=== PATIENT | female | born 1955 | race Caucasian/White ===

== ENCOUNTER 2023-04-08 10:00 | Outpatient (RCR) | payer MEDICARE, BC, SELFPAY | END 2023-08-06 23:59 | disposition home or self-care (01) | PROVIDERS: PCP Internal Medicine; Visit Provider Family Medicine | DX: N32.81 Overactive bladder (principal); N39.46 Mixed incontinence; N39.44 Nocturnal enuresis; K59.00 Constipation, unspecified; R27.9 Unspecified lack of coordination; Z51.89 Encounter for other specified aftercare | CPT/HCPCS: 97112; 97140; 97163; 97535 ==

== ENCOUNTER 2024-03-27 11:46 | Outpatient (CLI) | payer MEDICARE, BC, SELFPAY ==
--- OUTSIDE RECORDS SUMMARY | 2024-03-31 22:36 | XMS_ITS ---
Author Organization [facility] Address [address] [place] [address] Care Team Providers Care Furnace Tapper Name Role Phone Unavailable Unavailable Unavailable Surgery Details Not on file Complications Check Surgery Details section. Procedure Estimated Blood Loss Check Surgery Details section. Procedure Findings Check Surgery Details section. Procedure Specimens Taken Check Surgery Details section.
--- OUTSIDE RECORDS SUMMARY | 2024-03-31 22:36 | XMS_ITS | Encounter Summary ---
Author Organization [facility] Address [address] [place] [address] Care Team Providers Care Clinic Administrator Name Role Phone Elsewhere, Pcp Primary Care Provider Unavailabl e Reason for Visit * Auth/Cert (Routine) Specialty Diagnoses / Procedures Referred By Marco Antonio doshi Referred To Contact Diagnoses Overactive Bladder Overactive Bladder [N32.81] Procedures SACRAL NERVE STIMULATOR - STAGE II, NONRECHARGEABLE, INTERSTIM X, VS LEAD REMOVAL Referral ID Status Reason Start Date Expiration Date Visits Re quested Visits Authorized [id number] 1 1 Encounter Details Date Type Department Care Team ([facility] st Contact Info) Description 02/24/2024 8:04 AM CDT Anesthesia Event [facility] [address] [place] [address] Patrice Naidu M.D. [address] [place] [phone] Keon Nichols M.D. [address] [place] [phone] Anesthesia Record Procedure Summary Procedure Name Responsible Anesthesiologist Anesthesia Start Time Anesthesia Stop Time REMOVAL STIMULATOR SACRAL NERVE (Back) Patrice Naidu M.D. 02/24/24 0804 02/24/24 0950 Events Date Time Event Comment 02/24/2024 0738 0804 An Start Machine/Equipme nt Checked Infection Precautions Followed Procedure/Site Verified NPO Status Verified Supine Standard ASA Monitors Applied 0810 An Induction 0817 An Intubation 0822 Turnover to Proceduralist 0828 Quick Note Safely Position ed prone. 0851 Proc Start 0851 Quick Note Local injected by surgeon 0901 Anes CS Handoff I, Joshua Ugarte, OPTICAL STORE MANAGER, PRESS OPERATOR APPRENTICE, DNAP, attest that I have reconciled the controlled substances and that I have reviewed all the significant information with the next anesthesia provider assuming care of this patient. 0919 Anes CS Handoff I, Rosalie mack, OPTICAL STORE MANAGER, PRESS OPERATOR APPRENTICE, DNAP, attest that I have reconciled the controlled substances and that I have reviewed all the significant information with the next anesthesia provider assuming care of this patient. 0921 Proc Fin 0933 Turnover to ANE Staff 0938 Airway Removal Criteria Met 0938 Extubation/Airway Removed 0940 an stop data 0950 An End I completed my handoff to the receiving staff during which we 1. Identified the patient 2. Identified the responsible provider 3. Reviewed the pertinent medical history 4. Discussed the surgical course 5. Reviewed intra-op anesthesia management and issues during anesthesia 6. Set expectations for post-procedure period 7. Allowed opportunity for questions and acknowledgement of understanding. Meds Name Total fentanyl injection 50 mcg/mL 150 mcg lidocaine 2% (mg) injection 60 mg rocuronium 10 mg/mL injection 50 mg ondansetron 4 mg/2 mL injection 4 mg sugammadex 100 mg/mL injection 150 mg propofol 10 mg/mL infusion 539.98 mg propofol 10 mg/mL injection 70 mg gentamicin in NaCl 0.9 % (iso osm) IVPB 100 mg (Garamycin) 98.1 mg vancomycin in NaCl 0.9 % IVPB 1,000 mg 0 mg dexAMETHasone (Decadron) injection 4 mg/ mL 4 mg insulin aspart (NovoLOG) injection 100 U nits/mL 6 Units Lactated Ringers Free Drip 800 mL lactated ringers free drip 200 mL * Agents No agents on file. * Blood No blood administrations on file. Lines, Drains, and Airways Type Details Placement Removal Wound 02/24/24; N; Incisio n; Back; Mid, Lower; Primapore and Dermabond 02/24/24 0000 by Loli Mazariegos, RKyleNKyle Wound 02/24/24; N; Incisio n; Back; Lower, Right; Primapore and Dermabond 02/24/24 0000 by Loli Mazariegos R.N. Wound 02/10/24; N; Incisio n; Buttocks; Right, Upper; dermabond, primapore; 02/24/24; 0820; Wound healed 02/10/24 0000 by Irma Scott R.N. 02/24/24 0820 by Loli Mazariegos R.N. Wound 02/10/24; Incision; Buttocks; Left; dermabond, primapore; 02/24/24; 0820; Wound healed 02/10/24 0000 by Irma Scott R.N. 02/24/24 0820 by Loli Mazariegos R.N. Wound 02/10/24; Puncture ( with lead); Buttocks; Left, Upper; dermabond, gauze, tegaderm, mepilex; 02/24/24; 0820; Wound healed 02/10/24 0000 by Irma Scott R.N. 02/24/24 0820 by Loli Mazariegos R.N. Peripheral IV Placement Date: 02/01 11/24; Placement Time: 06; Catheter Size: 20 G; Orientation: Left, Lower, Posterior, Proximal; Location: Forearm; Site Prep: Chlorhexidine (Preferred); Technique: Anatomical landmarks; Inserted by: [facility]; Insertion Attempts: 1; Removal Date: 02/24/24; Removal Time: 11202/24/24 06 by French Rizzo 02/24/24 112 by Qian Farrell RNatasha ETT Placement Date: 02/01 11/24; Placement Time: 08 (created via procedure documentation); Mask Ventilation: Oral/Nasal airway needed; Technique: Video laryngoscopy; Type: Standard ETT; Single Lumen Tube Size: 7 mm; Cuffed: Yes; Location: Oral; Grade View: Grade 2A; Insertion Attempts: 1; Placement Verification: Bilateral breath sounds, Positive ETCO2, Symmetrical chest wall movement; Airway Comment: Glidescope used because patient Taking Ozempic. Smooth intubation without evidence of gastric contents. ; Removal Date: 02/24/24; Removal Time: 93702/24/24 0817 by Joshua Garnett APRN, CRNA, DNAZakiya 02/24/24 0938 by Joshua Garnett APRN, CRNA, DNAP Peripheral IV Placement Date: 02/01 11/24; Placement Time: 820; Catheter Size: 20 G; Orientation: Right; Location: Hand; Removal Date: 02/24/24; Removal Time: 112602/24/24 08 by Joshua Garnett APRN, CRNA, DNAP 02/24/24 112 by Qian Farrell RKyleNKyle documented in this encounter Social History Tobacco Use Types Packs/Day Years Used Date Smoking Tobacco: Never Passive Smoke Exposure: Never Smokeless Tobacco: Never Comments:Have never lived wi th smokers. Alcohol Use Standard Drinks/Week Comments Yes 2 (1 standard drink = 0.6 oz pur e alcohol) Overall Financial Resource Strain (CARDIA) Answe r Date Recorded How hard is it for you to pa y for the very basics like food, housing, medical care, and heating? Not hard at all 06/09/2023 PHQ-2 Answer Date Recorded PHQ-2 Score 0 08/31/2023 Exercise Vital Sign Answer Date Recorde d On average, how many days pe r week do you engage in moderate to strenuous exercise (like a brisk walk)? 1 day 05/28/2023 On average, how many minutes do you engage in exercise at this level? 60 min 05/28/2023 Hunger Vital Sign Answer Date Recorded Within the past 12 months, y ou worried that your food would run out before you got the money to buy more. Never true 06/09/20 23 Within the past 12 months, t he food you bought just didn't last and you didn't have money to get more. Never true 06/09/2023 PRAPARE - Transportation Answer Date Re corded In the past 12 months, has l ack of transportation kept you from medical appointments or from getting medications? No 01/2023 In the past 12 months, has l ack of transportation kept you from meetings, work, or from getting things needed for daily living? No 06/09/2023 Depression Answer Date Recor ded PHQ-9 Total Score (max 27) 2 08/31 Nutrition Answer Date Recorded On average, how many serving s of fruits and vegetables do you eat per day (serving size is equal to 1 cup or approximately the size of a tennis ball)? 3-5 05/28/2023 Dental Answer Date Recorded Dental: Regular Dentist Yes 05/28/20 Employment Answer Date Recorded Employment status Retired 05/28/2023 Housing Stability Answer Date Recorded What is your living situation today? I have a [facility] place to live 06/09/2023 Sex and Gender Information Value Date Recorded Sex Assigned at Female 05/16/2023 3:29 PM CDT Gender Identity Female 05/16/2023 3:29 PM CDT Sexual Orientation Straight 05/16/2023 3: 29 PM CDT documented as of this encounter OR Notes * Anesthesia Postprocedure Evaluation - Patrice Naidu M.D. - 02/24/2024 10:02 AM CDT Patient: Saadia Summers Procedure Summary Date: 02/24/24 Room / Location: [address] [facility] in [place], [place] Anesthesia Start: 803 Anesthesia Stop: 949 Procedure: REMOVAL STIMULATOR SACRAL NERVE (Back) Diagnosis: Overactive Bladder (Overactive Bladder [N32.81].) Providers: Israel Christianson M.D. Responsible Provider: Patrice Naidu M.D. Anesthesia Type: general ASA Status: 3 Anesthesia Type: general Last vitals Vitals Value Taken Time BP 149/80 02/24/24 1000 Temp 36.5 ??C 02/24/24 0945 Pulse 77 02/24/24 1001 Resp 11 02/24/24 1001 SpO2 95 % 02/24/24 1001 Vitals shown include unfiled device data. Please reference Vitals flowsheet for most recent vital signs. Anesthesia Post Evaluation Cardiovascular status: hemodynamics (HR & BP) acceptable Respiratory status: patent airway with spontaneous effort Temperature: normothermic Oxygen requirements: room air Level of consciousness: awake Pain score: pain adequately controlled and/or at baseline Post Op nausea/vomiting: none Hydration status: euvolemic Comments: Visited in PACU, awake, appropriate, no perianesthetic complaints. * Anesthesia Procedure Notes - Joshua Garnett APRN, CRNA, DNAP - 02/24/2024 8:35 AM CDTAssociated Order(s): Airway Airway Date/Time: 02/24/2024 8:17 AM Performed by: Joshua Garnett APRN, CRNA, DNAP Authorized by: Keon Nichols M.D. Patient location during procedure: OR / Procedure Area PROCEDURE DETAILS: Mask difficulty assessment: oral/nasal airway needed Final airway type: video laryngoscope Laryngeal Manipulation: no Final best view of glottic structures - Cormack/Lehane Score: grade 2A ETT location: oral VL device: glide scope [place] scope blade size: 3 Tube size: 7 ETT distance at teeth/gum: 21 Oral tube type: standard ETT Cuffed: yes Leak Test Performed: no Number of attempt to successful placement: 1 Airway confirmation: bilateral breath sounds, positive ETCO2 and bilateral chest rise Other previous techniques attempted: none Additional Comments Glidescope used because patient Taking Ozempic. Smooth intubation without evidence of gastric contents. PRE PROCEDURE DETAILS: Pre evaluation for airway management: procedure Urgency: elective Preop assessment of probable difficulty: questionable / suspicious difficult airway Preoxygenation: bag valve mask SEDATION / ANESTHESIA Anesthesia method: anesthesia POST PROCEDURE DETAILS: Procedure outcome: successful Notable Events: no complications * Anesthesia Preprocedure Evaluation - Keon Nichols M.D. - 02/24/2024 7:37 AM CDT Preprocedure Anesthesia & H&P Assessment Procedure Summary Date/Time: 02/24/24744 Procedure: REMOVAL STIMULATOR SACRAL NERVE Diagnosis: Overactive Bladder [N32.81] Pre-op diagnosis: Overactive Bladder [N32.81]. Location: [address] [facility] in [place], [place] Providers: Israel Christianson M.D. Pertinent components of the patient's history including current problem list, medical history, surgical history, family history, social history, medications and allergies were reviewed. Present illness and pre-op diagnosis were confirmed. The planned surgery / procedure was verified with the patient / legal guardian. The patient's general health condition remains unchanged RELEVANT COMORBID CONDITIONS CV (+) Atherosclerotic Heart Disease Of [place] Coronary Artery Without Angina Pectoris (+) Hypertension Essential Primary RENAL/REPRO (+) Chronic Kidney Disease (CKD), Stage 3a Glomerular Filtration Rate (GFR) 45 To 59 (HCC) PSYCH (+) Depression Major Recurrent Moderate (HCC) OBJECTIVE PHYSICAL EXAMINATION Airway (HEENT) Mallampati: II Cardiovascular Rhythm: Regular Pulmonary Pulmonary Assessment: Clear General / Constitutional Constitutional Assessment: Normal ASSESSMENT / PLAN ANESTHESIA PLAN ASA: 3 Anesthesia Plan: general Patient seen and allergies reviewed, anesthesia plan and risks discussed directly with patient /legal guardian or through an inletter. The use of blood products not discussed Approval to Proceed: approved for anesthesia documented in this encounter Plan of Treatment Not on file documented as of this encounter Procedures Procedure Name Priority Date/Time Associated Diagnosis Comments LDA ANE ENDOTRACHEAL AIRWAY Routine 02/24/2024 8:17 AM CDT documented in this encounter Results * LDA ANE ENDOTRACHEAL AIRWAY (02/24/2024 8:17 AM CDT) Narrative Joshua Garnett APRN, CRNA, DNAP - 02/24/2024 8:17 AM CDT Joshua Garnett APRN, CRNA, DNAP ? 02/24/2024 ??8:38 AM Airway Date/Time: 02/24/2024 8:17 AM Performed by: Joshua Garnett APRN, CRNA, DNAP Authorized by: Keon Nichols M.D. ?? Patient location during procedure: OR / Procedure Area PROCEDURE DETAILS: Mask difficulty assessment: oral/nasal airway needed Final airway type: video laryngoscope Laryngeal Manipulation: no ?? Final best view of glottic structures - Cormack/Lehane Score: grade 2A ETT location: oral VL device: glide scope [place] scope blade size: 3 Tube size: 7 ETT distance at teeth/gum: 21 Oral tube type: standard ETT Cuffed: yes Leak Test Performed: no ?? Number of attempt to successful placement: 1 Airway confirmation: bilateral breath sounds, positive ETCO2 and bilateral chest rise Other previous techniques attempted: none Additional Comments Glidescope used because patient Taking Ozempic. Smooth intubation without evidence of gastric contents. ?? PRE PROCEDURE DETAILS: Pre evaluation for airway management: procedure Urgency: elective Preop assessment of probable difficulty: questionable / suspicious difficult airway Preoxygenation: bag valve mask SEDATION / ANESTHESIA Anesthesia method: anesthesia POST PROCEDURE DETAILS: ? Procedure outcome: successful ?? Notable Events: no complications Keon Nichols M.D. ANESTHESIA ORDERA BLES documented in this encounter Visit Diagnoses Not on filedocumented in this encounter Administered Medications Inactive Administered Medications - up to 3 most recent administrations Medication Order MAR Action Action Date Dose Rate Site dexAMETHasone injection (Decadron) intravenous, As needed, Starting on Thu02/24/24 at 0841, Anesthesia Intra-op Given 02/24/2024 8:41 AM CDT 4 mg fentaNYL injection (Sublimaze) intravenous, As needed, Starting on Thu02/24/24 at 0811, Anesthesia Intra-op Given 02/24/2024 8:51 AM CDT 50 mcg Given 02/24/2024 8:11 AM CDT 100 mcg gentamicin in NaCl 0.9 % (iso osm) IVPB 100 mg (Garamycin) 100 mg (rounded from 98.1 mg = 1.5 mg/kg ? 65.4 kg Adjusted weight), intravenous, at 100 mL/hr, Administer over 30 Minutes, Once, On Thu02/24/24 at 0815, For 1 dose, Pre-Op, Drug Monitoring Program: Pharmacist to adjust medication dosing based on indication and drug clearance factors., Indications: Prophylaxis, surgical Given 02/24/2024 8:33 AM CDT [id number] 09 mg insulin aspart U-100 injection (NovoLOG) subcutaneous, As needed, Starting on Thu02/24/24 at 0924, Anesthesia Intra-op Given 02/24/2024 9:24 AM CDT 6 Units Lactated Ringer's intravenous, Continuous Infusion: Per Instructions PRN, Starting on Thu02/24/24 at 0805, Anesthesia Intra-op New Bag 02/24/2024 8:05 AM CDT Lactated Ringer's intravenous, Continuous Infusion: Per Instructions PRN, Starting on Thu02/24/24 at 0821, Anesthesia Intra-op New Bag 02/24/2024 8:21 AM CDT lidocaine (PF) (cardiac) injection intravenous, As needed, Starting on Thu02/24/24 at 0811, Anesthesia Intra-op Given 02/24/2024 8:11 AM CDT 60 mg ondansetron (PF) injection (Zofran) intravenous, As needed, Starting on Thu02/24/24 at 0905, Anesthesia Intra-op Given 02/24/2024 9:05 AM CDT 4 mg propofol 10 mg/mL infusion (Diprivan) intravenous, Continuous Infusion: Per Instructions PRN, Starting on Thu02/24/24 at 0811, Anesthesia Intra-op Rate/Dose Change 02/24/2024 9:10 AM CDT 75 mcg/kg/min 31.455 mL/hr Rate/Dose Change 02/24/2024 8:54 AM CDT 100 mcg/kg/min 41. 94 mL/hr New Bag 02/24/2024 8:11 AM CDT 125 mcg/kg/min 52.425 mL /hr propofoL injection (Diprivan) intravenous, As needed, Starting on Thu02/24/24 at 0812, Anesthesia Intra-op Given 02/24/2024 8:12 AM CDT 70 mg rocuronium injection (Zemuron) intravenous, As needed, Starting on Thu02/24/24 at 0812, Anesthesia Intra-op Given 02/24/2024 8:12 AM CDT 50 mg sugammadex injection ([place]) intravenous, As needed, Starting on Thu02/24/24 at 0933, Anesthesia Intra-op Given 02/24/2024 9:33 AM CDT 150 mg documented in this encounter Additional Health Concerns Assessment Noted Time PHQ-9 Depression Total Score: 2 08/31/19 24 2:23 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
--- OUTSIDE RECORDS SUMMARY | 2024-03-31 22:36 | XMS_ITS | Clinical Summary ---
Author Organization [facility] Address [address] [place] [address] Care Team Providers Care Title Vehicle Service Attendant Name Role Phone Elsewhere, Pcp Primary Care Provider Unavailabl e Source Comments Patient records contain information from all sites at [facility]. For routine questions regarding patient records, call [phone] during business hours, M-F 8:00 AM - 5:00 PM Central Time. Record requests for emergency care only can be directed to [phone] at any time.[facility] Allergies Active Allergy Reactions Criticality Noted Date Comments Ciprofloxacin Other (see comments) High 05/18/2015 Loss sense of smell Other reaction(s): LOST HER SENSE OF SMELL Clindamycin Rash Low 09/25/2005 Rash per patient history Lisinopril Cough Low 05/19/2017 Other reaction(s): COUGH Losartan Angioedema 05/20/2017 Naproxen Other (see comments) Low 01/18/2015 Feels light-headed and icky. Other reaction(s): LIGHTHEADED Medications Medication Sig Dispensed Refills Start Date End Date Status kumnhikx-lsu-gjil- FA-vit K-lut (Centrum Silver Women) 8 mg iron-400 mcg-50 mcg tablet Take 1 tablet by mouth daily. Active amLODIPine (NORVASC) 2.5 mg tablet Take 2.5 mg by mouth daily. Active atenoloL (TENORMIN) 50 mg tablet Take 1 tablet by mouth 2 (two) times a day. 10/02/2022 Active atorvastatin (LIPITOR) 20 mg tablet Take 1 tablet by mouth daily. 10/02/2022 Active clonazePAM (KlonoPIN) 0.5 mg tablet Take 0.5 mg by mouth daily as needed for anxiety. Active DULoxetine (CYMBALTA) [address] capsule Take 30 mg by mouth at bedtime. 10/02/2022 Active DULoxetine (CYMBALTA) [address] capsule Take 60 mg by mouth daily. Daily in the AM 10/02/2022 Activ e Lactobac 40-Bifido 3-S.thermop (Probiotic) 100 billion cell capsule Take 1 tablet by mouth daily. Active mirabegron (MYRBETRIQ) 50 mg 24 hr tablet Take 1 tablet by mouth daily. Active polyethylene glycol (MIRALAX) 17 gram/dose oral powder Take 17 g by mouth daily. Active senna 8.6 mg tablet Take 2 tablets by mouth 2 (two) times a day. Active cholecalciferol (Vitamin D3) 50 mcg (2,000 Unit) tablet Take 50 mcg by mouth daily. Active estradioL (ESTRACE) 0.1 mg/g (0.01%) vaginal cream Insert 2 g into the vagina 2 (two) times a week. 02/11/2023 Active UNABLE TO FIND Take 1 each by mouth daily. Med Name: Uqora Defend Active UNABLE TO FIND Take 2 each by mouth daily. Med Name: U[place]ora Protect Active UNABLE TO FIND Take 2 each by mouth once a week. Med Name: Uqora Flush packets Active amoxicillin (AMOXIL) 500 mg capsule Take 2,000 mg by mouth as needed (dental procedures). Take 4 capsules 1 hour prior to dental procedures Active calcium carb/vit D3/minerals (CALTRATE 600+D PLUS MINERALS ORAL) Take 1 tablet by mouth 2 (two) times a day. Active semaglutide (OZEMPIC) 1 mg/dose (4 mg/3 mL) injection Inject 1 mg under the skin every 7 (seven) days. 3 mL 11 06/04/2023 Active trazodone HCl (TRAZODONE ORAL) Take 50 mg by mouth at bedtime. Active fish oil 500 mg capsule Take 3 capsules by mouth daily. Active cyclobenzaprine (FLEXERIL) 10 mg tablet TAKE 1 TABLET (10 MG) BY MOUTH 3 TIMES DAILY IF NEEDED FOR MUSCLE SPASM. 06/13/2022 Active glipiZIDE (GLUCOTROL) 10 mg tablet Take 10 mg by mouth daily. Take 1 Tablet (10 mg) by mouth once daily before a meal. Take 30 minutes before the meal. 10/27/2023 Active blood-glucose meter (Contour Next EZ Meter) [facility] See Admin Instructions. Active blood sugar diagnostic strips (Contour Next Test Strips) TEST 2 TIMES/DAY. Active BIOTIN ORAL Take 2,500 mcg by mouth daily. 11/02/2023 Active aspirin 325 mg tablet Take 1 tablet (325 mg total) by mouth daily. You may restart your anticoagulation 24 hours after your procedure 02/10/2024 Active acetaminophen (TylenoL) 500 mg tablet Take 2 tablets (1,000 mg total) by mouth every 6 (six) hours as needed for pain. Alternate with ibuprofen every 3 hours. Do not exceed 4000 mg or 4 g in 24 hours. 02/10/2024 Active ibuprofen 200 mg tablet Take 3 tablets (600 mg total) by mouth every 6 (six) hours as needed for pain. Alternate with acetaminophen every 3 hours. 02/10/2024 Active sennosides-docusat e sodium (Senokot-S) 8.6-50 mg per tablet Take 1 tablet by mouth 2 (two) times a day as needed for constipation. While on narcotics. 02/10/2024 Active acetaminophen (TylenoL) 500 mg tablet Take 2 tablets (1,000 mg total) by mouth every 6 (six) hours as needed for pain. Alternate with ibuprofen every 3 hours. Do not exceed 4000 mg or 4 g in 24 hours. 02/24/2024 Active ibuprofen 200 mg tablet Take 3 tablets (600 mg total) by mouth every 6 (six) hours as needed for pain. Alternate with acetaminophen every 3 hours. 02/24/2024 Active Active Problems Problem Noted Date Diagnosed Date Diabetes Mellitus Type 2 06/02/2023 Constipation 06/02/2023 Incontinence Urinary 06/02/2023 Infection Urinary Tract Personal History 023 Autonomic Disorder 06/02/2023 Hypotension 06/02/2023 Chronic Kidney Disease (CKD) , Stage 3a Glomerular Filtration Rate (GFR) 45 To 59 06/02/2023 Dysfunction Pelvic Floor 06/02/2023 Overactive Bladder 04/22/2022 Chronic Insomnia Disorder 08/19/2018 Depression Major Recurrent Moderate 03/18/2018 Anxiety 01/07/2018 Apnea Sleep Obstructive 01/01/2017 Atherosclerotic Heart Diseas e Of [place] Coronary Artery Without Angina Pectoris 07/08/2015 Loss Hearing Sensorineural Bilateral 10/14/2012 Adjustment Disorder Mixed Reaction 06/21/2007 Hypertension Essential Primary 11/25/2006 Encounters Date Type Department Care Team Description 03/04/2024 Clinical Communication Department of Obstetrics and Gynecology in [place], [place] [address] [place] [address] Gio Sol R.N., C.M.S.R.N. 02/24/2024 8:04 AM CDT Anesthesia Event [facility] MAIN OR [address] [place] [address] Patrice Naidu M.D. Vasdev, Gurinder M, M.D. 02/24/2024 7:45 AM CDT - 02/24/2024 9:54 AM CDT Surgery [facility] [address] [place] [address] Israel Christianson M.D. REMOVAL STIMULATOR SACRAL NERVE 02/24/2024 6:08 AM CDT - 02/24/2024 11:31 AM CDT Hospital Encounter Outpatient Surgery Unit in [place], [place] [address] [place] [address] Israel Christianson M.D. Discharge Disposition: Home or Self Care 02/17/2024 Clinical Communication Department of Obstetrics and Gynecology in [place], [place] [address] [place] [address] Gio Sol R.N., C.M.S.R.N. 02/10/2024 7:44 AM CDT Anesthesia Event Outpatient Procedure Center in [place], [place] [address] [place] [address] Edita Mancuso APRN, MARCO A 02/10/2024 7:30 AM CDT - 02/10/2024 10:00 AM CDT Surgery [facility] in [place], [place] [address] [place] [address] Israel Christianson M.D. SACRAL NERVE STIMULATOR, STAGE I, NONRECHARGEABLE. 02/10/2024 6:30 AM CDT - 02/10/2024 12:02 PM CDT Hospital Encounter Outpatient Procedure Center in [address] [address] Israel Christianson M.D. Discharge Disposition: Home or Self Care 02/01/2024 11:21 AM CDT - 02/01/2024 11:59 PM CDT Hospital Encounter Department of Laboratory Medicine and Pathology, [facility] in [address] [address] Israel Christianson M.D. Preoperative Exam; Preprocedural Lab Exam Discharge Disposition: Home or Self Care 02/01/2024 10:30 AM CDT Comprehensive Visit Preoperative Evaluation Center in [address] [address] Israel Christianson M.D. Belch, Lisa M, RHIANNON, C.N.P., M.S.N. Preoperative Exam (Primary Dx); Incontinence Urinary; Hypertension Essential Primary; Atherosclerotic Heart Disease Of [place] Coronary Artery Without Angina Pectoris; Hyperlipidemia; Diabetes Mellitus Type 2 ([facility]); Apnea Sleep Obstructive; Chronic Kidney Disease (CKD), Stage 3a Glomerular Filtration Rate (GFR) 45 To 59 ([facility]); Adjustment Disorder Mixed Reaction; Depression Major Recurrent Moderate ([facility]) 01/29/2024 1:00 PM CDT Clinical Communication Virtual Review in [address] [address] Pre-visit Intake 12/31/2023 11:30 AM CDT Office Visit Department of Obstetrics and Gynecology, Division of Urogynecology in [address] [address] Israel Christianson M.D. Incontinence Urinary from Last 3 Months Immunizations Name Administration Dates Next Due DT, Pediatric 09/12/1985,05/10/1979 DTaP (Infanrix, Tripedia) 09/18/2008 H1N1 Inj 06/03/2009 H1N1 Inj Preservative Free 08/10/2009 HZV (ZOSTAVAX) 01/10/2014 HepA Adult 03/31/2001,09/10/2000 HepB Adult 03/31/2001,10/15/2000,09/10/2000 Influenza (IM) Preservative Free 04/18/2010 Influenza TIV (IM) 05/06/2019,06/09/2007 Influenza high dose QV(65 ye ars or older) (PF) 04/14/2021 Influenza, Quadrivalent, Adj uvanted, Preservative Free 05/01/2023,04/16/2022,05/03/2020 Influenza, Seasonal, Injectable 05/07/20 14,05/19/2012,05/16/2011,2006 Influenza, Unspecified 06/09/2007 JE-VC (IXIARO) 07/08/2022 PCV13 05/06/2019 PPSV23 2020 RSV: respiratory syncytial v irus (AREXVY) recombinant vaccine 04/04/2023 RZV (SHINGRIX) 07/13/2018,05/13/2018 SARS-COV-2 (COVID-19) - MODERNA(Discontinued) 09/16/2020 Td (Adult), adsorbed 12/01/2018,08/21/1992 Tdap 09/18/2008 TyVi (inj) 07/08/2022 influenza vaccine quad (FLUZONE/FLUARIX) (6 months and older)(PF) 04/20/2018,05/19/2017,04/18/2016,2014,08/10/2009 Family History Medical History Relation Name Comments Coronary artery disease Father V. Khadar Chaudhary byp ass, heart attack, of myocardial infarction Hyperlipidemia Father V. Khadar Chaudhary Hypertension Father V. Khadar Chaudhary Coronary artery disease Father's Brother 1 Jr Chaudhary of sudden heart attack Coronary artery disease Father's Brother 2 Oz Chaudhary stents Dementia Father's Brother 2 Oz Chaudhary Colon cancer Father's Sister 1 Cynthia Cortezheimer Coronary artery disease Father's Sister 2 Jaja Wenl und stents Dementia Father's Sister 2 Jaja Wenlund Coronary artery disease Father's Sister 3 Brandy Chaudhary of heart attack Hypertension Father's Sister 4 Nicky Pulliam Dementia Father's Sister 5 Malena Ordonezzel Lung cancer Maternal Grandfather Tenzin Boudreaux Obesity Maternal Grandmother Roshni Boudreaux Anxiety disorder Mother Edna Chaudhary Breast cancer Mother Edna Chaudhary of breas t/ovarian cancer 10 years after first diagnosis Colon polyps Mother Ednasalvador Chaudhary Depression Mother Edna Chaudhary Diabetes Mother Edna Chaudhary Type II Hypertension Mother Edna Chaudhary Ovarian cancer Mother Edna Chaudhary Skin cancer Mother Edna Chaudhary squamous cell Thyroid disease Mother Edna Chaudhary took thyroi d medication Skin cancer Mother's Brother Luis Eduardo Boudreaux Skin cancer Mother's Sister 1 Brianna Badillo squamous Diabetes Mother's Sister 2 Mary Jane Gomez Obesity Mother's Sister 2 Mary Jane Gomez Alcohol abuse Paternal Grandfather Micah Chaudhary Asthma Sister 1 Peyton Holmquest Osteoporosis Sister 1 Peyton Holmquest Skin cancer Sister 1 Peyton Holmquest Basal cell Thyroid disease Sister 1 Peyton Holmquest Hernan s disease Thyroid disease Sister 2 Donna Galeano tkes synt hroid Relation Name Status Comments Father VKyle Chaudhary Father's Brother 1 Jr Chaudhary Father's Brother 2 Oz Chaudhary Father's Sister 1 Cynthia Dexheimer Father's Sister 2 Jaja Wenlund Father's Sister 3 Brandy Aguilerae Father's Sister 4 Nicky Pulliam Father's Sister 5 Malena Cuellar Maternal Grandfather Tenzin Boudreaux Maternal Grandmother Roshni Boudreaux Mother Edna Chaudhary Mother's Brother Luis Eduardo Boudreaux Mother's Sister 1 Brianna Badillo Mother's Sister 2 Mary Jane Gomez Paternal Grandfather Micah Chaudhary Sister 1 Peyton Holmquest Sister 2 Donna Galeano Social History Tobacco Use Types Packs/Day Years Used Date Smoking Tobacco: Never Passive Smoke Exposure: Never Smokeless Tobacco: Never Tobacco Cessation:Counseling Given: Not Answered Comments:Have never lived with smokers. Alcohol Use Standard Drinks/Week Comments Yes [...] money to buy more. Never true 06/09/20 Within the past 12 months, t he [...] your living situation today? I have a [facility] place to live 06/09/2023 Sex and Gender Information Value Date Recorded Sex Assigned at Female 05/16/2023 3:29 PM CDT Gender Identity Female 05/16/2023 3:29 PM CDT Sexual Orientation Straight 05/16/2023 3: 29 PM CDT Last Filed Vital Signs Vital Sign Reading Time Taken Comments Blood Pressure 135/78 02/24/2024 11:00 AM CDT Pulse 74 02/24/2024 10:40 AM CDT Temperature 36.3 ??C (97.3 ??F) 02/24/2024 10:40 AM C DT Respiratory Rate 14 02/24/2024 10:40 AM CDT Oxygen Saturation 93% 02/24/2024 10:40 AM CDT Inhaled Oxygen Concentration - - Weight 69.9 kg (154 lb 1.6 oz) 02/24/2024 6:57 A M CDT Height 167 cm (5' 5.75) 02/24/2024 6:57 AM CDT Body Mass Index 25.06 02/24/2024 6:57 AM CDT Plan of Treatment Health Maintenance Due Date Last Done Comments Bone Density Scan (Osteoporo sis Screen) 1953 CT Colonography 1955 Cologuard 1955 Diabetic Office Visit with F oot Exam 1955 Dilated Eye Exam 1955 Hepatitis C Screening 1955 Depression Monitoring (PHQ-9) 12/30/2023 08/31/2023 COVID-19 Vaccine (2022-2 4 season) 2024 10/19/2023, 04/24/2023, 04/24/2023, Additional history exists Influenza Vaccine (#1) 2024 , 04/16/2022, 04/14/2021, Additional history exists Urine Albumin 06/03/2024 06/03/2023 Hemoglobin A1C 08/03/2024 02/01/2024, 06/0 02/2024, 09/15/2023, Additional history exists Creatinine Level (Kidney Fun ction Test) 01/31/2025 02/01/2024, 01/08/2024, 06/03/2023, Additional history exists Office Visit for Blood Press ure Check / Re-check 01/31/2025 02/01/2024 Mammogram 03/07/2025 03/07/2024, 08/0 12/2023, 02/24/2023, Additional history exists Colonoscopy 04/09/2027 04/09/2022, 01/31/2015 Colorectal Cancer Surveillance 04/09/2027 DTaP,Tdap,and Td Vaccines (7 - Td or Tdap) 12/01/2028 12/01/2018, 09/18/2008, 09/18/2008, Additional history exists Lipid (Cholesterol) Screening 01/07/2029, 06/03/2023, 05/01/2023, Additional history exists Hepatitis A Vaccines Completed 03/31/2001, 09/10/19 Hepatitis B Vaccines Completed 03/31/2001, 10/15/2000, 09/10/2000 Zoster Vaccines Completed 07/13/2018, 05/03, 01/10/2014 Pneumococcal vaccine (65+ years) Completed 05/30/20 20, 05/06/2019 RSV vaccine - (32-3 6 weeks) or 60+ years Completed 04/04/2023 Fall Risk Screen (Annual) Completed 02/24/2024 Medical Devices Implanted Type Area Dinkey Engine Operator Device Identifier Shelf Expiration Date Model / Serial / Lot Hip Implant Hip Implant Right: Hip Explanted Type Area Dinkey Engine Operator Device Identifier Shelf Expiration Date Model / Serial / Lot Ext Lead Nrstm Perq - [id number] Implanted:Qty : 1 on 02/10/2024 by [facility] Ex[facility]ed:Qty : 1 on 02/24/2024 by Israel Christianson M.D. at [facility] Sacral Nerve Stimulator N/A: Sacrum Medtronic 11/21/2024 [id number] / / [id number] Kt Lead Nrstm Int Srs Perq - [id number] Implanted:Qty : 1 on 02/10/2024 by Israel Christians[facility] M.D. at [facility] Explanted:Qty : 1 on 02/24/2024 by Israel Christianson M.D. at [facility] Sacral Nerve Stimulator N/A: Sacrum Medtronic 01/27/2025 [id number] / / [id number] Procedures Procedure Name Priority Date/Time Associated Diagnosis Comments ADULT OXYGEN THERAPY Routine 02/24/2024 9:52 AM CDT GLUCOSE POCT, B Routine 02/24/2024 9:17 AM CDT LDA ANE ENDOTRACHEAL AIRWAY Routine 02/24/2024 8:17 AM CDT REMOVAL STIMULATOR SACRAL NERVE 02/24/2024 7:49 AM CDT Overactive Bladder Case Notes Pre op [facility] 250. GLUCOSE POCT, B Routine 02/24/2024 6:57 AM CDT FL FLUORO LESS THAN 1 HOUR RAD - Routine (most inpatients and all outpatients) 02/10/2024 10:05 AM CDT LDA ANE ENDOTRACHEAL AIRWAY Routine 02/10/2024 7:53 AM CDT SACRAL NERVE STIMULATOR - STAGE I 02/10/2024 7:29 AM CDT Overactive Bladder Case Notes THERON 02/01/24 Special Needs Meghan primary BASIC METABOLIC PANEL, S/P Routine 02/01/2024 11:30 AM CDT Preoperative Exam Preprocedural Lab Exam HEMOGLOBIN A1C, B Routine 02/01/2024 11: 29 AM CDT Preoperative Exam Preprocedural Lab Exam CBC WITHOUT DIFFERENTIAL, B Routine 02/01/2024 11:29 AM CDT Preoperative Exam Preprocedural Lab Exam ECG Routine 02/01/2024 11:09 AM CDT Preoperative Exam Diabetes Mellitus Type 2 (HCC) Hypertension Essential Primary ALBUMIN, RANDOM, U Routine 06/03/2023 8: 24 AM CDT Diabetes Mellitus Type 2 (HCC) Constipation Incontinence Urinary Infection Urinary Tract Personal History Dysfunction Pelvic Floor Autonomic Disorder Chronic Kidney Disease (CKD), Stage 3a Glomerular Filtration Rate (GFR) 45 To 59 (HCC) Hypotension LIPID PANEL, S Routine 06/03/2023 8:17 AM CDT Diabetes Mellitus Type 2 (HCC) Constipation Incontinence Urinary Infection Urinary Tract Personal History Dysfunction Pelvic Floor Autonomic Disorder Chronic Kidney Disease (CKD), Stage 3a Glomerular Filtration Rate (GFR) 45 To 59 (HCC) Hypotension OUTSIDE MG MAMMOGRAM Routine 02/24/2023 10:45 AM CDT from Last 3 Months or Most Recently Relevant to Health Maintenance Results * (ABNORMAL) Glucose, POCT (02/24/2024 9:17 AM CDT) Only the most recent of2 resultswithin the time period is included. Glucose, POCT, B 241(H) 70 - 140 mg/dL 02/24/2024 9:19 AM CDT PCDE Site Capillary 02/24/2024 9:19 AM CDT PCDE Blood 02/24/2024 9:17 AM CDT 02/24/2024 9:19 AM CDT Unknown Provider LAB POCT ORDERABLES- MANUAL POC [facility] [address] [place] [address], [place] PCDE [facility] [place] POC [address] [place] [address] * LDA ANE ENDOTRACHEAL AIRWAY (02/24/2024 8:17 AM CDT) Narrative Joshua Garnett APRN, MARCO A, DNAP - 02/24/2024 8:17 AM CDT Joshua [...] ETT location: oral VL device: glide scope [place] scope blade size: 3 Tube size: 7 [...] complications Keon Nichols M.D. ANESTHESIA ORDERA BLES * FL Fluoro Less Than 1 Hour (02/10/2024 10:05 AM CDT) Narrative [id number] - 02/10/2024 10:05 AM CDT This exam does not require a radiologist review or interpretation. Please refer to the patient's medical record on this date for clinical details. Israel Christianson M.D. IMG FLUOROSCOPY PROC EDURES [id number] NA * LDA ANE ENDOTRACHEAL AIRWAY (02/10/2024 7:53 AM CDT) Narrative Edita Mancuso APRN, CRNA - 02/10/2024 7:53 AM CDT Edita Mancuso APRN, CRNA ? 02/10/2024 ??8:14 AM Airway Date/Time: 02/10/2024 7:53 AM Performed by: Edita Mancuso APRN, CRNA Authorized by: Edita Mancuso APRN, CRNA ?? Patient location during procedure: OR / Procedure Area PROCEDURE DETAILS: Mask difficulty assessment: easy mask Final airway type: direct laryngoscopy, intubation Laryngeal Manipulation: no ?? Final airway difficulty of direct laryngoscopy (DL): 0-easy Final best view of glottic structures - Cormack/Lehane Score: grade 2A ETT location: oral Blade type: Scruggs 2 Tube size: 7 ETT distance at teeth/gum: 21 Oral tube type: standard ETT Cuffed: yes Number of attempt to successful placement: 1 Airway confirmation: bilateral breath sounds, positive ETCO2 and bilateral chest rise Other previous techniques attempted: none PRE PROCEDURE DETAILS: Pre evaluation for airway management: procedure Urgency: elective Preop assessment of probable difficulty: no difficulty anticipated Preoxygenation: bag valve mask SEDATION / ANESTHESIA Anesthesia method: anesthesia POST PROCEDURE DETAILS: ? Procedure outcome: successful ?? Edita Mancuso APRN, CRNA ANESTHESIA BETITO DRUMMOND * (ABNORMAL) Basic Metabolic Panel (02/01/2024 11:30 AM CDT) Potassium, S 4.5 3.6 - 5.2 mmol/L 02/01/2024 12:28 PM CDT DTL Sodium, S 139 135 - 145 mmol/L 02/01/2024 12:28 PM CDT DTL Chloride, S 102 98 - 107 mmol/L 02/01/2024 12:28 PM CDT DTL Bicarbonate, S 31(H) 22 - 29 mmol/L 02/01/2024 12:28 PM CDT DTL Anion Gap 6(L) 7 - 15 02/01/2024 12:28 PM CDT DTL BUN (Blood Urea Nitrogen), S 19 6 - 21 mg/dL 02/01/2024 12:28 PM CDT DTL Creatinine 1.02 0.59 - 1.04 mg/dL 02/01/2024 12:28 PM CDT DTL Estimated GFR (eGFR) 59(L) >=60 mL/min/BSA 02/01/2024 12:28 PM CDT DTL Comment: Estimated GFR calculated using the 2020 CKD_EPI creatinine equation. Calcium, Total, S 9.6 8.8 - 10.2 mg/dL 02/01/2024 12:28 PM CDT DTL Glucose, S 178(H) 70 - 140 mg/dL 02/01/2024 12:28 PM CDT DTL Blood (Blood, Venous) 02/01/2024 11:30 AM CDT 02/01/2024 12:09 PM CDT Israel Christianson M.D. LAB BLOOD ADD-ON [facility] [place] [address] [place] [address], [facility] [place] [address] * (ABNORMAL) CBC without Differential (02/01/2024 11:29 AM CDT) Hemoglobin 13.3 11.6 - 15.0 g/dL 02/01/2024 12:06 PM CDT DTL Hematocrit 39.5 35.5 - 44.9 % 02/01/2024 12:06 PM CDT DTL Erythrocytes 3.93 3.92 - 5.13 x10(12)/L 02/01/2024 12:06 PM CDT DTL MCV 100.5(H) 78.2 - 97.9 fL 02/01/2024 12:06 PM CDT DTL RBC Distrib Width 12.3 12.2 - 16.1 % 02/01/2024 12:06 PM CDT DTL Platelet Count 155(L) 157 - 371 x10(9)/L 02/01/2024 12:06 PM CDT DTL Leukocytes 4.6 3.4 - 9.6 x10(9)/L 02/01/2024 12:06 PM CDT DTL Blood (Blood, Venous) 02/01/2024 11:29 AM CDT 02/01/2024 11:53 AM CDT Israel Christianson M.D. LAB BLOOD ADD-ON Performing Organization Address City/[facility] Co de Phone Number [facility] [place] [address] [place] [address] * (ABNORMAL) Hemoglobin A1c (02/01/2024 11:29 AM CDT) Hemoglobin A1c, B 6.3(H) 4.0 - 5.6 % 02/01/2024 12:32 PM CDT DTL Comment: Hemoglobin A1c values of 5.7-6.4 percent indicate an increased risk for developing diabetes mellitus. In diabetic patients, HbA1c goals should be discussed with healthcare provider. Blood (Blood, Venous) 02/01/2024 11:29 AM CDT 02/01/2024 11:53 AM CDT Israel Christianson M.D. LAB BLOOD ADD-ON [facility] [place] [address] [place], [place] [address] [address] [place] [address] * ECG 12 Lead (02/01/2024 11:09 AM CDT) Ventricular Rate ECG/Min 70 BPM MUSE ID Interval 194 ms MUSE QRSD Interval 94 ms MUSE QT Interval 402 ms MUSE QTC Interval 434 ms MUSE P [place] 66 degrees MUSE R [place] 38 degrees MUSE T Wave [place] 12 degrees MUSE 02/01/2024 11:0 9 AM CDT 02/01/2024 11:47 AM CDT Impressions MUSE - 02/01/2024 11:24 AM CDT Normal sinus rhythm Low anterior forces ST elevation in Anteroseptal leads Nonspecific ST abnormality No previous ECGs available Reviewed by ABUNDIO Chi Narrative Procedure Note Travis Odell M.D. - 02/01/2024 IMPRESSION: Normal sinus rhythm Low anterior forces ST elevation in Anteroseptal leads Nonspecific ST abnormality No previous ECGs available Reviewed by ABUNDIO Chi Sadie Wilks APRN C.N.P., M.S.N. ECG OR DERABLES Performing Organization Address [facility] Co de Phone Number MUSE NA * Albumin, Random, Urine (06/03/2023 8:24 AM CDT) Albumin, Random, U 12.3 mg/L 2022 12:58 PM CDT DTL Comment: ----ADDITIONAL INFORMATION---- This test has been modified from the fuel cell test engineer's instructions. Its performance characteristics were determined by [facility] in a manner consistent with CLIA requirements. This test has not been cleared or approved by the U.S. Food and Drug Administration. Creatinine 176 mg/dL 06/03/2023 11:16 AM CDT DTL Albumin/Creatinine Ratio 7 <25 mg/g 06/03/2023 12:58 PM CDT DTL Urine (Urine, Midstream) 06/03/2023 8:24 AM CDT 06/03/2023 10:22 AM CDT Karyna Browne M.D. LAB URINE ORDERABLE S Performing Organization Address City/[facility] Co de Phone Number [facility] [address] [place] [address], [facility] DTL [facility] [address] [place] [address] from Last 3 Months or Most Recently Relevant to Health Maintenance Advance Directives For more information, please contact: [phone] Documents on File Type Date Recorded Patient Computer Aided Design Technician Expl anation Advance Directives 02/24/2024 6:25 AM Micah Summers HCPOA/ADVOCATE/AGENT/R EPRESENTATIVE/SURROGAT E Healthcare Agents on File Name Relationship Healthcare Agent Relationship Communication Micah Summers Spouse Health Care Agent [email or web address] Matt Summers Child [facility] Alternate Health Care Agent [email or web address] Care Teams Title Vehicle Service Attendant Relationship Specialty Start Date End Date Elsewhere, Pcp PCP - General Internal Medicine 01/29/24
--- OUTSIDE RECORDS SUMMARY | 2024-03-31 22:36 | XMS_ITS | Encounter Summary ---
Author Organization [facility] Address [address] [place] [address] Care Team Providers Care Gardening Supervisor Name Role Phone Elsewhere, Pcp Primary Care Provider Unavailabl e Reason for Visit * Auth/Cert (Routine) Specialty Diagnoses / Procedures Referred By Marco Antonio doshi Referred To Contact Diagnoses Overactive Bladder Overactive Bladder [N32.81] Procedures SACRAL NERVE STIMULATOR - STAGE II, NONRECHARGEABLE, INTERSTIM X, VS LEAD REMOVAL Referral ID Status Reason Start Date Expiration Date Visits Re quested Visits Authorized [id number] 1 1 Encounter Details Date Type Department Care Team ([facility] Contact Info) Description 02/24/2024 7:45 AM CDT - 02/24/2024 9:54 AM CDT Surgery [facility] [address] [place] [address] Israel Christianson M.D. [address] [place] [id number] REMOVAL STIMULATOR SACRAL NERVE Social History Tobacco Use Types Packs/Day Years [...] your living situation today? I have a [facility] place to live 06/09/2023 Sex and Gender Information Value Date Recorded Sex Assigned at Female 05/16/2023 3:29 PM CDT Gender Identity Female 05/16/2023 3:29 PM CDT Sexual Orientation Straight 05/16/2023 3: 29 PM CDT documented as of this encounter Last Filed Vital Signs Vital Sign Reading Time Taken Comments Blood Pressure 155/82 02/24/2024 9:45 AM CDT Pulse 76 02/24/2024 9:45 AM CDT Temperature 36.5 ??C (97.7 ??F) 02/24/2024 9:45 AM CD T Respiratory Rate 9 02/24/2024 9:45 AM CDT Oxygen Saturation 96% 02/24/2024 9:45 AM CDT Inhaled Oxygen Concentration - - Weight 69.9 kg (154 lb 1.6 oz) 02/24/2024 6:57 A M CDT Height 167 cm (5' 5.75) 02/24/2024 6:57 AM CDT Body Mass Index 25.06 02/24/2024 6:57 AM CDT documented in this encounter Medications at Time of Discharge Medication Sig Dispensed Refills Start Date End Date amLODIPine (NORVASC) 2.5 mg tablet Take 2.5 mg by mouth daily. amoxicillin (AMOXIL) 500 mg capsule Take 2,000 mg by mouth as needed (dental procedures). Take 4 capsules 1 hour prior to dental procedures atenoloL (TENORMIN) 50 mg tablet Take 1 tablet by mouth 2 (two) times a day. 10/02/2022 atorvastatin (LIPITOR) 20 mg tablet Take 1 tablet by mouth daily. 10/02/2022 BIOTIN ORAL Take 2,500 mcg by mouth daily. 11/02/2023 blood sugar diagnostic strips (Contour Next Test Strips) TEST 2 TIMES/DAY. blood-glucose meter (Contour Next EZ Meter) [facility] [place] See Admin Instructions. calcium carb/vit D3/minerals (CALTRATE 600+D PLUS MINERALS ORAL) Take 1 tablet by mouth 2 (two) times a day. cholecalciferol (Vitamin D3) 50 mcg (2,000 Unit) tablet Take 50 mcg by mouth daily. cyclobenzaprine (FLEXERIL) 10 mg tablet TAKE 1 TABLET (10 MG) BY MOUTH 3 TIMES DAILY IF NEEDED FOR MUSCLE SPASM. 06/13/2022 DULoxetine (CYMBALTA) [address] capsule Take 30 mg by mouth at bedtime. 10/02/2022 DULoxetine (CYMBALTA) [address] capsule Take 60 mg by mouth daily. Daily in the AM 10/02/2022 estradioL (ESTRACE) 0.1 mg/g (0.01%) vaginal cream Insert 2 g into the vagina 2 (two) times a week. 02/11/2023 fish oil 500 mg capsule Take 3 capsules by mouth daily. glipiZIDE (GLUCOTROL) 10 mg tablet Take 10 mg by mouth daily. Take 1 Tablet (10 mg) by mouth once daily before a meal. Take 30 minutes before the meal. 10/27/2023 Lactobac 40-Bifido 3-S.thermop (Probiotic) 100 billion cell capsule Take 1 tablet by mouth daily. mirabegron (MYRBETRIQ) 50 mg 24 hr tablet Take 1 tablet by mouth daily. ujuacxhg-gbw-vauv-FA- vit K-lut (Centrum Silver Women) 8 mg iron-400 mcg-50 mcg tablet Take 1 tablet by mouth daily. polyethylene glycol (MIRALAX) 17 gram/dose oral powder Take 17 g by mouth daily. semaglutide (OZEMPIC) 1 mg/dose (4 mg/3 mL) injection Inject 1 mg under the skin every 7 (seven) days. 3 mL 11 06/04/2023 senna 8.6 mg tablet Take 2 tablets by mouth 2 (two) times a day. trazodone HCl (TRAZODONE ORAL) Take 50 mg by mouth at bedtime. UNABLE TO FIND Take 1 each by mouth daily. Med Name: Uqora Defend UNABLE TO FIND Take 2 each by mouth daily. Med Name: U[place]ora Protect UNABLE TO FIND Take 2 each by mouth once a week. Med Name: Uqora Flush packets acetaminophen (TylenoL) 500 mg tablet Take 2 tablets (1,000 mg total) by mouth every 6 (six) hours as needed for pain. Alternate with ibuprofen every 3 hours. Do not exceed 4000 mg or 4 g in 24 hours. 02/10/2024 acetaminophen (TylenoL) 500 mg tablet Take 2 tablets (1,000 mg total) by mouth every 6 (six) hours as needed for pain. Alternate with ibuprofen every 3 hours. Do not exceed 4000 mg or 4 g in 24 hours. 02/24/2024 aspirin 325 mg tablet Take 1 tablet (325 mg total) by mouth daily. You may restart your anticoagulation 24 hours after your procedure 02/10/2024 clonazePAM (KlonoPIN) 0.5 mg tablet Take 0.5 mg by mouth daily as needed for anxiety. ibuprofen 200 mg tablet Take 3 tablets (600 mg total) by mouth every 6 (six) hours as needed for pain. Alternate with acetaminophen every 3 hours. 02/10/2024 ibuprofen 200 mg tablet Take 3 tablets (600 mg total) by mouth every 6 (six) hours as needed for pain. Alternate with acetaminophen every 3 hours. 02/24/2024 sennosides-docusate sodium (Senokot-S) 8.6-50 mg per tablet Take 1 tablet by mouth 2 (two) times a day as needed for constipation. While on narcotics. 02/10/2024 documented as of this encounter OR Notes * Op Note - Israel Christianson M.D. - 02/24/2024 8:51 AM CDT Procedure 1. Removal of sacral neuromodulation lead Pre-op Diagnosis Overactive Bladder Post-op Diagnosis Overactive Bladder Soda Fountain Operator A surgical first assistant actively participated and was necessary for one or more of the following: opening, exposure and visualization during the case, maintaining hemostasis, wound closure resulting in itssafe and expeditious completion. Findings As expected. Complications None Operative Note Narrative Following patient identification, the patient was brought to OR 14 at [facility]. After induction of general anesthesia, she was placed in the prone position with appropriate padding. She wasprepped and draped in the usual sterile fashion. After a surgical pause, local anesthetic was injected. An incision was made over the lead extension site on the right side, utilizing her previous incision. The capsule was opened and the device delivered onto the field. A small vertical midline incision was then made where the right-sided lead turned to go towards the sacral foramen. Dissection was carried down to the connective tissue. With steady gentle traction, the tined lead was removed inta ct. The lead extension was transected and completely removed off the sterile field. Th the device was delivered off the field. Antibiotic solution was used to irrigate both incisions. The midline incision was closed with a deep layer of interrupted 2-0 Vicryl suture, the skin was closed with running 3-0 Monocryl suture. The lead extension site incision was closed with a deep layer of interrupted 2-0 Vicryl suture, the skin was closed with a running 3-0 Monocryl suture. The incisions were covered with Dermabond, as well as a sterile dressing. Israel Christianson M.D. documented in this encounter Plan of Treatment Not on file documented as of this encounter Procedures Procedure Name Priority Date/Time Associated Diagnosis Comments ADULT OXYGEN THERAPY Routine 02/24/2024 9:52 AM CDT GLUCOSE POCT, B Routine 02/24/2024 9:17 AM CDT REMOVAL STIMULATOR SACRAL NERVE 02/24/2024 7:49 AM CDT Overactive Bladder Case Notes Pre op RMG 250. GLUCOSE POCT, B Routine 02/24/2024 6:57 AM CDT documented in this encounter Results * (ABNORMAL) Glucose, POCT (02/24/2024 9:17 AM CDT) Glucose, POCT, B 241(H) 70 - 140 mg/dL 02/24/2024 9:19 AM CDT PCDE Site Capillary 02/24/2024 9:19 AM CDT PCDE Blood 02/24/2024 9:17 AM CDT 02/24/2024 9:19 AM CDT Unknown Provider LAB POCT ORDERABLES- MANUAL Performing Organization Address City/[facility]/ZIP Co de Phone Number [facility] [address] [place] [address], [facility] PCDE [facility] POC [address] [place] [address] * (ABNORMAL) Glucose, POCT (02/24/2024 6:57 AM CDT) Glucose, POCT, B 250(H) 70 - 140 mg/dL 02/24/2024 6:59 AM CDT PCDE Site Capillary 02/24/2024 6:59 AM CDT PCDE Last Intake NPO 02/24/2024 6:59 AM CDT PCDE Blood 02/24/2024 6:57 AM CDT 02/24/2024 6:59 AM CDT Unknown Provider LAB POCT ORDERABLES- MANUAL Performing Organization Address City/[facility]/ZIP Co de Phone Number [facility]OC [employer] [facility] [address] [place] [address], [place] PCDE [facility] POC [address] [place] [address] documented in this encounter Visit Diagnoses Diagnosis Diabetes Mellitus Type 2 (HCC) Chronic Kidney Disease (CKD), Stage 3a Glomerular Filtration Rate (GFR) 45 To 59 (HCC) Apnea Sleep Obstructive Hypertension Essential Primary Depression Major Recurrent Moderate (HCC) Overactive Bladder documented in this encounter Administered Medications Inactive Administered Medications - up to 3 most recent administrations Medication Order MAR Action Action Date Dose Rate Site acetaminophen tablet 1,000 mg (TylenoL) 1,000 mg, oral, Once, On Thu02/24/24 at 0815, For 1 dose, Pre-Op Given 02/24/2024 7:59 AM CDT 1,000 mg aprepitant capsule 40 mg (Emend) 40 mg, oral, Once, On Thu02/24/24 at 0815, For 1 dose, Pre-Op, Restriction Criteria (Pharmacy will review and approve if criteria met): Patient does not have IV access and cannot receive fosaprepitant IV Given 02/24/2024 7:59 AM CDT 40 mg BUPivacaine liposome (PF) 266 mg/20 mL (13.3 mg/mL) injection 20 mL (ExpareL) 20 mL, infiltration, Once, On Thu02/24/24 at 0730, For 1 dose, Intra-Op Given 02/24/2024 9:14 AM CDT 20 mL Back chlorhexidine 0.12 % mouthwash 15 mL (Peridex) 15 mL, swish & spit, Once as needed, Chlorhexidine mouthwash (Peridex) should be given if patient did not complete oral care, if completion is greater than 4 hours prior to surgery or procedure start time and they do not have the opportunity to brush their teeth now (or at this time)., Starting on Thu02/24/24 at 0749, For 1 dose, Pre-Op, Instruct patient to swish entire content of Chlorhexidine 0.12% mouthwash (PERIDEX) 15 mL cup for 30 seconds, then spit, swish & spit. If patient is at risk for aspiration, apply Chlorhexidine 0.12% mouthwash to a swab and gently swab the patient's teeth and gums. Ensure swab is not oversaturated. gentamicin 0.16 mg/mL-vancomycin 1 mg/mL in sterile water for irrigation 1,000 mL (interstim soak) irrigation, Once, On Thu02/24/24 at 0730, For 1 dose, Intra-Op Given 02/24/2024 9:07 AM CDT 200 mL Back ibuprofen tablet 400 mg 400 mg, oral, Every 6 hours, First dose on Cristina 02/25/24 at 1130, start 6 hours after last ketorolac dose administered. ketorolac injection 15 mg (ToradoL) 15 mg, intravenous, Every 6 hours, First dose on 02/24/24 at 1130, For 4 doses, start no sooner than 6 hours after last intraoperative dose. Adult IV push rate: Over 15 seconds. Peds IV push rate: Over 1 minute. Doses > 15 mg IV/IM are discouraged due to lack of additional analgesic benefit. Lactated Ringer's 20 mL/hr, intravenous, Continuous, Starting on Thu02/24/24 at 0915, PACU & Post-Op Continued from OR 02/24/2024 9:45 AM CDT 20 mL/hr 20 mL/hr metoprolol tablet 12.5 mg (Lopressor) 12.5 mg, oral, Once as needed, if patient did not take their last scheduled dose of beta ebenezer prior to arrival, Starting on Thu02/24/24 at 0749, For 1 dose, Pre-Op, Do not give if patient does not take scheduled beta blockers, if patient is receiving intravenous vasopressors or inotropes, if heart rate is less than 50 beats per minute, if systolic blood pressure is less than 90 mmHg or if diastolic blood pressure is less than 40 mmHg, or if patient has an allergy to metoprolol. oxyCODONE IR tablet 10 mg (Roxicodone) 10 mg, oral, Every 4 hours PRN, severe pain or score 7-10 of 10, Starting on Thu02/24/24 at 1022, Administer if pain is unrelieved by acetaminophen. For patients that received intrathecal analgesia, start 24 hours after intrathecal dose given. oxyCODONE IR tablet 5 mg (Roxicodone) 5 mg, oral, Every 4 hours PRN, moderate pain or score 4-6 of 10, Starting on Thu02/24/24 at 1022, Administer if pain is unrelieved by acetaminophen. For patients that received intrathecal analgesia, start 24 hours after intrathecal dose given. sodium chloride 0.9 % injection 10 mL 10 mL, intravenous, As needed, line care, Starting on Thu02/24/24 at 0632, Pre-Op, Peripheral Intravenous Catheter and Rapid Infusion Catheter, prior to blood sampling, post blood transfusion or post blood sampling sodium chloride 0.9 % injection 3 mL 3 mL, intravenous, As needed, line care, Starting on Thu02/24/24 at 0632, Pre-Op, Prior to and following infusion and between multiple consecutive infusions: sodium chloride 0.9 % injection sodium chloride 0.9 % injection 3 mL 3 mL, intravenous, Every 12 hours scheduled, First dose on Thu02/24/24 at 0900, Pre-Op, Peripheral Intravenous Catheter and Rapid Infusion Catheter, when no infusion to maintain patency vancomycin in NaCl 0.9 % IVPB 1,000 mg 1,000 mg (rounded from 1,050 mg = 15 mg/kg ? 70 kg), intravenous, at 200 mL/hr, Administer over 60 Minutes, Once, On Thu02/24/24 at 0815, For 1 dose, Pre-Op, Drug Monitoring Program: Pharmacist to adjust medication dosing based on indication and drug clearance factors., Indications: Prophylaxis, surgical New Bag 02/24/2024 7:59 AM CDT 1,000 mg 200 mL/hr documented in this encounter Active and Recently Administered Medications Times are shown in CDT. Scheduled Medication Order 02/22/2024 02/23/2024 02/24/2024 acetaminophen tablet 1,000 mg (TylenoL) (COMPLETED) 1,000 mg, oral, Once, On Thu02/24/24 at 0815, For 1 dose, Pre-Op 0759 (Given - Provid er: Rosalie Apple R.N.) acetaminophen tablet 1,000 mg (TylenoL) 1,000 mg, oral, Every 6 hours, First dose on Thu02/24/24 at 1400, not to exceed 4 grams in 24 hours. aprepitant capsule 40 mg (Emend) (COMPLETED) 40 mg, oral, Once, On Thu02/24/24 at 0815, For 1 dose, Pre-Op, Restriction Criteria (Pharmacy will review and approve if criteria met): Patient does not have IV access and cannot receive fosaprepitant IV 0759 (Given - Provid er: Rosalie Apple R.N.) BUPivacaine liposome (PF) 266 mg/20 mL (13.3 mg/mL) injection 20 mL (ExpareL) (COMPLETED) 20 mL, infiltration, Once, On Thu02/24/24 at 0730, For 1 dose, Intra-Op 07 (Due)0914 (Give n - Provider: Israel Christianson M.D. - Comment: 20 mL injected into incisions) gentamicin 0.16 mg/mL-vancomycin 1 mg/mL in sterile water for irrigation 1,000 mL (interstim soak) (COMPLETED) irrigation, Once, On Thu02/24/24 at 0730, For 1 dose, Intra-Op 07 (Due)0907 (Give n - Provider: Israel Christianson M.D. - Comment: Used to irrigate open incision right and mid lower back) gentamicin in NaCl 0.9 % (iso osm) IVPB 100 mg (Garamycin) (COMPLETED) 100 mg (rounded from 98.1 mg = 1.5 mg/kg ? 65.4 kg Adjusted weight), intravenous, at 100 mL/hr, Administer over 30 Minutes, Once, On Thu02/24/24 at 0815, For 1 dose, Pre-Op, Drug Monitoring Program: Pharmacist to adjust medication dosing based on indication and drug clearance factors., Indications: Prophylaxis, surgical 0833 (Given - Provid er: Joshua Garnett, POLICY INTERN, SNACK BAR CASHIER, DNAP) ibuprofen tablet 400 mg(Linked Group 1) 400 mg, oral, Every 6 hours, First dose on Cristina 02/25/24 at 1130, start 6 hours after last ketorolac dose administered. ketorolac injection 15 mg (ToradoL)(Linked Group 1) 15 mg, intravenous, Every 6 hours, First dose on Thu02/24/24 at 1130, For 4 doses, start no sooner than 6 hours after last intraoperative dose. Adult IV push rate: Over 15 seconds. Peds IV push rate: Over 1 minute. Doses > 15 mg IV/IM are discouraged due to lack of additional analgesic benefit. 1130 (Due) sodium chloride 0.9 % injection 3 mL 3 mL, intravenous, Every 12 hours scheduled, First dose on Thu02/24/24 at 0900, Pre-Op, Peripheral Intravenous Catheter and Rapid Infusion Catheter, when no infusion to maintain patency 1011 (Not Given - Pr ovider: Lashae Monsalve R.N. - Reason: Order parameters not met) vancomycin in NaCl 0.9 % IVPB 1,000 mg (COMPLETED) 1,000 mg (rounded from 1,050 mg = 15 mg/kg ? 70 kg), intravenous, at 200 mL/hr, Administer over 60 Minutes, Once, On Thu02/24/24 at 0815, For 1 dose, Pre-Op, Drug Monitoring Program: Pharmacist to adjust medication dosing based on indication and drug clearance factors., Indications: Prophylaxis, surgical 0759 (New Bag - Prov ider: Rosalie Apple R.N.)0900 (Stopped - Provider: Lashae Monsalve R.N.) Continuous Medication Order 02/22/2024 02/23/2024 02/24/2024 Lactated Ringer's 40 mL/hr, intravenous, Continuous, Starting on Thu02/24/24 at 1045 1045 (Due) Lactated Ringer's 20 mL/hr, intravenous, Continuous, Starting on Thu02/24/24 at 0915, PACU & Post-Op 0945 (Continued from OR - Provider: Lashae Monsalve R.N.)1016 (Stopped - Provider: Lashae Monsalve R.N.) PRN Medication Order 02/22/2024 02/23/2024 02/24/2024 chlorhexidine 0.12 % mouthwash 15 mL (Peridex) 15 mL, swish & spit, Once as needed, Chlorhexidine mouthwash (Peridex) should be given if patient did not complete oral care, if completion is greater than 4 hours prior to surgery or procedure start time and they do not have the opportunity to brush their teeth now (or at this time)., Starting on Thu02/24/24 at 0749, For 1 dose, Pre-Op, Instruct patient to swish entire content of Chlorhexidine 0.12% mouthwash (PERIDEX) 15 mL cup for 30 seconds, then spit, swish & spit. If patient is at risk for aspiration, apply Chlorhexidine 0.12% mouthwash to a swab and gently swab the patient's teeth and gums. Ensure swab is not oversaturated. dexAMETHasone injection 4 mg (Decadron) 4 mg, intravenous, Once as needed, nausea, vomiting, Starting on Thu02/24/24 at 1022, For 1 dose, Give only if NOT given during the pre or intraoperative period. If ondansetron ordered, give dexamethasone with first dose of ondansetron. haloperidol lactate injection 1 mg (HaldoL) 1 mg, intravenous, Every 6 hours PRN, nausea, vomiting, Starting on Thu02/24/24 at 1022, For 48 hours, Total of 3 doses in 24 hour period. RASS must be -2 or higher to administer. Reassess for nausea or vomiting after at least 10 minutes. If nausea or vomiting persists administer next ordered antiemetic medications (order for antiemetic medication administration ondansetron then haloperidol then prochlorperazine) metoprolol tablet 12.5 mg (Lopressor) 12.5 mg, oral, Once as needed, if patient did not take their last scheduled dose of beta ebenezer prior to arrival, Starting on Thu02/24/24 at 0749, For 1 dose, Pre-Op, Do not give if patient does not take scheduled beta blockers, if patient is receiving intravenous vasopressors or inotropes, if heart rate is less than 50 beats per minute, if systolic blood pressure is less than 90 mmHg or if diastolic blood pressure is less than 40 mmHg, or if patient has an allergy to metoprolol. naloxone injection 0.2 mg (Narcan) 0.2 mg, intravenous, As needed, respiratory depression, Starting on Thu02/24/24 at 1022, For RASS Score -4 or less, respiratory rate of less than 8 breaths/min. Notify provider/service and rapid response team (if available at institution). ondansetron (PF) injection 4 mg (Zofran) 4 mg, intravenous, Every 6 hours PRN, nausea, vomiting, Starting on Thu02/24/24 at 1022, For 48 hours, Reassess for nausea or vomiting after at least 10 minutes. If nausea or vomiting persists administer next ordered antiemetic medications (order for antiemetic medication administration ondansetron then haloperidol then prochlorperazine). oxyCODONE IR tablet 10 mg (Roxicodone)(Linked Group 2) 10 mg, oral, Every 4 hours PRN, severe pain or score 7-10 of 10, Starting on Thu02/24/24 at 1022, Administer if pain is unrelieved by acetaminophen. For patients that received intrathecal analgesia, start 24 hours after intrathecal dose given. oxyCODONE IR tablet 5 mg (Roxicodone)(Linked Group 2) 5 mg, oral, Every 4 hours PRN, moderate pain or score 4-6 of 10, Starting on Thu02/24/24 at 1022, Administer if pain is unrelieved by acetaminophen. For patients that received intrathecal analgesia, start 24 hours after intrathecal dose given. prochlorperazine injection 5 mg (Compazine) 5 mg, intravenous, Every 6 hours PRN, nausea, vomiting, Starting on Thu02/24/24 at 1022, For 48 hours, RASS must be -2 or higher to administer. Reassess for nausea/vomiting after at least 10 minutes. If nausea or vomiting persists administer next ordered antiemetic medications (order for antiemetic medication administration ondansetron then haloperidol then prochlorperazine) sodium chloride 0.9 % injection 10 mL 10 mL, intravenous, As needed, line care, Starting on Thu02/24/24 at 0632, Pre-Op, Peripheral Intravenous Catheter and Rapid Infusion Catheter, prior to blood sampling, post blood transfusion or post blood sampling sodium chloride 0.9 % injection 3 mL 3 mL, intravenous, As needed, line care, Starting on Thu02/24/24 at 0632, Pre-Op, Prior to and following infusion and between multiple consecutive infusions: sodium chloride 0.9 % injection Linked Groups Order Group 1: ketorolac injection 15 mg (ToradoL)Jump to med 15 mg, intravenous, Every 6 hours, First dose on Thu02/24/24 at 1130, For 4 doses, start no sooner than 6 hours after last intraoperative dose. Adult IV push rate: Over 15 seconds. Peds IV push rate: Over 1 minute. Doses > 15 mg IV/IM are discouraged due to lack of additional analgesic benefit. Followed by ibuprofen tablet 400 mgJump to med 400 mg, oral, Every 6 hours, First dose on Cristina 02/25/24 at 1130, start 6 hours after last ketorolac dose administered. Group 2: oxyCODONE IR tablet 5 mg (Roxicodone)Jump to med 5 mg, oral, Every 4 hours PRN, moderate pain or score 4-6 of 10, Starting on Thu02/24/24 at 1022, Administer if pain is unrelieved by acetaminophen. For patients that received intrathecal analgesia, start 24 hours after intrathecal dose given. Or oxyCODONE IR tablet 10 mg (Roxicodone)Jump to med 10 mg, oral, Every 4 hours PRN, severe pain or score 7-10 of 10, Starting on Thu02/24/24 at 1022, Administer if pain is unrelieved by acetaminophen. For patients that received intrathecal analgesia, start 24 hours after intrathecal dose given. 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
--- OUTSIDE RECORDS SUMMARY | 2024-03-31 22:36 | XMS_ITS | Referral Summary ---
Author Organization [facility] Address [address] [place] [address] Care Team Providers Care Architectural Engineer Name Role Phone Elsewhere, Pcp Primary Care Provider Unavailabl e Source Comments Patient records contain information from all sites at [facility]. For routine questions regarding patient records, call [phone] during business hours, M-F 8:00 AM - 5:00 PM Central Time. Record requests for emergency care only can be directed to [phone] at any time.[facility] Encounters Date Type Department Care Team Description 03/04/2024 Clinical Communication Department of Obstetrics and Gynecology in [place], [place] [address] [place] [address] Gio Sol R.N., C.M.S.R.N. 02/24/2024 7:45 AM CDT - 02/24/2024 9:54 AM CDT Surgery [facility] [address] [place] [address] Israel Christianson M.D. REMOVAL STIMULATOR SACRAL NERVE 02/24/2024 8:04 AM CDT Anesthesia Event [facility] [address] [place] [address] Patrice Naidu M.D. Vasdev, Gurinder M, M.D. 02/24/2024 6:08 AM CDT - 02/24/2024 11:31 AM CDT Hospital Encounter Outpatient Surgery Unit in [place], [place] [address] [place] [phone] Israel Christianson M.D. Discharge Disposition: Home or Self Care 02/17/2024 Clinical Communication Department of Obstetrics and Gynecology in [place], [place] [address] [place] [phone] Gio Sol R.N., C.M.S.R.N. 02/10/2024 7:44 AM CDT Anesthesia Event Outpatient Procedure Center in [place], [place] [address] [place] [phone] Edita Mancuso APRN, CRNA 02/10/2024 7:30 AM CDT - 02/10/2024 10:00 AM CDT Surgery Outpatient [facility] in [place], [place] [address] [place] [phone] Israel Christianson M.D. SACRAL NERVE STIMULATOR, STAGE I, NONRECHARGEABLE. 02/10/2024 6:30 AM CDT - 02/10/2024 12:02 PM CDT Hospital Encounter Outpatient Procedure Center in [place], [place] [address] [place] [phone] Israel Christianson M.D. Discharge Disposition: Home or Self Care 02/01/2024 11:21 AM CDT - 02/01/2024 11:59 PM CDT Hospital Encounter Department of Laboratory Medicine and Pathology, [facility], in [place], [place] [address] [place] [phone] Israel Christianson M.D. Preoperative Exam; Preprocedural Lab Exam Discharge Disposition: Home or Self Care 02/01/2024 10:30 AM CDT Comprehensive Visit Preoperative Evaluation Center in [place], [place] [address] [place] [phone] Israel Christianson M.D. Belch, Lisa M, APRN, C.N.P., M.S.N. Preoperative Exam (Primary Dx); Incontinence Urinary; Hypertension Essential Primary; Atherosclerotic Heart Disease Of [place] Coronary Artery Without Angina Pectoris; Hyperlipidemia; Diabetes Mellitus Type 2 (HCC); Apnea Sleep Obstructive; Chronic Kidney Disease (CKD), Stage 3a Glomerular Filtration Rate (GFR) 45 To 59 (HCC); Adjustment Disorder Mixed Reaction; Depression Major Recurrent Moderate (HCC) 01/29/2024 1:00 PM CDT Clinical Communication Virtual Review in [place], [place] [address] [place] [phone] Pre-visit Intake 12/31/2023 11:30 AM CDT Office Visit Department of Obstetrics and Gynecology, Division of Urogynecology in [place], [place] [address] [place] [phone] Israel Christianson M.D. Incontinence Urinary from Last 3 Months Allergies Active Allergy Reactions Criticality Noted Date [...] Dispensed Refills Start Date End Date Status jjprhiia-ieh-txyz- FA-vit K-lut (Centrum Silver Women) 8 mg [...] Active blood-glucose meter (Contour Next EZ Meter) [facility] See Admin Instructions. Active blood sugar diagnostic [...] Obstructive 01/01/2017 Atherosclerotic Heart Diseas e Of [place] Coronary Artery Without Angina Pectoris 07/08/2015 Loss Hearing Sensorineural Bilateral 10/14/2012 Adjustment Disorder Mixed Reaction 06/21/2007 Hypertension Essential Primary 11/25/2006 Immunizations Name Administration Dates Next Due DT, [...] quad (FLUZONE/FLUARIX) (6 months and older)(PF) 04/20/2018,05/19/2017,04/18/2016,2014,08/10/2009 Social History Tobacco Use Types Packs/Day Years [...] your living situation today? I have a [facility] place to live 06/09/2023 Sex and [...] 02/24/2024 6:57 AM CDT Plan of Treatment Not on file Medical Devices Implanted Type Area Firmware Developer Device Identifier Shelf Expiration Date Model / Serial / Lot Hip Implant Hip Implant Right: Hip Explanted Type Area Firmware Developer Device Identifier Shelf Expiration Date Model / Serial / Lot Ext Lead Nrstm Perq - [id number] Implanted:Qty : 1 on 02/10/2024 [facility] Explanted:Qty : 1 on 02/24/2024 by Israel Christianson M.D. at [facility] Sacral Nerve Stimulator N/A: Sacrum Medtronic 11/21/2024 [id number] / / [id number] Kt Lead Nrstm Int Srs Perq - [id number] Implanted:Qty : 1 on 02/10/2024 by Israel Christianson M.D. at [facility]/[place]onda Explanted:Qty : 1 on 02/24/2024 by Israel Christianson M.D. at [facility] Sacral Nerve Stimulator N/A: Sacrum Medtronic 01/27/2025 [id number] / / [id number] Procedures Procedure Name Priority Date/Time Associated Diagnosis [...] Unknown Provider LAB POCT ORDERABLES- MANUAL POC [facility] [address] [place] [address], [facility] PCDE [facility] [address] [place] [address] * LDA ANE ENDOTRACHEAL AIRWAY (02/24/2024 8:17 AM CDT) Narrative Joshua Garnett APRN, CRNA DNAP - 02/24/2024 8:17 AM CDT Joshua Garnett APRN, CRNA, DNAZakiya ? 02/24/2024 ??8:38 AM Airway Date/Time: 02/24/2024 [...] ETT location: oral VL device: glide scope [place] scope blade size: 3 Tube size: 7 [...] 1 Hour (02/10/2024 10:05 AM CDT) Narrative [id number] - 02/10/2024 10:05 AM CDT This exam does not require a radiologist review or interpretation. Please refer to the patient's medical record on this date for clinical details. Israel Christianson M.D. IMG FLUOROSCOPY PROC EDURES [id number] NA * LDA ANE ENDOTRACHEAL AIRWAY (02/10/2024 [...] CDT Israel Christianson M.D. LAB BLOOD ADD-ON [facility] [address] [place] [address], [facility] [address] [place] [address] * (ABNORMAL) CBC without Differential (02/01/2024 11:29 [...] M.D. LAB BLOOD ADD-ON Performing Organization Address City/[facility]/ZIP Co de Phone Number [facility] [address] [place] [address], [facility] [address] [place] [address] * (ABNORMAL) Hemoglobin A1c (02/01/2024 11:29 AM [...] M.D. LAB BLOOD ADD-ON Performing Organization Address City/[facility] Co de Phone Number [facility] [address] [place] [address], [facility] [address] [place] [address] * ECG 12 Lead (02/01/2024 11:09 AM CDT) Ventricular Rate ECG/Min 70 BPM MUSE [place] Interval 194 ms MUSE QRSD Interval 94 ms MUSE QT Interval 402 ms MUSE QTC Interval 434 ms MUSE P [place] 66 degrees MUSE R [place] 38 degrees MUSE T Wave [place] 12 degrees MUSE 02/01/2024 11:0 9 AM [...] available Reviewed by ABUNDIO Chi Sadie Wilks APRN, C.N.P., M.S.N. ECG OR DERABLES Performing Organization Address City/[facility] Co de Phone Number MUSE NA * Albumin, Random, Urine (06/03/2023 8:24 AM CDT) Albumin, Random, U 12.3 mg/L 2022 12:58 PM CDT DTL Comment: ----ADDITIONAL INFORMATION---- This test has been modified from the molder trimmer's instructions. Its performance characteristics were determined by [facility] in a manner consistent with CLIA requirements. This test has not been cleared or approved by the U.S. Food and Drug Administration. Creatinine 176 mg/dL 06/03/2023 11:16 AM CDT DTL Albumin/Creatinine Ratio 7 <25 mg/g 06/03/2023 12:58 PM CDT DTL Urine (Urine, Midstream) 06/03/2023 8:24 AM CDT 06/03/2023 10:22 AM CDT Karyna Browne M.D. LAB URINE ORDERABLE S Performing Organization Address City/[facility]/ZIP Co de Phone Number [facility] [address] [place] [address], [facility] DTL [facility] [address] [place] [address] from Last 3 Months or Most Recently Relevant to Health Maintenance Advance Directives For more information, please contact: [phone] Documents on File Type Date Recorded Patient Instrument Room Technician Expl anation Advance Directives 02/24/2024 6:25 AM Micah Summers HCPOA/ADVOCATE/AGENT/R EPRESENTATIVE/SURROGAT E Healthcare Agents on File Name Relationship Healthcare Agent Relationship Communication Micah Summers Spouse Health Care Agent [email or web address] Matt Summers Child First Alternate Health Care Agent [email or web address] Care Teams Architectural Engineer Relationship Specialty Start Date End Date Elsewhere, Pcp PCP - General Internal Medicine 01/29/24
--- OUTSIDE RECORDS SUMMARY | 2024-03-31 22:36 | XMS_ITS | Encounter Summary ---
Author Organization [facility] Address [address] [place] [address] Care Team Providers Care Barber Tool Sharpener Name Role Phone Elsewhere, Pcp Primary Care Provider Unavailabl e Encounter Details Date Type Department Care Team (Late st Contact Info) Description 03/04/2024 Clinical Communication Department of Obstetrics and Gynecology in [place], [place] [address] [place] [address] Gio Sol R.N., C.M.S.R.N. [address] [place] [phone] Social History Tobacco Use Types Packs/Day Years [...] your living situation today? I have a [facility] place to live 06/09/2023 Sex and Gender Information Value Date Recorded Sex Assigned at Female 05/16/2023 3:29 PM CDT Gender Identity Female 05/16/2023 3:29 PM CDT Sexual Orientation Straight 05/16/2023 3: 29 PM CDT documented as of this encounter Miscellaneous Notes * Telephone Encounter - Gio Sol R.N., C.M.S.R.N. - 03/04/2024 3:39 PM CDT Post-Op Phone call I spoke with Saadia following her InterStim lead removal with Dr. Christianson on 02/24/24. Pain: Minimal. Feels like a bruise. She is not requiring any medication. Diet: Tolerating general diet. Bowel Movement: Back to baseline. She struggles with constipation normally and takes fiber and Miralax. Voiding: Voiding normally and emptying her bladder External Skin Incision: Clean, dry, intact. Dermabond remains in place. External Skin Incision Site Care: Soap and water, open to air. Activity: Following postoperative restrictions. Follow-up appointment scheduled: We reviewed that as Dr. Christianson had discussed with her prior to lead removal, she has tried all procedural treatments for overactive bladder. We offered a referral to our urology colleagues if she were interested in gathering more information about a diversion or augmentation. She is not interested at this time but will let us know if she becomes interested in the future. She is thankful for the call and has no further questions at this time. Patient Education: Reinforced post-procedure/discharge teaching. Reviewed signs and symptoms of surgical site infection. Instructed patient to check daily for warmth, increased tenderness or redness around the surgical site; cloudy drainage from the surgical site; and chills/fever of 100.4 degrees Fahrenheit (38 degrees Celsius) or greater. If experiencing any of these symptoms, patient should contact their health care provider immediately. 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
--- OUTSIDE RECORDS SUMMARY | 2024-03-31 22:37 | XMS_ITS | Encounter Summary ---
Author Organization [facility] Address [address] [place] [address] Care Team Providers Care Rotary Rig Engine Operator Name Role Phone Elsewhere, Pcp Primary Care Provider Unavailabl e Reason for Referral * Outpatient (Routine) - Authorized Specialty Diagnoses / Procedures Referred By Contac t Referred To Contact Diagnoses Preoperative Exam Diabetes Mellitus Type 2 (HCC) Hypertension Essential Primary Procedures ECG 12 Lead Sadie Wilks APRN, C.NTom, M.S.N. [address] [place] [address] [facility] Referral ID Status Reason Start Date Expiration Date V isits Requested Visits Authorized [id number] Authorized 02/01/2024 01/31/2025 1 1 Reason for Visit * Outpatient (Routine) - Closed Specialty Diagnoses / Procedures Referred By Contac t Referred To Contact Anesthesiology Diagnoses Preoperative Exam Israel Christianson M.D. [address] [place] [address] [facility] Referral ID Status Reason Start Date Expiration Date Visits Re quested Visits Authorized [id number] Closed 08/31/2023 03/01/2025 1 1 Encounter Details Date Type Department Care Team (Latest Contact Info) Description 02/01/2024 10:30 AM CDT Comprehensive Visit Preoperative Evaluation Center in [place], [place] [address] [place] [address] Israel Christianson M.D. [address] [place] [phone] Sadie Wilks APRN, C.N.P., M.S.N. [address] [place] [phone] Preoperative Exam (Primary Dx); Incontinence Urinary; Hypertension Essential Primary; Atherosclerotic Heart Disease Of [place] Coronary Artery Without Angina Pectoris; Hyperlipidemia; Diabetes Mellitus Type 2 (HCC); Apnea Sleep Obstructive; Chronic Kidney Disease (CKD), Stage 3a Glomerular Filtration Rate (GFR) 45 To 59 (HCC); Adjustment Disorder Mixed Reaction; Depression Major Recurrent Moderate (HCC) Social History Tobacco Use Types Packs/Day Years [...] your living situation today? I have a [facility] place to live 06/09/2023 Sex and Gender Information Value Date Recorded Sex Assigned at Female 05/16/2023 3:29 PM CDT Gender Identity Female 05/16/2023 3:29 PM CDT Sexual Orientation Straight 05/16/2023 3: 29 PM CDT documented as of this encounter Last Filed Vital Signs Vital Sign Reading Time Taken Comments Blood Pressure 116/72 02/01/2024 10:28 AM CDT Pulse 72 02/01/2024 10:28 AM CDT Temperature 36.1 ??C (97 ??F) 02/01/2024 10:28 AM CDT Respiratory Rate - - Oxygen Saturation 99% 02/01/2024 10:28 AM CDT Inhaled Oxygen Concentration - - Weight 70 kg (154 lb 5.2 oz) 02/01/2024 10:28 AM CDT Height 171 cm (5' 7.32) 02/01/2024 10:28 AM CDT Body Mass Index 23.94 02/01/2024 10:28 AM CDT documented in this encounter H&P Notes * Sadie Wilks APRN, C.N.P., M.S.N. - 02/01/2024 10:30 AM CDT REASON FOR VISIT: Preoperative Medical Evaluation REFERRING PHYSICIAN: Israel Christianson M.D. 02/10/2024: SACRAL NERVE STIMULATOR - STAGE I; Israel Christianson M.D. 02/24/2024: SACRAL NERVE STIMULATOR - STAGE II; Israel Christianson M.D. Surgery Specific Risk Classification: Intermediate Risk SUBJECTIVE HISTORY OF PRESENT ILLNESS Saadia Summers is a 68 y.o. female who is here for preanesthetic medical examination prior to the planned procedure as listed above. REVIEW OF SYSTEMS Constitutional: - Negative for fever. Respiratory: - Negative for coughing up mucus (phlegm), shortness of breath and wheezing. Cardiovascular: - Negative for chest pain, pressure or tightness, swelling in the legs or feet, rapid or flutteringheart beat, pain in the calf muscles when walking and shortness of breath when lying flat. Gastrointestinal: - Negative for blood in stool, diarrhea, nausea and vomiting. Genitourinary: - Negative for blood in urine. Neurological: - Negative for loss of consciousness, light-headedness and numbness or shooting pain in hands, arms, legs, or feet. The following systems were negative: Constitutional, Respiratory, Cardiovascular, Gastrointestinal,Genitourinary, Neurological OBJECTIVE OBJECTIVE PHYSICAL EXAMINATION General/Constitutional Constitutional Assessment: Normal General State of Health: Healthy appearing Airway (HEENT) Mallampati: III TM Distance: >3 FB Neck ROM: Full Mouth Opening: > 3 cm Upper Lip Bite Test: I Dental Assessment: Dentition intact Cardiovascular Rhythm: Regular Rate: Normal Cardiovascular Assessment: Normal Pulmonary Pulmonary Assessment: Clear Neurological Neurologic Assessment: Alert and oriented X 3 Musculoskeletal MSK Assessment: Normal Gait: Normal Ambulate with: None Psychiatric Psychiatric Assessment: Calm ASSESSMENT / PLAN Anesthesia: Patient reports previous anesthesia related complications to be PO N/V with the sensation of being awake but not being able to open eyes during D&C and gallbladder elsewhere. Airway Hx: No airway notes for review Lab: 02/01/2024 hemoglobin 13.3, hematocrit 39.5, platelets 155, sodium 139, potassium 4.5, creatinine 1.02, GFR 59 ECG: Normal sinus rhythm at 70 bpm symptom infarct, age undetermined. When compared to outside ECG no significant change. #1 Preoperative Exam Very pleasant well-appearing female who presents for preoperative exam. She is a lifelong nonsmoker. Denies significant alcohol use. No caffeine use. Noncompliant with CPAP therapy. Denies GERD symptoms. She is active gardening and walking 3 miles regularly. She recently did quite a bit of hiking in [place] without cardiopulmonary. She does have early-onset coronary history in father who of an ID at age 54 and paternal grandfather at age 30. Several aunts and uncles with coronary disease on father's side. Negative coronary disease in herself and siblings. #2 Urinary incontinence Scheduled for above-named procedure. Taking Myrbetriq. #3 Hypertension Essential Primary Left pressure treated and well-controlled on atenolol, amlodipine and low-dose aspirin daily. Patient will hold low-dose aspirin one week before surgery. #4 Atherosclerotic Heart Disease Of [place] Coronary Artery Without Angina Pectoris #[address] in 2015 states negative coronary scan with nonobstructive coronary disease. She is treated with atorvastatin and will continue. #6 Diabetes Mellitus Type 2 (HCC) Treated and well-controlled with glipizide Ozempic. Patient takes Ozempic every Thursday. Instructed her to hold this Fridays dose in preparation for procedure. #7 Apnea Sleep Obstructive Noncompliant with CPAP. #8 Chronic Kidney Disease (CKD), Stage 3a Glomerular Filtration Rate (GFR) 45 To 59 (HCC) Most recent GFR 06/03/2023 48. Lab work will be drawn later today #9 Adjustment Disorder Mixed Reaction #10 Depression Major Recurrent Moderate (HCC) Treated with Cymbalta. Patient will continue. Trazodone at bedtime for sleep. Will continue PATIENT EDUCATION: Reviewed Checklist for Surgical Patients [id number] rev 0920. Written and verbal instructions given on medication management before surgery. RECOMMENDATIONS: Patient medically optimized for planned procedure: Yes Further Recommendations: None I spent 45 minutes of total in consult. documented in this encounter Plan of Treatment Not on file documented as of this encounter Procedures Procedure Name Priority Date/Time Associated Diagnosis Comments ECG Routine 02/01/2024 11:09 AM CDT Preoperative Exam Diabetes Mellitus Type 2 (HCC) Hypertension Essential Primary documented in this encounter Results * ECG 12 Lead (02/01/2024 11:09 AM CDT) Ventricular Rate ECG/Min 70 BPM MUSE [place] Interval 194 ms MUSE QRSD Interval 94 ms MUSE QT Interval 402 ms MUSE QTC Interval 434 ms MUSE P [place] 66 degrees MUSE R [place] 38 degrees MUSE T Wave [place] 12 degrees MUSE 02/01/2024 11:0 9 AM [...] Wilks APRN, C.N.P., M.S.N. ECG OR DERABLES MUSE NA documented in this encounter Visit Diagnoses Diagnosis Preoperative Exam- Primary Incontinence Urinary Hypertension Essential Primary Atherosclerotic Heart Disease Of [place] Coronary Artery Without Angina Pectoris Hyperlipidemia Diabetes Mellitus Type 2 (HCC) Apnea Sleep Obstructive Chronic Kidney Disease (CKD), Stage 3a Glomerular Filtration Rate (GFR) 45 To 59 (HCC) Adjustment Disorder Mixed Reaction Depression Major Recurrent Moderate (HCC) documented in this encounter Additional Health Concerns Assessment Noted Time PHQ-9 Depression Total Score: 2 08/31/19 24 2:23 PM SCIENTIFIC HELPER documented as of this encounter Care Teams Rotary Rig Engine Operator Relationship Specialty Start Date End Date Elsewhere, Pcp PCP - General Internal Medicine 01/29/24 documented as of this encounter
--- OUTSIDE RECORDS SUMMARY | 2024-03-31 22:37 | XMS_ITS | Encounter Summary ---
Author Organization [facility] Address [address] [place] [address] Care Team Providers Care Supervisor Sunglasses Name Role Phone Elsewhere, Pcp Primary Care Provider Unavailabl e Encounter Details Date Type Department Care Team (Late st Contact Info) Description 02/10/2024 7:44 AM CDT Anesthesia Event Outpatient Procedure Center in [place], [place] [address] [place] [phone] Edita Mancuso APRN, CRNA [address] [place] [phone] Anesthesia Record Procedure Summary Procedure Name Responsible Anesthesiologist Anesthesia Start Time Anesthesia Stop Time SACRAL NERVE STIMULATOR, STAGE I, NONRECHARGEABLE. Edita Mancuso APRN, CRNA 02/10/24 0744 02/10/24 0959 Events Date Time Event Comment 02/10/2024 0744 An Start Machine/Equipme nt Checked Infection Precautions Followed Procedure/Site Verified NPO Status Verified Supine Standard ASA Monitors Applied 0749 An Induction 0753 An Intubation 0757 Turnover to Proceduralist 0833 Proc Start 0904 Anes CS Handoff I, Edita mejia APRN, CRNA, attest that I have reconciled the controlled substances and that I have reviewed all the significant information with the next anesthesia provider assuming care of this patient. 0920 Anes CS Handoff I, Casie Ceja APRN, MARCO A, attest that I have reconciled the controlled substances and that I have reviewed all the significant information with the next anesthesia provider assuming care of this patient. 0936 Proc Fin 0949 Turnover to ANE Staff 0951 Airway Removal Criteria Met 0951 Extubation/Airway Removed 0959 an stop data 0959 An End I completed my handoff to [...] Meds Name Total fentanyl injection 50 mcg/mL 100 mcg lidocaine 2% (mg) injection 100 mg succinylcholine 20 mg/mL injection 80 mg ondansetron 4 mg/2 mL injection 4 mg propofol 10 mg/mL infusion 943.6 mg propofol 10 mg/mL injection 320 mg gentamicin in NaCl 0.9 % (iso osm) IVPB 100 mg (Garamycin) 100 mg dexAMETHasone (DECADRON) injection 4 mg/ mL 4 mg haloperidol 5 mg/mL injection 1 mg magnesium sulfate injection 2 g ketamine 10 mg/mL injection 10 mg Lactated Ringers Free Drip 1,000 mL * Agents No agents on file. * Blood No blood administrations on file. Lines, Drains, and Airways Type Details Placement Removal Wound 02/10/24; N; Incisio n; Buttocks; Right, Upper; dermabond, primapore; 02/24/24; 0820; Wound healed 02/10/24 0000 by Irma Scott RKyleN. 02/24/24 0820 by Loli Mazariegos RKyleNKyle Wound 02/10/24; Incision; Buttocks; Left; dermabond, primapore; 02/24/24; 0820; Wound healed 02/10/24 0000 by Irma Scott R.N. 02/24/24 0820 by Loli Mazariegos RKyleNKyle Wound 02/10/24; Puncture ( with lead); Buttocks; Left, Upper; dermabond, gauze, tegaderm, mepilex; 02/24/24; 0820; Wound healed 02/10/24 0000 by Irma Scott R.N. 02/24/24 0820 by Loli Mazariegos RNatasha Peripheral IV Placement Date: 01/31 ; Placement Time: 737; Catheter Size: 22 G; Orientation: Left, Posterior; Location: Hand; Site Prep: Chlorhexidine (Preferred); Removal Date: 02/10/24; Removal Time: 120; Removal Reason: Patient discharged 02/10/[address]37 by Rhonda Aranda R.N. 02/10/24 120 by Rhonda Aranda R.N. Peripheral IV Placement Date: 01/31 ; Placement Time: 737; Catheter Size: 20 G; Orientation: Lower, Posterior, Right; Location: Forearm; Site Prep: Chlorhexidine (Preferred); Removal Date: 02/10/24; Removal Time: 120; Removal Reason: Patient discharged 02/10/24737 by Rhonda Aranda R.N. 02/10/24 120 by Rhonda Aranda R.N. ETT Placement Date: 01/31 ; Placement Time: 075 (created via procedure documentation); Mask Ventilation: Easy mask; Technique: Direct laryngoscopy, intubation; Type: Standard ETT; Single Lumen Tube Size: 7 mm; Cuffed: Yes; Blade Size: Scruggs 2; Location: Oral; Grade View: Grade 2A; Insertion Attempts: 1; Placement Verification: Bilateral breath sounds, Positive ETCO2, Symmetrical chest wall movement; Removal Date: 02/10/24; Removal Time: 0902/10/24 075 by Edita Mancuso APRN, CRNA 02/10/24 0951 by Edita Mancuso APRN, CRNA documented in this encounter Social History Tobacco [...] your living situation today? I have a [facility] place to live 06/09/2023 Sex and Gender Information Value Date Recorded Sex Assigned at Female 05/16/2023 3:29 PM CDT Gender Identity Female 05/16/2023 3:29 PM CDT Sexual Orientation Straight 05/16/2023 3: 29 PM CDT documented as of this encounter OR Notes * Anesthesia Postprocedure Evaluation - Edita Mancuso APRN, MARCO A - 02/10/2024 9:59 AM CDT Patient: Saadia Summers Procedure Summary Date: 02/10/24 Room / Location: [place] [address] [place] [address] / [facility] in [place], [place] Anesthesia Start: 743 Anesthesia Stop: 958 Procedure: SACRAL NERVE STIMULATOR, STAGE I, NONRECHARGEABLE. Diagnosis: Overactive Bladder (Overactive Bladder [N32.81].) Surgeons: Israel Christianson M.D. Responsible Provider: Edita Mancuso APRN, CRNA Anesthesia Type: general ASA Status: 2 Anesthesia Type: general Last vitals Vitals Value Taken Time BP Temp Pulse 73 02/10/24 0958 Resp 12 02/10/24 0959 SpO2 95 % 02/10/24 0958 Vitals shown include unfiled device data. Please reference Vitals flowsheet for most recent vital signs. Anesthesia Post Evaluation Patient Disposition: dismissal Cardiovascular status: hemodynamics (HR & BP) acceptable Respiratory status: patent airway with spontaneous effort Temperature: normothermic Oxygen requirements: room air Level of consciousness: awake Pain score: pain adequately controlled and/or at baseline Post Op nausea/vomiting: none Hydration status: euvolemic * Anesthesia Procedure Notes - Edita Mancuos APRN, CRNA - 02/10/2024 8:13 AM CDTAssociated Order(s): Airway Airway Date/Time: 02/10/2024 7:53 AM Performed by: Edita Mancuso APRN, CRNA Authorized by: Edita Mancuso APRN, CRNA Patient location during procedure: OR / Procedure Area PROCEDURE DETAILS: Mask difficulty assessment: easy mask Final airway type: direct laryngoscopy, intubation Laryngeal Manipulation: no Final airway difficulty of direct laryngoscopy (DL): [...] anesthesia POST PROCEDURE DETAILS: Procedure outcome: successful * Anesthesia Preprocedure Evaluation - Edita French M.D. - 02/10/2024 7:40 AM CDT Preprocedure Anesthesia & H&P Assessment Procedure Summary Date/Time: 02/10/247[address] Procedure: SACRAL NERVE STIMULATOR, STAGE I, NONRECHARGEABLE. Diagnosis: Overactive Bladder [N32.81] Pre-op diagnosis: Overactive Bladder [N32.81]. Location: [place] [address] / [facility] in [place], [place] Surgeons: Israel Christianson M.D. Pertinent components of the patient's history including current problem list, medical history, surgical history, family history, social history, medications and allergies were reviewed. Present illness and pre-op diagnosis were confirmed. The planned surgery / procedure was verified with the patient / legal guardian. The patient's general health condition remains unchanged RELEVANT COMORBID CONDITIONS CV (+) Atherosclerotic Heart Disease Of [place] Coronary Artery Without Angina Pectoris (+) Hypertension Essential Primary RENAL/REPRO (+) Chronic Kidney Disease (CKD), Stage 3a Glomerular Filtration Rate (GFR) 45 To 59 (HCC) PSYCH (+) Depression Major Recurrent Moderate (HCC) OBJECTIVE PHYSICAL EXAMINATION Airway (HEENT) Mallampati: II TM Distance: >3 FB Neck ROM: Full Cardiovascular Cardiovascular Assessment: cardiovascular normal Functional Capacity: >4 METS Pulmonary Pulmonary Assessment: Non labored General / Constitutional General State of Health:: calm Neurological Neurologic Assessment: alert and alert and oriented x 3 Dental Dental Assessment: dentition intact ASSESSMENT / PLAN ANESTHESIA PLAN ASA: 2 Anesthesia Plan: general Patient seen and allergies reviewed, anesthesia plan and risks discussed directly with patient /legal guardian or through an energy sales consultant. Risks/Benefits/Alternatives of Blood transfusion discussed with patient / legal guardian, includingan opportunity to ask questions and/or decline some or all transfusion therapies. The patient / legal guardian consented to the use of all blood products, as deemed medically necessary Approval to Proceed: approved for anesthesia documented in this encounter Plan of Treatment Not on file documented as of this encounter Procedures Procedure Name Priority Date/Time Associated Diagnosis Comments LDA ANE ENDOTRACHEAL AIRWAY Routine 02/10/2024 7:53 AM CDT documented in this encounter Results * LDA ANE ENDOTRACHEAL AIRWAY (02/10/2024 7:53 [...] successful ?? Edita Mancuso APRN, CRNA ANESTHESIA ORDE HODA documented in this encounter Visit Diagnoses Not on filedocumented in this encounter Administered Medications Inactive Administered Medications - up to 3 most recent administrations Medication Order MAR Action Action Date Dose Rate Site dexAMETHasone injection (Decadron) intravenous, As needed, Starting on Thu02/10/24 at 0818, Anesthesia Intra-op Given 02/10/2024 8:18 AM CDT 4 mg fentaNYL injection (Sublimaze) intravenous, As needed, Starting on Thu02/10/24 at 0747, Anesthesia Intra-op Given 02/10/2024 8:09 AM CDT 50 mcg Given 02/10/2024 7:47 AM CDT 50 mcg gentamicin in NaCl 0.9 % (iso osm) IVPB 100 mg (Garamycin) 100 mg (rounded from 105 mg = 1.5 mg/kg ? 70 kg), intravenous, at 100 mL/hr, Administer over 30 Minutes, Once, On Thu02/10/24 at 0715, For 1 dose, Pre-Op, Drug Monitoring Program: Pharmacist to adjust medication dosing based on indication and drug clearance factors., Indications: Prophylaxis, surgical Given 02/10/2024 8:10 AM CDT 100 mg haloperidol lactate injection (HaldoL) intravenous, As needed, Starting on Thu02/10/24 at 0835, Anesthesia Intra-op Given 02/10/2024 8:35 AM CDT 1 mg ketamine injection (Ketalar) intravenous, As needed, Starting on Thu02/10/24 at 0853, Anesthesia Intra-op Given 02/10/2024 8:53 AM CDT 10 mg Lactated Ringer's intravenous, Continuous Infusion: Per Instructions PRN, Starting on Thu02/10/24 at 0746, Anesthesia Intra-op New Bag 02/10/2024 9:37 AM CDT New Bag 02/10/2024 7:46 AM CDT lidocaine (PF) (cardiac) injection intravenous, As needed, Starting on Thu02/10/24 at 0750, Anesthesia Intra-op Given 02/10/2024 7:50 AM CDT 100 mg magnesium sulfate injection intravenous, As needed, Starting on Thu02/10/24 at 0841, Anesthesia Intra-op Given 02/10/2024 8:41 AM CDT 2 g ondansetron (PF) injection (Zofran) intravenous, As needed, Starting on Thu02/10/24 at 0927, Anesthesia Intra-op Given 02/10/2024 9:27 AM CDT 4 mg propofol 10 mg/mL infusion (Diprivan) intravenous, Continuous Infusion: Per Instructions PRN, Starting on Thu02/10/24 at 0750, Anesthesia Intra-op New Bag 02/10/2024 9:17 AM CDT 120 mcg/kg/min 50.4 mL/hr Rate/Dose Change 02/10/2024 8:48 AM CDT 120 mcg/kg/min 50. 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
--- OUTSIDE RECORDS SUMMARY | 2024-03-31 22:37 | XMS_ITS | Encounter Summary ---
Author Organization [facility] Address [address] [place] [address] Care Team Providers Care Medical Front Desk Specialist Name Role Phone Unavailable Primary Care Provider Unavailabl e Reason for Visit * Outpatient (Routine) - Closed Specialty Diagnoses / Procedures Referred By Marco Antonio doshi Referred To Contact Obstetrics and Gynecology Diagnoses Incontinence Urinary Israel Christianson M.D. [address] [place] [phone] [facility] Referral ID Status Reason Start Date Expiration Date Visits Re quested Visits Authorized [id number] Closed 08/31/2023 03/01/2025 1 1 Encounter Details Date Type Department Care Team (Latest Contact Info) Description 12/31/2023 11:30 AM CDT Office Visit Department of Obstetrics and Gynecology, Division of Urogynecology in [place], [place] [address] [place] [phone] Israel Christianson M.D. [address] [place] [phone] Incontinence Urinary Social History Tobacco Use Types Packs/Day Years [...] your living situation today? I have a [facility] place to live 06/09/2023 Sex and Gender Information Value Date Recorded Sex Assigned at Female 05/16/2023 3:29 PM CDT Gender Identity Female 05/16/2023 3:29 PM CDT Sexual Orientation Straight 05/16/2023 3: 29 PM CDT documented as of this encounter Progress Notes * Israel Christianson M.D. - 12/31/2023 11:30 AM CDT Chief complaint/purpose of visit Urinary incontinence History of Present Illness Mrs. Summers is a 68-year-old female with a history of diabetes mellitus, coronary artery disease, hypertension, hyperlipidemia, depression, sleep apnea who returns for further discussion of management of urinary incontinence. Please refer to my consult note from August 2023 for full details. Briefly, she has urge related incontinence for at least the last 3 years. She will have roughly 7 leakage episodes a day. Describes that this may occur with urgency, but not always. Other times she will stand and then have a flooding episode. She is smaller volume stress incontinence about once a day which is less bothersome to her. In terms of prior treatments she is tried oxybutynin, Myrbetriq, Vibegron, behavioral modifications, PTNS, bladder Botox x3 without significant improvement in her symptoms. Physical exam General: Awake, alert, oriented, no acute distress Exam performed in the presence of Sasha Sol RN Impression/report/plan 1. Urge predominant mixed urinary incontinence 2. Diabetes mellitus 3. Prior bladder Botox 4. Postop nausea I met with the patient and discussed the various types of urinary incontinence: stress, urge, mixed. She has urge-predominate mixed urinary incontinence. For management of her incontinence we reviewed options including observation, behavioral strategies, pelvic floor physical therapy/biofeedback, E-stim therapy, oral medications (anticholinergic vs beta 3 agonist), vaginal estrogen, and minimally invasive options (PTNS, Bladder Botox, Sacral Neuromodulation). She has previously tried and not had adequate success with behavioral modification, oral medications (both anticholinergic and beta 3 agonist), PTNS, bladder Botox. After discussing optionsbuddy was interested in sacral neuromodulation. We reviewed what sacral neuromodulation entails, with two outpatient procedures. She understands following initial lead placement, she would have a 2 week trial period to assess for improvement and will work through the available programs on the device. The goal would be greater than 50% improvement in her urinary symptoms, as assessed by bladder diary. Following results of that, we would either return to the OR to place the IPG versus proceeding with lead removal. We discussed the risks, benefits of the procedure with risks including, but not limited to: infection (necessitating device removal), bleeding, injury to adjacent organ, lack of efficacy, need for device reprogramming, need for device removal or revision over time (for changes in position, painful stimulation, decreased success, battery site pain), need for battery exchange over time, and the risks of anesthesia. We reviewed the available batteries and she is interested in a non rechargeable battery. Discussed MRIs with thedevice in place. She sleeps on her left side, was interested in a right-sided IPG if feasible. She understands the postoperative restrictions. Plan: Trial of sacral neuromodulation, stage I 02/10/2024. Stage II versus lead removal 02/24/2024. INFORMED CONSENT: Discussed the risks, benefits, and alternatives of the procedure and of possible blood transfusion. Discussed advance directives and the necessity of other members of the healthcareteam, both male and female, participating in the procedure. All questions answered and consent given. The risks, benefits, and alternatives to the planned procedure were discussed in detail, including the risk of exposure to COVID-19 within the facility. Careful consideration was given to the urgencyof the procedure, which has been reviewed and confirmed by practice leadership. Additional consideration has been given to the availability of staff, supplies and equipment, including but not limitedto a post-operative bed, a ventilator in the intensive care unit, blood products, and personal protective equipment. All questions pertaining to the procedure and these risks were answered, and the patient agreed to proceed. Signed by: Israel Christianson M.D. 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
--- OUTSIDE RECORDS SUMMARY | 2024-03-31 22:37 | XMS_ITS | Encounter Summary ---
Author Organization [facility] Address [address] [place] [address] Care Team Providers Care Sql Database Administrator Name Role Phone Elsewhere, Pcp Primary Care Provider Unavailabl e Encounter Details Date Type Department Care Team (Latest Contact Info) Description 02/10/2024 6:30 AM CDT - 02/10/2024 12:02 PM CDT Hospital Encounter Outpatient Procedure Center in [place], [place] [address] [place] [address] Israel Christianson M.D. [address] [place] [address] Discharge Disposition: Home or Self Care Social History Tobacco Use Types Packs/Day Years [...] your living situation today? I have a [facility] place to live 06/09/2023 Sex and Gender Information Value Date Recorded Sex Assigned at Female 05/16/2023 3:29 PM CDT Gender Identity Female 05/16/2023 3:29 PM CDT Sexual Orientation Straight 05/16/2023 3: 29 PM CDT documented as of this encounter Last Filed Vital Signs Vital Sign Reading Time Taken Comments Blood Pressure 112/68 02/10/2024 9:55 AM CDT Pulse 72 02/10/2024 9:55 AM CDT Temperature 36.6 ??C (97.9 ??F) 02/10/2024 9:55 AM CD T Respiratory Rate 02/10/2024 9:55 AM CDT Oxygen Saturation 96% 02/10/2024 9:55 AM CDT Inhaled Oxygen Concentration - - Weight - - Height - - Body Mass Index - - documented in this encounter Medications at Time [...] TIMES/DAY. blood-glucose meter (Contour Next EZ Meter) [facility] [place] See Admin Instructions. calcium carb/vit D3/minerals (CALTRATE [...] tablet Take 1 tablet by mouth daily. [id number] A-vit K-lut (Centrum Silver Women) 8 mg iron-400 [...] 1 each by mouth daily. Med Name: Rositaqcathy Defend UNABLE TO FIND Take 2 each by mouth daily. Med Name: Rositaqucathy Protect UNABLE TO FIND Take 2 each by mouth once a week. Med Name: Cb Flush packets acetaminophen (TylenoL) 500 mg tablet [...] needed for constipation. While on narcotics. 02/10/2024 sulfamethoxazole-tr imethoprim (Bactrim) 400-80 mg per tablet Take 1 tablet by mouth every 12 (twelve) hours for 5 days. 10 tablet 02/10/2024 02/15/2024 documented as of this encounter OR Notes * Concepcion - Israel Christianson M.D. 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 Findings As expected. Complications None Operative Note Narrative The patient was identified and brought to the operating room where general anesthesia was administered. She was prepped and draped in the usual sterile fashion in the prone position. Surgical pause was completed. Fluoroscopy in AP view was used to identify the medial aspect of the sacral foramina on both sides. Fluoroscopy in lateral view was used to identify S3. Local anesthetic was injected at the proposed area of needle entry. Utilizing the foramen needle, the S3 sacral foramen was identified on the patient's right. We had an opening threshold of 0.8 volts. There was a toe response with higher voltage, 1.0 volts. We tested the other side but did not find any lower threshold and decided to go with the needle on the right side. The stylet was removed and the guidewire was passed through the foramen needle. An incision was made in the skin utilizing a 15 blade to allow for passage of the lead introducer. Under direct fluoroscopic guidance, the lead introducer was passed to the appropriate position. The SureScan lead with curved stylet in place was then passed. Electrodes showed alf and toe responses at appropriate levels. Under direct fluoroscopic visualization, the lead was deployed. It was again tested and appropriate responses were noted at low threshold. Specifically, Electrode 0: Alf 2.2.,Toe 2.1, Electrode 1: Alf 1.7,Toe 2.0, Electrode 2: Alf 0.9,Toe 1.4,Electrode 3: Alf 0.8,Toe 1.1. The antibiotic solution in water was used to irrigate the incision. Local anesthetic was used on the patient's right buttock at the planned area of future battery placement. An incision was made. This was carried down through the subcutaneous fat utilizing electrocautery. Hemostasis was noted. Utilizing the tunneler, the lead was tunneled from the midline to the pocket created. The planned area of tunneling was injected with local anesthetic. The tunneler was passed from the pocket to the left of midline. The lead extension was attached, and was withdrawn back to the pocket. The lead and leadextender were connected. An interrupted 2-0 Vicryl was used to close the tunnel down around the exte nsion. All incisions were made hemostatic and were irrigated with sterile water. The pocket incision where the lead mines safety engineer and lead were located was closed utilizing 2-0 Vicryl suture in the subcutaneous layer and 4-0 Monocryl in the skin. The incision was covered with Dermabond as was the midline incision for lead placement and needle puncture sites. The lead mines safety engineer was attached to the external battery pack. All areas were covered with a sterile dressing. All sponge, lap, needle, instrument counts were correct according to nursing. Patient was taken recovery room stable condition. Israel Christianson M.D. documented in this encounter Plan of Treatment Not on file documented as of this encounter Procedures Procedure Name Priority Date/Time Associated Diagnosis Comments FL FLUORO LESS THAN 1 HOUR RAD - Routine (most inpatients and all outpatients) 02/10/2024 10:05 AM CDT SACRAL NERVE STIMULATOR - STAGE I 02/10/2024 7:29 AM CDT Overactive Bladder Case Notes THERON 02/01/24 Special Needs Meghan primary documented in this encounter Results * FL Fluoro Less Than 1 Hour (02/10/2024 10:05 AM CDT) Narrative [id number] - 02/10/2024 10:05 AM CDT This exam does not require a radiologist review or interpretation. Please refer to the patient's medical record on this date for clinical details. Israel Christianson M.D. IMG FLUOROSCOPY PROC EDURES [id number] NA documented in this encounter Visit Diagnoses Not on filedocumented in this encounter Administered Medications Inactive Administered Medications - up to 3 most recent administrations Medication Order MAR Action Action Date Dose Rate Site acetaminophen tablet 1,000 mg (TylenoL) 1,000 mg, oral, Once, On Thu02/10/24 at 0715, For 1 dose, Pre-Op Given 02/10/2024 7:41 AM CDT 1,000 mg chlorhexidine 0.12 % mouthwash 15 mL (Peridex) 15 mL, swish & spit, Once as needed, Chlorhexidine mouthwash (Peridex) should be given if patient did not complete oral care, if completion is greater than 4 hours prior to surgery or procedure start time and they do not have the opportunity to brush their teeth now (or at this time)., Starting on Thu02/10/24 at 0659, For 1 dose, Pre-Op, Instruct patient to swish entire content of Chlorhexidine 0.12% mouthwash (PERIDEX) 15 mL cup for 30 seconds, then spit, swish & spit. If patient is at risk for aspiration, apply Chlorhexidine 0.12% mouthwash to a swab and gently swab the patient's teeth and gums. Ensure swab is not oversaturated. Lactated Ringer's 20 mL/hr, intravenous, Continuous, Starting on Thu02/10/24 at 0730, Pre-Op New Bag 02/10/2024 7:39 AM CDT 20 mL/hr 20 mL/hr scopolamine base 1 mg over 3 days 1 patch (Transderm-Scop) 1 patch, transdermal, Administer over 24 Hours, Every 72 hours, First dose on Thu02/10/24 at 0730, For 1 dose, Pre-Op, Contains 1.5 mg to deliver 1 mg/72 hours. Medication Applied 02/10/2024 7:43 AM CDT 1 patch Behind Right Ear sodium chloride 0.9 % injection 10 mL 10 mL, intravenous, As needed, line care, Starting on Thu02/10/24 at 0659, Pre-Op, Peripheral Intravenous Catheter and Rapid Infusion Catheter, prior to blood sampling, post blood transfusion or post blood sampling sodium chloride 0.9 % injection 3 mL 3 mL, intravenous, As needed, line care, Starting on Thu02/10/24 at 0659, Pre-Op, Prior to and following infusion and between multiple consecutive infusions: sodium chloride 0.9 % injection sodium chloride 0.9 % injection 3 mL 3 mL, intravenous, Every 12 hours scheduled, First dose on Thu02/10/24 at 0900, Pre-Op, Peripheral Intravenous Catheter and Rapid Infusion Catheter, when no infusion to maintain patency vancomycin in NaCl 0.9 % IVPB 1,000 mg 1,000 mg (rounded from 1,050 mg = 15 mg/kg ? 70 kg), intravenous, at 200 mL/hr, Administer over 60 Minutes, Once, On Thu02/10/24 at 0715, For 1 dose, Pre-Op, Drug Monitoring Program: Pharmacist to adjust medication dosing based on indication and drug clearance factors., Indications: Prophylaxis, surgical New Bag 02/10/2024 7:39 AM CDT 1,000 mg 200 mL/hr documented in this encounter Active and Recently Administered Medications Times are shown in CDT. Scheduled Medication Order 02/08/2024 02/09/2024 02/10/2024 acetaminophen tablet 1,000 mg (TylenoL) (COMPLETED) 1,000 mg, oral, Once, On Thu02/10/24 at 0715, For 1 dose, Pre-Op 0741 (Given - Provid er: Rhonda Aranda R.N.) acetaminophen tablet 1,000 mg (TylenoL) 1,000 mg, oral, Once, On Thu02/10/24 at 0730, For 1 dose, Pre-Op 0730 (Due) BUPivacaine liposome (PF) 266 mg/20 mL (13.3 mg/mL) injection 20 mL (ExpareL) 20 mL, infiltration, Once, On Thu02/10/24 at 0700, For 1 dose, Intra-Op 0700 (Due) gentamicin 0.16 mg/mL-vancomycin 1 mg/mL in sterile water for irrigation 1,000 mL (interstim soak) irrigation, Once, On Thu02/10/24 at 0700, For 1 dose, Intra-Op 0700 (Due) gentamicin in NaCl 0.9 % (iso osm) IVPB 100 mg (Garamycin) (COMPLETED) 100 mg (rounded from 105 mg = 1.5 mg/kg ? 70 kg), intravenous, at 100 mL/hr, Administer over 30 Minutes, Once, On Thu02/10/24 at 0715, For 1 dose, Pre-Op, Drug Monitoring Program: Pharmacist to adjust medication dosing based on indication and drug clearance factors., Indications: Prophylaxis, surgical 0810 (Given - Provid er: Edita Mancuso APRN, MARCO A)0937 (Anesthesia Volume Adjustment - Provider: Edita Mancuso APRN, DINING ROOM SERVER) scopolamine base 1 mg over 3 days 1 patch (Transderm-Scop) 1 patch, transdermal, Administer over 24 Hours, Every 72 hours, First dose on Thu02/10/24 at 0730, For 1 dose, Pre-Op, Contains 1.5 mg to deliver 1 mg/72 hours. 0743 (Medication Rom lied - Provider: Rhonda Aranda R.N.)1202 (Due: Medication Removed - Provider: Discharge Provider, Automatic - Comment: Time automatically adjusted from order being discontinued) sodium chloride 0.9 % injection 3 mL 3 mL, intravenous, Every 12 hours scheduled, First dose on Thu02/10/24 at 0900, Pre-Op, Peripheral Intravenous Catheter and Rapid Infusion Catheter, when no infusion to maintain patency 0900 (Due) sodium chloride 0.9 % injection 3 mL 3 mL, intravenous, Every 12 hours scheduled, First dose on Thu02/10/24 at 0900, Pre-Op, Peripheral Intravenous Catheter and Rapid Infusion Catheter, when no infusion to maintain patency 0900 (Due) vancomycin in NaCl 0.9 % IVPB 1,000 mg (COMPLETED) 1,000 mg (rounded from 1,050 mg = 15 mg/kg ? 70 kg), intravenous, at 200 mL/hr, Administer over 60 Minutes, Once, On Thu02/10/24 at 0715, For 1 dose, Pre-Op, Drug Monitoring Program: Pharmacist to adjust medication dosing based on indication and drug clearance factors., Indications: Prophylaxis, surgical 0739 (New Bag - Prov ider: Rhonda Aranda R.N.) Continuous Medication Order 02/08/2024 02/09/2024 02/10/2024 Lactated Ringer's 20 mL/hr, intravenous, Continuous, Starting on Thu02/10/24 at 0730, Pre-Op 0739 (New Bag - Prov ider: Rhonda Aranda R.N.) Lactated Ringer's 20 mL/hr, intravenous, Continuous, Starting on Thu02/10/24 at 1000, PACU & Post-Op 1000 (Due) PRN Medication Order 02/08/2024 02/09/2024 02/10/2024 BUPivacaine 0.25 % (2.5 mg/mL) injection (Marcaine) (CANCELED) As needed, Starting on Thu02/10/24 at 0839, Intra-Op 0839 (Given - Provid er: Israel Christianson M.D. - Comment: right buttocks/lower back) BUPivacaine liposome (PF) 266 mg/20 mL (13.3 mg/mL) injection (ExpareL) (CANCELED) As needed, Starting on Thu02/10/24 at 0838, Intra-Op 0838 (Given - Provid er: Israel Christianson M.D. - Comment: right buttocks/lower back) chlorhexidine 0.12 % mouthwash 15 mL (Peridex) 15 mL, swish & spit, Once as needed, Chlorhexidine mouthwash (Peridex) should be given if patient did not complete oral care, if completion is greater than 4 hours prior to surgery or procedure start time and they do not have the opportunity to brush their teeth now (or at this time)., Starting on Thu02/10/24 at 0659, For 1 dose, Pre-Op, Instruct patient to swish entire content of Chlorhexidine 0.12% mouthwash (PERIDEX) 15 mL cup for 30 seconds, then spit, swish & spit. If patient is at risk for aspiration, apply Chlorhexidine 0.12% mouthwash to a swab and gently swab the patient's teeth and gums. Ensure swab is not oversaturated. sodium chloride 0.9 % injection 10 mL 10 mL, intravenous, As needed, line care, Starting on Thu02/10/24 at 0659, Pre-Op, Peripheral Intravenous Catheter and Rapid Infusion Catheter, prior to blood sampling, post blood transfusion or post blood sampling sodium chloride 0.9 % injection 10 mL 10 mL, intravenous, As needed, line care, Starting on Thu02/10/24 at 0709, Pre-Op, Peripheral Intravenous Catheter and Rapid Infusion Catheter, prior to blood sampling, post blood transfusion or post blood sampling sodium chloride 0.9 % injection 3 mL 3 mL, intravenous, As needed, line care, Starting on Thu02/10/24 at 0659, Pre-Op, Prior to and following infusion and between multiple consecutive infusions: sodium chloride 0.9 % injection sodium chloride 0.9 % injection 3 mL 3 mL, intravenous, As needed, line care, Starting on Thu02/10/24 at 0709, Pre-Op, Prior to and following infusion and between multiple consecutive infusions: sodium chloride 0.9 % injection documented in this encounter Additional Health Concerns Assessment Noted Time PHQ-9 Depression Total Score: 2 08/31/19 24 2:23 PM DRYERMAN/WOMAN documented as of this encounter Care Teams Sql Database Administrator Relationship Specialty Start Date End Date Elsewhere, Pcp PCP - General Internal Medicine 01/29/24 documented as of this encounter
--- OUTSIDE RECORDS SUMMARY | 2024-03-31 22:37 | XMS_ITS | Clinical Summary ---
Author Organization [facility] Address [place], [place] [address] Care Team Providers Care Marketing Producer Name Role Phone Marilu Zeng MD Primary Care Provide r Jossie Ocampo Unavailable Ayde Teran RD Unavailable [phone] Allergies Active Allergy Reactions Criticality Noted Date Comments Ciprofloxacin Other - Describe In Comment Field High 05/18/2015 Loss sense of smell Other reaction(s): LOST HER SENSE OF SMELL Clindamycin Rash Low 11/25/2006 Rash per patient history Lisinopril Cough Low 05/19/2017 Other reaction(s): COUGH Losartan Angioedema 05/20/2017 Naproxen Mental Status Change Low 01/18/2015 Feels light-headed and icky. Other reaction(s): LIGHTHEADED Medications Medication Sig Dispensed Refills Start Date End Date Status Calcium Citrate 250 mg calcium tablet Take 2 tablets by mouth 2 times daily with meals. 240 tablet 5 2020 Active cholecalciferol (VITAMIN D-3) 2,000 unit capsule Take 1 capsule by mouth once daily. 0 2020 Active blood-glucose meterIndications: Diabetes mellitus without complication (HC) Dispense meter, test strips, lancets covered by pt ins; [employer] Contour Next meter (must be a [employer] product) and the test strips and lancets that go with this [id number] NIDDM type II - Test 2 times/day. Reason: High A1C HEMOGLOBIN A1C MONITORING (POCT) Date Value 11/30/2020 8.9 % (H) 1 Device 12/06/2020 Active aspirin enteric coated (ECOTRIN) 325 mg tablet Take 1 Tablet (325 mg) by mouth once daily with a meal. 0 10/23/2021 Active miscellaneous medical supply miscIndications:F oot pain, bilateral As directed. Ped pillows size 9 Pt wears 8 1/2 shoe 1 unit 11/05/2021 Active cyclobenzaprine (FLEXERIL) 10 mg tabletIndications :Back spasm Take 1 Tablet (10 mg) by mouth 3 times daily if needed for Muscle Spasm. 20 Tablet 1 06/13/2022 Active blood sugar diagnostic (Contour Next Test Strips) stripIndications: Type 2 diabetes mellitus without complication, without long-term current use of insulin (HC) TEST 3 TIMES/DAY. Uncontrolled diabetes 300 Each 3 06/02/2023 Active estradioL (ESTRACE) 0.01% (0.1 mg/g) vaginal creamIndications: Vaginal atrophy Insert 0.5 g into the vagina at bedtime. Insert 0.5g of cream into vaginal introitus at bedtime twice weekly 42.5 g 5 06/19/2023 Active sennosides (SENNA) 8.6 mg tabletIndications :Chronic constipation Take 2 Tablets (17.2 mg) by mouth two times daily. 08/10/2023 Active calcium carbonate/vitamin D3 (CALTRATE 600 PLUS D ORAL) Take 1 Tablet by mouth once daily. Active clonazePAM (KLONOPIN) 0.5 mg tablet Take 0.5 mg by mouth once daily if needed for Anxiety. Active Lactobac 40-Bifido 3-S.thermop (Probiotic) 100 billion cell cap Take 1 Tablet by mouth once daily. Active kiiylzcw-eom-grad -FA-vit K-lut (Centrum Silver Women) 8 mg iron-400 mcg-50 mcg tab Take 1 Tablet by mouth once daily. Active polyethylene glycoL (MIRALAX) 17 gram/scoop powder Mix 17 g in liquid then take by mouth once daily if needed for Constipation. Active sennosides-docusa te (SENOKOT S) (8.6-50 mg) tablet Take 4 Tablets by mouth once daily if needed. Active amLODIPine (NORVASC) 2.5 mg tabletIndications :HTN (hypertension) Take 1 Tablet (2.5 mg) by mouth once daily. 100 Tablet 3 01/08/2024 Active atenoloL (TENORMIN) 50 mg tabletIndications :HTN (hypertension) Take 1 Tablet (50 mg) by mouth two times daily. 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 100 Tablet 3 01/08/2024 Active DULoxetine (CYMBALTA) 30 mg Delayed-release capsuleIndication s:Moderate episode of recurrent major depressive disorder (HC),Anxiety Take 1 Capsule (30 mg) by mouth once daily. 100 Capsule 3 01/08/2024 Active DULoxetine (CYMBALTA) 60 mg Delayed-release capsuleIndication s:Moderate episode of recurrent major depressive disorder (HC) Take 1 Capsule (60 mg) by mouth once daily. 100 Capsule 01/08/2024 Active glipiZIDE (GLUCOTROL) 10 mg tabletIndications :Diabetes mellitus without complication (HC) Take 1 Tablet (10 mg) by mouth once daily before a meal. Take 30 minutes before the meal. 100 Tablet 3 01/08/2024 Active mirabegron EXTENDED-release (Myrbetriq) 50 mg tabletIndications :Mixed stress and urge urinary incontinence Take 1 Tablet (50 mg) by mouth once daily. 100 Tablet 01/08/2024 Active Ozempic 1 mg/dose (4 mg/3 mL) penIndications:Ty pe 2 diabetes mellitus without complication, without long-term current use of insulin (HC) Inject 1 mg subcutaneous once weekly. 3 mL 11 01/08/2024 Active traZODone (DESYREL) 50 mg tabletIndications :Insomnia, idiopathic Take 1 Tablet (50 mg) by mouth at bedtime. 100 Tablet 3 01/08/2024 Active amoxicillin (AMOXIL) 500 mg tabletIndications :History of right hip replacement Take 4 tablets or 2 gms one hour prior to dental work. 12 Tablet 03/08/2024 Active amoxicillin (AMOXIL) 500 mg tabletIndications :History of right hip replacement Take 4 tablets or 2 gms one hour prior to dental work. 12 Tablet 04/30/2022 Discontinu ed(Reorder (E-cancel not sent)) Active Problems Problem Noted Date Diagnosed Date Stage 3a chronic kidney disease 09/01/2023 Overactive bladder 04/22/2022 11/05/2022 Controlled substance agreement signed 10/03/2021 Overview: 01/30/21 Jossie Winter MD/psychiatry Incontinence 01/29/2021 11/05/2022 Insomnia, idiopathic 08/19/2018 Moderate episode of recurrent major depressive d isorder 03/18/2018 Severe episode of recurrent major depressive disorder, without psychotic features 01/07/2018 Anxiety 01/07/2018 VIRIDIANA 12/17/2016 AHI-15 01/01/2017 Coronary artery disease invo lving cahuilla coronary artery of cahuilla heart without angina pectoris 07/08/2015 Family history of premature CAD 07/08/2015 Elevated ALT measurement 07/08/2015 Family history of breast cancer 06/18/2013 Other screening breast examination 06/18/2013 Sensorineural hearing loss, bilateral 10/14/2012 Family history of malignant neoplasm of gastrointestinal tract 12/20/2008 Overview: Colonoscopy 01/2012 normal repeat in 5 years Colonoscopy 11/2016 normal repeat in 5 years Colonoscopy 04/2022 long colon, repeat in 5 years Adjustment disorder with mixed anxiety and depre ssed mood 06/21/2007 Depressive disorder, not elsewhere classified Type II or unspecified type diabetes mellitus without mention of complication, not stated as uncontrolled 11/25/2006 Mixed hyperlipidemia 11/25/2006 Unspecified essential hypertension 11/25/2006 Postmenopausal atrophic vaginitis 11/25/2006 Other chronic nonalcoholic liver disease 007 Overview: Fatty liver Resolved Problems Problem Noted Date Diagnosed Date Resolved Date Adhesive capsulitis of right shoulder associated with type 2 diabetes mellitus 02/21/2020 10/02/2022 Controlled substance agreement signed 08/19/2018 10/03/2021 Overview: Signed 08/19/18 [facility] Benign neoplasm of colon 11/25/2006 Encounters Date Type Department Care Team Description 03/08/2024 Telephone [facility] [address] [place] [address] Marilu Zeng MD Results (Mammogram ) 03/07/2024 10:00 AM CDT Ancillary Procedure [facility] [address] [place] [address] 03/07/2024 Travel 01/08/2024 10:20 AM CDT Office Visit [facility] [address] [place] [address] Jerica Soares MD Medicare ANNUAL (subsequent) Visit (hearing concerns lower notes' ) 01/08/2024 Travel from Last 3 Months Immunizations Name Administration Dates Next Due AMB Influenza, IIV4 PF (=>6 mos Flulaval,Fluzone Fluarix)(Flu Clinic Only) 04/18/2016 COVID-19 Vaccine Spikevax (M oderna 50mcg/0.5mL) 12YO+ [id number] Formula PF 10/19/2023 COVID-19 vaccine (Moderna 100mcg/0.5mL) PF, MDV 04/24/2023,10/30/2021,10/14/2020,09/16 DT (Age < 7 years) 09/12/1985,05/10/1979 DTaP 09/18/2008 Hepatitis A (Adult) 03/31/2001,09/10/2000 Hepatitis B (Adult) 03/31/2001,10/15/2000,2000 Influenza A (H1N1), Inactiva austin (Age 6-35 Mos) 08/10/2009 Influenza A (H1N1), Inactiva austin (Age >=3 Years) 06/03/2009 Influenza Virus, Unspecified 06/09/2007 Influenza, High-dose Quadriv alent Inactivated 04/14/2021 Influenza, IIV3 (Age 6-35 mos) 04/18/2010 Influenza, IIV3 (Age >=3 years) 05/07/20 14,05/19/2012,05/16/2011,06/09 Influenza, IIV4 04/20/2018, 7,04/24/2015,05/08,08/10/2009 Influenza, Inactivated AIIV4 (Age 65+ Years) Preserv Free 05/01/2023,04/16/2022,05/03/2020 Influenza, Inactivated IIV3 (Age 65+ Years) Preserv Free 05/06/2019 Indonesian Encephalitis 07/08/2022 Pneumococcal Poly,23-Valent (Pneumovax) 2020 Pneumococcal conj 13-Valent (Prevnar 13) 05/06/2019 RSV, Recombinant ADJ Reconst ituted (Arexvy 120MCG/0.5mL) 04/04/2023 Td (Age >=7 Years) 12/01/2018,08/21/1992 Tdap 09/18/2008 Typhoid (injectable) 07/08/2022 Zoster (Shingrix-RZV, recombinant) 07/13/2018, Zoster (Zostavax-ZVL, live) 01/10/2014 Family History Medical History Relation Name Comments Heart Disease Father age 50s Hyperlipidemia Father Hypertension Father Cancer-prostate Maternal Uncle 1 Dx age u nknown Cancer-prostate Maternal Uncle 2 dx age u nknown Cancer-breast Mother age 70s Cancer-ovarian Mother Cancer-breast Other 1 mat 1st cousin br ca in her 50's Cancer-breast Other 2 x2 Paternal Co usin Cancer-colon Other 3 Pat 1st cousin in her 50's Cancer-colon Paternal Aunt 1 Dx in 60's Cancer-colon Paternal Aunt 2 dx in 70's Cancer-colon Paternal Uncle Dx in his 70' s Diabetes Sister 1 Peyton Cotton Hernan's thyroiditis Sister 2 Donna Galeano Relation Name Status Comments Father (Age 54) Maternal Grandfather Maternal Grandmother Maternal Uncle 1 Maternal Uncle 2 Mother (Age 80) Other 1 Other 2 Other 3 Paternal Aunt 1 Paternal Aunt 2 Paternal Grandfather Paternal Grandmother Paternal Uncle Sister 1 Peytonradha Cotton Alive Sister 2 Donna Galeano Alive Social History Tobacco Use Types Packs/Day Years Used Date Smoking Tobacco: Never Smokeless Tobacco: Never Tobacco Cessation:Counseling Given: Not Answered Alcohol Use Standard Drinks/Week Comments Not Currently 0 (1 standard drink = 0.6 oz pur e alcohol) rare, when traveling mainly PHQ-2 Answer Date Recorded PHQ-2 TOTAL SCORE 0 01/08/2024 Social Connections Answer Date Recorded Frequency of Communication with Friends and Fami ly 0 09/01/2023 Financial Resource Strain Answer Date R ecorded Difficulty of Paying Living Expenses 3 09/01/2023 Difficulty of Paying Living Expenses Not on file 09/01/2023 Food Insecurity Answer Date Recorded Worried About Running Out of Food in the Last Ye ar 1 09/01/2023 Transportation Needs Answer Date Record ed Lack of Transportation (Medical) 1 09/01/2023 Housing Stability Answer Date Recorded Unable to Pay for Housing in the Last Year 1 09/01/2023 Sex and Gender Information Value Date Recorded Sex Assigned at Not on file Gender Identity Not on file Sexual Orientation Not on file Obstetrics History Para Term AB IAB SAB Ectopic Multiple Livin g Live Births 3 1 1 2 2 1 1 Date Outcome GA Total Labor Labor/2nd/3rd Weight Sex Type Anes PTL Colette A1 A5 Name Clin SAB 1988 Term M Vag Living 1997 Last Filed Vital Signs Vital Sign Reading Time Taken Comments Blood Pressure 123/72 01/08/2024 11:24 AM CDT Pulse 63 01/08/2024 10:32 AM CDT Temperature 36.3 ??C (97.4 ??F) 04/05/2023 9:37 AM CD T Respiratory Rate 16 04/05/2023 9:37 AM CDT Oxygen Saturation 100% 01/08/2024 10:32 AM CDT Inhaled Oxygen Concentration - - Weight 68.6 kg (151 lb 3.2 oz) 01/08/2024 10:32 AM CDT Height 171.4 cm (5' 7.48) 01/08/2024 10:32 AM C DT Body Mass Index 23.35 01/08/2024 10:32 AM CDT Plan of Treatment Upcoming Encounters Date Type Department Care Team (Late st Contact Info) Description 04/07/2024 8:40 AM CDT Office Visit [facility] [address] [place] [address] Marilu Zeng MD [address] [place] [address] Health Maintenance Due Date Last Done Comments Influenza for age 65+ 04/03/2024 05/01/2023 , 04/16/2022, 04/14/2021, Additional history exists BMI (ht and wt on same day) for age 18+ 01/07/2025 01/08/2024, 10/27/2023, 11/05/2022, Additional history exists Depression screening for age 12+ 01/07/2025 01/08/2024, 10/16/2023, 10/15/2023, Additional history exists Medicare Wellness for age 65+ 01/08/2025, 11/05/2022, 10/07/2021, Additional history exists Mammogram for age 45-75 03/07/2025 03/07/20 24, 02/24/2023, 02/17/2022, Additional history exists Colonoscopy through age 75 04/09/202704/09, 04/09/2022, 04/09/2022, Additional history exists Tetanus booster 12/01/2028 12/01/2018, 09/03, 08/21/1992 Lipids for age 45-75 01/07/2029 01/08/2024, 05/01/2023, 06/13/2022, Additional history exists Hepatitis C screening for ag e 18-79 Completed 03/19/2005 Tdap Completed 09/18/2008 Zoster (shingles) series for age 50+ Completed 07/13/2018, 05/13/2018, 01/10/2014 Pneumococcal series for age 65+ Completed , 05/06/2019 DEXA/DXA scan for age 65+ Completed 2022, 05/10/2019, 02/27/2011 COVID-19 vaccine series Completed 10/19/19 24, 04/24/2023, 04/24/2023, Additional history exists Procedures Procedure Name Priority Date/Time Associated Diagnosis Comments XR MAMMO JUNG BILAT SCREEN Routine 03/07/2024 10:24 AM CDT Visit for screening mammogram LIPID PANEL W REFLEX MEASURED LDL Routine 01/08/2024 10:19 AM CDT Mixed hyperlipidemia BASIC METABOLIC PANEL Routine 01/08/2024 10:19 AM CDT Stage 3a chronic kidney disease (HC) HEMOGLOBIN A1C Routine 01/08/2024 10:19 AM CDT Type 2 diabetes mellitus without complication, without long-term current use of insulin (HC) XR DXA BONE DENSITY 2 SITES AXIAL Routine 11/06/2022 11:06 AM CDT Osteopenia, unspecified location Other specified disorders of bone density and structure, multiple sites COLONOSCOPY SCREENING Routine 04/09/2022 9:30 AM CDT Family history of malignant neoplasm of gastrointestinal tract ANTI HCV Routine 03/19/2005 11:50 AM CDT from Last 3 Months or Most Recently Relevant to Health Maintenance Results * XR MAMMO JUNG BILAT SCREEN (03/07/2024 10:24 AM CDT) Anatomical Region Laterality Modality BREASTS, Breast Left, Breast Right Bilateral Mammography Impressions 03/07/2024 1:59 PM CDT ??There is no radiographic evidence for malignancy. ??Recommend annual mammograms. MAMMOGRAM ASSESSMENT: ??ACR 1 Negative PATIENTS: You will also receive a letter with your examination results in an easy to read format. ??If you have questions about your results, please contact your referring provider. Narrative 03/07/2024 1:59 PM CDT For Patients: As a result of the Century Cures Act, medical imaging exams and procedure reports are released immediately into your electronic medical record. You may view this report before your referring provider. If you have questions, please contact your health care provider. XR MAMMO JUNG BILAT SCREEN [[id number]] CLINICAL HISTORY: ??This is an asymptomatic 68 y.o. patient. INDICATION FOR EXAM: Mammogram Screening. TECHNIQUE: CC & MLO views were obtained. ??This study was evaluated with the assistance of Computer-Aided Detection. Breast Tomosynthesis was used in interpretation. COMPARISON FILM: Yes 02/24/23 [facility] 02/17/22 [facility] FINDINGS: ??The breasts are heterogeneously dense, which may obscure small masses. There are no dominant masses, suspicious micro calcifications or areas of architectural distortion. Marilu Zeng MD MAMMO * LIPID PANEL W REFLEX MEASURED LDL (01/08/2024 10:19 AM CDT) CHOLESTEROL,TOTAL 123 100 - 199 mg/dL 01/08/2024 7:25 PM CDT [facility] Comment: Cholesterol, Total Reference Ranges Desirable <200 mg/dL Borderline 200-239 mg/dL High >=240 mg/dL TRIGLYCERIDES 77 <150 mg/dL 01/08/2024 7:25 PM CDT [facility] HDL CHOLESTEROL 41 >40 mg/dL 7:25 PM CDT [facility] NON-HDL CHOLESTEROL 82 <145 mg/dl 01/08/2024 7:25 PM CDT [facility] CHOL/HDL RATIO 3.00 <4.50 01/08/2024 7:25 PM CDT [facility] LDL CHOLESTEROL 67 <=130 mg/dL 01/08/2024 7:25 PM CDT [facility] VLDL CHOLESTEROL 15 <=30 mg/dL 01/08/2024 7:25 PM CDT [facility] PROVIDER ORDERED STATUS RANDOM 01/08/2024 7:25 PM CDT [facility] Blood BLOOD SPECIMEN / Unknown Venipuncture / Unknown 01/08/2024 10:19 AM CDT 01/08/2024 10:20 AM CDT Jerica Soares MD CHEMISTRY [facility] [address] [place] [address], * (ABNORMAL) HEMOGLOBIN A1C MONITORING (POCT) (01/08/2024 10:19 AM CDT) HEMOGLOBIN A1C MONITORING (POCT) 6.5(H) <=6.4 % 01/08/2024 10:31 AM CDT [facility] Blood BLOOD SPECIMEN / Unknown Venipuncture / Unknown 01/08/2024 10:19 AM CDT 01/08/2024 10:20 AM CDT Narrative [facility] - 01/08/2024 10:31 AM CDT ? (<=6.9%) ? Indicates good control ? (7.0% to 7.9%) ? Indicates fair control ? (>=8.0%) ? Indicates poor control ?? NOTE: ??These thresholds are guidelines and ?individual targets may vary. Falsely low levels may be seen with: Recent Transfusion, Recent Significant Blood Loss, Hemolytic Diseases, or Falsely elevated levels may be seen with: Untreated Anemias, Splenectomy ? Jerica Soares MD CHEMISTRY [facility] [address] [place] [address], * (ABNORMAL) BASIC METABOLIC PANEL (01/08/2024 10:19 AM CDT) SODIUM 141 136 - 145 mmol/L 01/08/2024 7:25 PM CDT [facility] POTASSIUM 4.5 3.5 - 5.1 mmol/L 01/08/2024 7:25 PM CDT [facility] CHLORIDE 104 98 - 107 mmol/L 01/08/2024 7:25 PM CDT [facility] CO2,TOTAL 29 22 - 29 mmol/L 01/08/2024 7:25 PM CDT [facility] ANION GAP 8 5 - 18 01/08/2024 7:25 PM CDT [facility] GLUCOSE 116(H) 70 - 99 mg/dL 01/08/2024 7:25 PM CDT [facility] CALCIUM 9.7 8.8 - 10.2 mg/dL 01/08/2024 7:25 PM CDT [facility] BUN 20 8 - 23 mg/dL 01/08/2024 7:25 PM CDT [facility] CREATININE 0.94(H) 0.50 - 0.90 mg/dL 01/08/2024 7:25 PM CDT [facility] BUN/CREAT RATIO 21(H) 10 - 20 7:25 PM CDT [facility] eGFR 65(L) >90 mL/min/1.7 3m2 01/08/2024 7:25 PM CDT [facility] Comment:As of 2021, eG FR is calculated by the CKD-EPI creatinine equation without race adjustment. ??eGFR can be influenced by muscle mass, exercise, and diet. ??The reported eGFR is an estimation only and is only applicable if the renal function is stable. Blood BLOOD SPECIMEN / Unknown Venipuncture / Unknown 01/08/2024 10:19 AM CDT 01/08/2024 10:20 AM CDT Jerica Soares MD CHEMISTRY [facility] [address] [place] [id number], * (ABNORMAL) XR DXA BONE DENSITY 2 SITES AXIAL (11/06/2022 11:06 AM CDT) Anatomical Region Laterality Modality Spine, HIPS, HIPL, HIPR Other Impressions 11/07/2022 3:23 PM CDT Osteopenia. RECOMMENDATIONS: The National Osteoporosis Foundation recommends pharmacologic treatment for patients with T-scores of -2.5 or less, patients with prior history of fragility fractures, or patients with 10-year probability of greater than 3% at hips or greater than 20% of suffering major osteoporotic fractures. Recommend continued optimization of calcium and vitamin D intake through dietary means and/or supplementation and regular exercise. Repeat scan recommended in 3-5 years. Rochelle Monroe PA-C [facility] 11/07/2022 Narrative 11/07/2022 3:23 PM CDT For Patients: Results are automatically released to your [employer] ([employer]) account once available, in compliance with federal regulations. This means that you may see your results before your provider has had a chance to review them. Please allow 2-3 business days for your provider to comment on the results. XR DXA Bone Mineral Density (BMD) EXAM LOCATION: [facility] [address] [facility] [address] PATIENT NAME: Saadia Summers DATE OF : 1955 EXAM DATE: 11/06/2022 REQUESTING PROVIDER: Jerica Soares MD GENDER AT : female HEIGHT: 5' 7.21 (11/05/2022) WEIGHT: ??156 lb (11/05/2022) MENOPAUSAL STATUS: Postmenopausal RACE/ETHNICITY: White RISK FACTORS: Family History of Osteoporosis and White Race CURRENT MEDICATION FOR BONE LOSS: NONE INDICATION: Follow-up of existing osteopenia and Post-Menopause COMPARISON DATE(S): 2019 DXA scans are compared to prior studies for a patient only when the two (or more) studies were performed on the same scanner. It is not possible to compare data generated on one scanner to data from another because there are not standards in DXA equipment. This applies even if the two scanners are made by the same inspection clerk. PROCEDURE: Dual-energy x-ray absorptiometry performed with routine technique. Reporting is completed in the form of a T-score. The T-score represents the standard deviation from peak bone mass based on young healthy adult. A Z-score is used for diagnosis in premenopausal women, and for men under the age of 50. FINDINGS: RESULT LUMBAR SPINE L1 - L4(L2,L3) BMD: 1.038 g/cm2 T-Score: - 1.2 Z-Score: + 0.3 Change from prior in 2019: ??Decrease 3.7%. RESULTS FEMUR Left femoral neck BMD: 0.846 g/cm2 T-Score: - 1.4 Z-Score: + 0.1 Change from prior in 2019: ??Decrease 2.0%. Left hip BMD: 0.929 g/cm2 T-Score: - 0.6 Z-Score: + 0.7 Change from prior in 2019: ??Decrease 1.2%. WHO criteria: Normal: T-score at or above -1 SD Osteopenia: T-score between -1.1 and -2.4 SD Osteoporosis: T-score at or below -2.5 SD FRAX RISK CALCULATION (USED FOR OSTEOPENIA ONLY): 10-year probability of major osteoporotic fracture: 9.6%. 10-year probability of hip fracture: 1.2%. Jerica Soares MD DEXA * COLONOSCOPY (04/09/2022 9:31 AM CDT) 04/09/2022 9:31 AM CDT Narrative Transcriptions Colten Tao MD - 04/09/2022 10:41 AM CDT Patient Name: Saadia Summers Procedure Date: 04/09/2022 Gender: Female Date of : 1955 Admit Type: Outpatient Procedure: Colonoscopy Proceduralist: Colten Tao MD , Elizabeth Quesada (Nurse), Marisa Ward (Nurse) Referring MD: Jerica Soares Indications/Pre-Op Diagnosis: Colon cancer screening in patient atincreased risk: Family history of colorectal cancer in multiple 2nd degree relatives, Last colonoscopy: November 2016 Medications: Fentanyl 100 micrograms IV, Midazolam 4 mgIV, The level of sedation administered wasmoderate Procedure Description: The patient had risks, benefits and alternatives explained to andgave informed consent. The patient had a stable cardiopulmonary status and judged an adequate candidate for conscious sedation. The Colonoscope was passed through the anus and advanced to theterminal ileum, with identification of the appendiceal orifice and IC valve.The colonoscopy was performed without difficulty. The patient toleratedthe procedure well. The quality of the bowel preparation was good. The ileocecal valve, appendiceal orifice, and rectum were photographed. Complications: No immediate complications. Estimated Blood Loss & Specimen: Estimated blood loss: none. Specimen collected - None Findings: The perianal and digital rectal examinations were normal. The colon (entire examined portion) was moderately redundant. The exam was otherwise without abnormality on direct and retroflexion views. Impressions/Post-Op Diagnosis: - Redundant colon. - The examination was otherwise normal on direct and retroflexionviews. - No specimens collected. Recommendation: - Patient has a contact number available for emergencies. The signsand symptoms of potential delayed complications were discussed with the patient. Return to normal activities tomorrow. Written discharge instructions were provided to the patient. - Resume previous diet. - Continue present medications. - Repeat colonoscopy in 5 years for screening purposes. Moderate Sedation: A time out was performed before the procedure. Moderate (conscious) sedation was administered by the endoscopy nurse and supervised bythe endoscopist. The following parameters were monitored: oxygensaturation, heart rate, blood pressure, EKG, CO2, respiratory rate, adequacy of pulmonary ventilation and reponse to care. Please refer to the patient's medical record flowsheets and nursing notes for moderate sedation details. Total physician intraservice time was 26 minutes. Colten Tao MD 04/09/2022 10:41:12 AM This report has been signed electronically. Note Initiated On: 04/09/2022 9:31 AM Procedure Code(s): --- Professional --- 40143, Colonoscopy, flexible; diagnostic, including collection of specimen(s) bybrushing or washing, when performed (separateprocedure) Diagnosis Code(s): --- Professional --- Z80.0, Family history of malignant neoplasmof digestive organs Q43.8, Other specified congenitalmalformations of intestine CPT copyright 2020 [employer]. All rights reserved. The codes documented in this report are preliminary and upon vp security reviewmay be revised to meet current compliance requirements. Scope In: 10:08:25 AM Scope Withdrawal Time 0 hours 10 minutes 13 seconds Scope Out: 10:32:29 AM Colten Tao MD PROCEDURE ORD * ANTI HCV (03/19/2005 11:50 AM CDT) ANTI HCV Non-reactiv e [facility] 03/19/2005 11:5 0 AM CDT 03/19/2005 6:53 PM CDT Narrative [facility] - 03/24/2005 2:00 PM CDT Testing Performed By [place], [place] Colten Tao MD SEND OUTS [facility] [address] [place] [address] from Last 3 Months or Most Recently Relevant to Health Maintenance Advance Directives Documents on File Type Date Recorded Patient Manager Of Tires Sales Expl anation Healthcare Directive 03/02/2024 3:49 PM Si gned 02/18/2024 Healthcare Directive 05/05/2016 12:12 PM Anival COTTRELL, 05/25/2006 Care Teams Marketing Producer Relationship Specialty Start Date End Date Marilu Zeng MD [address] [place] [address] PCP - General 09/22/05 Jossie Ocampo AuD [address] [place] [address] Audiology 10/14/[address] [place], [place] [address] Brick Paver Ferry Operator 06/16/22
--- OUTSIDE RECORDS SUMMARY | 2024-03-31 22:37 | XMS_ITS | Encounter Summary ---
Author Organization [facility] Address [address] [place] [address] Care Team Providers Care Hospice Home Health Aide Name Role Phone Elsewhere, Pcp Primary Care Provider Unavailabl e Reason for Visit * Auth/Cert (Routine) Specialty Diagnoses / Procedures Referred By Marco Antonio doshi Referred To Contact Diagnoses Overactive Bladder Overactive Bladder [N32.81] Procedures SACRAL NERVE STIMULATOR - STAGE II, NONRECHARGEABLE, INTERSTIM X, VS LEAD REMOVAL Referral ID Status Reason Start Date Expiration Date Visits Re quested Visits Authorized [id number] 1 1 Encounter Details Date Type Department Care Team (Latest Contact Info) Description 02/24/2024 6:08 AM CDT - 02/24/2024 11:31 AM CDT Hospital Encounter Outpatient Surgery Unit in [place], [place] [address] [place] [address] Israel Christianson M.D. [address] [place] [address] Discharge Disposition: Home or Self Care Social [...] your living situation today? I have a [facility] place to live 06/09/2023 Sex [...] TIMES/DAY. blood-glucose meter (Contour Next EZ Meter) [facility] See Admin Instructions. calcium carb/vit D3/minerals (CALTRATE [...] tablet Take 1 tablet by mouth daily. eyorilam-kdg-rovb-FA- vit K-lut (Centrum Silver Women) 8 mg [...] Diagnosis Overactive Bladder Post-op Diagnosis Overactive Bladder Customer Expert A business development assistant actively participated and was necessary for one or more of the following: opening, exposure and visualization during the case, maintaining hemostasis, wound closure resulting in itssafe and expeditious completion. Findings As expected. Complications None Operative Note Narrative Following patient identification, the patient was brought to OR 14 at [facility]. After induction of general anesthesia, she was [...] LAB POCT ORDERABLES- MANUAL Performing Organization Address City/[facility]/ZIP Co de Phone Number POC [facility] [address] [place] [address], [facility] PCDE [facility] [address] [place] [address] * (ABNORMAL) Glucose, POCT (02/24/2024 6:57 AM CDT) Glucose, POCT, B 250(H) 70 - 140 mg/dL 02/24/2024 6:59 AM CDT PCDE Site Capillary 02/24/2024 6:59 AM CDT PCDE Last Intake NPO 02/24/2024 6:59 AM CDT PCDE Blood 02/24/2024 6:57 AM CDT 02/24/2024 6:59 AM CDT Unknown Provider LAB POCT ORDERABLES- MANUAL Performing Organization Address City/[facility]/ZIP Co de Phone Number [facility] [address] [place] [address], [facility] PC[facility] [address] [place] [address] documented in this encounter Visit Diagnoses Diagnosis Diabetes Mellitus Type 2 (HCC) Chronic Kidney Disease (CKD), Stage 3a Glomerular Filtration Rate (GFR) 45 To 59 (HCC) Apnea Sleep Obstructive Hypertension Essential Primary Depression Major Recurrent Moderate (HCC) documented in this encounter Administered Medications Inactive [...] Given 02/24/2024 7:59 AM CDT 40 mg chlorhexidine 0.12 % mouthwash 15 mL [...] and gums. Ensure swab is not oversaturated. ibuprofen tablet 400 mg 400 mg, oral, [...] Thu02/24/24 at 0730, For 1 dose, Intra-Op 729 (Due)0914 (Give n - Provider: Israel Christianson [...] 0833 (Given - Provid er: Joshua Garnett, FIXED INCOME ANALYST, ANALYTICS DEVELOPER, DNAP) ibuprofen tablet 400 mg(Linked Group 1) [...] (New Bag - Prov ider: Rosalie Apple RKyleN.)0900 (Stopped - Provider: Lashae Monsalve R.N.) Continuous Medication Order 02/22/2024 02/23/202402/24/2024 Lactated Ringer's 40 mL/hr, intravenous, Continuous, Starting [...] Total Score: 2 08/31/19 24 2:23 PM FLIGHT OPERATIONS SPECIALIST documented as of this encounter Care Teams Hospice Home Health Aide Relationship Specialty Start Date End Date Elsewhere, Pcp PCP - General Internal Medicine 01/29/24 documented as of this encounter
--- OUTSIDE RECORDS SUMMARY | 2024-03-31 22:37 | XMS_ITS | Encounter Summary ---
Author Organization [facility] Address [address] [place] [address] Care Team Providers Care Office Automation Technician Name Role Phone Elsewhere, Pcp Primary Care Provider Unavailabl e Encounter Details Date Type Department Care Team (Late st Contact Info) Description 02/17/2024 Clinical Communication Department of Obstetrics and Gynecology in [place], [place] [address] [place] [address] Gio Sol R.N., C.M.S.R.N. [address] [place] [phone] Social History Tobacco Use Types Packs/Day Years [...] your living situation today? I have a [facility] place to live 06/09/2023 Sex and Gender Information Value Date Recorded Sex Assigned at Female 05/16/2023 3:29 PM CDT Gender Identity Female 05/16/2023 3:29 PM CDT Sexual Orientation Straight 05/16/2023 3: 29 PM CDT documented as of this encounter Miscellaneous Notes * Telephone Encounter - Israel Christianson M.D. - 02/23/2024 4:56 PM CDT 02/23/2024, 12:00 p.m. I called the patient to follow-up and discuss her stage I trial results. She had a little bit of confusion about measuring the programs versus the days of the trial. Overall she did not think things were significantly improved. We spent some time correlating when she changed the settings and different programs to see if they correlated with some of the day she was doing better. The best we could identify around day 8 she was on program 5 and she had maybe a 50% improvement. During that time anoop notes she was around a bit more and drank a bit less and thinks that may have impacted her symptoms as well. Overall, discussed options with the patient including placing a battery versus lead removal. In discussion with her we will plan for lead removal tomorrow. She is previously tried bladder Botox and did not have significant improvement with that, as well as PTNS. We did start to discuss other procedural interventions such as abdominal reconstructive type procedures, she has not sure she wants to go that route at this point. However, given her stage I trial she did not want to proceed with battery placement. We will sign consent in-person tomorrow. Her questions were answered and she will contact us if other questions arise. Israel Christianson MD * Telephone Encounter - Israel Christianson M.D. - 02/23/2024 8:49 AM CDT Tc/NA/LMTCB * Telephone Encounter - Gio Sol R.N., C.M.S.R.N. - 02/22/2024 12:24 PM CDT I spoke with Saadia following her InterStim stage I with Dr. Christianson on 02/10/24. She is on program 7 she believes at 1.9 volts. She has tried all programs except for program 1 which she will try tomorrow. She is scheduled for battery placement versus lead removal on 02/24/24. Saadia is still confused regarding her results. She thinks her best day was day 10 when she was on program 6, but also states she was busy that day and did not drink much. She states if she drinks 40-50 ounces per day she has no change in her symptoms. She states she has not seen any remarkable results on any of the programs, but is confused by some of the [employer] results saying she has had a 50% improvement. We discussed that ultimately she gets to decide if she thinks it was helping enough to have the permanent battery placed or not and she just isn't sure. She also mentioned [employer] told her there are four additional programs she could possibly try. She is wondering if she should just get the battery placed and hope that one of those four programs gives her better results. We discussed that generally if someone is trying additional programs it is because they at least had some noticeable improvement on at least one of the 7 standard programs. We wouldn't typically advise implanting the battery with no improvement on the 7 programs in hopes thatcustom programming will work. Ultimately, I will have Dr. Christianson call her to discuss her results and make a plan regarding battery placement or lead removal. She will be traveling to [place] tomorrow and staying overnight locally in preparation for her procedure on Thursday. She is thankful for the call and has no further que stions at this time. * Telephone Encounter - Gio Sol R.N., C.M.S.R.N. - 02/17/2024 1:11 PM CDT Post-Op Phone call I spoke with Saadia following her InterStim stage I with Dr. Christianson on 02/10/24. Program: Saadia changed to program 5 this morning. She started on program 3. She voiced frustration with [employer] support as she did not hear from them for 5 days after her surgery. She noted they reported an improvement of at least 50% in her urges but she states this is not what she was hoping would improve. She thinks she has seen slight improvement in her urge related leaking, but not any significant improvement. Pain: None Diet: Tolerating general diet Bowel Movement: Loose stools recently but thinks this is related to postoperative antibiotics. External Skin Incision: Dressing remains in place Activity: Following postoperative restrictions. 50% improvement?: Does not feel at least 50% improved. She plans to change to program 6 on Thursday and program 7 on Thursday. I will call her again on Thursday to check on her progress. She agrees with this plan. documented in this encounter Plan of Treatment Not on file documented as of this encounter Visit Diagnoses Not on filedocumented in this encounter Additional Health Concerns Assessment Noted Time PHQ-9 Depression Total Score: 2 08/31/19 24 2:23 PM PRIVATE TUTOR documented as of this encounter Care Teams Office Automation Technician Relationship Specialty Start Date End Date Elsewhere, Pcp PCP - General Internal Medicine 01/29/24 documented as of this encounter
--- OUTSIDE RECORDS SUMMARY | 2024-03-31 22:37 | XMS_ITS | Encounter Summary ---
Author Organization [facility] Address [address] [place] [address] Care Team Providers Care Mitten Stitcher Name Role Phone Elsewhere, Pcp Primary Care Provider Unavailabl e Encounter Details Date Type Department Care Team (Late st Contact Info) Description 02/10/2024 7:30 AM CDT - 02/10/2024 10:00 AM CDT Surgery Outpatient Procedure Center in [place], [place] [address] [place] [phone] Israel Christianson M.D. [address] [place] [phone] SACRAL NERVE STIMULATOR, STAGE I, NONRECHARGEABLE. Social History Tobacco Use Types Packs/Day Years [...] your living situation today? I have a [facility] place to live 06/09/2023 Sex and Gender [...] 02/10/2024 9:55 AM CD T Respiratory Rate 10 02/10/2024 9:55 AM CDT Oxygen Saturation 96% [...] TIMES/DAY. blood-glucose meter (Contour Next EZ Meter) [facility] See Admin Instructions. calcium carb/vit D3/minerals (CALTRATE [...] tablet Take 1 tablet by mouth daily. jlhtvgig-mbt-beek-F A-vit K-lut (Centrum Silver Women) 8 mg [...] 1 each by mouth daily. Med Name: Uqcathy Defend UNABLE TO FIND Take 2 each by mouth daily. Med Name: Uqucathy Protect UNABLE TO FIND Take 2 each by mouth once a week. Med Name: Rositaqcathy Flush packets acetaminophen (TylenoL) 500 mg tablet [...] of this encounter OR Notes * Op Chidi - Israel Christianson M.D. - 02/10/2024 8:33 AM CDT Procedure: Stage 1 sacral neuromodulation device placement (Interstim) Intraoperative fluoroscopy Pre-op Diagnosis Overactive Bladder Post-op Diagnosis Overactive Bladder Vision Impaired Teacher A speech therapy assistant actively participated and was necessary for [...] water. The pocket incision where the lead industrial therapist and lead were located was closed utilizing 2-0 Vicryl suture in the subcutaneous layer and 4-0 Monocryl in the skin. The incision was covered with Dermabond as was the midline incision for lead placement and needle puncture sites. The lead industrial therapist was attached to the external battery pack. [...] 1 Hour (02/10/2024 10:05 AM CDT) Narrative [id number] - 02/10/2024 10:05 AM CDT This exam does not require a radiologist review or interpretation. Please refer to the patient's medical record on this date for clinical details. Israel Christianson M.D. IMG FLUOROSCOPY PROC EDURES [id number] NA documented in this encounter Visit Diagnoses Diagnosis Overactive Bladder documented in this encounter Administered Medications Inactive Administered Medications - up to 3 most recent administrations Medication Order MAR Action Action Date Dose Rate Site acetaminophen tablet 1,000 mg (TylenoL) 1,000 mg, oral, Once, On Thu02/10/24 at 0715, For 1 dose, Pre-Op Given 02/10/2024 7:41 AM CDT 1,000 mg BUPivacaine 0.25 % (2.5 mg/mL) injection (Marcaine) As needed, Starting on Thu02/10/24 at 0839, Intra-Op Given 02/10/2024 8:39 AM CDT 30 mL Other BUPivacaine liposome (PF) 266 mg/20 mL (13.3 mg/mL) injection (ExpareL) As needed, Starting on Thu02/10/24 at 0838, Intra-Op Given 02/10/2024 8:38 AM CDT 20 mL chlorhexidine 0.12 % mouthwash 15 mL (Peridex) [...] Thu02/10/24 at 0700, For 1 dose, Intra-Op 07 (Due) gentamicin in NaCl 0.9 % (iso [...] Volume Adjustment - Provider: Edita Mancuso APRN, MARCO A) scopolamine base 1 mg over 3 days [...] Total Score: 2 08/31/19 24 2:23 PM BOX OFFICE ATTENDANT documented as of this encounter Care Teams Mitten Stitcher Relationship Specialty Start Date End Date Elsewhere, Pcp PCP - General Internal Medicine 01/29/24 documented as of this encounter
--- OUTSIDE RECORDS SUMMARY | 2024-03-31 22:37 | XMS_ITS | Encounter Summary ---
Author Organization [facility] Address [address] [place] [address] Care Team Providers Care Credit Negotiator Name Role Phone Elsewhere, Pcp Primary Care Provider Unavailabl e Encounter Details Date Type Department Care Team (Latest Contact Info) Description 02/01/2024 11:21 AM CDT - 02/01/2024 11:59 PM CDT Hospital Encounter Department of Laboratory Medicine and Pathology, [facility] in [place], [place] [address] [place] [address] Israel Christianson M.D. [address] [place] [phone] Preoperative Exam; Preprocedural Lab Exam Discharge Disposition: Home or Self Care Social [...] your living situation today? I have a [facility] place to live 06/09/2023 Sex and Gender Information Value Date Recorded Sex Assigned at Female 05/16/2023 3:29 PM CDT Gender Identity Female 05/16/2023 3:29 PM CDT Sexual Orientation Straight 05/16/2023 3: 29 PM CDT documented as of this encounter Medications at Time of Discharge [...] TIMES/DAY. blood-glucose meter (Contour Next EZ Meter) [facility] See Admin Instructions. calcium [...] tablet Take 1 tablet by mouth daily. ceiulngk-fxg-zzaw-F A-vit K-lut (Centrum Silver Women) 8 mg iron-400 mcg-50 mcg tablet Take 1 tablet by mouth daily. polyethylene glycol (MIRALAX) 17 gram/dose oral powder Take 17 g by mouth daily. semaglutide (OZEMPIC) 1 mg/dose (4 mg/3 mL) injection Inject 1 mg under the skin every 7 (seven) days. 3 mL 06/04/2023 senna 8.6 mg tablet Take 2 [...] by mouth once a week. Med Name: Uqcathy Flush packets acetaminophen (TylenoL) 500 mg tablet [...] needed for constipation. While on narcotics. 02/10/2024 aspirin 325 mg tablet Take 325 mg by mouth daily. 02/10/2024 sulfamethoxazole-tr imethoprim (Bactrim) 400-80 mg per tablet Take 1 tablet by mouth every 12 (twelve) hours for 5 days. 10 tablet 02/10/2024 02/15/2024 documented as of this encounter Plan of Treatment Not on file documented as of this encounter Procedures Procedure Name Priority Date/Time Associated Diagnosis Comments BASIC METABOLIC PANEL, S/P Routine 02/01/2024 11:30 AM CDT Preoperative Exam Preprocedural Lab Exam CBC WITHOUT DIFFERENTIAL, B Routine 02/01/2024 11:29 AM CDT Preoperative Exam Preprocedural Lab Exam HEMOGLOBIN A1C, B Routine 02/01/2024 11: 29 AM CDT Preoperative Exam Preprocedural Lab Exam documented in this encounter Results * (ABNORMAL) Basic Metabolic Panel (02/01/2024 11:30 AM CDT) Pathologist [facility] Potassium, S 4.5 3.6 - 5.2 mmol/L [...] CDT Israel Christianson M.D. LAB BLOOD ADD-ON [facility] [address] [place] [address], [place] DTL [facility] [address] [place] [address] * (ABNORMAL) Hemoglobin A1c (02/01/2024 11:29 AM [...] M.D. LAB BLOOD ADD-ON Performing Organization Address City/[facility] Co de Phone Number [facility] [address] [place] [address], [facility] [address] [place] [address] * (ABNORMAL) CBC without Differential (02/01/2024 11:29 AM CDT) Pathologist [facility] Hemoglobin 13.3 11.6 - 15.0 g/dL 02/01/2024 [...] CDT Israel Christianson M.D. LAB BLOOD ADD-ON [facility] [address] [place] [address], [place] DTL [facility] [address] [place] [address] documented in this encounter Visit Diagnoses Diagnosis Preoperative Exam Preprocedural Lab Exam documented in this encounter Additional Health Concerns Assessment Noted Time PHQ-9 Depression Total Score: 2 08/31/19 24 2:23 PM R DEVELOPER documented as of this encounter Care Teams Credit Negotiator Relationship Specialty Start Date End Date Elsewhere, Pcp PCP - General Internal Medicine 01/29/24 documented as of this encounter
--- OUTSIDE RECORDS SUMMARY | 2024-03-31 22:37 | XMS_ITS | Encounter Summary ---
Author Organization [facility] Address [address] [place] [address] Care Team Providers Care Reproductive Surgeon Name Role Phone Elsewhere, Pcp Primary Care Provider Unavailabl e Reason for Visit * Reason Onset Date Comments Pre-visit Intake 01/29/2024 Encounter Details Date Type Department Care Team (Latest Contact Info) Description 01/29/2024 1:00 PM CDT Clinical Communication Virtual Review in [place], [place] [address] [place] [address] Pre-visit Intake Social History Tobacco Use Types Packs/Day Years [...] PM CDT documented as of this encounter Plan of Treatment Not on file documented as of this encounter Visit Diagnoses Not on filedocumented in this encounter Additional Health Concerns Assessment Noted Time PHQ-9 Depression Total Score: 2 08/31/19 24 2:23 PM GIANT TIRE REPAIRER documented as of this encounter Care Teams Reproductive Surgeon Relationship Specialty Start Date End Date Elsewhere, Pcp PCP - General Internal Medicine 01/29/24 documented as of this encounter
--- OUTSIDE RECORDS SUMMARY | 2024-03-31 22:38 | XMS_ITS | Data Portability ---
Author Organization 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 Plan of Treatment Reminders Order Date Submit Date Provider Last Modified By Organization Details Last Modified Time Details Appointments None recorded. Lab urinalysi s, dipstick 2022 023 [email or web address] [facility], [address], [place], [address], 12:06:45 Referral None recorded. Procedures None recorded. Surgeries None recorded. Imaging None recorded. Medication Orders None recorded. Patient TargetsNo targets recorded. Patient InstructionsNo instructions recorded. Reason for Referral None Reported. Results Created Date Observation Date Name Description Value Unit Range Abnormal Flag Note LastModifiedBy Organization Detail LastModifiedTime 02/28/2002/27/2023 urina lysis , dipst ick Color-Status Yellow Not Available [facility] [address], [place], [address], 02/27/2023 12:23:40 02/28/2002/27/2023 urina lysis , dipst ick Clarity-Stat us Clear Not Available [facility] [address], [place], [address], 02/27/2023 12:23:40 02/28/20 23 02/27/2023 urina lysis , dipst ick Glucose-Stat us Negati ve Not Available [facility] [address], [place], [address], 02/27/2023 12:23:40 02/28/20 23 02/27/2023 urina lysis , dipst ick Bilirubin-St atus Negati ve Not Available [facility] [address], [place], [address], 02/27/2023 12:23:40 02/28/20 23 02/27/2023 urina lysis , dipst ick Ketones-Stat us Negati ve Not Available [facility] [address], [place], [address], 02/27/2023 12:23:40 02/28/20 23 02/27/2023 urina lysis , dipst ick Sp Reasnor-Stat us 1.015 Not Available [facility] [address], [place], [address], 02/27/2023 12:23:40 02/28/20 23 02/27/2023 urina lysis , dipst ick pH-Status 5.5 Not Available [facility] [address], [place], [address], 02/27/2023 12:23:40 02/28/20 23 02/27/2023 urina lysis , dipst ick Urobilinogen -Status 0.2 Not Available [facility] [address], [place], [address], 02/27/2023 12:23:40 02/28/20 23 02/27/2023 urina lysis , dipst ick Nitrates-Sta tus negati ve Not Available [facility] [address], [place], [address], 02/27/2023 12:23:40 07/2802/27/2023 urina lysis , dipst ick Blood-Status Negati ve Not Available [facility] [address], [place], [address], 02/27/2023 12:23:40 02/28/20 23 02/27/2023 urina lysis , dipst ick Leuko-Status Negati ve Not Available [facility] [address], [place], [address], 02/27/2023 12:23:40 02/28/20 23 02/27/2023 urina lysis , dipst ick Specimen Type Voided Not Available [facility] [address], [place], [address], 02/27/2023 12:23:40 02/28/20 23 02/27/2023 urina lysis , dipst ick Performed by Edita Foreman RN Not Available [facility] [address], [place], [address], 02/27/2023 12:23:40 02/28/20 23 02/27/2023 urina lysis , dipst ick Total Urine Volume 20cc Not Available [facility] [address], [place], [address], 02/27/2023 12:23:40 03/31/20 23 03/31/2023 urina lysis , dipst ick Color-Status Yellow Not Available [facility] [address], [place], [address], 03/31/2023 11:48:37 03/31/20 23 03/31/2023 urina lysis , dipst ick Clarity-Stat us Clear Not Available [facility] [address], [place], [address], 03/31/2023 11:48:37 03/31/20 23 03/31/2023 urina lysis , dipst ick Glucose-Stat us 100 Not Available [facility] [address], [place], [address], 03/31/2023 11:48:37 03/31/20 23 03/31/2023 urina lysis , dipst ick Bilirubin-St atus Negati ve Not Available [facility] [address], [place], [address], 03/31/2023 11:48:37 03/31/20 23 03/31/2023 urina lysis , dipst ick Ketones-Stat us Negati ve Not Available [facility] [address], [place], [address], 03/31/2023 11:48:37 03/31/20 23 03/31/2023 urina lysis , dipst ick Sp Reasnor-Stat us 1.010 Not Available [facility] [address], [place], [address], 03/31/2023 11:48:37 03/31/20 23 03/31/2023 urina lysis , dipst ick pH-Status 5.0 Not Available [facility] [address], [place], [address], 03/31/2023 11:48:37 03/31/20 23 03/31/2023 urina lysis , dipst ick Urobilinogen -Status 0.2 Not Available [facility] [address], [place], [address], 03/31/2023 11:48:37 03/31/20 23 03/31/2023 urina lysis , dipst ick Nitrates-Sta tus negati ve Not Available [facility] [address], [place], [address], 03/31/2023 11:48:37 03/31/20 23 03/31/2023 urina lysis , dipst ick Blood-Status Negati ve Not Available [facility] [address], [place], [address], 03/31/2023 11:48:37 03/31/20 23 03/31/2023 urina lysis , dipst ick Leuko-Status Negati ve Not Available [facility] [address], [place], [address], 03/31/2023 11:48:37 03/31/20 23 03/31/2023 urina lysis , dipst ick Specimen Type Voided Not Available [facility] [address], [place], [address], 03/31/2023 11:48:37 03/31/20 23 03/31/2023 urina lysis , dipst ick Performed by Edita Foreman RN Not Available [facility] [address], [place], [address], 03/31/2023 11:48:37 Result Notes None recorded. Problems Name Problem SNOMED Code Status Onset Date Resolution Date Notes Provider Name and Address Organization Details Recorded Time Incontinenc e 31152410 Completed 202009/03/2021 TAMIKO Deutsch [facility] 12:21:26 Overactive urinary bladder 654197032 Active 2021 TAMIKO Deutsch [facility] 14:00:51 Problem Notes None recorded. Procedures Surgical History Date Name Laterality Status Provider Name and Address Organization Details Recorded Time 023 Bladder Scan completed TAMIKO Martinez [facility] 03/31/2023 11:48:29 023 PTNM (Percutaneous Tibial Neuromodulation (PTNS) completed Edita adame [facility] 03/27/2023 11:55:38 023 PTNM (Percutaneous Tibial Neuromodulation (PTNS) completed Edita Ahsan null, [facility] 03/20/2023 09:20:26 023 PTNM (Percutaneous Tibial Neuromodulation (PTNS) completed Edita Foreman null, [facility] 03/12/2023 11:02:03 023 PTNM (Percutaneous Tibial Neuromodulation (PTNS) completed Eden oRdriguez null, [facility] 03/03/2023 14:13:27 023 PTNM (Percutaneous Tibial Neuromodulation (PTNS) completed Edita Foreman null, [facility] 02/27/2023 12:26:36 023 PTNM (Percutaneous Tibial Neuromodulation (PTNS) completed Edita Foreman null, [facility] 02/20/2023 12:29:24 023 PTNM (Percutaneous Tibial Neuromodulation (PTNS) completed Edita Foreman null, [facility] 02/13/2023 11:54:21 023 PTNM (Percutaneous Tibial Neuromodulation (PTNS) completed Edita Foreman null, [facility] 02/06/2023 12:38:37 023 PTNM (Percutaneous Tibial Neuromodulation (PTNS) completed Eden Rodriguez null, [facility] 01/27/2023 14:22:48 023 PTNM (Percutaneous Tibial Neuromodulation (PTNS) completed Edita Foreman null, [facility] 01/21/2023 15:56:17 023 PTNM (Percutaneous Tibial Neuromodulation (PTNS) completed Edita Foreman null, [facility] 01/16/2023 13:04:42 023 PTNM (Percutaneous Tibial Neuromodulation (PTNS) completed Edita Foreman null, [facility] 01/09/2023 10:39:51 023 Bladder Scan completed Edita Foreman null, [facility] 12/16/2022 11:34:04 023 Bladder Scan completed Lucretia Matute null, [facility] 10/07/2022 14:44:51 022 Bladder Scan completed Franko Smith null, [facility] 06/03/2022 12:34:54 022 Cystoscopy with Botox Injections completed Xin Chiang MD [address] [place] [address],[address], [place], [address], [facility] 04/22/2022 15:25:31 Bladder Scan completed Rebeka Noe null, [facility] 11/12/2021 15:55:49 022 Bladder Scan completed Rebeka Noe null, [facility] 10/01/2021 16:38:05 022 Bladder Scan completed Marybel Karimi null, [facility] 09/11/2021 12:39:30 022 Macrobid post cysto completed Edita Foreman null, [facility] 09/03/2021 12:20:37 Cystoscopy with Botox Injections completed Xin Chiang MD [address] [place] [address],[address], [place], [address], [facility] 09/03/2021 12:40:54 Bladder Scan completed MIC STRONG [address] [place] [address],[address], [address], [facility] 06/18/2021 11:30:27 Bladder Scan completed Denilson Rivera null, [facility] 03/06/2021 15:51:34 021 CystoscopyFemale completed Xin Chiang MD [address] [place] [address],[address], [place], [address], [facility] 01/29/2021 11:41:17 021 Bladder Scan completed Xin Chiang MD [address] [place] [address],[address], [address], [facility] 01/29/2021 11:29:50 021 Orthopedic Surgery completed Xin Chiang MD [address] [place] [address],[address], [place], [address], [facility] 01/29/2021 11:19:58 015 Colonoscopy completed Xin Chiang MD [address], [place], [address], [facility] 01/29/2021 11:19:42 Imaging Results None recorded. Procedure Notes None recorded. Medical Equipment None Reported. Allergies Allergen ID Allergen Name Allergen Category Reaction Reaction Severity Criticality Documentation Date Start Date Code Code System Note Provider Name and Address Organization Details Recorded Time 002450 ciproflox acin medicatio n Not available Not available Not available 01/29/2021 2551 RxNorm loss of smell Bernice Perez [facility] 11:04:30 [id number] clindamyc in Not available rash Not available Not available 01/29/2021 2582 RxNorm Bernice Perez [facility] 11:04:47 [id number] lisinopri l medicatio n cough Not available Not available 01/29/2021 65851 RxNorm Bernice Perez [facility] 11:04:57 [id number] losartan medicatio n angioedem a Not available Not available 01/29/2021 59240 RxNorm Bernice Perez [facility] 11:05:41 [id number] naproxen medicatio n Not available Not available Not available 01/29/2021 7258 RxNorm Bernice Perez [facility] 11:05:52 Medications Name Sig Start Date Stop Date Status Note LastModified by Organization Details LastModified Time cyclobenzap rine 10 mg tablet TAKE 1 TABLET (10 MG) BY MOUTH 3 TIMES DAILY IF NEEDED FOR MUSCLE SPASM. 2022 active Not Available Not Available Not Avai lable amoxicillin 500 mg capsule TAKE 1 CAPSULE BY MOUTH EVERY 12 HOURS FOR 3 DAYS active Not Available Not Available No t Available atorvastati n 20 mg tablet TAKE 1 TABLET BY MOUTH EVERY DAY active Not Available Not Available No t Available oxybutynin chloride ER 10 mg tablet,exte nded release 24 hr TAKE 1 TABLET BY MOUTH EVERY DAY 03/06 completed Not Available Not Available Not Available aspirin 325 mg tablet Take 1 tablet every day by oral route. active Not Available Not Available No t Available tolterodine ER 4 mg capsule,ext ended release 24 hr TAKE 1 CAPSULE BY MOUTH EVERY DAY 09/10 completed Not Available Not Available Not Available meloxicam 15 mg tablet TAKE 1 TABLET BY MOUTH EVERY DAY 10/07 completed Not Available Not Available Not Available phenazopyri dine 200 mg tablet TAKE 1 TABLET BY MOUTH THREE TIMES DAILY AFTER MEALS FOR 2 DAYS. FOR URINARY URGE 10/07 completed Not Available Not Available Not Available atovaquone 250 mg-proguani l 100 mg tablet TAKE 1 TABLET BY MOUTH EVERY DAY active Not Available Not Available No t Available glipizide 10 mg tablet TAKE 1 TABLET BY MOUTH 2 TIMES DAILY BEFORE MEALS. TAKE 30 MINUTES BEFORE THE MEAL. active Not Available Not Available No t Available clonazepam 0.5 mg tablet active Not Available Not Available Not Available torsemide 10 mg tablet TAKE 1 TABLET BY MOUTH EVERY DAY active Not Available Not Available No t Available amlodipine 5 mg tablet TAKE 1 TABLET BY MOUTH EVERY DAY active Not Available Not Available No t Available trimethopri m 100 mg tablet TAKE 1 TABLET BY MOUTH EVERY DAY FOR 42 DAYS active Not Available Not Available No t Available sulfamethox azole 800 mg-trimetho prim 160 mg tablet TAKE 1 TABLET BY MOUTH TWO TIMES DAILY FOR 5 DAYS. FOR URINE INFECTION 10/07 completed Not Available Not Available Not Available amoxicillin 500 mg tablet Take 1 tablet every 12 hours by oral route for 3 days. 2022 active Not Available Not Available Not Avai lable cefadroxil 500 mg capsule 03/31 completed Not Available Not Available Not Available terbinafine HCl 250 mg tablet TAKE 1 TABLET BY MOUTH ONCE DAILY. 10/07 completed Not Available Not Available Not Available amoxicillin 875 mg tablet TAKE 1 TABLET (875 MG) BY MOUTH TWICE A DAY active Not Available Not Available No t Available trazodone 100 mg tablet TAKE 1 TABLET BY MOUTH AT BEDTIME active Not Available Not Available No t Available buspirone 30 mg tablet TAKE 1 TABLET BY MOUTH TWICE A DAY 09/10 completed Not Available Not Available Not Available estradiol 0.01% (0.1 mg/gram) vaginal cream PLEASE SEE ATTACHED FOR DETAILED DIRECTION S active Not Available Not Available No t Available scopolamine 1 mg over 3 days transdermal patch APPLY 1 PATCH ON DRY, CLEAN, HAIRLESS SKIN EVERY 72 HOURS. 10/07 completed Not Available Not Available Not Available cefdinir 300 mg capsule TAKE 1 CAPSULE (300 MG) BY MOUTH TWO TIMES DAILY FOR 7 DAYS. 03/31 completed Not Available Not Available Not Available atenolol 50 mg tablet TAKE 1 TABLET BY MOUTH TWICE A DAY active Not Available Not Available No t Available Microlet Lancet TEST 2 TIMES/DAY . REASON HIGH A1C HEMOGLOBI N A1C active Not Available Not Available No t Available amoxicillin 875 mg-potassiu m clavulanate 125 mg tablet active Not Available Not Available Not Available oxycodone 5 mg tablet 01/29 completed Not Available Not Available Not Available Botox 100 unit injection Take 150 units by injection route. 2022 active Not Available Not Available Not Avai lable azithromyci n 500 mg tablet TAKE 1 TABLET (500 MG) BY MOUTH EVERY 24 HOURS FOR 3 DAYS. IF NEEDED FOR TRAVELER' S DIARRHEA 10/07 completed Not Available Not Available Not Available duloxetine 30 mg capsule,del ayed release TAKE 1 CAPSULE BY MOUTH ONCE DAILY. TAKE WITH 60 MG CAPSULE FOR TOTAL OF 90 MG DAILY. active Not Available Not Available No t Available duloxetine 60 mg capsule,del ayed release TAKE 1 CAPSULE (60 MG) BY MOUTH ONCE DAILY. TAKE WITH 30 MG CAP FOR TOTAL OF 90 MG DAILY. active Not Available Not Available No t Available chlorhexidi ne gluconate 0.12 % mouthwash PLEASE SEE ATTACHED FOR DETAILED DIRECTION S 10/07 completed Not Available Not Available Not Available torsemide 11/12 completed Not Available Not Available Not Available Januvia 100 mg tablet TAKE 1 TABLET BY MOUTH EVERY DAY 10/07 completed Not Available Not Available Not Available Gavilyte-C 240 gram-22.72 gram-6.72 gram-5.84 gram oral solution PLEASE SEE ATTACHED FOR DETAILED DIRECTION S 10/07 completed Not Available Not Available Not Available GaviLyte-G 236 gram-22.74 gram-6.74 gram-5.86 gram oral solution PLEASE SEE ATTACHED FOR DETAILED DIRECTION S active Not Available Not Available No t Available Xarelto 10 mg tablet 01/29 completed Not Available Not Available Not Available Contour Next Test Strips TEST 2 TIMES/DAY . active Not Available Not Available No t Available Contour Next EZ Meter PLEASE SEE ATTACHED FOR DETAILED DIRECTION S active Not Available Not Available No t Available Myrbetriq 50 mg tablet,exte nded release TAKE 1 TABLET BY MOUTH EVERY DAY active Not Available Not Available No t Available Multi Vitamin active Not Available Not Available Not Available Gemtesa 75 mg tablet TAKE 1 TABLET BY MOUTH ONCE DAILY. active Not Available Not Available No t Available Ozempic 2 mg/dose (8 mg/3 mL) subcutaneou s pen injector active Not Available Not Available Not Available Paxlovid 150 mg-100 mg tablets in a dose pack (Renal Dose) TAKE 2 TABLETS BY MOUTH TWICE DAILY X 5 DAYS 10/07 completed Not Available Not Available Not Available Vitals Date Recorded Body height Body mass index (BMI) Body weight Provider Name and Address Organization Details Last Updated DateTime 03/31/2023 170.18 cm 24.3 kg/m2 [address]35[address] [facility] 03/31/2023 11:39:39 Social History Question Answer Notes LastModified by Organizat ion Details LastModified Time Tobacco Smoking Status Never Smoker Xin Chiang MD [address] [place] [address], [address], [facility] 01/29/2021 11:17:11 What Is Your Level Of Alcohol Consumption? Occasional Information not available 01/29/2021 What Is Your Level Of Caffeine Consumption? None Information not available 01/29/2021 How Much Tobacco Do You Chew? None Information not available 01/29/2021 Do You Or Have You Ever Used E-cigarettes Or Vape? Never Used Electronic Cigarettes Information not available 01/29/2021 Race White Information not available 01/29/2021 Ethnicity Not /Latin o Information not available 01/29/2021 Preferred Language Hungarian Information not available 01/29/2021 Number Of Pregnancies 1 Information not available 01/29/2021 Number Of Vaginal Deliveries 1 Information not available 01/29/2021 Recreational Drug Use No Information not available 01/29/2021 Could You Be ? No Information not available 01/29/2021 Marital Status Informatio n not available 01/29/2021 What Was The Date Of Your Most Recent Tobacco Screening? 10/07/2022 prugel Information not available 10/07/2022 Are You Sexually Active? No Information not available 01/29/2021 Do You Or Have You Ever Used Smokeless Tobacco? Never Used Smokeless Tobacco Information not available 01/29/2021 How Much Tobacco Do You Smoke? No Information not available 01/29/2021 How Many Years Have You Smoked Tobacco? 0 Information not available 01/29/2021 Do You Or Have You Ever Used Any Other Forms Of Tobacco Or Nicotine? No bbeckers Information not available 03/06/2021 Sex: Unknown Functional Status None recorded. Mental Status None recorded. Family History Relationship Description Onset Age of this Age Resolved Age Notes Mother Family history of breast cancer Mother Family history of Hypertension Unspecified Relation Family history of breast cancer Unspecified Relation Family history of cancer of colon Father Family history of cardiac disorder Father Family history of Hypertension Medical History Condition Response Sexually Transmitted Infection N Diabetes Y Bleeding Disorder N High Blood Pressure Y Kidney Stones N Cancer N Lung Disease N Depression Y High Cholesterol Y GERD/Acid Reflux N Heart Disease Y Gynecological History Statement/Question Response Irregular periods N Leaking urine with intercourse N Hormone Therapy N Heavy periods N Pain with intercourse N Sexually Active? N Obstetrics History GPAL:G 1 P 0 0 0 1 Type Value Living 1 Total 1 Immunizations Vaccine Type Date Status Provider Name and Address Organization Details Recorded Time Influenza, adjuvanted, quadrivalent, PF 04/16/[address] [facility] 07/28/2023 17:43:14 COVID-19, mRNA, LNP-S, PF, 100 mcg/0.5mL dose or 50 mcg/0.25mL dose 10/30/[address] [facility] 07/28/2023 17:43:14 COVID-19, mRNA, LNP-S, bivalent, PF, 50 mcg/0.5 mL or 25mcg/0.25 mL dose 11/22/[address] [facility] 07/28/2023 17:43:14 COVID-19, mRNA, LNP-S, bivalent, PF, 50 mcg/0.5 mL or 25mcg/0.25 mL dose 04/16/2022 completed Chelle Allar null, 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 07/28/2023 17:43:14 typhoid, ViCPs 07/08/2022 completed Chelle Allar null, [facility] 07/28/2023 17:43:14 Influenza, adjuvanted, quadrivalent, PF 05/03/2020 completed Rebeka Stromquist null, [facility] 10/01/2021 16:26:07 Influenza, split virus, trivalent, preservative 05/07/2014 completed Rebeka Stromquist null, [facility] 10/01/2021 16:26:07 Influenza, split virus, quadrivalent, PF 04/18/2016 completed Rebeka Stromquist null, [facility] 10/01/2021 16:26:07 Influenza, split virus, trivalent, preservative 06/09/2007 completed Rebeka Stromquist null, [facility] 10/01/2021 16:26:07 Influenza, split virus, quadrivalent, PF 04/20/2018 completed Rebeka Stromquist null, [facility] 10/01/2021 16:26:07 Influenza, split virus, quadrivalent, PF 05/19/2017 completed Rebeka Stromquist null, [facility] 10/01/2021 16:26:07 zoster live 01/10/2014 completed Rebeka Stromquist null, [facility] 10/01/2021 16:26:07 Influenza, high-dose, quadrivalent, PF 04/14/2021 completed Rebeka Stromquist null, [facility] 10/01/2021 16:26:07 Influenza, split virus, quadrivalent, PF 08/10/2009 completed Rebeka Stromquist null, [facility] 10/01/2021 16:26:07 Pneumococcal conjugate PCV 13 05/06/2019 completed Rebeka Stromquist null, [facility] 10/01/2021 16:26:07 COVID-19, mRNA, LNP-S, PF, 100 mcg/0.5mL dose or 50 mcg/0.25mL dose 10/14/2020 completed Rebeka Stromquist null, [facility] 10/01/2021 16:26:07 Td (adult), 2 Lf tetanus toxoid, preservative free, adsorbed 12/01/2018 completed Rebeka Stromquist null, [facility] 10/01/2021 16:26:07 Td (adult), 2 Lf tetanus toxoid, preservative free, adsorbed 08/21/1992 completed Rebeka Stromquist null, [facility] 10/01/2021 16:26:07 Influenza, split virus, trivalent, preservative 05/16/2011 completed Rebeka Stromquist null, [facility] 10/01/2021 16:26:07 zoster recombinant 07/13/2018 completed Rebeka Stromquist null, [facility] 10/01/2021 16:26:07 Novel [id number], preservative-free 08/10/2009 completed Rebeka Stromquist null, [facility] 10/01/2021 16:26:07 Influenza, split virus, trivalent, PF 04/18/2010 completed Rebeka Stromquist null, [facility] 10/01/2021 16:26:07 zoster recombinant 05/13/2018 completed Rebeka Stromquist null, [facility] 10/01/2021 16:26:07 DT (pediatric) 09/12/1985 completed Rebeka Stromquist null, [facility] 10/01/2021 16:26:07 Influenza, adjuvanted, trivalent, PF 05/06/2019 completed Rebeka Stromquist null, [facility] 10/01/2021 16:26:07 Influenza, split virus, trivalent, preservative 05/19/2012 completed Rebeka Stromquist null, [facility] 10/01/2021 16:26:07 COVID-19, mRNA, LNP-S, PF, 100 mcg/0.5mL dose or 50 mcg/0.25mL dose 09/16/2020 completed Rebeka Stromquist null, [facility] 10/01/2021 16:26:07 COVID-19, mRNA, LNP-S, PF, 100 mcg/0.5mL dose or 50 mcg/0.25mL dose 05/27/2021 completed Rebeka Hasmukh null, [facility] 10/01/2021 16:26:07 DT (pediatric) 05/10/1979 completed Rebeka Stromquist null, [facility] 10/01/2021 16:26:07 Tdap 09/18/2008 completed Rebeka Stromquist null, [facility] 10/01/2021 16:26:07 Influenza, split virus, quadrivalent, PF 04/24/2015 completed Rebeka Stromquist null, [facility] 10/01/2021 16:26:07 pneumococcal polysaccharide PPV23 2020 completed Rebeka Hasmukh null, [facility] 10/01/2021 16:26:07 Past Encounters Encounter ID Performer Location Encounter Start Date Encounter Closed Date Diagnosis/Indication Diagnosis SNOMED-CT Code Diagnosis ICD10 Code [id number] Xin Chiang MD [facility] [address] [place] [address] 01/29/2021 10:44:40 01/30/2021 14:11:14 Urge incontinence of urine [id number] N39.41 [id number] MELINA Lal [facility] [address] [place] [address] 03/06/2021 15:33:32 03/08/2021 16:51:28 Urge incontinence of urine [id number] N39.41 [id number] MIC STRONG [facility] [address] [place] [address] 06/18/2021 11:07:26 06/19/2021 12:05:14 Overactive urinary bladder [id number] N32.81 [id number] Xin Chiang MD [facility] [address] [place] [address] 09/03/2021 11:57:52 09/06/2021 10:21:35 Overactive urinary bladder [id number] N32.81 [id number] Marybel Karimi [facility] [address] [place] [address] 09/11/2021 12:22:14 09/16/2021 10:05:02 Recurrent urinary tract infection [id number] N39.0 [id number] Emily Karimisingh, PAC [facility] [address] [place] [address] 10/01/2021 16:13:37 10/03/2021 14:24:19 Overactive urinary bladder [id number] N32.81 [id number] Emily Karimisingh, PAC [facility] [address] [place] [address] 11/12/2021 15:37:56 11/15/2021 15:24:01 Overactive urinary bladder [id number] N32.81 [id number] Xin Chiang MD [facility] [address] [place] [address] 04/22/2022 13:23:12 04/23/2022 13:33:54 Overactive urinary bladder [id number] N32.81 [id number] Max Wayne PA-C [facility] [address] [place] [address] 06/03/2022 12:18:25 06/04/2022 12:04:27 Overactive urinary bladder [id number] N32.81 [id number] Max Wayne PA-C [facility] [address] [place] [address] 10/07/2022 14:24:39 10/11/2022 10:03:54 Overactive urinary bladder [id number] N32.81 [id number] Xin Chiang MD [facility] [address] [place], [place] [address] 12/09/2022 11:04:11 12/10/2022 15:21:47 Overactive urinary bladder [id number] N32.81 [id number] Xin Chiang MD [facility] [address] [place] [address] 12/16/2022 10:58:12 12/17/2022 15:16:47 Overactive urinary bladder [id number] N32.81 Urinary tr act infectious disease [id number] N39.0 Female str ess incontinence [id number] N39.3 [id number] Edita Foreman [facility] [address] [place] [address] 01/09/2023 10:00:02 01/14/2023 14:01:26 Overactive urinary bladder [id number] N32.81 [id number] Edita Fore[facility] [address] [place] [address] 01/16/2023 10:21:33 01/20/2023 12:33:40 Overactive urinary bladder [id number] N32.81 [id number] Edita TURNER[facility] [address] [place] [address] 01/21/2023 13:59:50 01/22/2023 15:56:42 Overactive urinary bladder [id number] N32.81 [id number] Edenjaskaran Rodriguez [facility] [address] [place] [address] 01/27/2023 13:55:41 02/04/2023 09:30:28 Overactive urinary bladder [id number] N32.81 [id number] Edita Foreman [facility] [address] [place] [address] 02/06/2023 11:31:25 02/11/2023 12:03:18 Overactive urinary bladder [id number] N32.81 [id number] Edita Foreman [facility] [address] [place] [address] 02/13/2023 11:32:19 02/27/2023 10:28:58 Overactive urinary bladder [id number] N32.81 [id number] Edita Foreman [facility] [address] [place] [address] 02/20/2023 11:33:43 02/25/2023 14:00:08 Overactive urinary bladder [id number] N32.81 [id number] Edita Foreman [facility] [address] [place] [address] 02/27/2023 11:33:18 03/02/2023 14:57:06 Increased frequency of urination [id number] R35.0 Overactive urinary bladder [id number] N32.81 Urinary tr act infectious disease [id number] N39.0 [id number] Eden Rodriguez [facility] [address] [place] [address] 03/03/2023 13:41:19 03/04/2023 16:23:41 [id number] Edita Foreman [facility] [address] [place] [address] 03/12/2023 10:45:05 03/16/2023 11:54:01 Overactive urinary bladder [id number] N32.81 [id number] Edita Foreman [facility] [address] [place] [address] 03/20/2023 09:03:54 03/25/2023 12:50:49 Overactive urinary bladder [id number] N32.81 [id number] Edita Foreman [facility] [address] [place] [address] 03/27/2023 11:29:11 03/30/2023 16:09:53 [id number] Xin Chiang MD [facility] [address] [place] [address] 03/31/2023 11:16:53 04/03/2023 14:34:44 Overactive urinary bladder [id number] N32.81 Health Concerns Section Related Observation LastModified by Organization Detai ls LastModified Time None Recorded Concern Status LastModified by Organization Details LastModified Time None Recorded Advance Directives Directive None Recorded Payers Encounter Date Sequence Insurance Name Policy Number Policy [employer] Covered Member ID Zapata Member ID Guarantor Name 03/03/2023 1 [place] [id number] Saadia Summers [id number] Saadia Kristopher 03/12/2023 1 [place] [id number] Saadia Summers [id number] Saadia Kelloggr 03/20/2023 1 [place] [id number] Saadia V Kristopher [id number] Saadia Kristopher 03/27/2023 1 [place] [id number] Saadia V Kristopher [id number] Saadia Kristopher 03/31/2023 1 [place] [id number] Saadia V Kristopher [id number] Saadia Kristopher Notes Date Note Type Note Provider Name and Address Organization Details Recorded Time 03/03/2023 text/html HPI Notes: 67 yo female presents for PTNM #[address] [facility] 03/03/2023 14:13:53 03/12/2023 text/html HPI Notes: 67 yo female presents for PTNM #[address] [facility] 03/12/2023 11:56:59 03/20/2023 text/html HPI Notes: 67 yo female presents for PTNM #[address] [facility] 03/20/2023 09:24:59 03/27/2023 text/html HPI Notes: 67 YO LS patient with OAB here to initiate PTNS treatment #12/ No prior auth needed- scanned in chart Initial/baseline Sx: daytime Frequency: 5 Nocturia: 2 Accidents: 4-5/day Post PTNS Sx: Daytime Frequency: 4 Nocturia:2-3 Pads: 5/day Conclusion: no improvement with PTNS Edita Foreman wendi [facility] 03/27/2023 11:56:00 03/31/2023 text/html HPI Notes: 67 yo s/p PTNS. She does not report any improvement with PTNS. Incontinence primarily during the night, as well as first thing in the morning. She tried : - Oxybutynin (>3 mo, d/c with dry mouth and not effective) - Tolterodine (d/c with minimal improvement) - Myrbetriq (Cost prohibitive). Cysto 04/2022 is normal. [facility] Bladder QA: Xin Chiang MD [address] [address], [place], [address], [facility] 03/31/2023 13:57:29 OBGyn Episode No OBEpisode recorded.
== END 2024-03-27 11:47 | disposition home or self-care (01) ==
LOC: NFLDREF 03-31 22:34
PROVIDERS: PCP Internal Medicine; Referring Provider Internal Medicine; Visit Provider Nurse Practitioner Family
DX: R30.0 Dysuria (principal); N30.00 Acute cystitis without hematuria; R31.0 Gross hematuria
CPT/HCPCS: 87086

== ENCOUNTER 2024-09-14 13:45 | Outpatient (RCR) | payer MEDICARE, BC, SELFPAY ==
--- NOTE | 2024-04-18 14:25 | PT.OPEX ---
Please review and sign the attached physical therapy evaluation completed on 04/18/24. Thank you. PT [place] [facility] Eval PT [facility] Outpatient Eval Start: 04/18/24 12:04 Freq: Status: Active Protocol: Document 04/18/24 12:04 TLQ (Rec: 04/18/24 14:16 TLQ [id number]) E-signed By Frances Moore DPT Physical Therapy Outpatient Evaluation Insurance Information Recert Due Date 07/17/24 Insurance Name Medicare B Insurance Information/Comments [facility] Diagnosis Pain in left thigh M79.652 Treating Diagnosis Pain in left hip M25.552 Pain in left thigh M79.652 Muscle weakness M62.81 Imaging Report Information Hip x-ray at [facility] on 04/18/24 with the following impression per radiology: Mild-moderate degenerative joint disease left hip. Referring MD Mihaela Vidales MD Subjective Subjective Saadia has been having pain in her left hip off and on over the past few months. Started when she stepped off a step, felt like her leg buckled. Noticed it again in January with hiking. Pain really worsened about a week ago after two weeks of hiking along [place]. Pain is located on the side of her left leg, extends into the front of her hip/groin. Can radiate down the outside of her thigh, does not extend below the knee. Symptoms worsen with walking down stairs, sudden movements, hip abduction when standing. Has to walk down the stairs sideways due to the pain. Having increased frequency of her leg buckling over the past week, often multiple times a day. Denies experiencing any falls. Decreased quality of sleep this week, has been waking up 2-3x per night, prefers to sleep on her sides. Finds some relief with lying down. Has not tried icing. PMHx: R TYLER 2020, scoliosis, diabetes, depression, HTN, allergies Pain Comments at best: 0/10 at worst: 10/10 location: L hip alleviating factors: rest, lying down aggravating factors: walking, stairs, hip abduction, standing Date of Last Physician Visit 04/18/24 Current Work Status Retired Precautions Treatment Precautions/Contraindications Limited tolerance to supine Therapy Limitations/Systems Review Not Limited Objective Other/Pertinent Objective RANGE OF MOTION - HIP WFL STRENGTH hip flexion: R 4+, L 4 groin pain hip extension: 4 B hip abduction: R 5, L 4+ hip adduction: R 5, L 4+ hip IR: 4+ B hip ER: R 4+, L 4 ache PALPATION tender on L: greater trochanter, proximal ITB, TFL, glute med, piriformis JOINT MOBILITY not assessed due to limited tolerance to supine SPECIAL TESTS - HIP OLIVIA (+) for pain FADIR (+) for pain LE distraction: no change in symptoms GAIT antalgic, decreased stance on L Functional Test Performed & Score Lower Extremity Functional Scale (LEFS) score: 27/50 Assessment Assessment/Impression Saadia is a 68-year-old female who presents to physical therapy to address lateral left hip pain. Symptoms began around January 2024 when patient took a jarring step, worsened later that month after going on a hiking trip. Since then pain has been intermittent but worsened over the past week following two days of hiking [place]. At this time her symptoms are limiting her ambulatory tolerance, stair navigation, and quality of sleep. [facility] taken at [facility] today indicate mild-moderate degenerative changes of the L hip. Symptoms more consistent with greater trochanteric pain syndrome with proximal ITB irritation. Saadia's symptoms increase with weightbearing activities, flare in symptoms present following prolonged ambulation on uneven surfaces. She had tenderness along proximal ITB, greater trochanter, and surrounding gluteal musculature in clinic today. Patient was verbally educated on today's examination findings and goals of physical therapy interventions, she verbally agreed with POC. Education provided on positioning changes to decrease stress placed on lateral hip, reviewed icing guidelines discussed with MD earlier today. She was instructed through an initial HEP to address her symptoms and provided with a printout. Saadia is appropriate for skilled physical therapy interventions to reduce L hip pain for increased tolerance to weightbearing activities. Primary Functional Limitations walking, descending stairs, quick movements, side stepping , sleep quality Plan of Care Rehabilitation Potential Good Physical Therapy Goals In 4-6 weeks: - Saadia will report ability to walk 30 minutes with <5/10 pain in her L hip in order to go on her [place] cruise . - Saadia will report a reduction in waking from 2-3x to 1x per night for improved quality of sleep. In 10 weeks: - Saadia will decrease subjective reports of pain to 3/10 at worst for improved tolerance to stair navigation. - LEFS score will improve by 9 points to meet MCID and indicate increased tolerance to ADL's. - Saadia will demonstrate improved tolerance to LLE stance to ambulate with a non- antalgic gait pattern. - Saadia will have good adherence to her HEP in order to manage symptoms outside of formal PT. Treatment Plan/Direct Interventions Electrical Stimulation,Gait Training,Ice/Cold/ Vasopneumatic,Joint Mobilization,Manual Therapy, Neuromuscular Re-ed,Self-Care/ Home Management,Therapeutic Activities,Therapeutic Exercises Frequency/Duration 1x/week for 8-10 weeks Patient Will Be Discharged From Therapy Completion of LTG(s),Skills Plateau,Independent w/HEP, Independently Progressing Evaluation Billing Untimed Code Treatment Minutes 40 Complexity Low Certification Information Initial Certification Date 04/18/24 Ending Certification Date 07/17/24 Provider Signature Required Yes Provider Signature Shows Agreement With POC & Medical Necessity Physician NPI Number Write NPI# Here Physician Comment/Change : Physician Signature & Date Requested Please Sign/Date Here
--- NOTE | 2024-07-14 11:58 | PT.OPDNX ---
Please review and sign the attached physical therapy recertification note. Thank you. PT [place] Daily Note PT [facility] Daily Note Start: 04/18/24 12:04 Freq: Status: Active Protocol: Document 07/14/24 07:13 TLQ (Rec: 07/14/24 11:53 TLQ [id number]) E-signed By Frances Moore DPT PT [facility] Daily Progress Note Visit Information Note Type Daily Note,Recert/Progress Note Visit Number 10 Insurance Information Recert Due Date 07/17/24 Insurance Name Medicare B Insurance Information/Comments BC [facility] Diagnosis Pain in left thigh M79.652 Treating Diagnosis Pain in left hip M25.552 Pain in left thigh M79.652 Muscle weakness M62.81 Imaging Report Information MRI of left hip completed at [facility] on 06/16/24 with the following conclusion(s) per report: 1. Left hip joint osteoarthritis. 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 Moderate subchondral edema signal and cystic change. 2. Moderately large hip joint joint effusion. 3. Linear tearing through the superior labrum. Thickened, confluent tearing through the base of the anterosuperior labrum. 4. Mild to moderate gluteus minimus insertional tendinopathy. 5. Mild iliopsoas bursitis. Referring MD Mihaela Vidales MD Subjective Subjective Saw Dr. Dean on 07/12/24, decided to have surgery for her hip. Scheduled to have surgery in October,. States she would like to continue with therapy until then. Had a cortisone injection on , does feel like this has helped reduce some of her pain . Had a painful experience yesterday upon standing up after sitting for over an hour at the computer. Going on her trip next week, will be gone for 2.5 weeks. Plans to bring her exercises with her. Finds the best relief from stiffness and discomfort with her stretching exercises. Does like her isometric exercises, can tell she's worked her muscles after. *patient arrived 15 minutes late for 07/14/24 appointment* Pain Comments 11/10 today location: L hip Date of Last Physician Visit 07/12/24 Precautions Treatment Precautions/Contraindications Limited tolerance to supine PMHx: R TYLER 2020, scoliosis, diabetes, depression, HTN, allergies Home Exercise Home Exercise Comments Access Code: [email or web address] URL: [email or web address] Date: 07/14/2024 Prepared by: Frances Moore Exercises: - Standing Glute Med Mobilization with Small Ball on Wall - 1-2 x daily - Seated Hip Abduction with Resistance - 2 x daily - 8 reps - 5 seconds hold - Seated Gluteal Sets - 1 x daily - 8 reps - 5 seconds hold - Sidelying Single Knee to Chest Stretch - 2 x daily - 3 reps - 15-20 seconds hold - Seated Hip Adduction Squeeze with Ball - 1 x daily - 8 reps - 5 seconds hold - Standing 'L' Stretch at Counter - 2 x daily - 3 reps - 15-20 seconds hold - Seated Small Alternating Straight Leg Lifts with Heel Touch - 1 x daily - 8 reps - Seated Hamstring Stretch - 2 x daily - 3 reps - 20 seconds hold - Standing Hip Flexor Stretch - 2 x daily - 3 reps - 15-20 seconds hold - Quadruped Side to Side Weight Shifts - 2 x daily - 20 reps - Standing Hip Abduction with Counter Support - 1 x daily - 8 reps Objective Other/Pertinent Objective PALPATION tender on L: greater trochanter, glute med MOBILITY limited with IR/ER, pain with ER GAIT antalgic, decreased stance on L Patient Instructed in Risks/Benefits Yes Therapeutic Exercise Therapeutic Exercise Minutes (minutes) 30 Therapeutic Exercise: To Restore patient education: reviewed Functional Status recommendations to decrease pain during flight (stretches, ankle pumps for circulation, standing/walking breaks as able) for mobility/flexibility: - standing hip flexor stretch with R foot elevated on step x 20 second holds - seated hamstring stretch x 20 second holds - child's pose x 20 second holds - quadruped with lateral rocking for hip mobility (HEP) for strengthening*: - seated glute sets x 8 reps x 5 second holds - seated hip abduction isometric with GTB x 8 reps x 5 second holds - seated hip adduction isometric x 8 reps x 5 second holds - seated SLR on L x 8 reps - standing L hip abduction with counter support x 8 reps *completes all strength interventions pain-free Treatment Minutes Timed Code Treatment Minutes 30 Total Treatment Time 30 Billing Units Therapeutic Exercise Units 2 Assessment/Impression Assessment/Impression Saadia saw Dr. Dean on 07/12 to review her previous x- ray and MRI results, per MD note it was determined she was a surgical candidate and elected to proceed with surgical intervention. Due to recent injection on 07/07/24, surgery is scheduled for 3 months out. Saadia will benefit from continued skilled interventions to maintain strength over the next three months in order to achieve optimal post-surgical outcomes . Saadia reports partial reduction in her left hip pain since receiving her injection . Continues to experience pain with positional changes, initial weightbearing, and sudden movements during weightbearing. Experiences a partial reduction in her symptoms with adherence to her physical therapy HEP. She will be out of the country for a few weeks on vacation, reviewed previously discussed tactics to manage pain and promote LE circulation during her flights. Reviewed interventions for hip mobility and lower extremity flexibility, provided with updated printouts for her HEP. Patient reports benefits with her strength interventions in addition to her mobility interventions, trialed progression of hip abduction from seated to standing variation, tolerates within small range on the L. Recommend decreased frequency of appointments to progress strength interventions and minimize effects of pain on gait and mobility until patient undergoes surgical intervention in October, - patient is in verbal agreement with this plan. Primary Functional Limitations left hip pain, pain with ROM, impaired gait, impaired mobility Plan of Care Physical Therapy Goals In 4-6 weeks: - Saadia will report ability to walk 30 minutes with <5/10 pain in her L hip in order to go on her [place] cruise . PROGRESSING - Saadia will report a reduction in waking from 2-3x to 1x per night for improved quality of sleep. MET In 10 weeks: - Saadia will decrease subjective reports of pain to 3/10 at worst for improved tolerance to stair navigation. PROGRESSING - LEFS score will improve by 9 points to meet MCID and indicate increased tolerance to ADL's. - Saadia will demonstrate improved tolerance to LLE stance to ambulate with a non- antalgic gait pattern. PROGRESSING - Saadia will have good adherence to her HEP in order to manage symptoms outside of formal PT. Daily Plan of Care Change in Frequency Daily Plan of Care Comments 1x every 3 weeks Recertification Information Initial Certification Date 04/18/24 Recertification Start Date 07/17/24 Recertification Due Date 10/15/24 Reasons to Continue Skilled Therapy see assessment above Continued Plan of Care and Interventions Manual therapy Therapeutic Exercise Therapeutic activity Gait training Patient education Provider Signature Shows Agreement With POC & Medical Necessity Physician Comment/Change Comment or Changes Physician NPI Number #
== END 2024-09-19 16:14 | disposition home or self-care (01) ==
PROVIDERS: PCP Family Medicine; Visit Provider Internal Medicine
DX: M79.652 Pain in left thigh (principal); M25.552 Pain in left hip; M62.81 Muscle weakness (generalized); Z51.89 Encounter for other specified aftercare
CPT/HCPCS: 97110; 97140; 97161

== ENCOUNTER 2024-10-19 08:49 | Day surgery (SDC) | payer MEDICARE, BC, SELFPAY ==
[2024-10-19] VITALS (45 sets, daily range): BP systolic 91–153; BP diastolic 57–84; PULSE 64–107; RESP 6–20; TEMP 36–36.9; O2SAT 86–100; BMI 23.4
--- NOTE | 2024-10-19 09:28 | W.PM.H&PU ---
History & Physical Update History & Physical Update H&P Reviewed and patient assessed: No changes noted
[2024-10-19] MEDS: SODIUM CHLORIDE 0.9 % (FLUSH) 10 ML SYRINGE IVF (09:50)
[2024-10-19] MEDS: OXYCODONE (CR) 10 MG TAB.ER.12H PO (09:50)
[2024-10-19] MEDS: ACETAMINOPHEN 500 MG TABLET 1000 MG PO ×2 (09:50→18:23)
--- NOTE | 2024-10-19 10:45 | CRLHL7_ITS ---
For Patients: As a result of the Cures Act, medical imaging exams and procedure reports are released immediately into your electronic medical record. You may view this report before your referring provider. If you have questions, please contact your health care provider. Indication: Hip replacement surgery Technique: AP hip fluoroscopic image. Fluoroscopy time 36.0 seconds. Findings/Impression: Hardware from a left total hip arthroplasty is in satisfactory position. Dictated by Celio Meyer MD @ 10/19/2024 1:23:08 PM (Electronically Signed)
[2024-10-19] MEDS: LACTATED RINGERS 1000 ML 1,000 ML 100 ML IV (11:23)
--- NOTE | 2024-10-19 11:25 | SUR.PREOP ---
TIME?OUT:?1125 PT/RN/MDA?VERIFICATION?OF?SURGICAL?SITE,?PROCEDURE,?AND?CONSENT OBTAINED?PRIOR?TO?INVASIVE?PROCEDURE.
[2024-10-19] MEDS: fentaNYL 100 MCG/2 ML inj IVP (11:27)
[2024-10-19] MEDS: MIDAZOLAM HCL 1 MG/ML inj IVP (11:28)
[2024-10-19] MEDS: CEFAZOLIN 2 GM in 0.9 % SODIUM CHLORIDE Mini-bag 100 ML IVPB (11:56)
--- NOTE | 2024-10-19 11:56 | CRLHL7_ITS ---
For Patients: As a result of the Cures Act, medical imaging exams and procedure reports are released immediately into your electronic medical record. You may view this report before your referring provider. If you have questions, please contact your health care provider. Indication: s/p Total hip arthroplasty Technique: AP hip centered pelvis and lateral view left hip Findings/Impression: Hardware from a left total hip arthroplasty is in satisfactory position. Bone alignment is normal. No sign of acute fracture. Postop changes are within normal limits. Dictated by Celio Meyer MD @ 10/19/2024 2:35:44 PM (Electronically Signed)
[2024-10-19] MEDS: TRANEXAMIC ACID 100 MG/ML INJ 1000 MG IV (12:02)
--- NOTE | 2024-10-19 13:05 | PM.ORPRC ---
Procedure Note Date of procedure: 10/19/24 Procedure: PREOPERATIVE DIAGNOSIS: 1. Left hip osteoarthritis, severe, primary POSTOPERATIVE DIAGNOSIS: 1. Left hip osteoarthritis, severe, primary PROCEDURE: 1. Left total hip arthroplasty-anterior approach 2. 16991 - intraoperative fluoroscopy up to 1 hour. SURGEON: Martin Dean MD. PASSENGER RELATIONS REPRESENTATIVE: Robin Meyer PA-C; LEONEL Jones - Of note, a skilled billing assistant was critical for this case to aid in patient positioning, tissue retraction, limb manipulation/positioning, dislocation/relocation, patient safety, and closure. ANESTHESIA: General endotracheal anesthetic EBL: 400ml IMPLANTS: DePuy J&J uncemented total hip Langley cup size 52, hole eliminator, +4 neutral liner Actis stem, standard offset, size 5 +1.5 mm ceramic 36 mm head. COMPLICATIONS: None evident INDICATIONS: The patient is a pleasant 69-year-old female who has experienced severe left hip pain and difficulty bearing weight. Workup included x-rays which revealed severe osteoarthrosis in the hip. Given the deformity, the dysfunction, and the pain, as well as the failure of nonoperative management, recommendation was made for surgery. FINDINGS: Full-thickness chondral loss throughout the femoral head diffusely. Osteophytosis from femoral head/neck junction and acetabulum. Large effusion upon entering the joint. DESCRIPTION OF PROCEDURE: Following a thorough discussion of risks, benefits, and alternatives consent was obtained and the left hip was marked. The patient was brought to the operating room and placed supine on the operating table. Induction of anesthesia was undertaken. 1 g IV Ancef and 1 g tranexamic acid was administered within 1 hr of incision preoperatively. Proper time-out was performed identifying proper patient, site, procedure. The operative extremity was prepped and draped in the appropriate sterile fashion using ChloraPrep after the patient was positioned on the [place] table with head in neutral alignment and all bony prominences well padded. C-arm fluoroscopic imaging was utilized to confirm proper pelvis rotation and position, and to get true AP films of both the contralateral left, and the affected left hip. This is for comparison. A longitudinal incision was made starting approximately 1 cm distal to the ASIS, and 3-4 cm lateral. The incision was extended distally aiming toward the lateral border the patella. Sharp incision through skin and bovie cautery through the subcutaneous tissue allowed identification of the TFL fascia. This was sharply divided, and the fascia bluntly released from the muscle fibers as we dissected medial. Upon coming to the medial border, we were able to retract the TFL laterally, and penetrated the deeper fascia and identify the crossing circumflex vessels. These were ligated/cauterized. The rectus was elevated from the capsule, and retractors placed laterally and medially along the femoral neck to help with visualization of the capsule. We then performed an inverted T capsulotomy. The capsule was tagged for later repair. Retractors were placed inside the capsule. The femoral neck was visualized after releasing medially down to the lesser trochanter, along the saddle laterally, and up onto the acetabulum. The femoral neck cut was made in line with our preoperative templating. The head was removed in a single piece, and sized. We turned our attention to acetabular preparation. Initially, the labrum was resected from around the perimeter, the pulvinar was excised, allowing us to visualize the false wall. We started the reaming with a 43 mm reamer. This was medialized down to the true wall. We then enlarged our reamers sequentially up to one size less than the selected cup size. We trialed at the same size and found it to have an excellent fit. The selected cup was then opened, inserted, and impacted in line with the goal of 40-45? of abduction, and 20-25? of anteversion. This was confirmed on C-arm fluoroscopic imaging to be in the appropriate/goal position. Once the cup was placed we placed a hole eliminator and a liner consistent with preop planning. Attention was turned to the femoral preparation. The limb was extended, externally rotated, and adducted. The posteromedial capsule was released, as retractors were placed allowing excellent access to the proximal femur. Initially a paper box maker was followed by canal finder followed by various broaches. We broached sequentially up to size noted above, found it to have excellent rotational control, and trialing various heads and necks, revealed that appropriate neck offset, and the above noted head size provided the greatest stability, and christianity of length, and offset. C-arm fluoroscopic imaging confirmed position of the stem, as well as leg lengths, which were compared with the pre procedure all fluoroscopic images. Trial implants were removed, the real femoral stem inserted, as was the ceramic head. After reducing, the leg was placed through range of motion and stability was confirmed anterior, posterior, and lateral. A 3 min Betadine soak was then performed, and thorough irrigation with normal saline followed. Closure of the capsule was performed with #1 PDS. Bleeding was confirmed to be controlled at this stage, and the TFL fascia was closed with #0 strata fix. Subcutaneous, and subcuticular closure was performed with 2-0 Vicryl and 4-0 Monocryl, respectively. Dressings were applied, and the patient was awoken from anesthesia and transferred the PACU in stable condition. A skilled billing assistant was critical for this case to aid in patient positioning, tissue retraction, proximal femur exposure, limb manipulation/positioning, dislocation/relocation, patient safety, and closure. PLAN: 1. Weight bear as tolerated operative extremity. 2. 23 hr perioperative antibiotics. 3. Ice. 4. PT/OT consults for ambulation assistance/mobility education. 5. Social work consult for discharge planning. 6. DVT prophylaxis with at SCDs and Xarelto x5 days followed by aspirin for a total of 1 month..
--- NOTE | 2024-10-19 13:57 | W.PM.NB ---
Nerve Block Nerve Block Time Seen by Provider: 11:30 Date Seen: 10/19/24 Type of block requested by surgeon for post-operative analgesia: KERMIT/LFCN Side: left Time out performed: Yes Verification of patient name: Yes Verification of date of : Yes Site marking: site marked Name of person performing procedure: Howard Continuous monitoring Was continuous monitoring of O2 sat, B/P, monitoring specialist, recorded every 15 minutes?: Yes Procedure Checklist: sterile prep, needles and gloves Ultrasound guided. Images saved: Yes Medications given in 5ml increments after negative aspiration: Ropivicaine %: 0.5 mL: 30 Needle gauge: 20 Precedex (mcg): 25 Patient tolerated procedure well: Yes Additional comments: Needle noted below psoas tendon needle noted adjacent to LFCN Block Charges Block Charge (with Pro Fee): Other Periph Nerve Block Use of Ultrasound Machine for Block: Yes- US Guidance/pain block
--- NOTE | 2024-10-19 13:58 | W.ANESCHARGE ---
Anesthesia Charges Start Date/Time Anesthesia Start Date: 10/19/24 Anesthesia Start Time: 11:35 Stop Date/Time Anesthesia Stop Date: 10/19/24 Anesthesia Stop Time: 13:59 Summary Extremes of Age - Over 70 or under 1: MDA Coding CPT Codes CPT Codes: ANESTH HIP ARTHROPLASTY - 90611 ([id number]) QK - CUBE CUTTER 2-4 CNCRNT ANES PROC, QX - MEAT SEAFOOD ASSOCIATE SVC W/ MD MED DIRECTION, P3 - PATIENT W/SEVERE SYS DISEASE Additional Codes: Summary - Extremes of Age - Over 70 or under 1: MDA ([id number])
--- NOTE | 2024-10-19 13:59 | P.ANES_ITS ---
Anesthesia Charges Start Date/Time Anesthesia Start Date: 10/19/24 Anesthesia Start Time: 11:35 Stop Date/Time Anesthesia Stop Date: 10/19/24 Anesthesia Stop Time: 13:59 Summary Extremes of Age - Over 70 or under 1: SUPERVISOR EVAPORATOR Coding CPT Codes CPT Codes: ANESTH HIP ARTHROPLASTY - 55445 ([id number]) P3 - PATIENT W/SEVERE SYS DISEASE, QK - UNIFIED COMMUNICATIONS ENGINEER 2-4 CNCRNT ANES PROC, QX - SUPERVISOR EVAPORATOR SVC W/ MD MED DIRECTION Additional Codes: Summary - Extremes of Age - Over 70 or under 1: SUPERVISOR EVAPORATOR ([id number])
--- NOTE | 2024-10-19 13:59 | W.ANESCHARGE ---
Anesthesia Charges Start Date/Time Anesthesia Start Date: 10/19/24 Anesthesia Start Time: 11:35 Stop Date/Time Anesthesia Stop Date: 10/19/24 Anesthesia Stop Time: 13:59 Summary Extremes of Age - Over 70 or under 1: CLINICAL APPLICATIONS MANAGER Coding CPT Codes CPT Codes: ANESTH HIP ARTHROPLASTY - 43998 ([id number]) P3 - PATIENT W/SEVERE SYS DISEASE, QK - WARD MAID 2-4 CNCRNT ANES PROC, QX - CLINICAL APPLICATIONS MANAGER SVC W/ MD MED DIRECTION Additional Codes: Summary - Extremes of Age - Over 70 or under 1: CLINICAL APPLICATIONS MANAGER ([id number])
[2024-10-19] MEDS: ONDANSETRON 2 MG/ML inj 4 MG IVP (14:20)
[2024-10-19] MEDS: METOCLOPRAMIDE HCL 5 MG/ML INJ 10 MG IVP (14:33)
[2024-10-19] MEDS: LACTATED RINGERS 1000 ML 1,000 ML 35 ML IV (14:40)
[2024-10-19] MEDS: diphenhydrAMINE 50 MG/ML inj 25 MG IVP (14:51)
--- NOTE | 2024-10-19 15:04 | SUR.PHASEI ---
Patient had quite a bit of post op nausea. Used 3 different medications to help with this. Also has an aromatherapy patch on and is tolerating ice chips now and feels better. Pain is tolerable without need of medications. patient is feeling shakey. MILKING WORKER was notified of this and likely from the anesthesia. Patient is still at rest. Barehugger applied.
[2024-10-19] MEDS: CEFAZOLIN 1 GM in 0.9 % SODIUM CHLORIDE Mini-bag 100 ML IVPB (18:23)
--- NOTE | 2024-10-19 19:13 | P.IMCN_ITS ---
Date of Consult Patient: [place] Patient Consult date: 10/19/24 Requesting Physician: Orthopedics Primary Care Provider: Marilu Zeng MD Consult Narrative Narrative: Saadia Summers is a 69 year old female with atypical chest pain who recently underwent a cardiac workup including an angiogram and was found to have coronary artery disease that is not functionally significant at this time, type 2 diabetes mellitus, hypertension, hyperlipidemia, obstructive sleep apnea, anxiety, depression, and chronic kidney disease stage 3 who underwent an elective left total hip arthroplasty today by Dr. Dean. She feels well postoperatively. She denies chest pain or shortness of breath. She notes feeling tired, but feels like the extra-strength acetaminophen that she got a bit ago is working for her pain. Review of Systems Status of ROS: Reports: 6 or more systems reviewed and unremarkable except as noted in History and below [facility] Medical History (Updated 10/19/24 @ 19:19 by Lien Mac MD) Overactive bladder ?N32.81 - Overactive bladder (ICD-10) Insomnia, idiopathic ?F51.01 - Primary insomnia (ICD-10) Anxiety ?F41.9 - Anxiety disorder, unspecified (ICD-10) Bilateral sensorineural hearing loss ?H90.3 - Sensorineural hearing loss, bilateral (ICD-10) Postmenopausal atrophic vaginitis ?N95.2 - Postmenopausal atrophic vaginitis (ICD-10) Incontinence ?R32 - Unspecified urinary incontinence (ICD-10) Stage 3a chronic kidney disease ?N18.31 - Chronic kidney disease, stage 3a (ICD-10) VIRIDIANA (obstructive sleep apnea) ?G47.33 - Obstructive sleep apnea (adult) (pediatric) (ICD-10) Depressive disorder ?F32.A - Depression, unspecified (ICD-10) Chronic nonalcoholic liver disease ?K76.9 - Liver disease, unspecified (ICD-10) Mixed hyperlipidemia ?E78.2 - Mixed hyperlipidemia (ICD-10) ASHD (arteriosclerotic heart disease) ?I25.10 - Atherosclerotic heart disease of hopi coronary artery without angina pectoris (ICD-10) Hypertension ?I10 - Essential (primary) hypertension (ICD-10) Type II diabetes mellitus ?E11.9 - Type 2 diabetes mellitus without complications (ICD-10) Surgical History (Updated 10/19/24 @ 19:17 by Lien Mac MD) H/O oophorectomy Hx of colonoscopy ?Z98.890 - Other specified postprocedural states (ICD-10) S/P total left hip arthroplasty (10/19/24) ?Z96.642 - Presence of left artificial hip joint (ICD-10) History of laparoscopic cholecystectomy (~2017) ?Z90.49 - Acquired absence of other specified parts of digestive tract (ICD- 10) History of total right hip replacement (12/24/20) ?Z96.641 - Presence of right artificial hip joint (ICD-10) Family History (Updated 10/19/24 @ 18:44 by Lien Mac MD) Sister Diabetes Hernan's thyroiditis Other Breast cancer Colon cancer Social History (Updated 10/19/24 @ 19:17 by Lien Mac MD) Narrative: Has a couple drinks per year. Denies tobacco and recreational drug use. What is your current living situation?: I presently have a place to live Problems where you live: no known problems In the past 12 months, utilities in danger of being shut off: no In past 12 months, lack of transportation kept you from medical appts, meetings, work, or getting things needed for daily living: no In the past 12 mos, have been you worried that your food would run out before you had money to buy more?: never true In the past 12 mos, the food you bought just didn't last and you didn't have money to buy more?: never true Smoking Status: Never smoker How often do you have a drink containing alcohol: monthly or less AUDIT-C Alcohol total score: 1 Non-prescribed substance use: denies use Caffeine: No How often does anyone, including family, friends and others, physically hurt you : never How often does anyone, including family, friends and others, insult or talk down to you: never How often does anyone, including family, friends and others, threaten you with harm: never How often does anyone, including family, friends and others, scream or curse at you: never Meds Home Medications and Allergies Home Medications ?Medication ?Instructions ?Recorded ?Confirmed ?Type amoxicillin 500 mg capsule 2,000 mg PO DIRECTED 12/06/22 10/19/24 History atenolol 50 mg tablet 50 mg PO BID 12/06/22 10/19/24 History atorvastatin 20 mg tablet 20 mg PO DAILY 12/06/22 10/19/24 History clonazepam 0.5 mg tablet 0.5 mg PO DAILY PRN 12/06/22 10/19/24 History cyclobenzaprine 10 mg tablet 10 mg PO TID PRN 12/06/22 10/19/24 History duloxetine 30 mg capsule,delayed 30 mg PO HS 12/06/22 10/19/24 History release duloxetine 60 mg capsule,delayed 60 mg PO QAM 12/06/22 10/19/24 History release estradiol 0.01% (0.1 mg/gram) 0.5 g vaginal .2x/week 12/06/22 10/19/24 History vaginal cream mirabegron 50 mg tablet,extended 50 mg PO DAILY 12/06/22 10/19/24 History release 24 hr (Myrbetriq) semaglutide 1 mg/dose (4 mg/3 mL) 1 mg subcut QWEEK 04/18/24 10/19/24 History subcutaneous pen injector (Ozempic) glipizide 10 mg tablet 10 mg PO DAILY 10/17/24 10/19/24 History amlodipine 2.5 mg tablet 5 mg PO DAILY 10/19/24 10/19/24 History aspirin 81 mg tablet,delayed 81 mg PO DAILY 10/19/24 10/19/24 History release (Ecotrin Low Strength) celecoxib 200 mg capsule 200 mg PO DAILY 10/19/24 10/19/24 History nitroglycerin 0.4 mg sublingual 0.4 mg sublingual Q5M PRN 10/19/24 10/19/24 History tablet omega 3-lfo-hmy-fish oil 1,000 mg 3 cap PO DAILY PRN 10/19/24 10/19/24 History (120 mg-180 mg) capsule (Fish Oil) polyethylene glycol 3350 17 17 g PO DAILY 10/19/24 10/19/24 History gram/dose oral powder (ClearLax) sennosides 8.6 mg tablet (senna) 17.2 mg PO BID 10/19/24 10/19/24 History trazodone 50 mg tablet 50 mg PO HS 10/19/24 10/19/24 History Allergies Allergy/AdvReac Type Severity Reaction Status Date / Time ciprofloxacin (From Cipro) Allergy Unknown Unknown Verified 07/12/24 09:52 clindamycin Allergy Unknown Rash Verified 07/12/24 09:52 lisinopril Allergy Unknown Cough Verified 07/12/24 09:52 naproxen AdvReac Unknown light Verified 07/12/24 09:52 headedness Exam Narrative: Exam Narrative: General: No acute distress. Awake alert oriented x3. HEENT: Normocephalic atraumatic, pupils equally round and reactive to light and accommodation. Oropharynx clear. Mucous membranes are moist. No cervical lymphadenopathy, thyromegaly or carotid bruits. No JVD. Cardiovascular: Regular rate and rhythm. No murmurs, gallops, or rubs. Chest: No increased work of breathing. Clear to auscultation bilaterally. No crackles or wheezes. Abdomen: Bowel sounds present. Soft, nondistended, nontender. No hepatosplenomegaly or masses. Extremities: Left hip bandage is clean, dry, and intact. No edema, no cyanosis or clubbing. Skin: No jaundice, no pallor, no rashes on visible skin. Const: Vital Signs, click to edit/add: Vital Signs - 24 hr 10/19/24 09:30 10/19/24 11:20 10/19/24 11:25 Temperature 98.2 F Pulse Rate 73 71 74 Respiratory Rate 16 16 16 Blood Pressure 127/75 136/76 139/84 Pulse Oximetry 96 100 100 Oxygen Delivery Me thod Room Air Nasal Cannula Nasal Cannula Oxygen Flow Rate 3 3 10/19/24 11:30 10/19/24 13:58 10/19/24 13:59 Temperature 97.6 F Pulse Rate 71 68 73 Respiratory Rate 16 8 L 10 L Blood Pressure 133/78 127/68 Pulse Oximetry 100 93 89 Oxygen Delivery Me thod Nasal Cannula Oxygen Flow Rate 3 10/19/24 14:00 10/19/24 14:02 10/19/24 14:03 Temperature Pulse Rate 69 71 72 Respiratory Rate 8 L 13 6 L Blood Pressure 114/64 Pulse Oximetry 92 95 92 Oxygen Delivery Me thod Oxygen Flow Rate 10/19/24 14:07 10/19/24 14:12 10/19/24 14:13 Temperature Pulse Rate 71 70 66 Respiratory Rate 8 L 13 7 L Blood Pressure 108/59 L 97/57 L Pulse Oximetry 92 95 94 Oxygen Delivery Me thod Oxygen Flow Rate 10/19/24 14:15 10/19/24 14:17 10/19/24 14:18 Temperature 97.7 F Pulse Rate 64 71 75 Respiratory Rate 8 L 16 12 Blood Pressure 91/60 Pulse Oximetry 91 97 95 Oxygen Delivery Me thod Oxygen Flow Rate 10/19/24 14:23 10/19/24 14:27 10/19/24 14:30 Temperature Pulse Rate 72 83 70 Respiratory Rate 9 L 9 L 12 Blood Pressure 97/58 L 103/59 L Pulse Oximetry 97 92 93 Oxygen Delivery Me thod Oxygen Flow Rate 10/19/24 14:32 10/19/24 14:37 10/19/24 14:42 Temperature 97.9 F Pulse Rate 73 74 79 Respiratory Rate 11 L 11 L 15 Blood Pressure 111/62 103/64 116/70 Pulse Oximetry 94 100 100 Oxygen Delivery Me thod Oxygen Flow Rate 10/19/24 14:43 10/19/24 14:45 10/19/24 14:47 Temperature Pulse Rate 79 80 81 Respiratory Rate 12 13 11 L Blood Pressure 134/72 Pulse Oximetry 100 100 100 Oxygen Delivery Me thod Oxygen Flow Rate 10/19/24 14:48 10/19/24 14:52 10/19/24 14:53 Temperature 97.2 F L Pulse Rate 80 82 107 H Respiratory Rate 11 L 13 15 Blood Pressure 142/75 H Pulse Oximetry 100 99 100 Oxygen Delivery Me thod Oxygen Flow Rate 10/19/24 14:56 10/19/24 14:57 10/19/24 15:00 Temperature Pulse Rate 88 88 92 Respiratory Rate 10 L 10 L 13 Blood Pressure 151/82 H Pulse Oximetry 98 97 98 Oxygen Delivery Me thod Oxygen Flow Rate 10/19/24 15:01 10/19/24 15:02 Temperature 98.5 F Pulse Rate 91 89 Respiratory Rate 11 L 9 L Blood Pressure 153/79 H 149/76 H Pulse Oximetry 94 86 L Oxygen Delivery Me thod Oxygen Flow Rate Assessment and Plan Assessment and plan (1) S/P total left hip arthroplasty: Problem comment: Left total hip arthroplasty-anterior approach (10/19/24, Dr. Dean) - routine postop cares - VTE prophylaxis with 5 days of low-dose rivaroxaban, then twice a day baby aspirin - PT and OT assessment pending Status: Acute (2) Osteoarthritis of left hip: Problem comment: Severe Status: Chronic (3) ASHD (arteriosclerotic heart disease): Problem comment: - chest discomfort led to getting a coronary CTA, which was abnormal. - 10/11/[address] Cele Byrd: Moderate nonobstructive coronary artery disease involving the mid LAD. Functional testing was consistent with a physiologically non-significant lesion. - asymptomatic at present, monitor for symptoms Status: Chronic (4) VIRIDIANA (obstructive sleep apnea): Problem comment: 12/17/2016 AHI-15 - monitor for hypoxia and hypoventilation especially while using narcotic medication Status: Chronic (5) Mixed hyperlipidemia: Problem comment: - continue statin Status: Chronic (6) Hypertension: Problem comment: - hold amlodipine and atenolol in the morning if blood pressure is low, I will write parameters on these medications Status: Chronic (7) Type II diabetes mellitus: Problem comment: - 09/13/24 hemoglobin A1c 7.5% - resume glipizide daily and semaglutide upon discharge Status: Chronic
[2024-10-19] MEDS: OXYCODONE 5 MG TABLET PO (19:56)
--- NOTE | 2024-10-19 20:06 | PC.NURSE ---
End shift - Pt arrived from PACU at approximately 1515. Pt appeared fatigued and reported experiencing nausea. Pt observed to sleep, aroma therapy patch and anti-emetics given in PACU. Up with standby assistance and walker/gait belt. Pt incontinent of bladder. Reported discomfort in surgical hip, given medication scheduled per OCT. Dressing CDI, pedal pulse intact, ice pack on site.Tolerating RA and regular diet/fluids. Pt appears to be resting comfortably at end of shift with call light within reach.
[2024-10-19] MEDS: atenoloL 50 MG TABLET PO (20:43)
[2024-10-19] MEDS: TRAZODONE HCL 50 MG TABLET PO (20:44)
[2024-10-19] MEDS: DULOXETINE 30 MG CAPSULE DR PO (20:44)
[2024-10-19] MEDS: SENNOSIDES 1 TAB TABLET 2 TAB PO (20:44)
[2024-10-20] MEDS: ACETAMINOPHEN 500 MG TABLET 1000 MG PO ×2 (00:02→06:21)
[2024-10-20 00:04] VITALS: RESP 16; O2SAT 98
[2024-10-20 00:05] VITALS: BP 152/85; PULSE 90; RESP 16; TEMP 37.4; O2SAT 98
[2024-10-20 00:07] VITALS: O2SAT 98
[2024-10-20] MEDS: CEFAZOLIN 1 GM in 0.9 % SODIUM CHLORIDE Mini-bag 100 ML IVPB (02:17)
[2024-10-20] MEDS: OXYCODONE 5 MG TABLET PO ×2 (03:23→08:24)
[2024-10-20 03:29] VITALS: BP 145/68; PULSE 82; RESP 16; TEMP 36.8; O2SAT 96
--- NOTE | 2024-10-20 06:30 | PC.NURSE ---
End of shift note [id number]: Pt A&Ox4 and able to make needs known. Dressing to L hip C/D/I and CMS to LLE intact. Pt transferring/ambulating with SBA using FWW and gait belt. Pain to L hip managed with rest, active ice, repositioning and scheduled and PRN pain medications. Pt has been using call light appropriately with call light within reach. Pt continent and incontinent of bladder. Pt requested staff check blood glucose this morning which was noted to be 247 though this was after pt had had a snack. Pt tolerating regular diet with no vomiting noted. Pt did endorse slight nausea at times when up ambulating though declined PRN medication for this when offered. Call light within reach.
[2024-10-20 07:00] VITALS: BP 133/73; PULSE 77; RESP 18; TEMP 36.8; O2SAT 98
[2024-10-20 07:03] LABS: Basophils Absolute Auto 0.02 K/uL (0.00-0.30); Basophils Percent Auto 0.2 % (0.0-3.0); Hematocrit 30.5 % (33.0-51.0); Hemoglobin* 10.5 gm/dL (12.0-16.0); Immature Granulocytes Abs Auto 0.02 K/uL (0.00-0.30); Immature Granulocytes Pct Auto 0.2 %; Lymphocytes Percent Auto 8.5 % (20-44); Mean Corpuscular HGB Conc 34 gm/dL (32-36); Mean Corpuscular Hemoglobin 34 pg (26-34); Mean Corpuscular Volume 99 fL (80-100); Neutrophils Percent Auto 82.1 % (42.0-72.0); Platelet Count* 169 K/uL (140-440); RDW Coefficient of Variation % 11.6 % (11.5-15.5); Red Blood Count 3.09 m/uL (4.00-5.20); White Blood Count* 8.58 K/uL (4.50-11.00)
[2024-10-20 07:06] LABS: Slide Review Reflex No
[2024-10-20 07:19] LABS: Sodium* 133 mmol/L (135-149)
[2024-10-20 07:22] LABS: Blood Urea Nitrogen* 16 mg/dL (7-30); Creatinine* 0.7 mg/dL (0.5-1.5); Est. Creatinine Clearance* 50.18; Estimated Glomerular Filt Rate 92 ml/min
[2024-10-20] MEDS: DULOXETINE 30 MG CAPSULE DR 60 MG PO (08:23)
[2024-10-20] MEDS: RIVAROXABAN 10 MG TABLET PO (08:23)
[2024-10-20] MEDS: ATORVASTATIN CALCIUM 10 MG TABLET 20 MG PO (08:23)
[2024-10-20] MEDS: SENNOSIDES 1 TAB TABLET 2 TAB PO (08:24)
[2024-10-20] MEDS: atenoloL 50 MG TABLET PO (08:24)
--- NOTE | 2024-10-20 09:26 | PM.ORPN ---
Subjective Subjective Date Seen: 10/20/24 Principal diagnosis: Status postop day 1, left total hip arthroplasty - anterior approach Interval history: Patient reports doing well. No acute events over night. She has some nausea which was resolved without medication yesterday afternoon. Pain managed with scheduled and PRN medications, ice. DVT prophylaxis: Rivaroxaban, SCDs, walking. Denies fevers, chills, aches, N/V, CP, SOB/BUTLER, or lightheadedness. Not passing flatus. Patient has a history of constipation. Takes senna and MiraLax at home. States that since stopping her calcium supplements, she has noticed less constipation. Recommend that she meet with her PCP did discuss this. Ortho Exam Narrative Exam Narrative: -Patient appears comfortable in the head; no apparent acute distress -Alert and oriented times 3 -Operative thigh/hip mild-moderately swollen, soft tissues supple; no obvious erythema. Ecchymosis minimal. Warmth appropriate -Surgical dressing clean, dry, intact; no obvious drainage, no erythematous streaking peripheral to the bandage -Bilateral calves soft and supple; no significant swelling, edema, tenderness, erythema, discoloration, warmth, or palpable cords -2+ DP/PT pulses, intact dermatomes and myotomes distally (5/5 strength). No numbness about the lateral femoral cutaneous nerve distribution. Const Vital Signs, click to edit/add: Vital Signs - 24 hr 10/19/24 09:30 10/19/24 11:20 10/19/24 11:25 Temperature 98.2 F Pulse Rate 73 71 74 Pulse Rate [Right Pulse Oximeter] Respiratory Rate 16 16 16 Blood Pressure 127/75 136/76 139/84 Blood Pressure [Left Arm] Pulse Oximetry 96 100 100 Oxygen Delivery Method Room Air Nasal Cannula Nasal Cannula Oxygen Flow Rate 3 3 10/19/24 11:30 10/19/24 13:58 10/19/24 13:59 Temperature 97.6 F Pulse Rate 71 68 73 Pulse Rate [Right Pulse Oximeter] Respiratory Rate 16 8 L 10 L Blood Pressure 133/78 127/68 Blood Pressure [Left Arm] Pulse Oximetry 100 93 89 Oxygen Delivery Method Nasal Cannula Oxygen Flow Rate 3 10/19/24 14:00 10/19/24 14:02 10/19/24 14:03 Temperature Pulse Rate 69 71 72 Pulse Rate [Right Pulse Oximeter] Respiratory Rate 8 L 13 6 L Blood Pressure 114/64 Blood Pressure [Left Arm] Pulse Oximetry 92 95 92 Oxygen Delivery Method Oxygen Flow Rate 10/19/24 14:07 10/19/24 14:12 10/19/24 14:13 Temperature Pulse Rate 71 70 66 Pulse Rate [Right Pulse Oximeter] Respiratory Rate 8 L 13 7 L Blood Pressure 108/59 L 97/57 L Blood Pressure [Left Arm] Pulse Oximetry 92 95 94 Oxygen Delivery Method Oxygen Flow Rate 10/19/24 14:15 10/19/24 14:17 10/19/24 14:18 Temperature 97.7 F Pulse Rate 64 71 75 Pulse Rate [Right Pulse Oximeter] Respiratory Rate 8 L 16 12 Blood Pressure 91/60 Blood Pressure [Left Arm] Pulse Oximetry 91 97 95 Oxygen Delivery Method Oxygen Flow Rate 10/19/24 14:23 10/19/24 14:27 10/19/24 14:30 Temperature Pulse Rate 72 83 70 Pulse Rate [Right Pulse Oximeter] Respiratory Rate 9 L 9 L 12 Blood Pressure 97/58 L 103/59 L Blood Pressure [Left Arm] Pulse Oximetry 97 92 93 Oxygen Delivery Method Oxygen Flow Rate 10/19/24 14:32 10/19/24 14:37 10/19/24 14:42 Temperature 97.9 F Pulse Rate 73 74 79 Pulse Rate [Right Pulse Oximeter] Respiratory Rate 11 L 11 L 15 Blood Pressure 111/62 103/64 116/70 Blood Pressure [Left Arm] Pulse Oximetry 94 100 100 Oxygen Delivery Method Oxygen Flow Rate 10/19/24 14:43 10/19/24 14:45 10/19/24 14:47 Temperature Pulse Rate 79 80 81 Pulse Rate [Right Pulse Oximeter] Respiratory Rate 12 13 11 L Blood Pressure 134/72 Blood Pressure [Left Arm] Pulse Oximetry 100 100 100 Oxygen Delivery Method Oxygen Flow Rate 10/19/24 14:48 10/19/24 14:52 10/19/24 14:53 Temperature 97.2 F L Pulse Rate 80 82 107 H Pulse Rate [Right Pulse Oximeter] Respiratory Rate 11 L 13 15 Blood Pressure 142/75 H Blood Pressure [Left Arm] Pulse Oximetry 100 99 100 Oxygen Delivery Method Oxygen Flow Rate 10/19/24 14:56 10/19/24 14:57 10/19/24 15:00 Temperature Pulse Rate 88 88 92 Pulse Rate [Right Pulse Oximeter] Respiratory Rate 10 L 10 L 13 Blood Pressure 151/82 H Blood Pressure [Left Arm] Pulse Oximetry 98 97 98 Oxygen Delivery Method Oxygen Flow Rate 10/19/24 15:01 10/19/24 15:02 10/19/24 15:15 Temperature 98.5 F 96.8 F L Pulse Rate 91 89 81 Pulse Rate [Right Pulse Oximeter] Respiratory Rate 11 L 9 L 18 Blood Pressure 153/79 H 149/76 H 138/68 Blood Pressure [Left Arm] Pulse Oximetry 94 86 L 98 Oxygen Delivery Method Oxygen Flow Rate 10/19/24 15:30 10/19/24 15:45 10/19/24 16:00 Temperature 96.8 F L 96.9 F L Pulse Rate 84 86 85 Pulse Rate [Right Pulse Oximeter] Respiratory Rate 16 16 16 Blood Pressure 146/67 H 121/68 117/59 L Blood Pressure [Left Arm] Pulse Oximetry 92 94 94 Oxygen Delivery Method Oxygen Flow Rate 10/19/24 16:15 10/19/24 16:45 10/19/24 17:15 Temperature 96.8 F L 97.5 F L Pulse Rate 89 89 89 Pulse Rate [Right Pulse Oximeter] Respiratory Rate 16 16 20 Blood Pressure 121/59 L 127/62 124/69 Blood Pressure [Left Arm] Pulse Oximetry 95 96 100 Oxygen Delivery Method Oxygen Flow Rate 10/19/24 18:15 10/19/24 19:30 10/19/24 19:30 Temperature 98.2 F 98.2 F 98.2 F Pulse Rate 93 98 Pulse Rate [Right Pulse Oximeter] 98 Respiratory Rate 20 16 16 Blood Pressure 143/77 H 135/73 Blood Pressure [Left Arm] 135/73 Pulse Oximetry 97 98 98 Oxygen Delivery Method Room Air Room Air Oxygen Flow Rate 10/19/24 19:58 10/19/24 20:39 10/19/24 21:37 Temperature 96.8 F L 97.5 F L 98.4 F Pulse Rate 81 84 95 Pulse Rate [Right Pulse Oximeter] Respiratory Rate 18 16 16 Blood Pressure 138/68 145/79 H 128/59 L Blood Pressure [Left Arm] Pulse Oximetry 98 96 97 Oxygen Delivery Method Room Air Room Air Room Air Oxygen Flow Rate 10/19/24 23:00 10/20/24 00:04 10/20/24 00:05 Temperature 99.4 F Pulse Rate Pulse Rate [Right Pulse Oximeter] 98 90 Respiratory Rate 16 16 16 Blood Pressure Blood Pressure [Left Arm] 152/85 H Pulse Oximetry 98 98 Oxygen Delivery Method Room Air Room Air Oxygen Flow Rate 3 10/20/24 00:07 10/20/24 03:29 Temperature 98.2 F Pulse Rate Pulse Rate [Right Pulse Oximeter] 82 Respiratory Rate 16 Blood Pressure Blood Pressure [Left Arm] 145/68 H Pulse Oximetry 98 96 Oxygen Delivery Method Room Air Oxygen Flow Rate Assessment and Plan Assessment and plan (1) S/P total left hip arthroplasty: Problem details: Left total hip arthroplasty-anterior approach (10/19/24, Dr. Dean) - routine postop cares - VTE prophylaxis with 5 days of low-dose rivaroxaban, then twice a day baby aspirin - PT and OT assessment pending Status: Acute (2) Osteoarthritis of left hip: Problem details: Severe Status: Chronic (3) ASHD (arteriosclerotic heart disease): Problem details: - chest discomfort led to getting a coronary CTA, which was abnormal. - 10/11/[address] Cele Byrd: Moderate nonobstructive coronary artery disease involving the mid LAD. Functional testing was consistent with a physiologically non-significant lesion. - asymptomatic at present, monitor for symptoms Status: Chronic (4) VIRIDIANA (obstructive sleep apnea): Problem details: 12/17/2016 AHI-15 - monitor for hypoxia and hypoventilation especially while using narcotic medication Status: Chronic (5) Mixed hyperlipidemia: Problem details: - continue statin Status: Chronic (6) Hypertension: Problem details: - hold amlodipine and atenolol in the morning if blood pressure is low, I will write parameters on these medications Status: Chronic (7) Type II diabetes mellitus: Problem details: - 09/13/24 hemoglobin A1c 7.5% - resume glipizide daily and semaglutide upon discharge Status: Chronic Plan - Complete 23 hour perioperative antibiotics. - PT/OT consult for education and assistance. - Social work consult for discharge planning - Prescribed analgesics as needed - DVT prophylaxis: Rivaroxaban, walking, and SCDs - Anticipation is for discharge to home with family/friends today 10/20/2024 if the patient remains medically stable, pain is controlled, and they are safe with mobilization.
--- NOTE | 2024-10-20 12:15 | PC.NURSE ---
Discharge - Pt alert, oriented, cooperative. Up with standby assistance and walker/gait belt. Tolerating RA, regular diet/fluids. Pt reported pain in L hip as 5/10, given medication in MAR with pt reporting that pain was tolerable. Denies SOB, chest pain, n/v. IV removed with catheter intact. D/C education given to pt and spouse with verbalized understanding. Pt d/c'd to home with via wheelchair at approximately 1145.
== END 2024-10-20 11:44 | disposition home or self-care (01) ==
LOC: OR 08:53 → MEDSURG 08:53
PROVIDERS: PCP Family Medicine; Visit Provider Orthopaedic Surgery Sports Medicine
PROC: (CPT 27130; principal; 2024-10-19 10:45)
DX: M16.12 Unilateral primary osteoarthritis, left hip (principal); G89.18 Other acute postprocedural pain; R07.89 Other chest pain; I25.10 Atherosclerotic heart disease of native coronary artery without angina pectoris; G47.33 Obstructive sleep apnea (adult) (pediatric); I12.9 Hypertensive chronic kidney disease with stage 1 through stage 4 chronic kidney disease, or unspecified chronic kidney disease; E11.22 Type 2 diabetes mellitus with diabetic chronic kidney disease; N18.31 Chronic kidney disease, stage 3a; Z79.82 Long term (current) use of aspirin; N32.81 Overactive bladder; R32 Unspecified urinary incontinence; K76.89 Other specified diseases of liver; F32.A Depression, unspecified; E78.2 Mixed hyperlipidemia
CPT/HCPCS: 27130; 01214; 36415; 64450; 73501; 76000; 76942; 82565; 82962; 84132; 84295; 84520; 85025; 86850; 86900; 86901; 97110; 97116; 97161; 97165; 97530; 99100; A9270; C1776; J0330; J0690; J1100; J1200; J2250; J2371; J2405; J2704; J2765; J2795; J3010; J3490; J7120

== ENCOUNTER 2024-11-05 08:30 | Emergency (ER) | payer MEDICARE, BC, SELFPAY ==
--- OUTSIDE RECORDS SUMMARY | 2024-11-05 08:33 | XMS_ITS | Data Portability ---
Author Organization [facility], [facility] Address [address] [place] [address] Care Team Providers Care Alkylation Operator Name Role Phone ELIUDKAREEME Primary Care Provider Assessment No assessment recorded. Plan of Treatment Reminders Order Date Submit Date Provider Last Modified By Organization Details Last Modified Time Details Appointments None recorded. Lab urinalysi s, dipstick 2022 023 [email or web address] [facility], [address], [place], [address], 12:06:45 Referral None recorded. Procedures None recorded. Surgeries None recorded. Imaging None recorded. Medication Orders None recorded. Patient TargetsNo targets recorded. Patient InstructionsNo instructions recorded. Reason for Referral None Reported. Results Created Date Observation Date Name Description Value Unit Range Abnormal Flag Note LastModifiedBy Organization Detail LastModifiedTime 02/28/2002/27/2023 urina lysis , dipst ick Color-Status Yellow Not Available [facility] [address], [place], [address], 02/27/2023 12:23:40 02/28/2002/27/2023 urina lysis , dipst ick Clarity-Stat us Clear Not Available [facility] [address], [place], [address], 02/27/2023 12:23:40 02/28/20 23 02/27/2023 urina lysis , dipst ick Glucose-Stat us Negati ve Not Available [facility] [address], [place], [address], 02/27/2023 12:23:40 02/28/20 23 02/27/2023 urina lysis , dipst ick Bilirubin-St atus Negati ve Not Available [facility] [address], [place], [address], 02/27/2023 12:23:40 02/28/20 23 02/27/2023 urina lysis , dipst ick Ketones-Stat us Negati ve Not Available [facility] [address], [place], [address], 02/27/2023 12:23:40 02/28/20 23 02/27/2023 urina lysis , dipst ick Sp [place]-Stat us 1.015 Not Available [facility] [address], [place], [address], 02/27/2023 12:23:40 02/28/20 23 02/27/2023 urina lysis , dipst ick pH-Status 5.5 Not Available [facility] [address], [place], [address], 02/27/2023 12:23:40 02/28/20 23 02/27/2023 urina lysis , dipst ick Urobilinogen -Status 0.2 Not Available [facility] [address], [place], [address], 02/27/2023 12:23:40 02/28/20 23 02/27/2023 urina lysis , dipst ick Nitrates-Sta tus negati ve Not Available [facility] [address], [place], [address], 02/27/2023 12:23:40 07/2802/27/2023 urina lysis , dipst ick Blood-Status Negati ve Not Available [facility] [address], [place], [address], 02/27/2023 12:23:40 02/28/20 23 02/27/2023 urina lysis , dipst ick Leuko-Status Negati ve Not Available [facility] [address], [place], [address], 02/27/2023 12:23:40 02/28/20 23 02/27/2023 urina lysis , dipst ick Specimen Type Voided Not Available [facility] [address], [place], [address], 02/27/2023 12:23:40 02/28/20 23 02/27/2023 urina lysis , dipst ick Performed by Edita Foreman RN Not Available [facility] [address], [place], [address], 02/27/2023 12:23:40 02/28/20 23 02/27/2023 urina lysis , dipst ick Total Urine Volume 20cc Not Available [facility] [address], [place], [address], 02/27/2023 12:23:40 03/31/20 23 03/31/2023 urina lysis , dipst ick Color-Status Yellow Not Available [facility] [address], [place], [address], 03/31/2023 11:48:37 03/31/20 23 03/31/2023 urina lysis , dipst ick Clarity-Stat us Clear Not Available [facility] [address], [place], [address], 03/31/2023 11:48:37 03/31/20 23 03/31/2023 urina lysis , dipst ick Glucose-Stat us 100 Not Available [facility] [address], [place], [address], 03/31/2023 11:48:37 03/31/20 23 03/31/2023 urina lysis , dipst ick Bilirubin-St atus Negati ve Not Available [facility] [address], [place], [address], 03/31/2023 11:48:37 03/31/20 23 03/31/2023 urina lysis , dipst ick Ketones-Stat us Negati ve Not Available [facility] [address], [place], [address], 03/31/2023 11:48:37 03/31/20 23 03/31/2023 urina lysis , dipst ick Sp [place]-Stat us 1.010 Not Available [facility] [address], [place], [address], 03/31/2023 11:48:37 03/31/20 23 03/31/2023 urina lysis , dipst ick pH-Status 5.0 Not Available [facility] [address], [place], [address], 03/31/2023 11:48:37 03/31/20 23 03/31/2023 urina lysis , dipst ick Urobilinogen -Status 0.2 Not Available [facility] [address], [place], [address], 03/31/2023 11:48:37 03/31/20 23 03/31/2023 urina lysis , dipst ick Nitrates-Sta tus negati ve Not Available [facility] [address], [place], [address], 03/31/2023 11:48:37 03/31/20 23 03/31/2023 urina lysis , dipst ick Blood-Status Negati ve Not Available [facility] [address], [place], [address], 03/31/2023 11:48:37 03/31/20 23 03/31/2023 urina lysis , dipst ick Leuko-Status Negati ve Not Available [facility] [address], [place], [address], 03/31/2023 11:48:37 03/31/20 23 03/31/2023 urina lysis , dipst ick Specimen Type Voided Not Available [facility] [address], [place], [address], 03/31/2023 11:48:37 03/31/20 23 03/31/2023 urina lysis , dipst ick Performed by Edita Foreman RN Not Available [facility] [address], [place], [address], 03/31/2023 11:48:37 Result Notes None recorded. Problems Name Problem SNOMED Code Status Onset Date Resolution Date Notes Provider Name and Address Organization Details Recorded Time Incontinenc e 24215643 Completed 202009/03/2021 Edita adame [facility] 12:21:26 Overactive urinary bladder 652816502 Active 2021 Edita adame [facility] 14:00:51 Problem Notes None recorded. Procedures Surgical History Date Name Laterality Status Provider Name and Address Organization Details Recorded Time 023 Bladder Scan completed Irma Pineda [facility] 03/31/2023 11:48:29 023 PTNM (Percutaneous Tibial Neuromodulation (PTNS) completed Edita Foreman [facility] 03/27/2023 11:55:38 023 PTNM (Percutaneous Tibial Neuromodulation (PTNS) [facility] 03/20/2023 09:20:26 023 PTNM (Percutaneous Tibial Neuromodulation (PTNS) completed [facility] 03/12/2023 11:02:03 023 PTNM (Percutaneous Tibial Neuromodulation (PTNS) completed [facility] 03/03/2023 14:13:27 023 PTNM (Percutaneous [facility] 02/27/2023 12:26:36 023 PTNM (Percutaneous Tibial Neuromodulation (PTNS) completed [facility] 02/20/2023 12:29:24 023 PTNM (Percutaneous Tibial Neuromodulation (PTNS) completed [facility] 02/13/2023 11:54:21 023 PTNM (Percutaneous Tibial Neuromodulation (PTNS) [facility] 02/06/2023 12:38:37 023 PTNM (Percutaneous Tibial Neuromodulation (PTNS) completed Eedn Rodriguez [facility] 01/27/2023 14:22:48 023 PTNM (Percutaneous Tibial Neuromodulation (PTNS) [facility] 01/21/2023 15:56:17 023 PTNM (Percutaneous Tibial Neuromodulation (PTNS) [facility] 01/16/2023 13:04:42 023 PTNM (Percutaneous Tibial Neuromodulation (PTNS) completed [facility] 01/09/2023 10:39:51 023 Bladder Scan completed [facility] 12/16/2022 11:34:04 023 Bladder Scan completed Lucretia Matute [facility] 10/07/2022 14:44:51 022 Bladder Scan completed Franko Smith [facility] 06/03/2022 12:34:54 022 Cystoscopy with Botox Injections completed Xin Chiang MD [address] [place] [address],[address], [place], [address], [place] [facility] 04/22/2022 15:25:31 022 Bladder Scan completed Rebeka Noe [facility] 11/12/2021 15:55:49 022 Bladder Scan completed Rebeka Noe [facility] 10/01/2021 16:38:05 022 Bladder Scan completed Marybel Karimi [facility] 09/11/2021 12:39:30 Macrobid post cysto completed Edita Foreman [facility] 09/03/2021 12:20:37 022 Cystoscopy with Botox Injections completed Xin Chiang MD [address] [place] [address],[address], [place], [address], [place] [facility] 09/03/2021 12:40:54 021 Bladder Scan completed MIC STRONG [address] [place] [address],[address], [place], [address], [facility] 06/18/2021 11:30:27 021 Bladder Scan completed Denilson Rivera [facility] 03/06/2021 15:51:34 021 CystoscopyFemale completed Xin Chiang MD [address] [place] [address],[address], [place], [address], [facility] 01/29/2021 11:41:17 021 Bladder Scan completed Xin Chiang MD [address] [place] [address],[address], [place], [address], [place] [facility] 01/29/2021 11:29:50 021 Orthopedic Surgery completed Xin Chiang MD [address] [place] [address],[address], [place], [address], [facility] 01/29/2021 11:19:58 015 Colonoscopy completed Xin Chiang MD [address] [place] [address],[address], [place], [address], [facility] 01/29/2021 11:19:42 Imaging Results None recorded. Procedure Notes None recorded. Medical Equipment None Reported. Allergies Allergen ID Allergen Name Allergen Category Reaction Reaction Severity Criticality Documentation Date Start Date Code Code System Note Provider Name and Address Organization Details Recorded Time 351193 ciproflox acin medicatio n Not available Not available Not available 01/29/2021 2551 RxNorm loss of smell Not Available Not Available Not Available 557582 clindamyc in Not available rash Not available Not available 01/29/2021 2582 RxNorm Not Available Not Available Not Available 130669 lisinopri l medicatio n cough Not available Not available 01/29/2021 93910 RxNorm Not Available Not Available Not Available 659381 losartan medicatio n angioedem a Not available Not available 01/29/2021 64964 RxNorm Not Available Not Available Not Available 509619 naproxen medicatio n Not available Not available Not available 01/29/2021 7258 RxNorm Not Available Not Available Not Available Medications Name Sig Start Date Stop Date [...] 2022 active Not Available Not Available Not Jacekvijaya cooper azithromyci n 500 mg tablet TAKE 1 [...] Updated DateTime 03/31/2023 170.18 cm 24.3 kg/m2 09485.82 g Irma Miriam [facility] 03/31/2023 11:39:39 Social History Question Answer Notes LastModified by Organizat ion Details LastModified Time Tobacco Smoking Status Never Smoker Xin Chiang MD [address] [place] [address],[address], [place], [address], [facility] 01/29/2021 11:17:11 What Is Your Level [...] o Information not available 01/29/2021 Preferred Language Spanish Information not available 01/29/2021 Number Of Pregnancies [...] Age of this Age Resolved Age Notes LastModified by Organization Details LastModified Time Mother Family history of breast cancer [email or web address] Not available 01/29 11:20:20 Mother Family history of Hypertension lsitnikova Not available 11:20:50 Unspecified Relation Family history of breast cancer lsitnikova Not available 01/29 11:20:20 Unspecified Relation Family history of cancer of colon lsitnikova Not available 01/29 11:20:30 Father Family history of cardiac disorder lsitnikova Not available 01/29 11:20:37 Father Family history of Hypertension lsitnikova Not available 11:20:50 Medical History Condition Response High Blood Pressure Y Kidney Stones N Depression Y Lung Disease N GERD/Acid Reflux N Sexually Transmitted Infection N Diabetes Y Bleeding Disorder N Cancer N High Cholesterol Y Heart Disease Y Gynecological History Statement/Question Response Irregular periods N Leaking urine with intercourse N Hormone Therapy N Heavy periods N Pain with intercourse N Sexually Active? N Obstetrics History GPAL:G 1 P 0 0 0 1 Type Value Living 1 Total 1 Immunizations Vaccine Type Date Status Note Provider Nam e and Address Organization Details Recorded Time Influenza, adjuvanted, quadrivalent, PF 2 completed Chelle adame [facility] 07/28/2023 17:43:14 COVID-19, mRNA, LNP-S, PF, 100 mcg/0.5mL dose or 50 mcg/0.25mL dose 2 completed Chelle adame [facility] 07/28/2023 17:43:14 COVID-19, mRNA, LNP-S, bivalent, PF, 50 mcg/0.5 mL or 25mcg/0.25 mL dose 3 completed Chelle adame [facility] 07/28/2023 17:43:14 COVID-19, mRNA, LNP-S, bivalent, PF, 50 mcg/0.5 mL or 25mcg/0.25 mL dose 2 completed Chelle Allar null, [facility] 07/28/2023 17:43:14 Kittitian Encephalitis IM 2 completed Chelle Allar null, [facility] 07/28/2023 17:43:14 typhoid, ViCPs 2 completed Chelle Allar null, [facility] 07/28/2023 17:43:14 Influenza, adjuvanted, quadrivalent, PF 0 completed Rebeka Stromquist null, [facility] 10/01/2021 16:26:07 Influenza, split virus, trivalent, preservative 4 completed Rebeka Stromquist null, [facility] 10/01/2021 16:26:07 Influenza, split virus, quadrivalent, PF 6 completed Rebeka Stromquist null, [facility] 10/01/2021 16:26:07 Influenza, split virus, trivalent, preservative 7 completed Rebeka Stromquist null, [facility] 10/01/2021 16:26:07 Influenza, split virus, quadrivalent, PF 8 completed Rebeka Stromquist null, [facility] 10/01/2021 16:26:07 Influenza, split virus, quadrivalent, PF 7 completed Rebeka Stromquist null, [facility] 10/01/2021 16:26:07 zoster live 4 completed Rebeka Stromquist null, [facility] 10/01/2021 16:26:07 Influenza, high-dose, quadrivalent, PF 1 completed Rebeka Stromquist null, [facility] 10/01/2021 16:26:07 Influenza, split virus, quadrivalent, PF 0 completed Rebeka Stromquist null, [facility] 10/01/2021 16:26:07 Pneumococcal conjugate PCV 13 9 completed Rebeka Stromquist null, [facility] 10/01/2021 16:26:07 COVID-19, mRNA, LNP-S, PF, 100 mcg/0.5mL dose or 50 mcg/0.25mL dose 1 completed Rebeka Stromquist null, [facility] 10/01/2021 16:26:07 Td (adult), 2 Lf tetanus toxoid, preservative free, adsorbed 9 completed Rebeka Stromquist null, [facility] 10/01/2021 16:26:07 Td (adult), 2 Lf tetanus toxoid, preservative free, adsorbed 3 completed Rebeka Stromquist null, [facility] 10/01/2021 16:26:07 Influenza, split virus, trivalent, preservative 1 completed Rebeka Stromquist null, [facility] 10/01/2021 16:26:07 zoster recombinant 8 completed Rebeka Stromquist null, [facility] 10/01/2021 16:26:07 Novel [id number], preservative-free 0 completed Rebeka Stromquist null, [facility] 10/01/2021 16:26:07 Influenza, split virus, trivalent, PF 0 completed Rebeka Stromquist null, [facility] 10/01/2021 16:26:07 zoster recombinant 8 completed Rebeka Stromquist null, [facility] 10/01/2021 16:26:07 DT (pediatric) 6 completed Rebeka Stromquist null, [facility] 10/01/2021 16:26:07 Influenza, adjuvanted, trivalent, PF 9 completed [facility] Stromquist null, [facility] 10/01/2021 16:26:07 Influenza, split virus, trivalent, preservative 2 completed Rebeka Stromquist null, [facility] 10/01/2021 16:26:07 COVID-19, mRNA, LNP-S, PF, 100 mcg/0.5mL dose or 50 mcg/0.25mL dose 1 completed Rebeka Hasmukh null, [facility] 10/01/2021 16:26:07 COVID-19, mRNA, LNP-S, PF, 100 mcg/0.5mL dose or 50 mcg/0.25mL dose 1 completed Rebeka Andrewquist null, [facility] 10/01/2021 16:26:07 DT (pediatric) 9 completed Rebeka Stromquist null, [facility] 10/01/2021 16:26:07 Tdap 9 completed Rebeka Stromquist null, [facility] 10/01/2021 16:26:07 Influenza, split virus, quadrivalent, PF 5 completed Rebeka Andrewquist null, [facility] 10/01/2021 16:26:07 pneumococcal polysaccharide PPV23 0 completed Rebeka Hasmukh null, [facility] 10/01/2021 16:26:07 Past Encounters Encounter ID Performer Location Encounter Start Date Encounter Closed Date Diagnosis/Indication Diagnosis SNOMED-CT Code Diagnosis ICD10 Code Diagnosis Note [id number] Xin Chiang MD [facility] [address] [place] [address] 01/29/2021 10:44:40 01/30/2021 14:11:14 Urge incontinence of urine 34082002 N39.41 I went over treatment options for OAB including diet modificati on, biofeedbac k, medication s, In tone, Urgent PC, Sacral Neuromodul ation ( Axonics and Interstim) and Botox injections A trial of ditropan, f/u in one monthVoidi ng diary 24 hourSling is not not a good options given low severity of her stress incotinenc e. [id number] MELINA Lal [facility] [address] [place] [id number] 03/06/2021 15:33:32 03/08/2021 16:51:28 Urge incontinence of urine 63065614 N39.41 Unable to tolerate oxybutynin start tolterodin eProvided samples of gemtesaDis cussed 3rd line OAB treatment; pt interested in botoxI went over treatment options for OAB including diet modificati on, biofeedbac k, medication s, In tone, Urgent PC, Sacral Neuromodul ation ( Axonics and Interstim) and Botox injections [id number] MIC STRONG [facility] [address] [place] [id number] 06/18/2021 11:07:26 06/19/2021 12:05:14 Overactive urinary bladder [id number] N32.81 - Went over SNS and Botox, leaning towards Botox, schedule with LS when ready- Continue myrbetriq 50 mg daily [id number] Xin Chiang MD [facility] [address] [place] [address] 09/03/2021 11:57:52 09/06/2021 10:21:35 Overactive urinary bladder 949529563 N32.81 fu in one week for PVRfu in 2 months on her symptoms [id number] Marybel Trev [facility] [address] [place] [id number] 09/11/2021 12:22:14 09/16/2021 10:05:02 Recurrent urinary tract infection 433799002 N39.0 UA clean; PVR 10- post botox one week [id number] MELINA Lal [facility] [address] [place] [id number] 10/01/2021 16:13:37 10/03/2021 14:24:19 Overactive urinary bladder 141399215 N32.81 Chronic, improved with botox 100UShe empties bladder wellUA blandConti nue botox; okay to call to schedule 6 months from botox appt [id number] MELINA Lal [facility] [address] [place] [id number] 11/12/2021 15:37:56 11/15/2021 15:24:01 Overactive urinary bladder 595248304 N32.81 UA blandChron ic, needs improvemen tMay benefit from higher dosage of botox 150U nextShe empties bladder wellContin ue botox; okay to call to schedule 6 months from botox appt [id number] MD JOHNNY [facility] [address] [place] [id number] 04/22/2022 13:23:12 04/23/2022 13:33:54 Overactive urinary bladder [id number] N32.81 fu in 6 weeks on her symptoms [id number] HUDSON [facility] [address] [place] [id number] 06/03/2022 12:18:25 06/04/2022 12:04:27 Overactive urinary bladder 808974373 N32.81 -Botox 150 U with only 30% improvemen t of symptoms-C ontinues on Myrbetriq 25 mg-Advised follow up with GP regarding DM2 control and see if better control of this would help with symptoms-B riefly discussed SNS, informatio n packet given today.-Fol low up in 3 months [id number] HUDSON [facility] [address] [place] [id number] 10/07/2022 14:24:39 10/11/2022 10:03:54 Overactive urinary bladder 977907772 N32.81 -On myrbetriq 50 mg, mostly good improvemen t with this but best with botox + myrbetriq- Noticing botox wearing off, would like to trial another round of 150 U Botox with myrbetriq- Has been emptying bladder well, no h/o of elevated PVRs with botox-Note d to have one UTI in Jul. Will continue to watch UTIs. Does not preclude her from Botox at this time-Sched ule botox with Dr. Chiang and follow up with symptoms about 6 weeks after botox [id number] MD JONHNY [facility] [address] [place] [id number] 12/09/2022 11:04:11 12/10/2022 15:21:47 Overactive urinary bladder 163789368 N32.81 Doing well. No UTI S&S. UA is completely negative today. UC sent. LANRE Lucero/BSN [id number] Xin Chiang MD [facility] [address] [place] [id number] 12/16/2022 10:58:12 12/17/2022 15:16:47 Overactive urinary bladder 619551598 N32.81 I discussed other options for OA including SNS and PTNSAt his point she wants to try PTNS next This patient is under my care for chronic symptoms of Overactive Bladder (OAB). Their specific symptoms include, urgency, frequency, night time frequency and or urge incontinen ce. The severity of their symptoms rate is (4) (1=minimal impact to patient s life, 5=severe disruption to patient s life).She tried -Oxybutyni n (>3 mo, d/c with dry mouth and not effective) -Tolterodi ne (d/c with minimal improvemen t) -Myrbetriq (Cost prohibitiv e, still taking per patient). She is doing PT also. After behavioral and pharmacolo gic therapy, patient completed a 3 day voiding diary which demonstrat ed a continued presence of overactive bladder syndrome with diagnosis of the following: Hypertonic ity of the Bladder (N32.81), Urge Incontinen ce (N32.41), Urinary Frequency (R35.0), Urgency in Urination (R39.15). I am recommendi ng a minimally invasive therapy called Percutaneo us Tibial Nerve Stimulatio n (PTNS), CPT code 40413 for 12 weeks. Following the 12 weekly treatments , subsequent treatments tailored to the individual patient s need may be necessary to maintain chronic symptom relief. Patient has agreed to sign a consent form and has agreed to be compliant with treatment protocol and keep 3 day voiding diaries periodical ly throughout treatment. FU with me after PTNS25 mins with the pt Urinary tr act infectious disease 20860587 N39.0 UTI prevention discussed ( estrace/D mannose/cr anberry pills)Idea lly she needs 6 months UTI free to proceed with Botox Female str ess incontinence 15209657 N39.3 She will resume pessary for stress incontinen ce [id number] Edita Foreman [facility] [address] [place] [id number] 01/09/2023 10:00:02 01/14/2023 14:01:26 Overactive urinary bladder 215299628 N32.81 PTNS [id number] Edita TURNER[facility] [address] [place] [id number] 01/16/2023 10:21:33 01/20/2023 12:33:40 Overactive urinary bladder 370675801 N32.81 PTNS [id number] Edita T[facility] [address] [place] [id number] 01/21/2023 13:59:50 01/22/2023 15:56:42 Overactive urinary bladder 632761966 N32.81 PTNS [id number] Edenjaskaran Rodriguez [facility] [address] [place] [id number] 01/27/2023 13:55:41 02/04/2023 09:30:28 Overactive urinary bladder [id number] N32.81 PTNS [id number] Edita Foreman [facility] [address] [place] [id number] 02/06/2023 11:31:25 02/11/2023 12:03:18 Overactive urinary bladder [id number] N32.81 PTNS [id number] Edita Foreman [facility] [address] [place] [id number] 02/13/2023 11:32:19 02/27/2023 10:28:58 Overactive urinary bladder 615904550 N32.81 PTNS [id number] Edita [facility] [address] [place] [id number] 02/20/2023 11:33:43 02/25/2023 14:00:08 Overactive urinary bladder 413015581 N32.81 PTNS [id number] Edita Foreman [facility] [address] [place] [address] 02/27/2023 11:33:18 03/02/2023 14:57:06 Increased frequency of urination 021729264 R35.0 patient reports recently completing a course of abx for UTI- she isnt sure if her sx are gone. I gathered UA to ensure no UTI Overactive urinary bladder 644825769 N32.81 PTNS Urinary tr act infectious disease 68715306 N39.0 UTI prevention discussed ( estrace/D mannose/cr anberry pills) [id number] Eden Jennifer [facility] [address] [place] [id number] 03/03/2023 13:41:19 03/04/2023 16:23:41 [id number] Edita [facility] [address] [place] [id number] 03/12/2023 10:45:05 03/16/2023 11:54:01 Overactive urinary bladder [id number] N32.81 PTNS [id number] Edita Foreman _[place] [address] [place] [phone] 03/20/2023 09:03:54 03/25/2023 12:50:49 Overactive urinary bladder [id number] N32.81 PTNS [id number] Edita Foreman _[place] [address] [place] [phone] 03/27/2023 11:29:11 03/30/2023 16:09:53 [id number] Xin Chiang MD _[place] [address] [place] [phone] 03/31/2023 11:16:53 04/03/2023 14:34:44 Overactive urinary bladder [id number] N32.81 After completing PTNS with minimal improvemen t, other options would include SNS and botox injections (has tried before with improvemen t for only 6 weeks post-proce dure). Sacral nerve electrical stimulatio n is a neuromodul ation therapy that targets the communicat ion problem between the brain and the nerves that control the bladder. The Sacral Neuromodul ation uses an external device during a trial period and an internal device for long-term therapy. The trial test is done in the office and based on the outcome you and your Urologist will determine the next step. Possible contraindi cation to implant the permanent device would be the need to have MRI in the near future. Botox injections : primarily done in the office using cystoscopy . The medication goes through the cystoscope with a small needle into multiple areas of the bladder muscle. Complicati ons are very minor; of concern, patients could develop up to 5% chance of urinary retention that may require intermitte nt catheter. She would be a better candidate for SNS, as she is at higher risk of infections with Botox injections . Samples of Myrbetriq provided. Health Concerns Section Related Observation LastModified by Organization Detai ls LastModified Time None Recorded Concern Status LastModified by Organization Details LastModified Time None Recorded Advance Directives Directive None Recorded Payers Encounter Date Sequence Insurance Name Policy Number Policy [employer] Covered Member ID [id number] Member ID Guarantor Name 03/03/2023 1 [place] [id number] Saadia V Kristopher [id number] Saadia Kristopher 03/12/2023 1 [place] [id number] Saadia V Kristopher [id number] Saadia Kristopher 03/20/2023 1 [place] [id number] Saadia V Kristopher [id number] Saadia Kristopher 03/27/2023 1 [place] [id number] Asadia V Kristopher [id number] Saadia Kristopher 03/31/2023 1 [place] [id number] Saadia V Kristopher [id number] Saadia Kristopher Notes Date Note Type Note Provider Name and Address Organization Details Recorded Time 03/03/2023 text/html 67 yo female presents for PTNM #9 [place] adame [facility] 03/03/2023 14:13:53 03/12/2023 text/html 67 yo female presents for PTNM #10 Edita Ahsan adame [facility] 03/12/2023 11:56:59 03/20/2023 text/html 67 yo female presents for PTNM #11 Edita Nguyensuzie adame [facility] 03/20/2023 09:24:59 03/27/2023 text/html 67 YO LS patient with OAB here to initiate PTNS treatment #12/ No prior auth needed- scanned in chart Initial/baseline Sx:daytime Frequency: 5Nocturia: 2Accidents: 4-5/day Post PTNS Sx:Daytime Frequency: 4Nocturia:2-3Pads: 5/day Conclusion: no improvement with PTNS Edita adame [place] [facility] 03/27/2023 11:56:00 03/31/2023 text/html 67 yo s/p PTNS. [place] not report any improvement with PTNS. Incontinence primarily during the night, as well as first thing in the morning. She tried :- Oxybutynin (>3 mo, d/c with dry mouth and not effective)- Tolterodine (d/c with minimal improvement)- Myrbetriq (Cost prohibitive). Cysto 04/2022 is normal. UAPVRBladder QA: Xin Chiang MD [address] [place] [address], [phone], [facility] 03/31/2023 13:57:29 OBGyn Episode No OBEpisode recorded.
--- OUTSIDE RECORDS SUMMARY | 2024-11-05 08:33 | XMS_ITS | Clinical Summary ---
Author Organization [facility] Address [address] [place] [address] Care Team Providers Care Journeyman Welder Name Role Phone Marilu Kline MD Primary Care Provide r Jossie Gutierrez Leslie Unavailable [phone] Unavailable Allergies Active Allergy Reactions Criticality Noted Date Comments Ciprofloxacin Other - Describe In Comment Field High 05/18/2015 Loss sense of smell Other reaction(s): LOST HER SENSE OF SMELL ciprofloxacin Clindamycin Rash Low 11/25/2006 Rash per patient history Lisinopril Cough Low 05/19/2017 Other reaction(s): COUGH Losartan Angioedema 05/20/2017 Naproxen Mental Status Change Low 01/18/2015 Feels light-headed and icky. Other reaction(s): LIGHTHEADED Medications cholecalciferol (VITAMIN D-3) 2,000 unit capsule Take 1 capsule by mouth once daily. 0 05/30/20 20 Active blood-glucose meterIndication s:Diabetes mellitus without complication (HC) Dispense meter, test strips, lancets covered by pt ins; [employer] Contour Next meter (must be a [employer] product) and the test strips and lancets that go with this [id number] NIDDM type II - Test 2 times/day. Reason: High A1C HEMOGLOBIN A1C MONITORING (POCT) Date Value 11/30/2020 8.9 % (H) 1 Device 12/07/19 21 Active cyclobenzaprine (FLEXERIL) 10 mg tabletIndicatio ns:Back spasm Take 1 Tablet (10 mg) by mouth 3 times daily if needed for Muscle Spasm. 20 Tablet 1 06/13/20 22 Active sennosides (SENNA) 8.6 mg tabletIndicatio ns:Chronic constipation Take 2 Tablets (17.2 mg) by mouth two times daily. 08/10/19 24 Active calcium carbonate/vitam in D3 (CALTRATE 600 PLUS D ORAL) Take 1 Tablet by mouth once daily. Active Lactobac 40-Bifido 3-S.thermop (Probiotic) 100 billion cell cap Take 1 Tablet by mouth once daily. Active ysujdfte-emz-ow on-FA-vit K-lut (Centrum Silver Women) 8 mg iron-400 mcg-50 mcg tab Take 1 Tablet by mouth once daily. Active atenoloL (TENORMIN) 50 mg tabletIndicatio ns:HTN (hypertension) Take 1 Tablet (50 mg) by mouth two times daily. 200 Tablet 3 01/08/20 24 Active atorvastatin (LIPITOR) 20 mg tabletIndicatio ns:Coronary artery disease involving te-moak coronary artery of te-moak heart without angina pectoris Take 1 Tablet (20 mg) by mouth once daily. 100 Tablet 3 01/08/20 24 Active DULoxetine (CYMBALTA) 30 mg Delayed-release capsuleIndicati ons:Moderate episode of recurrent major depressive disorder (HC),Anxiety Take 1 Capsule (30 mg) by mouth once daily. 100 Capsule 3 01/08/20 24 Active DULoxetine (CYMBALTA) 60 mg Delayed-release capsuleIndicati ons:Moderate episode of recurrent major depressive disorder (HC) Take 1 Capsule (60 mg) by mouth once daily. 100 Capsule 3 01/08/20 24 Active glipiZIDE (GLUCOTROL) 10 mg tabletIndicatio ns:Diabetes mellitus without complication (HC) Take 1 Tablet (10 mg) by mouth once daily before a meal. Take 30 minutes before the meal. 100 Tablet 3 01/08/20 24 Active traZODone (DESYREL) 50 mg tabletIndicatio ns:Insomnia, idiopathic Take 1 Tablet (50 mg) by mouth at bedtime. 100 Tablet 3 01/08/20 24 Active amoxicillin (AMOXIL) 500 mg tabletIndicatio ns:History of right hip replacement Take 4 tablets or 2 gms one hour prior to dental work. 12 Tablet 03/08/20 24 Active mirabegron EXTENDED-releas e (Myrbetriq) 50 mg tabletIndicatio ns:Mixed stress and urge urinary incontinence Take 1 Tablet (50 mg) by mouth once daily. 100 Tablet 3 04/07/20 24 Active estradioL (ESTRACE) 0.01% (0.1 mg/g) vaginal creamIndication s:Vaginal atrophy Insert 0.5 g into the vagina at bedtime. Insert 0.5g of cream into vaginal introitus at bedtime twice weekly 42.5 g 5 06/14/20 24 Active Ozempic 1 mg/dose (4 mg/3 mL) subcutaneous penIndications: Type 2 diabetes mellitus without complication, without long-term current use of insulin (HC) Inject 1 mg subcutaneous once weekly. 9 mL 3 08/11/19 25 Active acetaminophen (TYLENOL EXTRA STRGTH) 500 mg tablet Take 1,000 mg by mouth every 6 hours if needed. 02/10/20 24 Active clonazePAM (KLONOPIN) 0.5 mg tabletIndicatio ns:Anxiety Take 1 Tablet (0.5 mg) by mouth once daily if needed for Anxiety. 10 Tablet 09/28/19 25 Active celecoxib (CELEBREX) 200 mg capsuleIndicati ons:Arthritis of left hip Take 1 Capsule (200 mg) by mouth once daily with a meal. 09/28/19 25 Active blood sugar diagnostic (Contour Next Test Strips) stripIndication s:Type 2 diabetes mellitus without complication, without long-term current use of insulin (HC) TEST 3 TIMES/DAY. Uncontrolled diabetes 09/28/19 25 Active nitroglycerin (NITROSTAT) 0.4 mg sublingual tabletIndicatio ns:Anginal equivalent Place 1 Tablet (0.4 mg) under the tongue every 5 minutes if needed for Chest Pain. Up to 3 tablets in 15 minutes. 25 Tablet 10/05/19 25 Active aspirin (ECOTRIN) 81 mg enteric coated tabletIndicatio ns:CAD in te-moak artery Take 1 Tablet (81 mg) by mouth once daily with a meal. 100 Tablet 3 10/15/19 25 Active Additional Information Patient taking differently:81 mg OralBID, Reported on 10/25/2024 oxyCODONE 5 mg immediate release tablet Take 5 mg by mouth every 6 hours if needed. 10/20/19 25 Active polyethylene glycoL 17 gram/scoop powder Mix 1 scoop in liquid then take by mouth once daily. 10/20/19 25 Active amLODIPine 5 mg tabletIndicatio ns:HTN (hypertension) Take 1 Tablet (5 mg) by mouth once daily. 90 Tablet 3 10/27/19 25 Active aspirin enteric coated (ECOTRIN) 325 mg tablet Take 1 Tablet (325 mg) by mouth once daily with a meal. 0 10/24/19 22 Discontinued (*Medication adjustment) miscellaneous medical supply miscIndications :Foot pain, bilateral As directed. Ped pillows size 9 Pt wears 8 1/2 shoe 1 unit 11/06/19 22 025 Discontinued (Pharmacist change per medication history (E-cancel not sent)) polyethylene glycoL (MIRALAX) 17 gram/scoop powder Mix 17 g in liquid then take by mouth once daily if needed for Constipation. 025 Discontinued (Duplicate therapy (E-cancel not sent)) amLODIPine (NORVASC) 2.5 mg tabletIndicatio ns:HTN (hypertension) Take 2 Tablets (5 mg) by mouth once daily. 09/13/19 25 025 Discontinued (*Med complete/Reg imen complete/Lev el of care change) Active Problems Problem Noted Date Diagnosed Date Stage 3a chronic kidney disease 09/01/2023 Overactive bladder 04/22/2022 11/05/2022 Controlled substance agreement signed 10/03/2021 Overview (10/03/2021): 01/30/21 Jossie Winter MD/psychiatry Incontinence 01/29/2021 11/05/2022 Insomnia, idiopathic 08/19/2018 Moderate episode of recurrent major depressive d isorder 03/18/2018 Severe episode of recurrent major depressive disorder, without psychotic features 01/07/2018 Anxiety 01/07/2018 VIRIDIANA 12/17/2016 AHI-15 01/01/2017 ASHD 07/08/2015 Overview (10/11/2024): - CCTA 09/22/24: 1. Moderate stenosis in the mid LAD of indeterminate significance. * Stenosis in the mid LAD is unlikely to be flow-limiting based on noninvasive FFR value of 0.80. 2. Total coronary artery calcium score 866. COFFEY percentile based on age, gender, and race is 96. - Family history of premature CAD 07/08/2015 Elevated ALT measurement 07/08/2015 Family history of breast cancer 06/18/2013 Other screening breast examination 06/18/2013 Sensorineural hearing loss, bilateral 10/14/2012 Family history of malignant neoplasm of gastrointestinal tract 12/20/2008 Overview (04/09/2022): Colonoscopy 01/2012 normal repeat in 5 years [...] 11/25/2006 Other chronic nonalcoholic liver disease 007 Overview (11/25/2006): Fatty liver Resolved Problems Problem Noted Date Diagnosed Date Resolved Date Adhesive capsulitis of right shoulder associated with type 2 diabetes mellitus 02/21/2020 10/02/2022 Controlled substance agreement signed 08/19/2018 10/03/2021 Overview (08/19/2018): Signed 08/19/18 Carolyn Savage Psychiatry Benign neoplasm of colon 11/25/2006 Encounters Date Type Department Care Team Description 10/25/2024 2:40 PM CDT Office Visit [facility] [address] [place] [address] Marilu Kline MD Post-op (10/19/[address] Pierce/Knee and leg swollen and the knee hurts. Incision doing well./Had 2 BMs in a week. Doing all she can to get it moving./Is there some form of calcium that would not constipate her?) 10/25/2024 Travel 10/19/2024 Orders Only [facility] Scanner 1 scan: (1-Ord) SIMBA, XR HIP LEFT POST OP, 10/19/2024 10/19/2024 Orders Only [facility] Scanner 1 scan: (1-Ord) SIMBA, XR HIP LEFT 1V, 10/19/2024 10/14/2024 10:30 AM CDT Office Visit [facility] [address] [place] [address] Marilu Kline MD Pre-Op Exam (10/19/24 Left hip replacement [facility] /Glipizide dosing prior to surgery?); Post-op (Angiogram on 10/11/2024. No concerns just an update.); Medication Management (Should she restart Ozempic? Last used end ) 10/14/2024 Travel 10/11/2024 12:12 PM CDT - 10/12/2024 10:53 AM CDT Hospital Encounter [facility] [address] [place] [address] Hernan Oakley MD, PhD ASHD (Primary Dx); Atypical chest pain; CAD in te-moak artery; Abnormal computed tomography angiography (CTA) Discharge Disposition: Home Self Care 10/11/2024 Telephone [facility] [address] [place] [address] Marilu Kline MD Follow Up 10/11/2024 Travel 10/04/2024 10:05 AM PROPELLANT CHARGE LOADER Office Visit [facility] [address] [place] [address] Marilu Kline MD Preoperative Exam (10/19/24 Left hip replacement [facility] ) 10/04/2024 Travel 09/26/2024 11:30 AM PROPELLANT CHARGE LOADER Office Visit [facility] [address] [facility] [address] [place] [address] Hernan Oakley MD, PhD Consult (NIKKIE -REFERRED BY Marilu Kline MD/Dx: Atypical chest pain [R07.89]; Arthritis of left hip [M16.12]; CAD in te-moak artery [I25.10] - CT @ [facility] last week- no outside cards- ALL RECORDS IN [facility]- LAST SEEN BY [facility] 2016 /PT states feeling nervous /Not sure if she is having the chest pain still she noted) 09/26/2024 Travel 09/26/2024 Telephone [facility] [facility] [address] [place] [address] Cardiology, Anw Appointment 09/23/2024 Telephone [facility] [address] [place] [address] Marilu Kline MD Results 09/22/2024 1:00 PM PROPELLANT CHARGE LOADER Ancillary Procedure [facility] [address] [place] [address] 09/22/2024 12:40 PM PROPELLANT CHARGE LOADER Orders Only [facility] [address] [place] [address] Lab 09/21/2024 Travel 09/15/2024 Orders Only [facility] [address] [place] [address] Watson Sargent MD <No scans attached> 09/14/2024 Orders Only [facility] [address] [place] [address] Marilu Kline MD 1 scan: (1-Ord) NFLD-EKG-2.11.25 09/13/2024 3:30 PM PROPELLANT CHARGE LOADER Office Visit [facility] [address] [place] [address] Marilu Kline MD Diabetes (Eye exam scheduled in October 2024/Ozempic cost is getting to be too much ); Blood Pressure (Home readings); Hip Pain/problem (Having surgery October 19, pre-op scheduled) 09/13/2024 Travel 08/11/2024 Telephone [facility] [address] [place] [address] Marilu Kline MD Medication Management (Refill amount) 08/08/2024 Refill [facility] [address] [place] [address] Marilu Kline MD Refill Request (Ozempic) 08/08/2024 Telephone [facility] [address] [facility], [place] [id number] Marilu Kline MD Questions from Last 3 Months Immunizations Immunization Administration Dates Next Due AMB Influenza, IIV4 PF (=>6 mos Flulaval,Fluzone Fluarix)(Flu Clinic Only) 04/18/2016 COVID-19 VACCINE SPIKEVAX (M ODERNA 50MCG/0.5ML) 12YO+ PFS 04/16/2024,10/19/2023 COVID-19 vaccine (Moderna 100mcg/0.5mL) PF, MDV 04/24/2023,10/30/2021,10/14/2020,09/16 [...] Inactivated IIV3 (Age 65+ Years) Preserv Free 04/07/2024,05/06/2019 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 Pneumococcal Poly,23-Valent (Pneumovax) 2020 Pneumococcal [...] his 70' s Diabetes Sister 1 Peyton Holmquest Hernan's thyroiditis Sister 2 Donna Galeano Relation Name Status Comments Father (Age 54) Maternal Grandfather Maternal Grandmother Maternal Uncle 1 Maternal Uncle 2 Mother (Age 80) Other 1 Other 2 Other 3 Paternal Aunt 1 Paternal Aunt 2 Paternal Grandfather Paternal Grandmother Paternal Uncle Sister 1 Peyton Holmquest Alive Sister 2 Donna Galeano Alive Social History Tobacco Use Types Packs/Day Years Used Date Smoking Tobacco: Never Smokeless Tobacco: Never Tobacco Cessation:Counseling Given: Not Answered Alcohol Use Standard Drinks/Week Comments Not Currently 0 (1 standard drink = 0.6 oz pure alcohol) several glasses of wine a week PHQ-2 Answer Date Recorded PHQ-2 TOTAL SCORE 5 06/14/2024 Social Connections Answer Date Recorded Do you often feel lonely or isolated from those around you? 0 09/13/2024 Financial Resource Strain Answer Date R ecorded Difficulty of Paying Living Expenses 3 09/13/2024 Difficulty of Paying Living Expenses Not on file 09/13/2024 Food Insecurity Answer Date Recorded Do you worry your food will run out before you are able to buy more? 1 09/13/2024 Transportation Needs Answer Date Record ed Does lack of transportation keep you from medica l appointments? 1 09/13/2024 Does lack of transportation keep you from work, meetings or getting things that you need? 1 09/13/2024 Housing Stability Answer Date Recorded What is your housing situation today? 1 09/13/2024 Interpersonal Safety Answer Date Record ed Are you being hit, kicked, p ushed or yelled at (see row info)? No 10/11/2024 Interpersonal Safety Abuse 12 - 18 Not on file 10/11/2024 Interpersonal Safety Ambulatory Vulnerability No t on file 10/11/2024 Utilities Answer Date Recorded Do you have trouble paying f or utilities (for example, heat, electricity, water, phone)? 1 09/13/2024 Comments No Sex and Gender Information Value Date Recorded Sex Assigned at Not on file Legal Sex Female 6:19 AM PROPELLANT CHARGE LOADER Gender Identity Not on file Sexual Orientation [...] Sign Reading Time Taken Comments Blood Pressure 108/68 10/25/2024 3:05 PM CDT Pulse 82 10/25/2024 3:05 PM CDT Temperature 36.8 C (98.3 F) 10/12/2024 8:00 AM CDT Respiratory Rate 18 10/12/2024 12:13 AM CDT Oxygen Saturation 100% 10/25/2024 3:05 PM CDT Inhaled Oxygen Concentration - - Weight 68 kg (150 lb) 10/25/2024 3:05 PM CDT Height 170.2 cm (5' 7) 10/11/2024 3:35 PM CDT Body Mass Index 23.49 10/11/2024 3:35 PM CDT Plan of Treatment Upcoming Encounters Date Type Department Care Team (Late st Contact Info) Description 11/21/2024 9:00 AM CDT Office Visit [facility] [address] [facility] [address] [place] [address] Hernan Oakley MD, PhD [address] [facility] [address] [place] [address] 01/23/2025 10:30 AM CDT Office Visit [facility] [address] [facility] [address] [place] [address] Hernan Oakley MD, PhD [address] [facility] [address] [place] [address] Health Maintenance Due Date Last Done Comments COVID-19 vaccine series ( season) 2024 04/16/2024, 10/19/2023, 04/24/2023, Additional history exists Medicare Wellness for age 65+ 01/08/2025, 11/05/2022, 10/07/2021, Additional history exists Mammogram for age 45-75 03/07/2025 03/07/20, 02/24/2023, 02/17/2022, Additional history exists Depression screening for age 12+ 06/15/2025 06/15/2024, 06/14/2024, 01/08/2024, Additional history exists BMI (ht and wt on same day) for age 18+ 09/26/2025 09/26/2024, 01/08/2024, 10/27/2023, Additional history exists Colonoscopy through age 75 04/09/202704/09, 04/09/2022, 04/09/2022, Additional history exists Tetanus booster 12/01/2028 12/01/2018, 09/03, 08/21/1992 Lipids for age 45-75 10/11/2029 10/11/2024, 01/08/2024, 05/01/2023, Additional history exists Hepatitis C screening for ag e 18-79 Completed 03/19/2005 Tdap Completed 09/18/2008 Zoster (shingles) series for age 50+ Completed 07/13/2018, 05/13/2018, 01/10/2014 Pneumococcal series for age 50+ Completed , 05/06/2019 DEXA/DXA scan for age 65+ Completed 2022, 05/10/2019, 02/27/2011 RSV vaccine for adults or Completed 04/04/2023 Influenza Vaccine Completed 04/07/2024, , 04/16/2022, Additional history exists Procedures Procedure Name Priority Date/Time Associated Diagnosis Comments SCAN-RADIOLOGY REPORT 10/19/2024 12:00 AM CDT SCAN-RADIOLOGY REPORT 10/19/2024 12:00 AM CDT RUBEOLA IMMUNE STATUS Routine 10/14/2024 11:50 AM CDT Immune to measles BASIC METABOLIC PANEL Routine 10/14/2024 11:50 AM CDT S/P coronary angiogram CBC WITH AUTO DIFFERENTIAL Routine 10/14/2024 11:50 AM CDT Preoperative examination GLUCOSE METER Timed 10/12/2024 7:46 AM CDT SCAN-CARDIAC STRIP 10/12/2024 7: 00 AM CDT SCAN-CARDIAC STRIP 10/12/2024 2: 27 AM CDT GLUCOSE METER Timed 10/11/2024 11:16 PM CDT GLUCOSE METER Timed 10/11/2024 7:38 PM CDT [facility] ACTIVATED CLOTTING TM CV Timed 10/11/2024 6:39 PM CDT CVL CORONARY ANGIOGRAM POSS PCI Routine 10/11/2024 6:19 PM CDT Atypical chest pain CAD in te-moak artery Abnormal computed tomography angiography (CTA) GLUCOSE METER Timed 10/11/2024 6:00 PM CDT LIPID PANEL NIKKIE 10/11/2024 3:45 PM CDT CBC W PLT NO DIFF NIKKIE 10/11/2024 3:4 5 PM CDT BASIC METABOLIC PANEL NIKKIE 10/11/2024 3:45 PM CDT GLUCOSE METER Timed 10/11/2024 3:44 PM CDT EXTRA TUBE GOLD/SST Today 10/11/2024 3 :42 PM CDT EKG 12 LEAD NIKKIE 10/11/2024 3:29 PM CDT CTA FRACTIONAL FLOW RESERVE Routine 09/22/2024 2:00 PM PROPELLANT CHARGE LOADER Atypical chest pain CT CARDIAC CORONARY ARTERIES RAD DUAL READ Routine 09/22/2024 2:00 PM PROPELLANT CHARGE LOADER Atypical chest pain CT CARDIAC CORONARY ARTERIES CV DUAL READ Routine 09/22/2024 2:00 PM PROPELLANT CHARGE LOADER Atypical chest pain CREATININE,ISTAT Routine 09/22/2024 12:3 5 PM PROPELLANT CHARGE LOADER Preprocedural examination EKG 12 LEAD Routine 09/14/2024 7:19 AM PROPELLANT CHARGE LOADER Atypical chest pain ND READING EKG - NO CHARGE, COMP ONLY Routine 09/14/2024 7:18 AM PROPELLANT CHARGE LOADER Atypical chest pain HEMOGLOBIN A1C MONITORING (POCT) Routine 09/13/2024 3:16 PM PROPELLANT CHARGE LOADER Type 2 diabetes mellitus without complication, without long-term current use of insulin (HC) XR MAMMO JUNG BILAT SCREEN Routine 03/07/2024 10:24 AM CDT Visit for screening mammogram XR DXA BONE DENSITY 2 SITES AXIAL Routine 11/06/2022 11:06 AM CDT Osteopenia, unspecified location Other specified disorders of bone density and structure, multiple sites COLONOSCOPY SCREENING Routine 04/09/2022 9:30 AM CDT Family history of malignant neoplasm of gastrointestinal tract ANTI HCV Routine 03/19/2005 11:50 AM CDT from Last 3 Months or Most Recently Relevant to Health Maintenance Results * SCAN-RADIOLOGY REPORT (10/19/2024 12:00 AM CDT) Only the most recent of2 resultswithin the time period is included. Anatomical Region Laterality Modality Other us Scanner OTHER Final Result * RUBEOLA IMMUNE STATUS (10/14/2024 11:50 AM CDT) Pathologist [facility] MEASLES AB (IGG), IMMUNE STATUS 282.00 AU/mL [facility] Comment: AU/mL Interpretation ----- <13.50 Not consistent with immunity 13.50-16.49 Equivocal >16.49 Consistent with immunity The presence of measles IgG suggests immunization or past or current infection with measles virus. For additional information, please refer to http://education.[employer]/faq/NPL860 (This link is being provided for informational/ educational purposes only.) Blood BLOOD SPECIMEN / Unknown 10/14/2024 11:50 AM CDT 10/14/2024 11:54 AM CDT Marilu Kline MD LABORATORY Final Result [facility] [address] [place] [address], [facility] [address] [place] [address] * (ABNORMAL) CBC AND DIFFERENTIAL (10/14/2024 11:50 AM CDT) Pathologist [facility] [place] BLOOD CELL COUNT 5.5 3.8 - 10.8 Thousand/u L [facility] RED BLOOD CELL COUNT 3.66(L) 3.80 - 5.10 Million/uL [facility] HEMOGLOBIN 12.4 11.7 - 15.5 g/dL [facility] HEMATOCRIT 37.4 35.0 - 45.0 % [facility] MCV 102.2(H) 80.0 - 100.0 fL [facility] MCH 33.9(H) 27.0 - 33.0 pg [facility] MCHC 33.2 32.0 - 36.0 g/dL [facility] Comment: For adults, a slight decrease in the calculated MCHC value (in the range of 30 to 32 g/dL) is most likely not clinically significant; however, it should be interpreted with caution in correlation with other red cell parameters and the patient's clinical condition. RDW 11.7 11.0 - 15.0 % [facility] PLATELET COUNT 211 140 - 400 Thousand/u L [facility] MPV 10.7 7.5 - 12.5 fL [facility] ABSOLUTE NEUTROPHILS 3,520 1,500 - 7,800 cells/uL [facility] ABSOLUTE LYMPHOCYTES 1,331 850 - 3,900 cells/uL [facility] ABSOLUTE MONOCYTES 528 200 - 950 cells/uL [facility] ABSOLUTE EOSINOPHILS 61 15 - 500 cells/uL [facility] ABSOLUTE BASOPHILS 61 0 - 200 cells/uL [facility] NEUTROPHILS 64 % [facility] LYMPHOCYTES 24.2 % [facility] MONOCYTES 9.6 % [facility] EOSINOPHILS 1.1 % [facility] BASOPHILS 1.1 % [facility] Blood BLOOD SPECIMEN / Unknown 10/14/2024 11:50 AM CDT 10/14/2024 11:54 AM CDT us Marilu Kline MD HEMATOLOGY Final Result [facility] [address] [place] [address], [facility] [address] [place] [address] * (ABNORMAL) BASIC METABOLIC PANEL (10/14/2024 11:50 AM CDT) Only the most recent of2 resultswithin the time period is included. [facility] GLUCOSE 108(H) 65 - 99 mg/dL [employer] [facility] Comment: Fasting reference interval For someone without known diabetes, a glucose value between 100 and 125 mg/dL is consistent with prediabetes and should be confirmed with a follow-up test. UREA NITROGEN (BUN) 25 7 - 25 mg/dL [facility] CREATININE 1.05(H) 0.60 - 1.00 mg/dL [facility] EGFR 57(L) > OR = 60 mL/min/1.7 3m2 [facility] BUN/CREATININE RATIO 24(H) 6 - 22 (calc) [facility] SODIUM 138 135 - 146 mmol/L [facility] POTASSIUM 4.5 3.5 - 5.3 mmol/L [facility] CHLORIDE 103 98 - 110 mmol/L [facility] CARBON DIOXIDE 27 20 - 32 mmol/L [facility] ELECTROLYTE BALANCE 8 7 - 17 mmol/L (calc) [facility] CALCIUM 9.8 8.6 - 10.4 mg/dL [facility] [facility] [facility] Blood BLOOD SPECIMEN / Unknown 10/14/2024 11:50 AM CDT 10/14/2024 11:54 AM CDT Marilu Kline MD CHEMISTRY Final Result [facility] [address] [place] [address], [facility] [address] [place] [address] * (ABNORMAL) GLUCOSE METER (10/12/2024 7:46 AM CDT) Only the most recent of5 resultswithin the time period is included. GLUCOSE METER 134(H) 65 - 100 mg/dL 10/12/2024 7:47 AM CDT [facility] Blood BLOOD SPECIMEN / Unknown 10/12/2024 7:46 AM CDT 10/12/2024 7:47 AM CDT Hernan Oakley MD, PhD CHEMISTRY Fin al Result Performing Organization Address [facility] Co de Phone Number [facility] [address] [place] [address], * SCAN-CARDIAC STRIP (10/12/2024 7:00 AM CDT) us Scanner OTHER Final Result * SCAN-CARDIAC STRIP (10/12/2024 2:27 AM CDT) us Scanner OTHER Final Result * (ABNORMAL) ACTIVATED CLOTTING TIME [id number] ACT (10/11/2024 6:39 PM CDT) [facility] ACTIVATED CLOTTING TIME, POCT 276(H) 74 - 125 sec 10/11/2024 8:12 PM CDT [facility] Blood BLOOD SPECIMEN / Unknown 10/11/2024 6:39 PM CDT 10/11/2024 8:12 PM CDT Hernan Oakley MD, PhD HEMATOLOGY Fin al Result Performing Organization Address [facility] Co de Phone Number [facility] [address] [place] [address], * CVL CORONARY ANGIOGRAM POSS PCI (10/11/2024 6:19 PM CDT) Anatomical Region Laterality Modality X-Ray Angiograph y, X-Ray Angiography 10/11/2024 6:19 PM CDT Narrative Transcriptions Hernan Oakley MD, PhD - 10/11/2024 6:52 PM CDT [employer] [facility] [place] [facility] Cardiac Catheterization Report Name: MARINO ANDERSON Event Date: 10/11/2024 18:19 Excellian ID #: [id number] LIGIA #: [id number] Patient Class: Outpatient Diagnostic Physician: HERNAN OAKLEY [facility] Referring Physician: Date: 1955 Gender: Female Age: 69 Summary/Conclusions PRESENTATION / INDICATIONS * Abnormal coronary CTA VASCULAR ACCESS * Using ultrasound guidance and a percutaneous technique, the right radialartery was accessed. Ultrasound was used to confirm vessel patency,localizing needle into the lumen of the vessel. An image was saved for themedical record. DIAGNOSTIC - CORONARY * Moderate coronary disease involving the mid LAD. * iFR measured in the mid LAD was 0.92 consistent with a physiologicallynon-significant lesion. * Post adenosine FFR measured in the mid LAD was 0.86 consistent with aphysiologically non-significant lesion. DIAGNOSTIC SUMMARY ? The LMCA is free of significant disease. ? 50% stenosis in the Mid LAD ? The Circumflex has mild luminal irregularities. ? The RCA has mild luminal irregularities. ? 60% stenosis in the RPAV RECOMMENDATIONS & PLAN * Continue Medical Rx * Optimize risk factors and medications: HDL > 50 ; LDL < 70 ;Triglycerides < 100 * Follow up with primary physician * Follow up with executive vice president of sales Consent & Chapman Protocol The risks, benefits, and alternatives of the procedure were discussed withthe patient and written informed consent was obtained. Chapman protocol was followed. TIME OUT conducted just prior tostarting procedure confirmed patient identity, site/side, procedure,patient position, and availability of correct equipment and implants (ifapplicable). Staff Name Title Hernan Oakley Diagnostic Melter Supervisor [employer] Anthony C[place] Fellow Ruby Haskins RN Nurse Malcolm Lo CVT Scrub Carlos Rick RT(R) Monitor Procedures ? Ultrasound Guided Vascular Access ? Coronary Angiogram ? Coronary Fractional Flow Measurement Diagnostic Findings * Left Main Coronary Artery ? The LMCA is free of significant disease. * Left Anterior Descending ? 50% stenosis in the Mid LAD. The lesion has a BRIANA flow of 3. * Circumflex ? The Circumflex has mild luminal irregularities. * Right Coronary Artery ? The RCA has mild luminal irregularities. ? 60% stenosis in the RPAV. Lesion Information Lesion # Vessel Segment Lesion Length Lesion Details RPAV 1 Mid LAD Hemodynamics State: Baseline Pressures (mmHg) Site Systolic Diastolic End Diastolic A Wave V Wave Mean AO 150 65 73 Interventional Results * Left Anterior Descending ? Intervention to the Mid LAD 50% lesion using a Pressure Wire. Thefinal BRIANA flow was 3. Interventional Devices Lesion # Vessel Segment Type Name Max Pressure 1 Mid LAD Pressure Wire Wire Pressure OpSens Procedure Details Estimated Blood Loss: < 30 ml Specimen Collected: None Level of Sedation Achieved: Moderate Procedure Start: 18:19 Procedure End: 18:44 Procedure Time: 25 min Fluoroscopy Time: 4.3 min Cumulative Air Kerma: 213 mGy DAP: 1160 uGy/M2 Contrast: Omnipaque (low-osmolar), 40 ml Physiologic Data Weight: 68.8 kg BSA: 1.80 m2 Vascular Access Time Access Sheath Size 18:20 Right Radial Artery, sheath inserted Medications Ordered and Administered Start Time Stop Time Medication Dose Units Route Ordered By Given By 18:10 Fentanyl 50 mcg IV Hernan Oakley Leesa RN 18:10 Versed 1 mg IV Hernan Oakley Leesa RN 18:19 1% Lidocaine 1.5 ml Subcut Hernan Oakley Karan 18:21 Verapamil 3 mg IA Hernan Oakley Karan 18:23 Versed 0.5 mg IV Hernan Oakley Leesa RN 18:23 Heparin 4000 units IV Hernan Oakley Leesa RN 18:23 Fentanyl 25 mcg IV Hernan Oakley Leesa RN 18:24 Nitroglycerin 100 mcg IC Hernan Oakley Karan 18:27 Heparin 2000 units IV Hernan Oakley Leesa RN 18:41 Adenosine 200 mg IV Hernan Oakley Karan 18:41 Fentanyl 25 mcg IV Hernan Oakley Leesa RN 18:41 Versed 0.5 mg IV Hernan Oakley Leesa RN I personally monitored the patient?s conscious sedation during theprocedure. Conscious sedation starts with the first sedation medication dose ofFentanyl or Versed and ends when the procedure is completed, the patientis stable for recovery status, and the physician or other qualified healthcare professional providing the sedation ends personal hkpnxsqhicorio-fl-oifh time with the patient. The medications listed above were verbally ordered by me and read back tome as documented above. Refer to the procedure log report for additional case details. electronically signed on 10/11/2024 6:52:35 PM with status of Final Hernan Oakley MD [facility] [address] [place] [address] (p) [phone](f) Hernan Oakley MD, PhD CV IMAGING Onur austin Result - Final * (ABNORMAL) CBC with Platelets no Differential (10/11/2024 3:45 PM CDT) Pathologist [facility] WHITE BLOOD COUNT 5.1 4.5 - 11.0 thou/cu mm 10/11/2024 4:01 PM CDT [facility] RED BLOOD COUNT 3.78(L) 4.00 - 5.20 mil/cu mm 10/11/2024 4:01 PM CDT [facility] HEMOGLOBIN 12.8 12.0 - 16.0 g/dL 10/11/2024 4:01 PM CDT [facility] HEMATOCRIT 37.5 33.0 - 51.0 % 10/11/2024 4:01 PM CDT [facility] MCV 99 80 - 100 fL 10/11/2024 4:01 PM CDT [facility] MCH 33.9 26.0 - 34.0 pg 10/11/2024 4:01 PM CDT [facility] MCHC 34.1 32.0 - 36.0 g/dL 10/11/2024 4:01 PM CDT [facility] RDW 11.9 11.5 - 15.5 % 10/11/2024 4:01 PM CDT [facility] PLATELET COUNT 211 140 - 440 thou/cu mm 10/11/2024 4:01 PM CDT [facility] MPV 10.0 6.5 - 11.0 fL 10/11/2024 4:01 PM CDT [facility] NRBC 0.0 % 10/11/2024 4:01 PM CDT [facility] ABS NRBC 0.0 thou /cu mm 10/11/2024 4:01 PM CDT [facility] Blood BLOOD SPECIMEN / Unknown Venipuncture / Unknown 10/11/2024 3:45 PM CDT 10/11/2024 3:51 PM CDT Narrative [facility] - 10/11/2024 4:01 PM CDT If not done within past 14 days. Nurse to release order. us Hernan Oakley MD, PhD HEMATOLOGY Fin al Result [facility] [address] [place] [address], * LIPID PANEL (10/11/2024 3:45 PM CDT) CHOLESTEROL,TOTAL 113 100 - 199 mg/dL 10/11/2024 4:19 PM CDT [facility] Comment: Cholesterol, Total Reference Ranges Desirable <200 mg/dL Borderline 200-239 mg/dL High >=240 mg/dL TRIGLYCERIDES 88 <150 mg/dL 10/11/2024 4:19 PM CDT [facility] HDL CHOLESTEROL 42 >40 mg/dL 4:19 PM CDT [facility] NON-HDL CHOLESTEROL 71 <145 mg/dl 10/11/2024 4:19 PM CDT [facility] CHOL/HDL RATIO 2.69 <4.50 10/11/2024 4:19 PM CDT [facility] LDL CHOLESTEROL 53 <=130 mg/dL 10/11/2024 4:19 PM CDT [facility] VLDL CHOLESTEROL 18 <=30 mg/dL 10/12/19 4:19 PM CDT [facility] Blood BLOOD SPECIMEN / Unknown Venipuncture / Unknown 10/11/2024 3:45 PM CDT 10/11/2024 3:51 PM CDT Monica Brar NP CHEMISTRY Final Result [facility] [address] [place] [address], [place] * EXTRA TUBE GOLD/SST (10/11/2024 3:42 PM CDT) Blood BLOOD SPECIMEN / Unknown Non-Lab Venipuncture / Unknown 10/11/2024 3:42 PM CDT 10/11/2024 3:53 PM CDT Hernan Oakley MD, PhD LABORATORY Fin al Result Performing Organization Address City/[facility]/ZIP Co de Phone Number [facility] [address] [place] [id number], [place] * 12 Lead EKG (10/11/2024 3:29 PM CDT) Only the most recent of2 resultswithin the time period is included. Interpretation Sinus rhythm with occasional Premature ventricular complexes and Premature atrial complexes Septal infarct , age undetermined Abnormal ECG No previous ECGs available BEY[facility] NOW Ventricular Rate 77 BPM [facility] NOW Atrial Rate 77 BPM BEYOND NOW P-R Interval 184 ms [facility]YOND NOW QRS Duration 78 ms BEY[facility] NOW QT 390 ms [facility] NOW QTc 441 ms BEYOND NOW P [place] 83 degrees BEYOND NOW R [place] 53 degrees BEYOND NOW T [place] 8 degrees BEYOND NOW 10/11/2024 3:29 PM CDT 10/12/2024 6:37 PM CDT Narrative [facility] - 10/12/2024 6:38 PM CDT Test Indication: PRE OP Hernan Oakley MD, PhD EKG ORD Fin al Result Performing Organization Address City/[facility]/ZIP Co de Phone Number [facility] [place], [place] * CT CARDIAC CORONARY ARTERIES CV DUAL READ (09/22/2024 2:00 PM PROPELLANT CHARGE LOADER) Anatomical Region Laterality Modality HEART Computed Tomogra phy 09/22/2024 1:51 PM PROPELLANT CHARGE LOADER Narrative 09/22/2024 2:43 PM PROPELLANT CHARGE LOADER [employer] [facility] [place] [facility] Cardiac CT Report Name: MARINO ANDERSON V : Scan Date: Accession Number: [id number] Status: Final Electronically signed by Adonis Pedraza 14:43:09 VITALS ===== HEIGHT: 67 in (170 cm) WEIGHT: 153 lbs (69 kgs) BSA: 1.80 m^2 BMI: 24 kg/m^2 BP: 123 / 74 mmHg HEART RHYTHM: Normal Sinus Rhythm FINAL IMPRESSION ===== 1. Moderate stenosis in the mid LAD of indeterminate significance. Will submit for FFR-CT to evaluate for hemodynamic significance. 2. Total coronary artery calcium score 866. COFFEY percentile based on age, gender, and race is 96. Please see radiology section at end of report for noncardiac findings. STUDY QUALITY: Study quality is fair. Blooming artifact(s) related to calcification(s) or stent(s) noted. Low olqjfpru-le-osudc ratio on images noted. CAD-RADS: CAD-RADS Classification 3 (50-69% stenosis). CALCIUM SCORING: Total coronary artery calcium score 866. COFFEY percentile based on age, gender, and race is 96. DOMINANCE: Right dominant coronary artery system. LM: The LM has calcified atherosclerosis. There is a <25% LM stenosis. LAD: The proximal LAD has calcified atherosclerosis. There is a 25-49% proximal LAD stenosis. The mid LAD has calcified atherosclerosis. There is a 50-69% mid LAD stenosis. There is a 25-49% distal LAD stenosis. Focal area of dense calcification limiting luminal assessment in the mid LAD. D1: The first diagonal has calcified atherosclerosis. There is a 25-49% first diagonal stenosis. D2: The second diagonal is normal. LCX: There is a 25-49% proximal LCx stenosis. There is a 25-49% mid LCx stenosis. There is no distal LCx stenosis. OM1: There is a 25-49% first obtuse marginal stenosis. RCA: The proximal RCA has partially calcified atherosclerosis. There is a 25-49% proximal RCA stenosis. The mid RCA has calcified atherosclerosis. There is a 25-49% mid RCA stenosis. The distal RCA has calcified atherosclerosis. There is a <25% distal RCA stenosis. RIGHT PDA: The right PDA is normal. RIGHT PLB: The right posterolateral branch is too small to characterize. OTHER FINDINGS: Aortic sinus maximum cusp-cusp diameters: 35 x 34 x 33 mm. Ascending aorta maximum diameters: 36 x 36 mm. Descending thoracic aorta diameters: 25 x 25 mm. Pericardium: No effusion. Left atrium: Normal contrast opacification. Atrial septum: No evidence of shunt. Pulmonary veins: Normal anatomy. CALCIUM SCORING TABLE ===== . . Number of Lesions Pattern of Calcium Volume Total Score +-------+ + +--------+ + LM 0 0 LAD 0 491 LCx 0 34 RCA 0 341 Ramus 0 0 '-------+ + +--------+ ' SCAN INFO ===== TEST TYPE: Calcium score, Coronary CT Angiography SCANNER ONLINE MARKETING STRATEGIST: [employer] SCANNER MODEL: [employer] DOSE REDUCTION ALGORITHM: Helical with dose modulation PHASE UNITS: ms START PHASE: 280 ms END PHASE: 350 ms EKG GATED: Yes PRE-CONTRAST: Yes POST-CONTRAST: Yes 3D RECONSTRUCTION: Yes GENERAL ----- --- CONTRAST AGENT CONTRAST AGENT USED?: Yes TYPE: Omnipaque 350 DOSE: 84 ml RATE: 6.5 ml/s ROUTE: IV ARM: Right BOLUS TECHNIQUE: Biphasic SERUM CREATININE: 1.1 mg/dL GFR: 52.04 ml/min/1.73m^2 CREATININE DATE: CT CONTRAST REACTION: None MEDICATION ADMINISTERED DURING SCAN TYPE: Nitroglycerin, sublingual, B-Blockers NITROGLYCERIN, TOTAL DOSE: 0.8 mg B-CARLOS MANUEL TYPE: Oral, IV B-CARLOS MANUEL NAME, ORAL: Metoprolol tartrate B-CARLOS MANUEL NAME, IV: Metoprolol tartrate B-BLOCKERS, ORAL DOSE: 50 mg B-BLOCKERS, IV DOSE: 10 mg NUMBER OF DOSES: 1 RADIATION DOSE DLP: 151 KV: 90 SETUP PATIENT TYPE: Outpatient REASON(S) FOR SCAN: Chest pain REFERRING PHYSICIAN: MARILU KLINE TECHNOLOGIST: Monica Price BILLING ===== Patient Account [id number] ICD10 Codes R07.89 Report generated by [employer], a product of [employer] Procedure Note Aly Sparks MD - 09/22/2024 [employer] [facility] [place] [facility] Cardiac CT Report Name: MARINO ANDERSON V : Scan Date: Accession Number: [id number] Status: Final Electronically signed by Adonis Pedraza 14:43:09 VITALS ===== HEIGHT: 67 in (170 cm) WEIGHT: 153 lbs (69 kgs) BSA: 1.80 m^2 BMI: 24 kg/m^2 BP: 123 / 74 mmHg HEART RHYTHM: Normal Sinus Rhythm FINAL IMPRESSION ===== 1. Moderate stenosis in the mid LAD of indeterminate significance. Willsubmit for FFR-CT to evaluate for hemodynamic significance. 2. Total coronary artery calcium score 866. COFFEY percentile based on age,gender, and race is 96. Please see radiology section at end of report for noncardiac findings. STUDY QUALITY: Study quality is fair. Blooming artifact(s) related tocalcification(s) or stent(s) noted. Low urgkzlqs-aq-kvzbh ratio on images noted. CAD-RADS: CAD-RADS Classification 3 (50-69% stenosis). CALCIUM SCORING: Total coronary artery calcium score 866. COFFEY percentilebased on age, gender, and race is 96. DOMINANCE: Right dominant coronary artery system. LM: The LM has calcified atherosclerosis. There is a <25% LM stenosis. LAD: The proximal LAD has calcified atherosclerosis. There is a 25-49%proximal LAD stenosis. The mid LAD has calcified atherosclerosis. There is a 50-69% mid LAD stenosis. Thereis a 25-49% distal LAD stenosis. Focal area of dense calcification limiting luminal assessment in the midLAD. D1: The first diagonal has calcified atherosclerosis. There is a 25-49%first diagonal stenosis. D2: The second diagonal is normal. LCX: There is a 25-49% proximal LCx stenosis. There is a 25-49% mid LCxstenosis. There is no distal LCx stenosis. OM1: There is a 25-49% first obtuse marginal stenosis. RCA: The proximal RCA has partially calcified atherosclerosis. There is a25-49% proximal RCA stenosis. The mid RCA has calcified atherosclerosis.There is a 25-49% mid RCA stenosis.The distal RCA has calcified atherosclerosis. There is a <25% distal RCA stenosis. RIGHT PDA: The right PDA is normal. RIGHT PLB: The right posterolateral branch is too small to characterize. OTHER FINDINGS: Aortic sinus maximum cusp-cusp diameters: 35 x 34 x 33mm. Ascending aorta maximum diameters: 36 x 36 mm. Descending thoracic aorta diameters: 25 x 25 mm. Pericardium: No effusion. Left atrium: Normal contrast opacification. Atrial septum: No evidence of shunt. Pulmonary veins: Normal anatomy. CALCIUM SCORING TABLE ===== . . Number of Lesions Pattern of Calcium Volume Total Score +-------+ + +--------+ + LM 0 0 LAD 0 491 LCx 0 34 RCA 0 341 Ramus 0 0 '-------+ + +--------+ ' SCAN INFO ===== TEST TYPE: Calcium score, Coronary CT Angiography SCANNER ONLINE MARKETING STRATEGIST: [employer] SCANNER MODEL: [employer] DOSE REDUCTION ALGORITHM: Helical with dose modulation PHASE UNITS: ms START PHASE: 280 ms END PHASE: 350 ms EKG GATED: Yes PRE-CONTRAST: Yes POST-CONTRAST: Yes 3D RECONSTRUCTION: Yes GENERAL ----- --- CONTRAST AGENT CONTRAST AGENT USED?: Yes TYPE: Omnipaque 350 DOSE: 84 ml RATE: 6.5 ml/s ROUTE: IV ARM: Right BOLUS TECHNIQUE: Biphasic SERUM CREATININE: 1.1 mg/dL GFR: 52.04 ml/min/1.73m^2 CREATININE DATE: CT CONTRAST REACTION: None MEDICATION ADMINISTERED DURING SCAN TYPE: Nitroglycerin, sublingual, B-Blockers NITROGLYCERIN, TOTAL DOSE: 0.8 mg B-CARLOS MANUEL TYPE: Oral, IV B-CARLOS MANUEL NAME, ORAL: Metoprolol tartrate B-CARLOS MANUEL NAME, IV: Metoprolol tartrate B-BLOCKERS, ORAL DOSE: 50 mg B-BLOCKERS, IV DOSE: 10 mg NUMBER OF DOSES: 1 RADIATION DOSE DLP: 151 KV: 90 SETUP PATIENT TYPE: Outpatient REASON(S) FOR SCAN: Chest pain REFERRING PHYSICIAN: MARILU KLINE TECHNOLOGIST: Monica Price BILLING ===== Patient Account [id number] ICD10 Codes R07.89 Report generated by [employer], a product of [employer] us Marilu Kline MD CT Final Result * CTA FRACTIONAL FLOW RESERVE (09/22/2024 2:00 PM PROPELLANT CHARGE LOADER) Anatomical Region Laterality Modality Computed Tomogra phy Narrative 09/23/2024 4:31 PM PROPELLANT CHARGE LOADER Images from the original result were not included. STUDY: FRACTIONAL FLOW RESERVE FROM CORONARY CT ANGIOGRAPHY Study date: 09/23/2024 Indication: 69 year-old with coronary disease of unclear hemodynamic significance. CT angiography data was sent for noninvasive fractional flow reserve (FFR) calculation. STUDY PARAMETERS: See original coronary CTA report. FINAL IMPRESSIONS: Stenosis in the mid LAD is unlikely to be flow-limiting based on noninvasive FFR value of 0.80. FFR RESULTS: FOR PATIENT: Results are automatically released to your [employer]) account once available, in compliance with federal regulations. This means that you may see your results before your provider has had a chance to review them. Please allow 2-3 business days for your provider to comment on the results. Adonis Pedraza MD Cardiology [facility] [address], [address] 09/23/2024 4:28 PM us Marilu Kline MD CT Final Result * CT CARDIAC CORONARY ARTERIES RAD DUAL READ (09/22/2024 2:00 PM PROPELLANT CHARGE LOADER) Anatomical Region Laterality Modality HEART Computed Tomogra phy 09/23/2024 2:22 PM PROPELLANT CHARGE LOADER Impressions 09/23/2024 2:22 PM PROPELLANT CHARGE LOADER : 1. See separate cardiology report for cardiac findings. 2. No significant extra cardiac abnormality demonstrated. Please note that all CT scans at this facility use dose modulation, iterative reconstruction and/or weight-based dosing when appropriate to reduce radiation dose to as low as reasonably achievable. Please note that all CT scans at this facility use dose modulation, iterative reconstruction, and/or weight-based dosing when appropriate to reduce radiation dose to as low as reasonably achievable. Dictated by Jeffry Ortiz MD @ 09/23/2024 2:22:15 PM (Electronically Signed) Narrative 09/23/2024 2:22 PM PROPELLANT CHARGE LOADER For Patients: As a result of the Century Cures Act, medical imaging exams and procedure reports are released immediately into your electronic medical record. You may view this report before your referring provider. If you have questions, please contact your health care provider. THIS IS THE RADIOLOGY OVER READ REPORT OF A DUAL READ STUDY. READ THE SEPARATE CARDIOLOGY REPORT FOR CARDIOVASCULAR FINDINGS. REPORTS MAY BE FINALIZED AT DIFFERENT TIMES. : COMPARISON: : Coronary CTA of 05/09/2015 TECHNIQUE: : Please see cardiology report for technical information. This exam is being performed in conjunction with the services provided by the [facility] ([facility]). INDICATION: Cardiac over-read. FINDINGS: The visualized lung parenchyma, airways and pleural spaces are clear. No lymphadenopathy is evident. Visualized upper abdominal structures are unremarkable. Procedure Note Jeffry Ortiz MD - 09/23/2024 For Patients: As a result of the Cures Act, medical imagingexams and procedure reports are released immediately into your electronicmedical record. You may view this report before your referring provider.If you have questions, please contact your health care provider. THIS IS THE RADIOLOGY OVER READ REPORT OF A DUAL READ STUDY. READ THESEPARATE CARDIOLOGY REPORT FOR CARDIOVASCULAR FINDINGS. REPORTS MAY BEFINALIZED AT DIFFERENT TIMES. : COMPARISON: : Coronary CTA of 05/09/2015 TECHNIQUE: : Please see cardiology report for technical information. This exam is being performed in conjunction with the services provided bythe [facility] ([facility]). INDICATION: Cardiac over-read. FINDINGS: The visualized lung parenchyma, airways and pleural spaces are clear. Nolymphadenopathy is evident. Visualized upper abdominal structures areunremarkable. IMPRESSION: : 1. See separate cardiology report for cardiac findings. 2. No significant extra cardiac abnormality demonstrated. Please note that all CT scans at this facility use dose modulation,iterative reconstruction and/or weight-based dosing when appropriate toreduce radiation dose to as low as reasonably achievable. Please note that all CT scans at this facility use dose modulation,iterative reconstruction, and/or weight-based dosing when appropriate toreduce radiation dose to as low as reasonably achievable. Dictated by Jeffry Ortiz MD @ 09/23/2024 2:22:15 PM (Electronically Signed) Marilu Kline MD CT Final Result * CREATININE,ISTAT (09/22/2024 12:35 PM PROPELLANT CHARGE LOADER) POCT,CREATININE , ISTAT 1.1 0.6 - 1.3 mg/dL [facility] Blood BLOOD SPECIMEN / Unknown 09/22/2024 12:35 PM PROPELLANT CHARGE LOADER 09/22/2024 12:36 PM PROPELLANT CHARGE LOADER Watson Sargent MD CHEMISTRY Final R esult [facility] [address] [place] [address], [place] [facility] [address] [place] [address] * ND READING EKG - NO CHARGE, COMP ONLY (09/14/2024 7:18 AM PROPELLANT CHARGE LOADER) Marilu Kline MD PB - PROVIDER READING S Final Result * (ABNORMAL) HEMOGLOBIN A1C MONITORING (POCT) (09/13/2024 3:16 PM PROPELLANT CHARGE LOADER) POC HEMOGLOBIN A1C 7.5(H) <6.0 % OF TOTAL HGB [facility] Comment: Any point of care results exhibiting inconsistency with the patient's clinical status should be repeated using a different testing method. Blood BLOOD SPECIMEN / Unknown 09/13/2024 3:16 PM PROPELLANT CHARGE LOADER 09/13/2024 3:16 PM PROPELLANT CHARGE LOADER Marilu Kline MD CHEMISTRY Final Result Performing Organization Address [facility] Co de Phone Number [facility] [address] [place] [address], [facility] [address] [place] [address] * XR MAMMO JUNG BILAT SCREEN (03/07/2024 10:24 AM CDT) Anatomical Region Laterality Modality BREASTS, Breast Left, Breast Right Bilateral Mammography Impressions 03/07/2024 1:59 PM CDT There is no radiographic evidence for malignancy. Recommend annual mammograms. MAMMOGRAM ASSESSMENT: ACR 1 Negative PATIENTS: You will also receive a letter with your examination results in an easy to read format. If you have questions about your results, please [...] care provider. XR MAMMO JUNG BILAT SCREEN [[id number]] CLINICAL HISTORY: This is an asymptomatic 68 y.o. patient. INDICATION FOR EXAM: Mammogram Screening. TECHNIQUE: CC & MLO views were obtained. This study was evaluated with the assistance of Computer-Aided Detection. Breast Tomosynthesis was used in interpretation. COMPARISON FILM: Yes 02/24/23 [facility] 02/17/22 [facility] FINDINGS: The breasts are heterogeneously dense, which may obscure small masses. There are no dominant masses, suspicious micro calcifications or areas of architectural distortion. us Marilu Kline MD MAMMO Final Result * (ABNORMAL) XR DXA BONE DENSITY 2 [...] recommended in 3-5 years. Rochelle Monroe PA-C [facility] 11/07/2022 Narrative 11/07/2022 3:23 PM CDT For Patients: Results are automatically released to your [facility] ([employer]) account once available, in compliance with federal regulations. This means that you may see your results before your provider has had a chance to review them. Please allow 2-3 business days for your provider to comment on the results. XR DXA Bone Mineral Density (BMD) EXAM LOCATION: [address] [address] PATIENT NAME: Marino Anderson DATE OF : 1955 EXAM DATE: 11/06/2022 REQUESTING PROVIDER: Jerica Soares MD GENDER AT : female HEIGHT: 5' 7.21 (11/05/2022) WEIGHT: 156 lb (11/05/2022) MENOPAUSAL STATUS: Postmenopausal RACE/ETHNICITY: White [...] two scanners are made by the same land inspector. PROCEDURE: Dual-energy x-ray absorptiometry performed with routine [...] + 0.3 Change from prior in 2019: Decrease 3.7%. RESULTS FEMUR Left femoral neck BMD: 0.846 g/cm2 T-Score: - 1.4 Z-Score: + 0.1 Change from prior in 2019: Decrease 2.0%. Left hip BMD: 0.929 g/cm2 T-Score: - 0.6 Z-Score: + 0.7 Change from prior in 2019: Decrease 1.2%. WHO criteria: Normal: T-score at or above -1 SD Osteopenia: T-score between -1.1 and -2.4 SD Osteoporosis: T-score at or below -2.5 SD FRAX RISK CALCULATION (USED FOR OSTEOPENIA ONLY): 10-year probability of major osteoporotic fracture: 9.6%. 10-year probability of hip fracture: 1.2%. us Jerica Soares MD DEXA Final Resul t * COLONOSCOPY (04/09/2022 9:31 AM CDT) 04/09/2022 9:31 AM CDT Narrative Transcriptions Colten Tao MD - 04/09/2022 10:41 AM CDT Patient Name: Marino Anderson Procedure Date: 04/09/2022 Gender: Female Date of [...] 9:31 AM Procedure Code(s): --- Professional --- 09394, Colonoscopy, flexible; diagnostic, including collection of specimen(s) bybrushing or washing, when performed (separateprocedure) Diagnosis Code(s): --- Professional --- Z80.0, Family history of malignant neoplasmof digestive organs Q43.8, Other specified congenitalmalformations of intestine CPT copyright 2020 [employer]. All rights reserved. The codes documented in this report are preliminary and upon cardiac cath lab manager reviewmay be revised to meet current compliance requirements. Scope In: 10:08:25 AM Scope Withdrawal Time 0 hours 10 minutes 13 seconds Scope Out: 10:32:29 AM us Colten Tao MD PROCEDURE ORD Final Res ult * ANTI HCV (03/19/2005 11:50 AM CDT) ANTI HCV Non-reactiv e [facility] 03/19/2005 11:5 0 AM CDT 03/19/2005 6:53 PM CDT Narrative [facility] - 03/24/2005 2:00 PM CDT Testing Performed By [facility] Blood [place], [place] us Colten Tao MD SEND OUTS Final Res ult [facility] [address] [place] [address] from Last 3 Months or Most Recently Relevant to Health Maintenance Insurance [place] BLUE MR PB ONLY [place] BLUE HB ONLY MEDICARE PART B HB ONLY MEDICARE PART A HB ONLY Advance Directives Documents on File Type Date Recorded Patient Solution Professional Expl anation Healthcare Directive 03/02/2024 3:49 PM Si gned 02/18/2024 Healthcare Directive 05/05/2016 12:12 PM A Alexandr SIMBA, 05/25/2006 * Full Code (Latest Code Status on File) Date Activated Date Inactivated Comments 10/11/2024 4:28 PM 10/12/2024 1:08 PM Question Answer Comments Code Status Discussion: Reviewed Preferences Care Teams Journeyman Welder Relationship Specialty Start Date End Date Marilu Kline MD [address] [place] [address] PCP - General 09/22/05 Jossie Gutierrez AuD [address] [place] [address] Audiology 10/14/[address] [place] [address] Performance Tester Board Stacker 06/16/22
[2024-11-05 08:38] VITALS: BP 149/85; PULSE 72; RESP 16; TEMP 36.4; O2SAT 99; BMI 23.5
[2024-11-05 08:54] VITALS: O2SAT 100
--- NOTE | 2024-11-05 08:54 | CRLHL7_ITS ---
For Patients: As a result of the Century Cures Act, medical imaging exams and procedure reports are released immediately into your electronic medical record. You may view this report before your referring provider. If you have questions, please contact your health care provider. INDICATION: Pain/fever TECHNIQUE: CT chest PE was acquired with 100 cc Omnipaque 350 IV contrast. COMPARISON: None. FINDINGS: Thyroid: Unremarkable. Heart and vasculature: Contrast opacification of the pulmonary arterial tree is adequate. No sign of pulmonary embolism. Heart size is normal. Thoracic aorta and pulmonary artery are normal in caliber. Lungs and pleura: Ground-glass centrilobular nodules in the dependent portion of the right upper lobe. There is a 1 centimeter nodule along the right major fissure and an adjacent 0.4 centimeter nodule along the fissure. Mosaic attenuation is likely related to expiratory phase. No pleural effusions, pleural thickening, or pneumothorax. Lymph nodes/mediastinum: No mediastinal, hilar, or axillary adenopathy. Chest wall: No masses. Calcifications in the breasts. Upper abdomen: Cholecystectomy. Bones: Unremarkable for age. IMPRESSION: Ground-glass centrilobular nodules in the dependent portion of the right upper lobe, can be seen with infectious or aspiration bronchiolitis. Differential includes acute viral or atypical mycobacterial infection. Nodules along the right major fissure may represent reactive enlargement of intra-fissural lymph nodes. Consider repeat CT in 3-6 months to evaluate for interval change. Calcifications in the breast are indeterminate. Correlate with prior mammograms, if available. Otherwise, nonemergent mammography can be considered for further evaluation. Please note that all CT scans at this facility use dose modulation, iterative reconstruction, and/or weight-based dosing when appropriate to reduce radiation dose to as low as reasonably achievable. Dictated by Briana Mathew MD @ 11/05/2024 10:06:33 AM (Electronically Signed)
--- NOTE | 2024-11-05 08:57 | CRLHL7_ITS ---
For Patients: As a result of the Century Cures Act, medical imaging exams and procedure reports are released immediately into your electronic medical record. You may view this report before your referring provider. If you have questions, please contact your health care provider. INDICATION: Left leg pain and swelling. TECHNIQUE: Ultrasound venous duplex bilateral lower extremity. Compression venous exam was performed using liang-scale, color Doppler, and spectral Doppler analysis. COMPARISON: None. FINDINGS: Patent bilateral common femoral vein, femoral vein, popliteal vein, and visualized calf veins. IMPRESSION: No deep venous thrombosis detected in the lower extremities. Dictated by Tony Niño MD @ 11/05/2024 11:30:04 AM (Electronically Signed)
--- NOTE | 2024-11-05 09:01 | ED_ITS ---
HPI - General Adult General Chief complaint: Weakness Stated complaint: light headed, fever Time Seen by Provider: 11/05/24 08:40 History of Present Illness HPI narrative: Patient is a 69-year-old female that had a hip replacement [address] Teddy Ramirez on the left. She has had some left knee pain but mostly her complaint today is fever of a that was elevated this morning, went to bed with some chills last night. She has a history of urinary incontinence but has been worse since she got home from surgery. She has a history of coronary artery disease and had a catheterization cardiac prior to her hip surgery that showed 50% lesions by her report, not enough to do stenting. She is type 2 diabetic she has got VIRIDIANA, and has not had chest pain or shortness of breath. She did have some chills as mention. She has had some increased urinary incontinence. No flank pain. She does complain of some diffuse knee pain on the left, there is no swelling below her knee there are no redness or erythema but she is concerned about this. She called a triage nurse physician who was concerned about DVT and PE and was sent to the ER. Patient has had no chronic pulmonary disease. Her medications and chart reviewed. She has been taking a couple of oxycodone a day, has been tr oubled with constipation. Patient does feel generally weak. Related Data Home Medications ?Medication ?Instructions ?Recorded ?Confirmed amoxicillin 500 mg capsule 2,000 mg PO DIRECTED 12/06/22 11/04/24 atenolol 50 mg tablet 50 mg PO BID 12/06/22 11/04/24 atorvastatin 20 mg tablet 20 mg PO DAILY 12/06/22 11/04/24 clonazepam 0.5 mg tablet 0.5 mg PO DAILY PRN 12/06/22 11/04/24 cyclobenzaprine 10 mg tablet 10 mg PO TID PRN 12/06/22 11/04/24 duloxetine 30 mg capsule,delayed 30 mg PO HS 12/06/22 11/04/24 release duloxetine 60 mg capsule,delayed 60 mg PO QAM 12/06/22 11/04/24 release estradiol 0.01% (0.1 mg/gram) 0.5 g vaginal .2x/week 12/06/22 11/04/24 vaginal cream mirabegron 50 mg tablet,extended 50 mg PO DAILY 12/06/22 11/04/24 release 24 hr (Myrbetriq) semaglutide 1 mg/dose (4 mg/3 mL) 1 mg subcut QWEEK 04/18/24 11/04/24 subcutaneous pen injector (Ozempic) glipizide 10 mg tablet 10 mg PO DAILY 10/17/24 11/04/24 amlodipine 2.5 mg tablet 5 mg PO DAILY 10/19/24 11/04/24 aspirin 81 mg tablet,delayed 81 mg PO DAILY 10/19/24 11/04/24 release (Ecotrin Low Strength) celecoxib 200 mg capsule 200 mg PO DAILY 10/19/24 11/04/24 nitroglycerin 0.4 mg sublingual 0.4 mg sublingual Q5M PRN 10/19/24 11/04/24 tablet omega 2-yde-ijb-fish oil 1,000 mg 3 cap PO DAILY PRN 10/19/24 11/04/24 (120 mg-180 mg) capsule (Fish Oil) polyethylene glycol 3350 17 17 g PO DAILY 10/19/24 11/04/24 gram/dose oral powder (ClearLax) sennosides 8.6 mg tablet (senna) 17.2 mg PO BID 10/19/24 11/04/24 trazodone 50 mg tablet 50 mg PO HS 10/19/24 11/04/24 Previous Rx's ?Medication ?Instructions ?Recorded acetaminophen 500 mg capsule 500 - 1,000 mg (1 - 2 x 500 mg) PO 10/19/24 Q6H PRN #100 caps aspirin 81 mg tablet,delayed 81 mg PO BID #50 tabs 10/19/24 release rivaroxaban 10 mg tablet 10 mg PO DAILY #4 tabs 10/19/24 sennosides 8.6 mg-docusate sodium 1 - 4 tab-cap (1 - 4 x 8.6-50 mg) 10/19/24 50 mg tablet (Senna-S) PO BID PRN constipation #60 tabs oxycodone 5 mg tablet 2.5 - 5 mg (0.5 - 1 x 5 mg) PO 11/03/24 Q4-6H PRN pain #20 tabs diclofenac sodium 1 % topical gel 4 g topical QID pain #100 grams 11/04/24 (Arthritis Pain (diclofenac)) sulfamethoxazole 800 1 tab PO BID 7 days #14 tabs 11/05/24 mg-trimethoprim 160 mg tablet Allergies Allergy/AdvReac Type Severity Reaction Status Date / Time ciprofloxacin (From Cipro) Allergy Unknown Unknown Verified 07/12/24 09:52 clindamycin Allergy Unknown Rash Verified 07/12/24 09:52 lisinopril Allergy Unknown Cough Verified 07/12/24 09:52 naproxen AdvReac Unknown light Verified 07/12/24 09:52 headedness Review of Systems Status of ROS: Reports: 10 or more systems reviewed and unremarkable except as noted in History and below [facility] Medical History Overactive bladder ?N32.81 - Overactive bladder (ICD-10) Insomnia, idiopathic ?F51.01 - Primary insomnia (ICD-10) Anxiety ?F41.9 - Anxiety disorder, unspecified (ICD-10) Bilateral sensorineural hearing loss ?H90.3 - Sensorineural hearing loss, bilateral (ICD-10) Postmenopausal atrophic vaginitis ?N95.2 - Postmenopausal atrophic vaginitis (ICD-10) Incontinence ?R32 - Unspecified urinary incontinence (ICD-10) Stage 3a chronic kidney disease ?N18.31 - Chronic kidney disease, stage 3a (ICD-10) VIRIDIANA (obstructive sleep apnea) ?G47.33 - Obstructive sleep apnea (adult) (pediatric) (ICD-10) Depressive disorder ?F32.A - Depression, unspecified (ICD-10) Chronic nonalcoholic liver disease ?K76.9 - Liver disease, unspecified (ICD-10) Mixed hyperlipidemia ?E78.2 - Mixed hyperlipidemia (ICD-10) ASHD (arteriosclerotic heart disease) ?I25.10 - Atherosclerotic heart disease of [place] coronary artery without angina pectoris (ICD-10) Hypertension ?I10 - Essential (primary) hypertension (ICD-10) Type II diabetes mellitus ?E11.9 - Type 2 diabetes mellitus without complications (ICD-10) Surgical History H/O oophorectomy Hx of colonoscopy ?Z98.890 - Other specified postprocedural states (ICD-10) S/P total left hip arthroplasty (10/19/24) ?Z96.642 - Presence of left artificial hip joint (ICD-10) History of laparoscopic cholecystectomy (~2018) ?Z90.49 - Acquired absence of other specified parts of digestive tract (ICD- 10) History of total right hip replacement (12/24/20) ?Z96.641 - Presence of right artificial hip joint (ICD-10) Family History Sister Diabetes Hernan's thyroiditis Other Breast cancer Colon cancer Social History Narrative: Has a couple drinks per year. Denies tobacco and recreational drug use. What is your current living situation?: I presently have a place to live Problems where you live: no known problems In the past 12 months, utilities in danger of being shut off: no In past 12 months, lack of transportation kept you from medical appts, meetings, work, or getting things needed for daily living: no In the past 12 mos, have been you worried that your food would run out before you had money to buy more?: never true In the past 12 mos, the food you bought just didn't last and you didn't have money to buy more?: never true Smoking Status: Never smoker How often do you have a drink containing alcohol: never AUDIT-C Alcohol total score: 0 Non-prescribed substance use: denies use Caffeine: No How often does anyone, including family, friends and others, physically hurt you : never How often does anyone, including family, friends and others, insult or talk down to you: never How often does anyone, including family, friends and others, threaten you with harm: never How often does anyone, including family, friends and others, scream or curse at you: never Exam Narrative: Exam Narrative: Objective: Patient is slightly pale, sugar mouth is dry, her vital signs show her to be afebrile with 99% O2 sat. Her conjunctivae were slightly pale. No facial asymmetry, no scleral icterus Mouth is dry Neck is supple Chest clear no rales or wheezing Heart rhythm regular 2/6 systolic murmur no ectopy Extremities are no edema neurologic nonfocal good peripheral perfusion her hip scar on the left is unremarkable She has no marked swelling erythema of her left knee she has decent range of motion but complains of discomfort. She has no lower extremity swelling no edema. Good peripheral perfusion noted. Const: Vital Signs, click to edit/add: Vital Signs - 24 hr 11/05/24 08:38 11/05/24 08:54 11/05/24 11:01 Temperature 97.6 F Pulse Rate 78 Pulse Rate [Pulse Oximeter] 72 Respiratory Rate 16 13 Blood Pressure 134/81 Blood Pressure [Ri ght Upper Arm] 149/85 H Pulse Oximetry 99 100 100 Oxygen Delivery Me thod Room Air Room Air 11/05/24 11:02 Temperature Pulse Rate 77 Pulse Rate [Pulse Oximeter] Respiratory Rate 9 L Blood Pressure Blood Pressure [Ri ght Upper Arm] Pulse Oximetry 100 Oxygen Delivery Me thod Course Vital Signs Vital signs: Initial Vital Signs Temperature 97.6 F 11/05/24 08:38 Temperature Source Temporal Artery Scan 11/05/24 08:38 Pulse Rate 72 11/05/24 08:38 Pulse Rhythm Regular 11/05/24 08:38 Respiratory Rate 16 11/05/24 08:38 Blood Pressure 149/85 H 11/05/24 08:38 Blood Pressure Mean 106 H 11/05/24 08:38 Blood Pressure Position Supine 11/05/24 08:38 Pulse Oximetry 99 11/05/24 08:38 Oxygen Delivery Method Room Air 11/05/24 08:38 Vital Signs Temperature 97.6 F 11/05/24 08:38 Pulse Rate 72 11/05/24 08:38 Respiratory Rate 16 11/05/24 08:38 Blood Pressure 149/85 H 11/05/24 08:38 Pulse Oximetry 99 11/05/24 08:38 Oxygen Delivery Method Room Air 11/05/24 08:38 Temperature 97.6 F 11/05/24 08:38 Pulse Rate 77 11/05/24 11:02 Respiratory Rate 9 L 11/05/24 11:02 Blood Pressure 134/81 11/05/24 11:01 Pulse Oximetry 100 11/05/24 11:02 Oxygen Delivery Method Room Air 11/05/24 11:01 Medications Administered Medications: Discontinued Medications Generic Name Dose Route Start Last Admin Trade Name Freq PRN Reason Stop Dose Admin Sodium Chloride 1,000 mls @ 6,000 mls/hr 11/05/24 09:00 11/05/24 11:30 0.9 % Sodium Chloride 1000 Ml IV 11/05/24 09:09 Infused .Q10M CHIKI Infusion Ceftriaxone Sodium 2 gm/ 100 mls @ 200 mls/hr 11/05/24 09:32 11/05/24 11:00 Sodium Chloride IVPB 11/05/24 09:33 Infused ONCE ONE Infusion Medical Decision Making MDM Narrative Medical decision making narrative: [age] white female approximately 2 weeks from a left total hip replacement, with known coronary artery disease of a moderate amount, type 2 diabetic by chart history, presents with chills fever last night some left leg discomfort. At this point I think we need to be fairly aggressive in do cardiac workup, would do troponin, EKG, telemetry, keep her on oximetry, give her some IV fluid for rehydration. I think we should check a bilateral lower extremity Doppler, as well as a CT scan to rule out PE or pneumonia. Will check her for COVID/influenza/RSV. Will check laboratory studies. Disposition pending f indings above. She and her are comfortable plan. Differential would be broad including pneumonia, PE, DVT, viral syndrome, urinary tract infection, urosepsis. Addendum 10:30 a.m.: The patient has an obvious UTI with greater than 100 white cells part part field in her urine. She was given IV Rocephin. Will be given Septra DS 1 p.o. b.i.d. to take times a week at home. Her other laboratory studies including white count look normal, her troponin is 0, her telemetry looks normal. No ischemic changes. Her ultrasound of her lower extremities are negative for DVT. Viral studies are negative. Hemoglobin is 10.9. Follow up with PT as schedule, follow-up with the orthopedics as scheduled. Recommend recheck with regular doctor in the next few days if any concern question could return to the ED. He also had some nodularity in your right upper lung and that should be repeat CT scan in about 3 months. The nodularity also shows that it could be related to infectious or aspiration bronchiolitis. Likely a viral type issue versus chronic. I think coverage with Rocephin and then Septra at home is reasonable start given her urinary tract infection, recommend follow-up CT in 3 months as described follow up with regular doctor in 3-5 days, should she need reassessment. Also noted are some calcifications in the breast that are indeterminate she should have follow-up mammography this could be arranged through primary care. Lab Data Labs: Lab Results 11/05/24 11/05/24 11/05/24 Range/Units 09:00 09:05 09:15 WBC 5.58 (4.50-11.00) K/uL RBC 3.22 L (4.00-5.20) m/uL Hgb 10.9 L (12.0-16.0) gm/dL Hct 33.3 (33.0-51.0) % MCV 103 H (80-100) fL MCH 34 (26-34) pg MCHC 33 (32-36) gm/dL RDW Coeff of Aracelis 12.1 (11.5-15.5) % Plt Count 290 (140-440) K/uL Neut % (Auto) 78.7 H (42.0-72.0) % Lymph % (Auto) 10.9 L (20-44) % [place] % (Auto) 9.5 (0.0-11.0) % Eos % (Auto) 0.2 (0.0-7.0) % Baso % (Auto) 0.5 (0.0-3.0) % Neut # (Auto) 4.40 (1.7-7.0) K/uL Lymph # (Auto) 0.60 L (0.90-2.90) K/uL [place] # (Auto) 0.50 (0.00-0.90) K/UL Eos # (Auto) 0.01 (0.00-0.50) K/uL Baso # (Auto) 0.03 (0.00-0.30) K/uL Abs Immat Gran (auto) 0.01 (0.00-0.30) K/uL Imm/Tot Granulo (auto) 0.2 % Sodium 133 L (135-149) mmol/L Potassium 3.8 (3.6-5.1) mmol/L Chloride 99 (96-114) mmol/L Carbon Dioxide 25 (20-32) mmol/L Anion Gap 9 (7-15) mEq/L BUN 18 (7-30) mg/dL Creatinine 0.9 (0.5-1.5) mg/dL Estimated Creat Clear 50.18 Estimated GFR 68 ml/min Glucose 230 H (60-115) mg/dL Lactate 0.8 (0.5-1.9) mmol/L Calcium 9.2 (8.4-10.6) mg/dL Total Bilirubin 0.8 (0.1-1.5) mg/dL Direct Bilirubin 0.2 (0.0-0.5) mg/dL AST 58 H (12-35) U/L ALT 70 H (4-35) U/L Alkaline Phosphatase 133 (40-150) U/L C-Reactive Protein 2.2 H (0.5-1.0) mg/dL NT-Pro-B Natriuret Pep 369 pg/mL Total Protein 7.1 (6.0-8.3) g/dL Albumin 4.3 (3.3-5.0) g/dL Urine Color Dark yellow (Yellow) Urine Appearance Slightly Cloudy A (Clear) Urine pH 6.0 (5.0-8.5) Ur Specific [place] 1.020 (1.000-1.030) Urine Protein 2+ A (Negative) Urine Glucose (UA) Negative (Negative) Urine Ketones Negative (Negative) Urine Blood Trace-intact A (Negative) Urine Nitrite Negative (Negative) Urine Bilirubin Negative (Negative) Urine Urobilinogen 0.2 (0.2-1.0) Ur Leukocyte Esterase 3+ A (Negative) Urine RBC 0-2 (0-2) Urine WBC 50-100 A (0-5) Ur Squamous Epith Cells Moderate A (None-Few) Urine Bacteria Many A (None) SARS-CoV-2 (PCR) Negative SARS-CoV-2 (Negative) Influenza Type A (PCR) Negative PCR FLU A (Negative) Influenza Type B (PCR) Negative PCR FLU B (Negative) RSV (PCR) Negative PCR RSV (Negative) POC Troponin I 0.00 L (0.01-0.04) ng/ml Discharge Plan Discharge Clinical Impression: Fever, Weakness, History of total left hip replacement, Urinary tract infection Patient Disposition: Home w/ Parent or Adult Condition: Improved Additional Instructions: Light activity, antibiotic twice a day for the next 7 days, continue PT for the hip, drink plenty of fluids. You need a repeat CT scan for some nodules noted in your right lung in 3 months. You can do this through your regular doctor. Return to the ED if he has problems or concerns. It appears today to have a urinary tract infection that is made you sick. We will give you antibiotics today and then have you take them at home as well. You could try MiraLax [id number] if you are having trouble with constipation from the pain medic ine. Also noted was some calcification in the in the breast and would check with your regular doctor regarding follow-up mammography, if this has not been none recently. Activity Level: Light activity Discharge Diet: Regular Prescriptions: New sulfamethoxazole-trimethoprim 800-160 mg tablet 1 tab PO BID 7 Days Qty: 14 0RF No Action atorvastatin 20 mg tablet 20 mg PO DAILY estradiol 0.01 % (0.1 mg/gram) cream 0.5 g vaginal .2x/week duloxetine 30 mg capsule,delayed release(DR/EC) 30 mg PO HS Patient Comments: PLUS 60 MG IN THE AM amoxicillin 500 mg capsule 2,000 mg PO DIRECTED Rx Instructions: prior to dental appts. clonazepam 0.5 mg tablet 0.5 mg PO DAILY PRN duloxetine 60 mg capsule,delayed release(DR/EC) 60 mg PO QAM Rx Instructions: PLUS 30 MG AT BEDTIME atenolol 50 mg tablet 50 mg PO BID Myrbetriq 50 mg tablet extended release 24 hr 50 mg PO DAILY cyclobenzaprine 10 mg tablet 10 mg PO TID PRN Ozempic 1 mg/dose (4 mg/3 mL) pen injector 1 mg subcut QWEEK diclofenac sodium [Arthritis Pain (diclofenac)] 1 % gel 4 g topical QID Qty: 100 0RF Rx Instructions: apply to single knee, ankle, foot; for foot includes sole/toes/top of foot aspirin 81 mg tablet,delayed release (DR/EC) 81 mg PO BID Qty: 50 0RF Rx Instructions: Medication to help prevent blood clots postoperatively; take TWICE daily. acetaminophen 500 mg capsule 500 - 1,000 mg PO Q6H MDD 4000mg PRNQty: 100 0RF sennosides-docusate sodium [Senna-S] 8.6-50 mg tablet 1 - 4 tab-cap PO BID PRN (Reason: constipation) Qty: 60 0RF Rx Instructions: Hold medication if experiencing loose stools. rivaroxaban 10 mg tablet 10 mg PO DAILY Qty: 4 0RF Rx Instructions: Medication for deep vein clot prevention post surgery. Complete this medication before starting Aspirin. trazodone 50 mg tablet 50 mg PO HS nitroglycerin 0.4 mg tablet, sublingual 0.4 mg sublingual Q5M PRN amlodipine 2.5 mg tablet 5 mg PO DAILY aspirin [Ecotrin Low Strength] 81 mg tablet,delayed release (DR/EC) 81 mg PO DAILY celecoxib 200 mg capsule 200 mg PO DAILY omega 7-mus-cjg-fish oil [Fish Oil] 1,000 (120-180) mg capsule 3 cap PO DAILY PRN Rx Instructions: TAKES NEEDED FOR CONSTIPATION sennosides [senna] 8.6 mg tablet 17.2 mg PO BID polyethylene glycol 3350 [ClearLax] 17 gram/dose powder 17 g PO DAILY glipizide 10 mg tablet 10 mg PO DAILY oxycodone 5 mg tablet 2.5 - 5 mg PO Q4-6H MDD 6 PRN (Reason: pain) Qty: 20 0RF Rx Instructions: Take as needed for postop pain: 2.5mg mild pain, 5mg moderate-severe pain; wean as tolerated. Follow Up/Referrals: Marilu Zeng MD [Primary Care Provider] - Stand Alone Forms: [facility] Info Instructions
[2024-11-05 09:11] LABS: Appearance Urine Slightly Cloudy (Clear); Bilirubin Urine Negative (Negative); Blood Urine Trace-intact (Negative); Color Urine Dark yellow (Yellow); Glucose Urine Negative (Negative); Ketones Urine Negative (Negative); Leukocyte Esterase Urine 3+ (Negative); Nitrite Urine Negative (Negative); Protein Urine 2+ (Negative); Urobilinogen Urine 0.2 (0.2-1.0)
--- OUTSIDE RECORDS SUMMARY | 2024-11-05 09:13 | XMS_ITS | Clinical Summary ---
Author Organization [facility] Address [address] [place] [address] Care Team Providers Care Turn Operator Name Role Phone None Reported, Pcp Primary Care Provider Unavail able Source Comments Patient records contain information from all sites at [facility]. For routine questions regarding patient records, call [phone] during business hours, M-F 8:00 AM - 5:00 PM Central Time. Record requests for emergency care only can be directed to [phone] at any time.[facility] Allergies Active Allergy Reactions Criticality Noted Date Comments Ciprofloxacin Other (see comments) High 05/18/2015 Loss sense of smell Other reaction(s): LOST HER SENSE OF SMELL Clindamycin Rash Low 09/25/2005 Rash per patient history Lisinopril Cough Low 05/19/2017 Other reaction(s): COUGH Losartan Angioedema 05/20/2017 Naproxen Other (see comments) Low 01/18/2015 Feels light-headed and icky. Other reaction(s): LIGHTHEADED Medications * This document contains information received from the source organization and may not represent a complete record from that organization. hrstcata-qkc-s orion-FA-vit K-lut (Centrum Silver Women) 8 mg iron-400 mcg-50 mcg tablet Take 1 tablet by mouth daily. Active amLODIPine (NORVASC) 2.5 mg tablet Take 2.5 mg by mouth daily. Active atenoloL (TENORMIN) 50 mg tablet Take 1 tablet by mouth 2 (two) times a day. 10/03/19 Active atorvastatin (LIPITOR) 20 mg tablet Take 1 tablet by mouth daily. 10/03/19 Active clonazePAM (KlonoPIN) 0.5 mg tablet Take 0.5 mg by mouth daily as needed for anxiety. Activ e DULoxetine (CYMBALTA) [address] capsule Take 30 mg by mouth at bedtime. 10/03/19 Active DULoxetine (CYMBALTA) [address] capsule Take 60 mg by mouth daily. Daily in the AM 10/03/19 Active Lactobac 40-Bifido 3-S.thermop (Probiotic) 100 billion cell capsule Take 1 tablet by mouth daily. Active mirabegron (MYRBETRIQ) 50 mg 24 hr tablet Take 1 tablet by mouth daily. Active polyethylene glycol (MIRALAX) 17 gram/dose oral powder Take 17 g by mouth daily. Active senna 8.6 mg tablet Take 2 tablets by mouth 2 (two) times a day. Active cholecalcifero l (Vitamin D3) 50 mcg (2,000 Unit) tablet Take 50 mcg by mouth daily. Active estradioL (ESTRACE) 0.1 mg/g (0.01%) vaginal cream Insert 2 g into the vagina 2 (two) times a week. 02/12/20 Active UNABLE TO FIND Take 1 each [...] every 7 (seven) days. 3 mL 11 06/04/20 Active trazodone HCl (TRAZODONE ORAL) Take 50 mg by mouth at bedtime. Active fish oil 500 mg capsule Take 3 capsules by mouth daily. Active cyclobenzaprin e (FLEXERIL) 10 mg tablet TAKE 1 TABLET (10 MG) BY MOUTH 3 TIMES DAILY IF NEEDED FOR MUSCLE SPASM. 06/13/20 Active glipiZIDE (GLUCOTROL) 10 mg tablet Take 10 mg by mouth daily. Take 1 Tablet (10 mg) by mouth once daily before a meal. Take 30 minutes before the meal. 10/27/19 Active blood-glucose meter (Contour Next EZ Meter) [facility] See Admin Instructions. Active blood sugar diagnostic strips (Contour Next Test Strips) TEST 2 TIMES/DAY. Active BIOTIN ORAL Take 2,500 mcg by mouth daily. 11/02/19 Active aspirin 325 mg tablet Take 1 tablet (325 mg total) by mouth daily. You may restart your anticoagulation 24 hours after your procedure 02/10/20 Active acetaminophen (TylenoL) 500 mg tablet Take 2 tablets (1,000 mg total) by mouth every 6 (six) hours as needed for pain. Alternate with ibuprofen every 3 hours. Do not exceed 4000 mg or 4 g in 24 hours. 02/10/20 Active ibuprofen 200 mg tablet Take 3 tablets (600 mg total) by mouth every 6 (six) hours as needed for pain. Alternate with acetaminophen every 3 hours. 02/10/20 Active sennosides-doc usate sodium (Senokot-S) 8.6-50 mg per tablet Take 1 tablet by mouth 2 (two) times a day as needed for constipation. While on narcotics. 02/10/20 24 Active acetaminophen (TylenoL) 500 mg tablet Take 2 tablets (1,000 mg total) by mouth every 6 (six) hours as needed for pain. Alternate with ibuprofen every 3 hours. Do not exceed 4000 mg or 4 g in 24 hours. 02/24/20 Active ibuprofen 200 mg tablet Take 3 tablets (600 mg total) by mouth every 6 (six) hours as needed for pain. Alternate with acetaminophen every 3 hours. 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 Loss Hearing Sensorineural Bilateral 10/14/2012 Adjustment Disorder Mixed Reaction 06/21/2007 Hypertension Essential Primary 11/25/2006 Immunizations Immunization Administration Dates Next Due DT, Pediatric 09/12/1985,05/10/1979 DTaP (Infanrix, Tripedia) 09/18/2008 H1N1 Inj 06/03/2009 H1N1 Inj Preservative Free 08/10/2009 HZV (ZOSTAVAX) 01/10/2014 HepA Adult 03/31/2001,09/10/2000 HepB Adult 03/31/2001,10/15/2000,09/10/2000 Influenza TIV (IM) 05/06/2019,06/09/2007 Influenza high dose QV(65 ye ars or older) (PF) 04/14/2021 Influenza, Quadrivalent, Adj uvanted, Preservative Free 05/01/2023,04/16/2022,05/03/2020 Influenza, Seasonal, Injectable 05/07/20 14,05/19/2012,05/16/2011,2006 Influenza, Unspecified 06/09/2007 JE-VC (IXIARO) 07/08/2022 PCV13 05/06/2019 PPSV23 2020 RSV: respiratory syncytial v irus (AREXVY) recombinant vaccine 04/04/2023 RZV (SHINGRIX) 07/13/2018,05/13/2018 SARS-COV-2 (COVID-19) - MODERNA(Discontinued) 09/16/2020 Td (Adult), adsorbed 12/01/2018,08/21/1992 Tdap 09/18/2008 TyVi (inj) 07/08/2022 influenza trivalent vaccine (6 months and older)(PF) 04/18/2010 influenza vaccine quad (FLUZONE/FLUARIX) (6 months and older)(PF) 04/20/2018,05/19/2017,04/18/2016,2014,08/10/2009 Family History Medical History Relation Name Comments Coronary artery disease Father Mariella Chaudhary byp ass, heart attack, of myocardial infarction Hyperlipidemia Father V. Khadar Chaudhary Hypertension Father V. Khadar Chaudhary Coronary artery disease Father's Brother 1 Jr Chaudhary of sudden heart attack Coronary artery disease Father's Brother 2 Oz Chaudhary stents Dementia Father's Brother 2 Oz Chaudhary Colon cancer Father's Sister 1 Cynthia Dexheimer Coronary artery disease Father's Sister 2 Jaja Wenl und stents Dementia Father's Sister 2 Jaja Wenlund Coronary artery disease Father's Sister 3 Brandy Chaudhary of heart attack Hypertension Father's Sister 4 Nicky Pulliam Dementia Father's Sister 5 Malena Polo Lung cancer Maternal Grandfather Tenzin Boudreaux Obesity Maternal Grandmother Roshni Boudreaux Anxiety disorder Mother Edna Jet Breast cancer Mother Edna Chaudhary of breas t/ovarian cancer 10 years after first diagnosis Colon polyps Mother Edna Chaudhary Depression Mother Edna Jet Diabetes Mother Edna Jet Type II Hypertension Mother Edna Chaudhary Ovarian cancer Mother Edna Jet Skin cancer Mother Edna Jet squamous cell Thyroid disease Mother Edna Jet took thyroi d medication Skin cancer Mother's Brother Chadian Boudreaux Skin cancer Mother's Sister 1 Brianna Aby squamous Diabetes Mother's Sister 2 Mary Jane Brown Obesity Mother's Sister 2 Mary Jane Gomez Alcohol abuse Paternal Grandfather Micah AleciaKyle Chaudhary Asthma Sister 1 Peyton Holmquest Osteoporosis Sister 1 Peyton Holmquest Skin cancer Sister 1 Peyton Holmquest Basal cell Thyroid disease Sister 1 Peyton Holmquest Hernan s disease Thyroid disease Sister 2 Donna Galeano tkes synt hroid Relation Name Status Comments Father V. Khadar Chaudhary Father's Brother 1 Jr Chaudhary Father's Brother 2 Oz Chaudhary Father's Sister 1 Cynthia Dexheimer Father's Sister 2 Jaja Wenlund Father's Sister 3 Brandy Aguilerae Father's Sister 4 Nicky Pulliam Father's Sister 5 Malena Ordonezzel Maternal Grandfather Tenzin Boudreaux Maternal Grandmother Roshni Boudreaux Mother Edna Chaudhary Mother's Brother Chadian Boudreaux Mother's Sister 1 Brianna Aby Mother's Sister 2 Mary Jane Brown Paternal Grandfather Micah AleciaKyle Chaudhary Sister 1 Peyton Holmquest Sister 2 [...] your living situation today? 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 Gender Identity Female 05/16/2023 3:29 PM CDT Sexual Orientation Straight 05/16/2023 3: 29 PM CDT Last Filed Vital Signs Vital Sign Reading Time Taken Comments Blood Pressure 135/78 02/24/2024 11:00 AM CDT Pulse 74 02/24/2024 10:40 AM CDT Temperature 36.3 C (97.3 F) 02/24/2024 10:40 AM CDT Respiratory Rate 14 02/24/2024 10:40 AM CDT Oxygen Saturation 93% 02/24/2024 10:40 AM CDT Inhaled Oxygen Concentration - - Weight 69.9 kg (154 lb 1.6 oz) 02/24/2024 6:57 A M CDT Height 167 cm (5' 5.75) 02/24/2024 6:57 AM CDT Body Mass Index 25.06 02/24/2024 6:57 AM CDT Plan of Treatment Health Maintenance Due Date Last Done Comments CT Colonography 1955 Cologuard 1955 Diabetic Office Visit with Foot Exam 1955 Dilated Eye Exam 1955 Hepatitis C Screening 1955 Depression Monitoring (PHQ-9) 12/30/2023 08/31/2023 Urine Albumin 06/03/2024 06/03/2023 Depression Monitoring (PHQ-9 for quality tracking) 08/03/2024 Fall Risk Screen (Annual) 08/03/2024 Hemoglobin A1C 08/03/2024 02/01/2024, 06/0 02/2024, 09/15/2023, Additional history exists COVID-19 Vaccine ( season) 2024 04/16/2024, 10/19/2023, 04/24/2023, Additional history exists Creatinine Level (Kidney Function Test) 01/31/2025 02/01/2024, 01/08/2024, 06/03/2023, Additional history exists Office Visit for Blood Pressure Check / Re-check 01/31/2025 02/01/2024 Mammogram 03/07/2025 03/07/2024, 08/0 12/2023, 02/24/2023, Additional history exists Colonoscopy 04/09/2027 04/09/2022, 01/31/2015 Colorectal Cancer Surveillance 04/09/2027 DTaP,Tdap,and Td Vaccines (7 - Td or Tdap) 12/01/2028 12/01/2018, 09/18/2008, 09/18/2008, Additional history exists Lipid (Cholesterol) Screening 01/07/2029 01/08/2024, 06/03/2023, 05/01/2023, Additional history exists Hepatitis A Vaccines Completed 03/31/2001, 09/10/19 Hepatitis B Vaccines Completed 03/31/2001, 10/15/2000, 09/10/2000 Zoster Vaccines Completed 07/13/2018, 05/03, 01/10/2014 Pneumococcal vaccine (50+ years) Completed 2020, 05/06/2019 Bone Density Scan (Osteoporosis Screen) Discontinued 11/06/2022 RSV vaccine - (32-36 weeks) or 60+ years Completed 04/04/2023 Influenza Vaccine Completed 04/07/2024, , 04/16/2022, Additional history exists IPV Vaccines Aged Out No longer eligi ble based on patient's age to complete this topic Medical Devices Implanted Type [employer] Device Identifier Shelf Expiration Date Model / Serial / Lot Hip Implant Hip Implant Right: Hip Explanted Type [employer] Device Identifier Shelf Expiration Date Model / Serial / Lot Ext Lead Nrstm Perq - [id number] Implanted:Qty : 1 on 02/10/2024 by Israel Christianson M.D. at [facility] Explanted:Qty : 1 on 02/24/2024 by Israel Christianson M.D. at [facility] Sacral Nerve Stimulator N/A: Sacrum Medtronic 11/21/2024 [id number] / / [id number] Kt Lead Nrstm Int [facility] Perq - [id number] Implanted:Qty : 1 on 02/10/2024 by [facility] M[facility] Explanted:Qty : 1 on 02/24/2024 by Israel Christianson M.D. at [facility] Sacral Nerve Stimulator N/A: Sacrum [employer] 01/27/2025 [id number] / / [id number] Procedures Procedure Name Priority Date/Time Associated Diagnosis Comments BASIC METABOLIC PANEL, S/P Routine 02/01/2024 11:30 AM CDT Preoperative Exam Preprocedural Lab Exam HEMOGLOBIN A1C, B Routine 02/01/2024 11: 29 AM CDT Preoperative Exam Preprocedural Lab Exam ALBUMIN, RANDOM, U Routine 06/03/2023 8: 24 [...] Relevant to Health Maintenance Results * (ABNORMAL) Basic Metabolic Panel (02/01/2024 [...] AM CDT 02/01/2024 12:09 PM CDT Israel Christiansno M.D. LAB BLOOD ADD-ON Final Resul t Performing Organization Address City/[facility] Co de Phone Number [facility] [address] [place], [place] [id number] [place] [address] [address] * (ABNORMAL) Hemoglobin A1c (02/01/2024 11:29 AM [...] CDT Israel Christianson M.D. LAB BLOOD ADD-ON Final Resul t Performing Organization Address City/[facility]/ZIP Co de Phone Number [facility] [address] [place], [place] [id number] [place] [address] [place] [address] * Albumin, Random, Urine (06/03/2023 8:24 AM CDT) Albumin, Random, U 12.3 mg/L 2022 12:58 PM CDT DTL Comment: ----ADDITIONAL INFORMATION---- This test has been modified from the remelt pan tank operator's instructions. Its performance characteristics were determined by [facility] in a manner consistent with CLIA requirements. This test has not been cleared or approved by the U.S. Food and Drug Administration. Creatinine 176 mg/dL 06/03/2023 11:16 AM CDT DTL Albumin/Creatinine Ratio 7 <25 mg/g 06/03/2023 12:58 PM CDT DTL Urine (Urine, Midstream) 06/03/2023 8:24 AM CDT 06/03/2023 10:22 AM CDT us Karyna Browne M.D. LAB URINE ORDERABLES Final Result [facility] [address] [place] [address], [facility] [address] [address] * (ABNORMAL) Lipid Panel (06/03/2023 8:17 AM CDT) Triglycerides 64 mg/dL 06/03/2023 9:43 AM CDT DTL Comment: ----REFERENCE VALUE---- Normal: <150 mg/dL Borderline High: 150-199 mg/dL High: 200-499 mg/dL Very High: > or =500 mg/dL Cholesterol, Total 105 mg/dL 2022 9:43 AM CDT DTL Comment: ----REFERENCE VALUE---- Desirable: < 200 mg/dL Borderline High: 200 - 239 mg/dL High: > or = 240 mg/dL Cholesterol, LDL, Calculated 47 mg/dL 06/03/2023 9:43 AM CDT DTL Comment: ----REFERENCE VALUE---- Desirable: <100 mg/dL Above Desirable: 100-129 mg/dL Borderline High: 130-159 mg/dL High: 160-189 mg/dL Very High: >=190 mg/dL ----ADDITIONAL INFORMATION---- LDL cholesterol calculated using the Linn/NIH equation. Cholesterol, HDL, S 44(L) >=50 mg/dL 06/03/2023 9:43 AM CDT DTL Cholesterol, Non-HDL, Calculated 61 mg/dL 06/03/2023 9:43 AM CDT DTL Comment: ----REFERENCE VALUE---- Desirable: <130 mg/dL Above Desirable: 130-159 mg/dL Borderline High: 160-189 mg/dL High: 190-219 mg/dL Very High: > or =220 mg/dL Fasting (8 HR or more) yes 06/03/2023 8:58 AM CDT DTL Blood (Blood, Venous) 06/03/2023 8:17 AM CDT 06/03/2023 8:58 AM CDT Karyna Browne M.D. LAB BLOOD ADD-ON Final Resu lt Performing Organization Address [facility] Co de Phone Number [facility] [address] [place] [address], [facility] DTL [facility] [address] [place] [address] * XR MAMMO JUNG BILAT SCREEN-Outside Mammogram (02/24/2023 10:45 AM CDT) Narrative [facility]IM[facility] - 05/19/2023 9:08 AM CDT This order has been created and auto-finalized to support the import of outside images. If available, original interpretation can be found on the Media Tab in Chart Review, in Document Viewer, or as an image in QREADS. If a re-interpretation or overread is required please follow defined workflow. us Provider Not In System IMG BI PROCEDURES Final R esult Performing Organization Address City/[facility] Co de Phone Number IIMS NA from Last 3 Months or Most Recently Relevant to Health Maintenance Insurance MEDICARE [facility] Advance Directives For more information, please contact: [phone] Documents on File Type Date Recorded Patient Legislative Correspondent Expl anation Advance Directives 02/24/2024 6:25 AM Micah Summers HCPOA/ADVOCATE/AGENT/R EPRESENTATIVE/SURROGAT E Healthcare Agents on File Name Relationship Healthcare Agent Relationship Communication Micah Summers Spouse Health Care Agent [email or web address] Matt Summers Child First Alternate Health Care Agent [email or web address] Care Teams Turn Operator Relationship Specialty Start Date End Date None Reported, Pcp PCP - General 06/10/24
--- OUTSIDE RECORDS SUMMARY | 2024-11-05 09:13 | XMS_ITS | Clinical Summary ---
Author Organization [facility] Address [address] [place] [address] Care Team Providers Care Supervisor Paint Department Name Role Phone Marilu Kline MD Primary Care Provide r Jossie Gutierrez Leslie Unavailable [phone] Unavailable [phone] Allergies Active Allergy Reactions Criticality Noted Date [...] strips and lancets that go with this iikvdfeA72.9 NIDDM type II - Test 2 times/day. [...] 1 Tablet by mouth once daily. Active ynqeckir-oyp-oy on-FA-vit K-lut (Centrum Silver Women) 8 mg iron-400 mcg-50 mcg tab Take 1 Tablet by mouth once daily. Active atenoloL (TENORMIN) 50 mg tabletIndicatio ns:HTN (hypertension) Take 1 Tablet (50 mg) by mouth two times daily. 200 Tablet 3 01/08/20 24 Active atorvastatin (LIPITOR) 20 mg tabletIndicatio ns:Coronary artery disease involving [place] coronary artery of [place] heart without angina pectoris Take 1 Tablet [...] 81 mg enteric coated tabletIndicatio ns:CAD in [place] artery Take 1 Tablet (81 mg) by [...] Description 10/25/2024 2:40 PM CDT Office Visit [facility] [address] [place] [address] Marilu Kline MD Post-op (10/19/[address] Pierce/Knee and leg swollen and the knee hurts. Incision doing well./Had 2 BMs in a week. Doing all she can to get it moving./Is there some form of calcium that would not constipate her?) 10/25/2024 Travel 10/19/2024 Orders Only [facility] Scanner 1 scan: (1-Ord) SIMBA, XR HIP LEFT POST OP, 10/19/2024 10/19/2024 Orders Only [facility] Scanner 1 scan: (1-Ord) SIMBA, XR HIP LEFT 1V, 10/19/2024 10/14/2024 10:30 AM CDT Office Visit [facility] [address] [place] [address] Marilu Kline MD Pre-Op Exam (10/19/24 Left hip replacement [facility] /Glipizide dosing prior to surgery?); Post-op (Angiogram on 10/11/2024. No concerns just an update.); Medication Management (Should she restart Ozempic? Last used end ) 10/14/2024 Travel 10/11/2024 12:12 PM CDT - 10/12/2024 10:53 AM CDT Hospital Encounter [facility] [address] [place] [address] Hernan Oakley MD, PhD ASHD (Primary Dx); Atypical chest pain; CAD in [place] artery; Abnormal computed tomography angiography (CTA) Discharge Disposition: Home Self Care 10/11/2024 Telephone [facility] [address] [place] [address] Marilu Kline MD Follow Up 10/11/2024 Travel 10/04/2024 10:05 AM INDUSTRIAL EQUIPMENT MECHANIC Office Visit [facility] [address] [place] [address] Marilu Kline MD Preoperative Exam (10/19/24 Left hip replacement [facility] ) 10/04/2024 Travel 09/26/2024 11:30 AM INDUSTRIAL EQUIPMENT MECHANIC Office Visit [facility] [address] [facility] [address] [place] [address] Henran Oakley MD, PhD Consult (NIKKIE -REFERRED BY Marilu Kline MD/Dx: Atypical chest pain [R07.89]; Arthritis of left hip [M16.12]; CAD in [place] artery [I25.10] - CT @ [facility] last week- no outside cards- ALL RECORDS IN [facility]- LAST SEEN BY [facility] 2016 /PT states feeling nervous /Not sure if she is having the chest pain still she noted) 09/26/2024 Travel 09/26/2024 Telephone [facility] [address] [place] [address] Cardiology, Anw Appointment 09/23/2024 Telephone [facility] [address] [place] [address] Marilu Kline MD Results 09/22/2024 1:00 PM INDUSTRIAL EQUIPMENT MECHANIC Ancillary Procedure [facility] [address] [place] [address] 09/22/2024 12:40 PM INDUSTRIAL EQUIPMENT MECHANIC Orders Only [facility] [address] [place] [address] Lab 09/21/2024 Travel 09/15/2024 Orders Only [facility] [address] [place] [address] Watson Sargent MD <No scans attached> 09/14/2024 Orders Only [facility] [address] [place] [address] Marilu Kline MD 1 scan: (1-Ord) NFLD-EKG-2.11.25 09/13/2024 3:30 PM INDUSTRIAL EQUIPMENT MECHANIC Office Visit [facility] [address] [place] [address] Marilu Kline MD Diabetes (Eye exam scheduled in October 2024/Ozempic cost is getting to be too much ); Blood Pressure (Home readings); Hip Pain/problem (Having surgery October 19, pre-op scheduled) 09/13/2024 Travel 08/11/2024 Telephone [facility] [address] [facility] [place] [address] Marilu Kline MD Medication Management (Refill amount) 08/08/2024 Refill [facility] [address] [place] [address] Marilu Kline MD Refill Request (Ozempic) 08/08/2024 Telephone [facility] [address] [facility], [place] [id number] Marilu Kline MD Questions from Last 3 [...] IIV3 (Age 65+ Years) Preserv Free 04/07/2024,05/06/2019 [place] Encephalitis 07/08/2022 Pneumococcal Poly,23-Valent (Pneumovax) 2020 Pneumococcal [...] on file Legal Sex Female 6:19 AM INDUSTRIAL EQUIPMENT MECHANIC Gender Identity Not on file Sexual Orientation [...] Description 11/21/2024 9:00 AM CDT Office Visit [facility] [address] [facility] [address] [place] [address] Hernan Oakley MD, PhD [address] [facility] [address] [place] [address] 01/23/2025 10:30 AM CDT Office Visit [facility] [address] [facility] [address] [place] [address] Hernan Oakley MD, PhD [address] [facility] [address] [place] [address] Health Maintenance Due Date Last Done Comments [...] PM CDT Atypical chest pain CAD in [place] artery Abnormal computed tomography angiography (CTA) GLUCOSE [...] FRACTIONAL FLOW RESERVE Routine 09/22/2024 2:00 PM INDUSTRIAL EQUIPMENT MECHANIC Atypical chest pain CT CARDIAC CORONARY ARTERIES RAD DUAL READ Routine 09/22/2024 2:00 PM INDUSTRIAL EQUIPMENT MECHANIC Atypical chest pain CT CARDIAC CORONARY ARTERIES CV DUAL READ Routine 09/22/2024 2:00 PM INDUSTRIAL EQUIPMENT MECHANIC Atypical chest pain CREATININE,ISTAT Routine 09/22/2024 12:3 5 PM INDUSTRIAL EQUIPMENT MECHANIC Preprocedural examination EKG 12 LEAD Routine 09/14/2024 7:19 AM INDUSTRIAL EQUIPMENT MECHANIC Atypical chest pain [place] READING EKG - NO CHARGE, COMP ONLY Routine 09/14/2024 7:18 AM INDUSTRIAL EQUIPMENT MECHANIC Atypical chest pain HEMOGLOBIN A1C MONITORING (POCT) Routine 09/13/2024 3:16 PM INDUSTRIAL EQUIPMENT MECHANIC Type 2 diabetes mellitus without complication, without [...] IMMUNE STATUS (10/14/2024 11:50 AM CDT) Pathologist [facility] MEASLES AB (IGG), IMMUNE STATUS 282.00 AU/mL [facility] Comment: AU/mL Interpretation ----- <13.50 Not consistent with immunity 13.50-16.49 Equivocal >16.49 Consistent with immunity The presence of measles IgG suggests immunization or past or current infection with measles virus. For additional information, please refer to http://education.G.I. Java/faq/ZBW424 (This link is being provided for informational/ educational purposes only.) Blood BLOOD SPECIMEN / Unknown 10/14/2024 11:50 AM CDT 10/14/2024 11:54 AM CDT Marilu Kline MD LABORATORY Final Result [facility] [address] [place] [address], [facility] [address] [place] [address] * (ABNORMAL) CBC AND DIFFERENTIAL (10/14/2024 11:50 AM CDT) Pathologist [facility] WHITE BLOOD CELL COUNT 5.5 3.8 - [...] Kline MD HEMATOLOGY Final Result [facility] [address] [place] [address], [facility] [address] [place] [address] * (ABNORMAL) BASIC METABOLIC PANEL (10/14/2024 11:50 AM CDT) Only the most recent of2 resultswithin the time period is included. [facility] GLUCOSE 108(H) 65 - 99 mg/dL [facility] Comment: Fasting reference interval For someone without known diabetes, a glucose value between 100 and 125 mg/dL is consistent with prediabetes and should be confirmed with a follow-up test. UREA NITROGEN (BUN) 25 7 - 25 mg/dL [facility] CREATININE 1.05(H) 0.60 - 1.00 mg/dL [facility] EGFR 57(L) > OR = 60 mL/min/1.7 3m2 [facility] BUN/CREATININE RATIO 24(H) 6 - 22 (calc) [facility] SODIUM 138 135 - 146 mmol/L [facility] POTASSIUM 4.5 3.5 - 5.3 mmol/L [facility] CHLORIDE 103 98 - 110 mmol/L [facility] CARBON DIOXIDE 27 20 - 32 mmol/L [facility] ELECTROLYTE BALANCE 8 7 - 17 mmol/L (calc) [facility] CALCIUM 9.8 8.6 - 10.4 mg/dL [facility] Blood BLOOD SPECIMEN / Unknown 10/14/2024 11:50 AM CDT 10/14/2024 11:54 AM CDT Marilu Kline MD CHEMISTRY Final Result [facility] [address] [place] [address], [facility] [address] [place] [address] * (ABNORMAL) GLUCOSE METER (10/12/2024 7:46 AM CDT) Only the most recent of5 resultswithin the time period is included. GLUCOSE METER 134(H) 65 - 100 mg/dL 10/12/2024 7:47 AM CDT [facility] Blood BLOOD SPECIMEN / Unknown 10/12/2024 7:46 AM CDT 10/12/2024 7:47 AM CDT Hernan Oakley MD, PhD CHEMISTRY Fin al Result Performing Organization Address [facility] Co de Phone Number [facility] [address] [place] [address], * SCAN-CARDIAC STRIP (10/12/2024 7:00 AM CDT) us Scanner OTHER Final Result * SCAN-CARDIAC STRIP (10/12/2024 2:27 AM CDT) us Scanner OTHER Final Result * (ABNORMAL) ACTIVATED CLOTTING TIME [id number] ACT (10/11/2024 6:39 PM CDT) [facility] ACTIVATED CLOTTING TIME, POCT 276(H) 74 - 125 sec 10/11/2024 8:12 PM CDT [facility] Blood BLOOD SPECIMEN / Unknown 10/11/2024 6:39 PM CDT 10/11/2024 8:12 PM CDT Hernan Oakley MD, PhD HEMATOLOGY Fin al Result Performing Organization Address [facility] Co de Phone Number [facility] [address] [place] [address], * CVL CORONARY ANGIOGRAM POSS PCI (10/11/2024 6:19 PM CDT) Anatomical Region Laterality Modality X-Ray Angiograph y, X-Ray Angiography 10/11/2024 6:19 PM CDT Narrative Transcriptions Hernan Oakley MD, PhD - 10/11/2024 6:52 PM CDT [facility] Cardiac Catheterization Report Name: MARINO ANDERSON Event Date: 10/11/2024 18:19 [facility] ID #: [id number] LIGIA #: [id number] Patient Class: Outpatient Diagnostic Physician: HERNAN OAKLEY [facility] Referring Physician: Date: 1955 Gender: Female Age: [...] with primary physician * Follow up with design verification engineer Consent & [place] Protocol The risks, benefits, and alternatives of the procedure were discussed withthe patient and written informed consent was obtained. [place] protocol was followed. TIME OUT conducted just prior tostarting procedure confirmed patient identity, site/side, procedure,patient position, and availability of correct equipment and implants (ifapplicable). Staff Name Title Hernan Oakley Diagnostic Replenishment Associate Anthony Covington Fellow Ruby Haskins RN Nurse [...] healthcare professional providing the sedation ends personal djyqarsmpojcox-vx-bney time with the patient. The medications listed above were verbally ordered by me and read back tome as documented above. Refer to the procedure log report for additional case details. electronically signed on 10/11/2024 6:52:35 PM with status of Final Hernan Oakley MD [facility] [address] [place] [address] (p) [phone](f) Hernan Oakley MD, PhD CV IMAGING Onur austin Result - Final * (ABNORMAL) CBC with Platelets no Differential (10/11/2024 3:45 PM CDT) Pathologist [facility] WHITE BLOOD COUNT 5.1 4.5 - 11.0 thou/cu mm 10/11/2024 4:01 PM CDT [facility] RED BLOOD COUNT 3.78(L) 4.00 - 5.20 mil/cu mm 10/11/2024 4:01 PM CDT [facility] HEMOGLOBIN 12.8 12.0 - 16.0 g/dL 10/11/2024 4:01 PM CDT [facility] HEMATOCRIT 37.5 33.0 - 51.0 % 10/11/2024 4:01 PM CDT [facility] MCV 99 80 - 100 fL 10/11/2024 4:01 PM CDT [facility] MCH 33.9 26.0 - 34.0 pg 10/11/2024 4:01 PM CDT [facility] MCHC 34.1 32.0 - 36.0 g/dL 10/11/2024 4:01 PM CDT [facility] RDW 11.9 11.5 - 15.5 % 10/11/2024 4:01 PM CDT [facility] PLATELET COUNT 211 140 - 440 thou/cu mm 10/11/2024 4:01 PM CDT [facility] MPV 10.0 6.5 - 11.0 fL 10/11/2024 4:01 PM CDT [facility] NRBC 0.0 % 10/11/2024 4:01 PM CDT [facility] ABS NRBC 0.0 thou /cu mm 10/11/2024 4:01 PM CDT [facility] Blood BLOOD SPECIMEN / Unknown Venipuncture / Unknown 10/11/2024 3:45 PM CDT 10/11/2024 3:51 PM CDT Narrative [facility] - 10/11/2024 4:01 PM CDT If not done within past 14 days. Nurse to release order. us Hernan Oakley MD, PhD HEMATOLOGY Fin al Result [facility] [address] [place] [address], * LIPID PANEL (10/11/2024 3:45 PM CDT) CHOLESTEROL,TOTAL 113 100 - 199 mg/dL 10/11/2024 4:19 PM CDT [facility] Comment: Cholesterol, Total Reference Ranges Desirable <200 mg/dL Borderline 200-239 mg/dL High >=240 mg/dL TRIGLYCERIDES 88 <150 mg/dL 10/11/2024 4:19 PM CDT [facility] HDL CHOLESTEROL 42 >40 mg/dL 4:19 PM CDT [facility] NON-HDL CHOLESTEROL 71 <145 mg/dl 10/11/2024 4:19 PM CDT [facility] CHOL/HDL RATIO 2.69 <4.50 10/11/2024 4:19 PM CDT [facility] LDL CHOLESTEROL 53 <=130 mg/dL 10/11/2024 4:19 PM CDT [facility] VLDL CHOLESTEROL 18 <=30 mg/dL 10/12/19 4:19 PM CDT [facility] Blood BLOOD SPECIMEN / Unknown Venipuncture / Unknown 10/11/2024 3:45 PM CDT 10/11/2024 3:51 PM CDT Monica Brar NP CHEMISTRY Final Result [facility] [address] [place] [address], [place] * EXTRA TUBE GOLD/SST (10/11/2024 3:42 PM CDT) Blood BLOOD SPECIMEN / Unknown Non-Lab Venipuncture / Unknown 10/11/2024 3:42 PM CDT 10/11/2024 3:53 PM CDT Hernan Oakley MD, PhD LABORATORY Fin al Result Performing Organization Address City/[facility]/ZIP Co de Phone Number [facility] [address] [place] [address], [place] * 12 Lead EKG (10/11/2024 3:29 [...] NOW QTc 441 ms BEYOND NOW P [place] 83 degrees BEYOND NOW R [place] 53 degrees BEYOND NOW T Searcy 8 degrees BEYOND NOW 10/11/2024 3:29 PM CDT 10/12/2024 6:37 PM CDT Narrative [facility] - 10/12/2024 6:38 PM CDT Test Indication: PRE OP Hernan Oakley MD, PhD EKG ORD Fin al Result Performing Organization Address City/[facility]/ZIP Co de Phone Number [facility] NOW [place], [place] * CT CARDIAC CORONARY ARTERIES CV DUAL READ (09/22/2024 2:00 PM INDUSTRIAL EQUIPMENT MECHANIC) Anatomical Region Laterality Modality HEART Computed Tomogra phy 09/22/2024 1:51 PM INDUSTRIAL EQUIPMENT MECHANIC Narrative 09/22/2024 2:43 PM INDUSTRIAL EQUIPMENT MECHANIC [facility] Cardiac CT Report Name: MARINO ANDERSON V : Scan Date: Accession Number: [id number] Status: Final Electronically signed by Adonis Pedraza [...] related to calcification(s) or stent(s) noted. Low xunfemjc-ym-veexb ratio on images noted. CAD-RADS: CAD-RADS Classification [...] TYPE: Calcium score, Coronary CT Angiography SCANNER MECHANICAL DESIGN DRAFTER: SIEMENS SCANNER MODEL: [facility] DOSE REDUCTION ALGORITHM: Helical with dose modulation [...] TECHNOLOGIST: Monica Price BILLING ===== Patient Account [id number] ICD10 Codes R07.89 Report generated by [employer], a product of [employer] Procedure Note Aly Sparks MD - 09/22/2024 [facility] Cardiac CT Report Name: MARINO ANDERSON V : Scan Date: Accession Number: [id number] Status: Final Electronically signed by Adnois Pedraza 14:43:09 VITALS ===== HEIGHT: 67 in [...] artifact(s) related tocalcification(s) or stent(s) noted. Low xtuufupk-vu-fdzwa ratio on images noted. CAD-RADS: CAD-RADS Classification [...] TYPE: Calcium score, Coronary CT Angiography SCANNER MECHANICAL DESIGN DRAFTER: SIEMENS SCANNER MODEL: [facility] DOSE REDUCTION ALGORITHM: Helical with dose modulation [...] TECHNOLOGIST: Monica Price BILLING ===== Patient Account [id number] ICD10 Codes R07.89 Report generated by [employer], a product of [employer] us Marilu Kline MD CT Final Result * CTA FRACTIONAL FLOW RESERVE (09/22/2024 2:00 PM INDUSTRIAL EQUIPMENT MECHANIC) Anatomical Region Laterality Modality Computed Tomogra phy Narrative 09/23/2024 4:31 PM INDUSTRIAL EQUIPMENT MECHANIC Images from the original result were not [...] PATIENT: Results are automatically released to your [employer] ([employer]) account once available, in compliance with federal regulations. This means that you may see your results before your provider has had a chance to review them. Please allow 2-3 business days for your provider to comment on the results. Adonis Pedraza MD Cardiology [facility] [address], [address] 09/23/2024 4:28 PM us Marilu Kline MD CT Final Result * CT CARDIAC CORONARY ARTERIES RAD DUAL READ (09/22/2024 2:00 PM INDUSTRIAL EQUIPMENT MECHANIC) Anatomical Region Laterality Modality HEART Computed Tomogra phy 09/23/2024 2:22 PM INDUSTRIAL EQUIPMENT MECHANIC Impressions 09/23/2024 2:22 PM INDUSTRIAL EQUIPMENT MECHANIC : 1. See separate cardiology report for [...] PM (Electronically Signed) Narrative 09/23/2024 2:22 PM INDUSTRIAL EQUIPMENT MECHANIC For Patients: As a result of the [...] conjunction with the services provided by the [facility] ([facility]). INDICATION: Cardiac over-read. FINDINGS: The visualized lung [...] in conjunction with the services provided bythe [facility] ([facility]). INDICATION: Cardiac over-read. FINDINGS: The visualized lung [...] Final Result * CREATININE,ISTAT (09/22/2024 12:35 PM INDUSTRIAL EQUIPMENT MECHANIC) POCT,CREATININE , ISTAT 1.1 0.6 - 1.3 mg/dL [facility] [place] Blood BLOOD SPECIMEN / Unknown 09/22/2024 12:35 PM INDUSTRIAL EQUIPMENT MECHANIC 09/22/2024 12:36 PM INDUSTRIAL EQUIPMENT MECHANIC Watson Sargent MD CHEMISTRY Final R esult [facility] [address] [place] [address], [place] [facility] [address] [place] [address] * [place] READING EKG - NO CHARGE, COMP ONLY (09/14/2024 7:18 AM INDUSTRIAL EQUIPMENT MECHANIC) Marilu Kline MD PB - PROVIDER READING S Final Result * (ABNORMAL) HEMOGLOBIN A1C MONITORING (POCT) (09/13/2024 3:16 PM INDUSTRIAL EQUIPMENT MECHANIC) POC HEMOGLOBIN A1C 7.5(H) <6.0 % OF TOTAL HGB [facility] Comment: Any point of care results exhibiting inconsistency with the patient's clinical status should be repeated using a different testing method. Blood BLOOD SPECIMEN / Unknown 09/13/2024 3:16 PM INDUSTRIAL EQUIPMENT MECHANIC 09/13/2024 3:16 PM INDUSTRIAL EQUIPMENT MECHANIC Marilu Kline MD CHEMISTRY Final Result Performing Organization Address [facility] Co de Phone Number [facility] [address] [place] [address], [facility] [address] [place] [address] * XR MAMMO JUNG BILAT SCREEN (03/07/2024 [...] care provider. XR MAMMO JUNG BILAT SCREEN [[id number]] CLINICAL HISTORY: This is an asymptomatic 68 y.o. patient. INDICATION FOR EXAM: Mammogram Screening. TECHNIQUE: CC & MLO views were obtained. This study was evaluated with the assistance of Computer-Aided Detection. Breast Tomosynthesis was used in interpretation. COMPARISON FILM: Yes 02/24/23 [facility] 02/17/22 [facility] FINDINGS: The breasts are heterogeneously dense, [...] recommended in 3-5 years. Rochelle Monroe PA-C [facility] 11/07/2022 Narrative 11/07/2022 3:23 PM CDT For Patients: Results are automatically released to your [facility] ([employer]) account once available, in compliance with federal regulations. This means that you may see your results before your provider has had a chance to review them. Please allow 2-3 business days for your provider to comment on the results. XR DXA Bone Mineral Density (BMD) EXAM LOCATION: [address] [address] PATIENT NAME: Marino Anderson DATE OF : [...] two scanners are made by the same protective signal repairer helper. PROCEDURE: Dual-energy x-ray absorptiometry performed with routine [...] 9:31 AM Procedure Code(s): --- Professional --- 68214, Colonoscopy, flexible; diagnostic, including collection of specimen(s) bybrushing or washing, when performed (separateprocedure) Diagnosis Code(s): --- Professional --- Z80.0, Family history of malignant neoplasmof digestive organs Q43.8, Other specified congenitalmalformations of intestine CPT copyright 2020 [employer] [place] [employer]. All rights reserved. The codes documented in this report are preliminary and upon legal support assistant reviewmay be revised to meet current compliance requirements. Scope In: 10:08:25 AM Scope Withdrawal Time 0 hours 10 minutes 13 seconds Scope Out: 10:32:29 AM us Colten Tao MD PROCEDURE ORD Final Res ult * ANTI HCV (03/19/2005 11:50 AM CDT) ANTI HCV Non-reactiv e [facility] 03/19/2005 11:5 0 AM CDT 03/19/2005 6:53 PM CDT Narrative [facility] - 03/24/2005 2:00 PM CDT Testing Performed By [facility] Blood [place], [place] us Colten Tao MD SEND OUTS Final Res ult [facility] [address] [place] [address] from Last 3 Months or Most Recently Relevant to Health Maintenance Insurance [place] PB ONLY [place] HB ONLY MEDICARE PART B HB ONLY MEDICARE PART A HB ONLY Advance Directives Documents on File Type Date Recorded Patient Sales Floor Associate Expl anation Healthcare Directive 03/02/2024 3:49 PM Si gned 02/18/2024 Healthcare Directive 05/05/2016 12:12 PM A Alexandr SIMBA, 05/[birth year]/2006 * Full Code (Latest Code Status on File) Date Activated Date Inactivated Comments 10/11/2024 4:28 PM 10/12/2024 1:08 PM Question Answer Comments Code Status Discussion: Reviewed Preferences Care Teams Supervisor Paint Department Relationship Specialty Start Date End Date Marilu Kline MD [address] [place] [address] PCP - General 09/22/05 Jossie Gutierrez AuD [address] [facility] [place] [address] Audiology 10/14/[address] [place] [address] Hat Liner Food Or Baggage Handling [place] 06/16/22
[2024-11-05 09:20] LABS: Basophils Absolute Auto 0.03 K/uL (0.00-0.30); Basophils Percent Auto 0.5 % (0.0-3.0); Eosinophils Absolute Auto 0.01 K/uL (0.00-0.50); Eosinophils Percent Auto 0.2 % (0.0-7.0); Hematocrit 33.3 % (33.0-51.0); Hemoglobin* 10.9 gm/dL (12.0-16.0); Immature Granulocytes Abs Auto 0.01 K/uL (0.00-0.30); Immature Granulocytes Pct Auto 0.2 %; Lymphocytes Percent Auto 10.9 % (20-44); Mean Corpuscular HGB Conc 33 gm/dL (32-36); Mean Corpuscular Hemoglobin 34 pg (26-34); Mean Corpuscular Volume 103 fL (80-100); Monocytes Percent Auto 9.5 % (0.0-11.0); Neutrophils Percent Auto 78.7 % (42.0-72.0); Platelet Count* 290 K/uL (140-440); RDW Coefficient of Variation % 12.1 % (11.5-15.5); Red Blood Count 3.22 m/uL (4.00-5.20); White Blood Count* 5.58 K/uL (4.50-11.00)
[2024-11-05 09:21] LABS: Lactate* 0.8 mmol/L (0.5-1.9)
[2024-11-05 09:23] LABS: Slide Review Reflex No
[2024-11-05 09:28] LABS: Bacteria Urine Many; RBC Urine 0-2 (0-2); Squamous Epithelial Cell Urine Moderate (None-Few); WBC Urine 50-100 (0-5)
[2024-11-05 09:38] LABS: Albumin* 4.3 g/dL (3.3-5.0); Chloride* 99 mmol/L (96-114); Potassium* 3.8 mmol/L (3.6-5.1); Sodium* 133 mmol/L (135-149)
[2024-11-05 09:41] LABS: Alanine Aminotransferase* 70 U/L (4-35); Alkaline Phosphatase* 133 U/L (40-150); Anion Gap 9 mEq/L (7-15); Aspartate Amino Transferase* 58 U/L (12-35); Bilirubin Direct* 0.2 mg/dL (0.0-0.5); Bilirubin Total* 0.8 mg/dL (0.1-1.5); Blood Urea Nitrogen* 18 mg/dL (7-30); Carbon Dioxide* 25 mmol/L (20-32); Creatinine* 0.9 mg/dL (0.5-1.5); Est. Creatinine Clearance* 50.18; Estimated Glomerular Filt Rate 68 ml/min; Total Protein* 7.1 g/dL (6.0-8.3)
[2024-11-05 09:42] LABS: Calcium* 9.2 mg/dL (8.4-10.6); Glucose* 230 mg/dL (60-115)
[2024-11-05 09:44] LABS: C Reactive Protein* 2.2 mg/dL (0.5-1.0)
[2024-11-05 09:47] LABS: PCR FLU A Negative PCR FLU A (Negative); PCR FLU B Negative PCR FLU B (Negative); PCR RSV Negative PCR RSV (Negative); SARS PCR* Negative SARS-CoV-2 (Negative)
[2024-11-05 09:53] LABS: NT Pro B Type NatriureticPept* 369 pg/mL
[2024-11-05] MEDS: cefTRIAXone 2 GM in 0.9 % SODIUM CHLORIDE Mini-bag 100 ML IVPB (10:27)
[2024-11-05] MEDS: 0.9 % SODIUM CHLORIDE 1000 ml 1,000 ML 6000 ML IV (10:27)
[2024-11-05 11:01] VITALS: BP 134/81; PULSE 78; RESP 13; O2SAT 100
[2024-11-05 11:02] VITALS: PULSE 77; RESP 9; O2SAT 100
== END 2024-11-05 11:38 | disposition home or self-care (01) ==
PROVIDERS: Emergency Provider Family Medicine; PCP Family Medicine
DX: N39.0 Urinary tract infection, site not specified (principal); R50.9 Fever, unspecified; R53.1 Weakness; G89.18 Other acute postprocedural pain; M79.605 Pain in left leg; Z96.642 Presence of left artificial hip joint
CPT/HCPCS: 36415; 71275; 80048; 80076; 81001; 83605; 83880; 84484; 85025; 86140; 87040; 87086; 87631; 93970; 94761; 96365; 99284; 99285; J0696; J7030; Q9967

== ENCOUNTER 2024-11-14 17:38 | Emergency (ER) | payer MEDICARE, BC, SELFPAY ==
--- OUTSIDE RECORDS SUMMARY | 2024-11-14 17:41 | XMS_ITS | Clinical Summary ---
Author Organization [facility] Address [address] [place] [address] Care Team Providers Care Sample Card Maker Name Role Phone Marilu Kline MD Primary Care Provide r Jossie Gutierrez Leslie Unavailable [phone] Unavailable [phone] Allergies Active Allergy Reactions Criticality Noted Date Comments Ciprofloxacin Other - Describe In Comment Field,*Unknown High 05/18/2015 Loss sense of smell Other reaction(s): LOST HER SENSE OF SMELL ciprofloxacin lost sense of smell Clindamycin Rash Low 11/25/2006 Rash per patient history Lisinopril Cough Low 05/19/2017 Other reaction(s): COUGH Losartan Angioedema 05/20/2017 Naproxen Mental Status Change Low 01/18/2015 Feels light-headed and icky. Other reaction(s): LIGHTHEADED Medications cholecalciferol (VITAMIN D-3) 2,000 unit capsule Take 1 capsule by mouth once daily. 0 05/30/20 20 Active blood-glucose meterIndications :Diabetes mellitus without complication (HC) Dispense meter, test strips, lancets covered by pt ins; Kecia Contour Next meter (must be a Kecia product) and the test strips and lancets that go with this [id number] NIDDM type II - Test 2 times/day. Reason: High A1C HEMOGLOBIN A1C MONITORING (POCT) Date Value 11/30/2020 8.9 % (H) 1 Device 12/07/19 21 Active cyclobenzaprine (FLEXERIL) 10 mg tabletIndication s:Back spasm Take 1 Tablet (10 mg) by mouth 3 times daily if needed for Muscle Spasm. 20 Tablet 1 06/13/20 22 Active sennosides (SENNA) 8.6 mg tabletIndication s:Chronic constipation Take 2 Tablets (17.2 mg) by mouth two times daily. 08/10/19 24 Active calcium carbonate/vitami n D3 (CALTRATE 600 PLUS D ORAL) Take 1 Tablet by mouth once daily. Active Lactobac 40-Bifido 3-S.thermop (Probiotic) 100 billion cell cap Take 1 Tablet by mouth once daily. Active hdtialsw-kdn-zkw n-FA-vit K-lut (Centrum Silver Women) 8 mg iron-400 mcg-50 mcg tab Take 1 Tablet by mouth once daily. Active atenoloL (TENORMIN) 50 mg tabletIndication s:HTN (hypertension) Take 1 Tablet (50 mg) by mouth two times daily. 200 Tablet 3 01/08/20 24 Active atorvastatin (LIPITOR) 20 mg tabletIndication s:Coronary artery disease involving [place] coronary artery of [place] heart without angina pectoris Take 1 Tablet (20 mg) by mouth once daily. 100 Tablet 3 01/08/20 24 Active DULoxetine (CYMBALTA) 30 mg Delayed-release capsuleIndicatio ns:Moderate episode of recurrent major depressive disorder (HC),Anxiety Take 1 Capsule (30 mg) by mouth once daily. 100 Capsule 3 01/08/20 24 Active DULoxetine (CYMBALTA) 60 mg Delayed-release capsuleIndicatio ns:Moderate episode of recurrent major depressive disorder (HC) Take 1 Capsule (60 mg) by mouth once daily. 100 Capsule 3 01/08/20 24 Active glipiZIDE (GLUCOTROL) 10 mg tabletIndication s:Diabetes mellitus without complication (HC) Take 1 Tablet (10 mg) by mouth once daily before a meal. Take 30 minutes before the meal. 100 Tablet 3 01/08/20 24 Active traZODone (DESYREL) 50 mg tabletIndication s:Insomnia, idiopathic Take 1 Tablet (50 mg) by mouth at bedtime. 100 Tablet 3 01/08/20 24 Active amoxicillin (AMOXIL) 500 mg tabletIndication s:History of right hip replacement Take 4 tablets or 2 gms one hour prior to dental work. 12 Tablet 03/08/20 24 Active mirabegron EXTENDED-release (Myrbetriq) 50 mg tabletIndication s:Mixed stress and urge urinary incontinence Take 1 Tablet (50 mg) by mouth once daily. 100 Tablet 3 04/07/20 24 Active estradioL (ESTRACE) 0.01% (0.1 mg/g) vaginal creamIndications :Vaginal atrophy Insert 0.5 g into the vagina at bedtime. Insert 0.5g of cream into vaginal introitus at bedtime twice weekly 42.5 g 5 06/14/20 24 Active Ozempic 1 mg/dose (4 mg/3 mL) subcutaneous penIndications:T ype 2 diabetes mellitus without complication, without long-term current use of insulin (HC) Inject 1 mg subcutaneous once weekly. 9 mL 3 08/11/19 25 Active acetaminophen (TYLENOL EXTRA STRGTH) 500 mg tablet Take 1,000 mg by mouth every 6 hours if needed. 02/10/20 24 Active clonazePAM (KLONOPIN) 0.5 mg tabletIndication s:Anxiety Take 1 Tablet (0.5 mg) by mouth once daily if needed for Anxiety. 10 Tablet 09/28/19 25 Active celecoxib (CELEBREX) 200 mg capsuleIndicatio ns:Arthritis of left hip Take 1 Capsule (200 mg) by mouth once daily with a meal. 09/28/19 25 Active blood sugar diagnostic (Contour Next Test Strips) stripIndications :Type 2 diabetes mellitus without complication, without long-term current use of insulin (HC) TEST 3 TIMES/DAY. Uncontrolled diabetes 09/28/19 25 Active nitroglycerin (NITROSTAT) 0.4 mg sublingual tabletIndication s:Anginal equivalent Place 1 Tablet (0.4 mg) under the tongue every 5 minutes if needed for Chest Pain. Up to 3 tablets in 15 minutes. 25 Tablet 10/05/19 25 Active aspirin (ECOTRIN) 81 mg enteric coated tabletIndication s:CAD in [place] artery Take 1 Tablet (81 mg) by mouth once daily with a meal. 100 Tablet 3 10/15/19 25 Active Additional Information Patient taking differently:81 mg OralBID, Reported on 11/10/2024 oxyCODONE 5 mg immediate release tablet Take 5 mg by mouth every 6 hours if needed. 10/20/19 25 Active polyethylene glycoL 17 gram/scoop powder Mix 1 scoop in liquid then take by mouth once daily. 10/20/19 25 Active amLODIPine 5 mg tabletIndication s:HTN (hypertension) Take 1 Tablet (5 mg) by mouth once daily. 90 Tablet 3 10/27/19 25 Active amoxicillin-clav ulanate 875-125 mg tabletIndication s:Recurrent UTI Take 1 Tablet by mouth two times daily with meals for 7 days. 14 Tablet 11/11/19 25 025 Active aspirin enteric coated (ECOTRIN) 325 mg tablet Take 1 Tablet (325 mg) by mouth once daily with a meal. 0 10/24/19 22 Discontinu ed(*Medica tion adjustment ) polyethylene glycoL (MIRALAX) 17 gram/scoop powder Mix 17 g in liquid then take by mouth once daily if needed for Constipation. 025 Discontinu ed(Duplica te therapy (E-cancel not sent)) amLODIPine (NORVASC) 2.5 mg tabletIndication s:HTN (hypertension) Take 2 Tablets (5 mg) by mouth once daily. 09/13/19 25 025 Discontinu ed(*Med complete/R egimen complete/L evel of care change) Active Problems Problem Noted [...] Encounters Date Type Department Care Team Description 11/14/2024 Nurse Triage [facility] Centralized Nurse Triage Marilu Kline MD UTI 11/10/2024 10:45 AM CDT Office Visit [facility] [address] [place] [address] Marilu Kline MD ER Follow up (UTI, treated with IV antibiotics. Has oral as well./Has been running a temp all week/Told to discuss lungs, CT, and calcification in her breasts) 11/10/2024 Travel 11/05/2024 Orders Only [facility] Scanner 1 scan: (1-Ord) [facility], URINE CULTURE, 11/05/2024 11/05/2024 Orders Only [facility] Scanner 1 scan: (1-Ord) [facility], VENOUS LE BI, 11/05/2024 11/05/[address] [facility] Scanner 1 scan: (1-Ord) [facility], ANGIO CHEST PE , 11/05/2024 10/25/2024 2:40 PM CDT Office Visit [facility] [address] [place] [address] Marilu Kline MD Post-op (10/19/[address] Pierce/Knee and leg swollen and the knee hurts. Incision doing well./Had 2 BMs in a week. Doing all she can to get it moving./Is there some form of calcium that would not constipate her?) 10/25/2024 Travel 10/19/[address] [facility] Scanner 1 scan: (1-Ord) [place], XR HIP LEFT POST OP, 10/19/2024 10/19/[address] [facility] Scanner 1 scan: (1-Ord) [place], XR HIP LEFT 1V, 10/19/2024 10/14/2024 10:30 AM CDT Office Visit [facility] [address] [place] [address] Marilu Kline MD Pre-Op Exam (10/19/[address] [facility] /Glipizide dosing prior to surgery?); Post-op (Angiogram on 10/11/2024. No concerns just an update.); Medication Management (Should she restart Ozempic? Last used end ) 10/14/2024 Travel 10/11/2024 12:12 PM CDT - 10/12/2024 10:53 AM CDT Hospital Encounter [facility] [address] [place], [place] [id number] Hernan Oakley MD, PhD ASHD (Primary Dx); Atypical chest pain; CAD in [place] artery; Abnormal computed tomography angiography (CTA) Discharge Disposition: Home Self Care 10/11/2024 Telephone [facility] [address] [place] [address] Marilu Kline MD Follow Up 10/11/2024 Travel 10/04/2024 10:05 AM MARKETING CAMPAIGN ANALYST Office Visit [facility] [address] [place] [address] Marilu Kline MD Preoperative Exam (10/19/[address] [facility] ) 10/04/2024 Travel 09/26/2024 11:30 AM MARKETING CAMPAIGN ANALYST Office Visit [facility] [address] [place] [address] Hernan Oakley MD, PhD Consult (NIKKIE -REFERRED BY Marilu Kline MD/Dx: Atypical chest pain [R07.89]; Arthritis of left hip [M16.12]; CAD in [place] artery [I25.10] - CT @ [facility] last week- no outside cards- ALL RECORDS IN [facility]- LAST SEEN BY I 2016 /PT states feeling nervous /Not sure if she is having the chest pain still she noted) 09/26/2024 Travel 09/26/2024 Telephone [facility] [address] [place] [phone] Cardiology, Anw Appointment 09/23/2024 Telephone [facility] [address] [place] [address] Marilu Kline MD Results 09/22/2024 1:00 PM MARKETING CAMPAIGN ANALYST Ancillary Procedure [facility] [address] [facility] [address] [place] [address] 09/22/2024 12:40 PM MARKETING CAMPAIGN ANALYST Orders Only [facility] [address] [facility] [address] [place] [address] Lab 09/21/2024 Travel 09/15/2024 Orders Only [facility] [address] [place] [address] Watson Sargent MD <No scans attached> 09/14/2024 Orders Only [facility] [address] [place] [address] Marilu Kline MD 1 scan: (1-Ord) NFLD-EKG-2.11.25 09/13/2024 3:30 PM MARKETING CAMPAIGN ANALYST Office Visit [facility] [address] [place], [place] [phone] Marilu Kline MD Diabetes (Eye exam scheduled in October 2024/Ozempic cost is getting to be too much ); Blood Pressure (Home readings); Hip Pain/problem (Having surgery October 19, pre-op scheduled) 09/13/2024 Travel from Last 3 Months Immunizations Immunization Administration [...] IIV3 (Age 65+ Years) Preserv Free 04/07/2024,05/06/2019 [place] Encephalitis 07/08/2022 Pneumococcal Poly,23-Valent (Pneumovax) 2020 Pneumococcal [...] on file Legal Sex Female 6:19 AM MARKETING CAMPAIGN ANALYST Gender Identity Not on file Sexual Orientation [...] Sign Reading Time Taken Comments Blood Pressure 136/74 11/10/2024 11:02 AM CDT Pulse 73 11/10/2024 11:02 AM CDT Temperature 36.7 C (98.1 F) 11/10/2024 11:02 AM CDT Respiratory Rate 18 10/12/2024 12:13 AM CDT Oxygen Saturation 100% 11/10/2024 11:02 AM CDT Inhaled Oxygen Concentration - - Weight 65 kg (143 lb 3.2 oz) 11/10/2024 11:02 AM CDT Height 170.2 cm (5' 7) 10/11/2024 3:35 PM CDT Body Mass Index 22.43 10/11/2024 3:35 PM CDT Plan of Treatment Upcoming Encounters Date Type Department Care Team (Late st Contact Info) Description 11/17/2024 11:00 AM CDT Orders Only [facility] [address] [place] [address] Lab, [place] 11/21/2024 9:00 AM CDT Office Visit [facility] [address] [facility] [address] [place] [address] Hernan Oakley MD, PhD [address] [address] 11/22/2024 2:00 PM CDT Ancillary Procedure [facility] [address] [facility] [place] [address] 01/23/2025 10:30 AM CDT Office Visit [facility] [address] [facility] [address] [place] [address] Hernan Oakley MD, PhD [address] [address] 02/09/2025 8:00 AM CDT Ancillary Procedure [facility] [address] [facility] [place] [address] Health Maintenance Due Date Last Done Comments [...] Procedure Name Priority Date/Time Associated Diagnosis Comments SCAN-PATHOLOGY REPORT 11/05/2024 12:00 AM CDT SCAN-ULTRASOUND REPORT 11/05/2024 12:00 AM CDT SCAN-CT INTERPRETATION 11/05/2024 12:00 AM CDT SCAN-RADIOLOGY REPORT 10/19/2024 12:00 AM CDT SCAN-RADIOLOGY [...] PM CDT Atypical chest pain CAD in [place] artery Abnormal computed tomography angiography (CTA) GLUCOSE [...] FRACTIONAL FLOW RESERVE Routine 09/22/2024 2:00 PM MARKETING CAMPAIGN ANALYST Atypical chest pain CT CARDIAC CORONARY ARTERIES RAD DUAL READ Routine 09/22/2024 2:00 PM MARKETING CAMPAIGN ANALYST Atypical chest pain CT CARDIAC CORONARY ARTERIES CV DUAL READ Routine 09/22/2024 2:00 PM MARKETING CAMPAIGN ANALYST Atypical chest pain CREATININE,ISTAT Routine 09/22/2024 12:3 5 PM MARKETING CAMPAIGN ANALYST Preprocedural examination EKG 12 LEAD Routine 09/14/2024 7:19 AM MARKETING CAMPAIGN ANALYST Atypical chest pain VA READING EKG - NO CHARGE, COMP ONLY Routine 09/14/2024 7:18 AM MARKETING CAMPAIGN ANALYST Atypical chest pain HEMOGLOBIN A1C MONITORING (POCT) Routine 09/13/2024 3:16 PM MARKETING CAMPAIGN ANALYST Type 2 diabetes mellitus without complication, without [...] Recently Relevant to Health Maintenance Results * SCAN-PATHOLOGY REPORT (11/05/2024 12:00 AM CDT) us Scanner OTHER Final Result * SCAN-ULTRASOUND REPORT (11/05/2024 12:00 AM CDT) Anatomical Region Laterality Modality Other us Scanner OTHER Final Result * SCAN-CT INTERPRETATION (11/05/2024 12:00 AM CDT) Anatomical Region Laterality Modality Other us Scanner OTHER Final Result * SCAN-RADIOLOGY REPORT (10/19/2024 12:00 AM CDT) Only the most recent of2 resultswithin the time period is included. Anatomical Region Laterality Modality Other us Scanner OTHER Final Result * RUBEOLA IMMUNE STATUS (10/14/2024 11:50 AM CDT) MEASLES AB (IGG), IMMUNE STATUS 282.00 AU/mL [facility] Comment: AU/mL Interpretation ----- <13.50 Not consistent with immunity 13.50-16.49 Equivocal >16.49 Consistent with immunity The presence of measles IgG suggests immunization or past or current infection with measles virus. For additional information, please refer to http://education.Microtune/faq/FBP692 (This link is being provided for informational/ educational purposes only.) Blood BLOOD SPECIMEN / Unknown 10/14/2024 11:50 AM CDT 10/14/2024 11:54 AM CDT us Marilu Kline MD LABORATORY Final Result [facility] [address] [place] [address], [facility] [address] * (ABNORMAL) CBC AND DIFFERENTIAL (10/14/2024 11:50 AM CDT) Pathologist [facility] WHITE BLOOD CELL COUNT 5.5 3.8 - [...] us Marilu Kline MD HEMATOLOGY Final Result [facility] [place] [address] [place] [address], [facility] [address] * (ABNORMAL) BASIC METABOLIC PANEL (10/14/2024 11:50 AM CDT) Only the most recent of2 resultswithin the time period is included. GLUCOSE 108(H) 65 - 99 mg/dL [facility] Comment: Fasting reference interval For someone without known diabetes, a glucose value between 100 and 125 mg/dL is consistent with prediabetes and should be confirmed with a follow-up test. UREA NITROGEN (BUN) 25 7 - 25 mg/dL [facility] CREATININE 1.05(H) 0.60 - 1.00 mg/dL [facility] EGFR 57(L) > OR = 60 mL/min/1.7 3m2 [facility] BUN/CREATININE RATIO 24(H) 6 - 22 (calc) [facility] SODIUM 138 135 - 146 mmol/L [facility] POTASSIUM 4.5 3.5 - 5.3 mmol/L [facility] CHLORIDE 103 98 - 110 mmol/L [facility] CARBON DIOXIDE 27 20 - 32 mmol/L [facility] ELECTROLYTE BALANCE 8 7 - 17 mmol/L (calc) [facility] CALCIUM 9.8 8.6 - 10.4 mg/dL [facility] Blood BLOOD SPECIMEN / Unknown 10/14/2024 11:50 AM CDT 10/14/2024 11:54 AM CDT Marilu Kline MD CHEMISTRY Final Result Performing Organization Address City/[facility]/ZIP Co de Phone Number [facility] [address] [place] [address], [place] [phone] [facility] [address] [place] [address] * (ABNORMAL) GLUCOSE METER (10/12/2024 7:46 AM CDT) Only the most recent of5 resultswithin the time period is included. [facility] GLUCOSE METER 134(H) 65 - 100 mg/dL 10/12/2024 7:47 AM CDT [facility] Blood BLOOD SPECIMEN / Unknown 10/12/2024 7:46 AM CDT 10/12/2024 7:47 AM CDT Hernan Oakley MD, PhD CHEMISTRY Fin al Result [facility] [address] [place] [address], [place] * SCAN-CARDIAC STRIP (10/12/2024 7:00 AM CDT) us Scanner OTHER Final Result * SCAN-CARDIAC STRIP (10/12/2024 2:27 AM CDT) us Scanner OTHER Final Result * (ABNORMAL) ACTIVATED CLOTTING TIME [id number] ACT (10/11/2024 6:39 PM CDT) ACTIVATED CLOTTING TIME, POCT 276(H) 74 - 125 sec 10/11/2024 8:12 PM CDT [facility] Blood BLOOD SPECIMEN / Unknown 10/11/2024 6:39 PM CDT 10/11/2024 8:12 PM CDT us Hernan Oakley MD, PhD HEMATOLOGY Fin al Result [facility] [address] [place] [address], [place] * CVL CORONARY ANGIOGRAM POSS PCI (10/11/2024 6:19 PM CDT) Anatomical Region Laterality Modality X-Ray Angiograph y, X-Ray Angiography 10/11/2024 6:19 PM CDT Narrative Transcriptions Hernan Oakley MD, PhD - 10/11/2024 6:52 PM CDT [facility] Cardiac Catheterization Report Name: MARINO ANDERSON Event Date: 10/11/2024 18:19 [facility] ID #: [id number] LIGIA #: [id number] Patient Class: Outpatient Diagnostic Physician: HERNAN OAKLEY [facility] Referring Physician: Date: 1955 Gender: Female Age: [...] with primary physician * Follow up with tenant relations coordinator Consent & [place] Protocol The risks, benefits, and alternatives of the procedure were discussed withthe patient and written informed consent was obtained. [place] protocol was followed. TIME OUT conducted just prior tostarting procedure confirmed patient identity, site/side, procedure,patient position, and availability of correct equipment and implants (ifapplicable). Staff Name Title Hernan Oakley Diagnostic Wire Harness Design Engineer Anthony Covington Fellow Ruby Haskins RN Nurse Malcolm Lo CVT Scrub Carlos Rick RT(R) Monitor Procedures ? Ultrasound Guided Vascular Access ? Coronary Angiogram ? Coronary Fractional Flow Measurement Diagnostic Findings * Left Main Coronary Artery ? The LMCA is free of significant disease. * Left Anterior Descending ? 50% stenosis in the Mid LAD. The lesion has a BIRANA flow of 3. * Circumflex ? The [...] healthcare professional providing the sedation ends personal ovbqiqgunjseic-wa-hbap time with the patient. The medications listed above were verbally ordered by me and read back tome as documented above. Refer to the procedure log report for additional case details. electronically signed on 10/11/2024 6:52:35 PM with status of Final Hernan Oakley MD [facility] [address] [place] [address] (p) [phone](f) us Hernan Oakley MD, PhD CV IMAGING Onur austin Result - Final * (ABNORMAL) CBC with Platelets no Differential (10/11/2024 3:45 PM CDT) [facility] WHITE BLOOD COUNT 5.1 4.5 - 11.0 thou/cu mm 10/11/2024 4:01 PM CDT [facility] RED BLOOD COUNT 3.78(L) 4.00 - 5.20 mil/cu mm 10/11/2024 4:01 PM CDT [facility] HEMOGLOBIN 12.8 12.0 - 16.0 g/dL 10/11/2024 4:01 PM CDT [facility] HEMATOCRIT 37.5 33.0 - 51.0 % 10/11/2024 4:01 PM CDT [facility] MCV 99 80 - 100 fL 10/11/2024 4:01 PM CDT [facility] MCH 33.9 26.0 - 34.0 pg 10/11/2024 4:01 PM CDT [facility] MCHC 34.1 32.0 - 36.0 g/dL 10/11/2024 4:01 PM T [facility] RDW 11.9 11.5 - 15.5 % 10/11/2024 4:01 PM CDT [facility] PLATELET COUNT 211 140 - 440 thou/cu mm 10/11/2024 4:01 PM T [facility] MPV 10.0 6.5 - 11.0 fL 10/11/2024 4:01 PM CDT [facility] NRBC 0.0 % 10/11/2024 4:01 PM T [facility] ABS NRBC 0.0 thou /cu mm 10/11/2024 4:01 PM T [facility] Blood BLOOD SPECIMEN / Unknown Venipuncture / Unknown 10/11/2024 3:45 PM CDT 10/11/2024 3:51 PM CDT [facility] - 10/11/2024 4:01 PM CDT If not done within past 14 days. Nurse to release order. us Hernan Oakley MD, PhD HEMATOLOGY Fin al Result Performing Organization Address City/[facility]/ZIP Co de Phone Number [facility] [address] [place] [address], [place] * LIPID PANEL (10/11/2024 3:45 PM CDT) CHOLESTEROL,TOTAL 113 100 - 199 mg/dL 10/11/2024 4:19 PM CDT [facility] Comment: Cholesterol, Total Reference Ranges Desirable <200 mg/dL Borderline 200-239 mg/dL High >=240 mg/dL TRIGLYCERIDES 88 <150 mg/dL 10/11/2024 4:19 PM CDT [facility] HDL CHOLESTEROL 42 >40 mg/dL 4:19 PM CDT [facility] NON-HDL CHOLESTEROL 71 <145 mg/dl 10/11/2024 4:19 PM CDT [facility] CHOL/HDL RATIO 2.69 <4.50 10/11/2024 4:19 PM CDT [facility] LDL CHOLESTEROL 53 <=130 mg/dL 10/11/2024 4:19 PM CDT [facility] VLDL CHOLESTEROL 18 <=30 mg/dL 10/12/19 25 4:19 PM CDT [facility] Blood BLOOD SPECIMEN / Unknown Venipuncture / Unknown 10/11/2024 3:45 PM CDT 10/11/2024 3:51 PM CDT us Monica Brar NP CHEMISTRY Final Result Performing Organization Address City/[facility]/ZIP Co de Phone Number [facility] [address] [place] [address], [place] * EXTRA TUBE GOLD/SST (10/11/2024 3:42 PM CDT) Blood BLOOD SPECIMEN / Unknown Non-Lab Venipuncture / Unknown 10/11/2024 3:42 PM CDT 10/11/2024 3:53 PM CDT Hernan Oakley MD, PhD LABORATORY Fin al Result Performing Organization Address City/[facility]/ZIP Co de Phone Number [facility] [address] [place] [address], [place] * 12 Lead EKG (10/11/2024 3:29 [...] NOW QTc 441 ms BEYOND NOW P [place] 83 degrees BEYOND NOW R Madison 53 degrees BEYOND NOW T Madison 8 degrees BEYOND NOW 10/11/2024 3:29 PM CDT 10/12/2024 6:37 PM CDT Narrative BEYOND NOW - 10/12/2024 6:38 PM CDT Test Indication: PRE OP Hernan Oakley MD, PhD EKG ORD Fin al Result Performing Organization Address City/[facility] Co de Phone Number BEYOND NOW [place], [place] * CT CARDIAC CORONARY ARTERIES CV DUAL READ (09/22/2024 2:00 PM MARKETING CAMPAIGN ANALYST) Anatomical Region Laterality Modality HEART Computed Tomogra phy 09/22/2024 1:51 PM MARKETING CAMPAIGN ANALYST Narrative 09/22/2024 2:43 PM MARKETING CAMPAIGN ANALYST [facility] Cardiac CT Report Name: MARINO ANDERSON V : Scan Date: Accession Number: [id number] Status: Final Electronically signed by Adonis Pedraza [...] related to calcification(s) or stent(s) noted. Low iuckpobc-zk-wfcnx ratio on images noted. CAD-RADS: CAD-RADS Classification [...] TYPE: Calcium score, Coronary CT Angiography SCANNER [employer]: [employer] SCANNER MODEL: Thomas-Krenn DOSE REDUCTION ALGORITHM: Helical with dose modulation [...] TECHNOLOGIST: Monica Price BILLING ===== Patient Account [id number] ICD10 Codes R07.89 Report generated by [employer], a product of [employer] Procedure Note Aly Sparks MD - 09/22/2024 [facility] Cardiac CT Report Name: MARINO ANDERSON Luther : Scan Date: Accession Number: [id number] Status: Final Electronically signed by Adonis Pedraza [...] artifact(s) related tocalcification(s) or stent(s) noted. Low bdhumwtw-lo-mlsqb ratio on images noted. CAD-RADS: CAD-RADS Classification [...] TYPE: Calcium score, Coronary CT Angiography SCANNER FARM[employer]: [employer] SCANNER MODEL: [facility] DOSE REDUCTION ALGORITHM: Helical with dose modulation [...] TECHNOLOGIST: Monica Price BILLING ===== Patient Account [id number] ICD10 Codes R07.89 Report generated by [employer], a product of [employer] us Marilu Kline MD CT Final Result * CTA FRACTIONAL FLOW RESERVE (09/22/2024 2:00 PM MARKETING CAMPAIGN ANALYST) Anatomical Region Laterality Modality Computed Tomogra phy Narrative 09/23/2024 4:31 PM MARKETING CAMPAIGN ANALYST Images from the original result were not [...] PATIENT: Results are automatically released to your [employer] ([employer]) account once available, in compliance with federal regulations. This means that you may see your results before your provider has had a chance to review them. Please allow 2-3 business days for your provider to comment on the results. Adonis Pedraza MD Cardiology [facility] [address], [address] 09/23/2024 4:28 PM us Marilu Kline MD CT Final Result * CT CARDIAC CORONARY ARTERIES RAD DUAL READ (09/22/2024 2:00 PM MARKETING CAMPAIGN ANALYST) Anatomical Region Laterality Modality HEART Computed Tomogra phy 09/23/2024 2:22 PM MARKETING CAMPAIGN ANALYST Impressions 09/23/2024 2:22 PM MARKETING CAMPAIGN ANALYST : 1. See separate cardiology report for [...] PM (Electronically Signed) Narrative 09/23/2024 2:22 PM MARKETING CAMPAIGN ANALYST For Patients: As a result of the Cures Act, medical imaging exams and procedure [...] conjunction with the services provided by the [facility] ([facility]). INDICATION: Cardiac over-read. FINDINGS: The visualized [...] in conjunction with the services provided bythe [facility] ([facility]). INDICATION: Cardiac over-read. FINDINGS: The visualized [...] Final Result * CREATININE,ISTAT (09/22/2024 12:35 PM MARKETING CAMPAIGN ANALYST) POCT,CREATININE , ISTAT 1.1 0.6 - 1.3 mg/dL [facility] (Urgent Care) Blood BLOOD SPECIMEN / Unknown 09/22/2024 12:35 PM MARKETING CAMPAIGN ANALYST 09/22/2024 12:36 PM MARKETING CAMPAIGN ANALYST Watson Sargent MD CHEMISTRY Final R esult [facility] [address] [place] [address], [facility] (Urgent Care) [address] [place] [address] * [facility] READING EKG - NO CHARGE, COMP ONLY (09/14/2024 7:18 AM MARKETING CAMPAIGN ANALYST) Marilu Kline MD PB - PROVIDER READING S Final Result * (ABNORMAL) HEMOGLOBIN A1C MONITORING (POCT) (09/13/2024 3:16 PM MARKETING CAMPAIGN ANALYST) POC HEMOGLOBIN A1C 7.5(H) <6.0 % OF TOTAL HGB [facility] Comment: Any point of care results exhibiting inconsistency with the patient's clinical status should be repeated using a different testing method. Blood BLOOD SPECIMEN / Unknown 09/13/2024 3:16 PM MARKETING CAMPAIGN ANALYST 09/13/2024 3:16 PM MARKETING CAMPAIGN ANALYST Marilu Kline MD CHEMISTRY Final Result Performing Organization Address City/State/[facility] Co de Phone Number [facility] [address] [place] [address], [facility] [address] [place] [address] * XR MAMMO JUNG BILAT SCREEN (03/07/2024 [...] For Patients: As a result of the 21st Century Cures Act, medical imaging exams and procedure reports are released immediately into your electronic medical record. You may view this report before your referring provider. If you have questions, please contact your health care provider. XR MAMMO JUNG BILAT SCREEN [[id number]] CLINICAL HISTORY: This is an asymptomatic 68 y.o. patient. INDICATION FOR EXAM: Mammogram Screening. TECHNIQUE: CC & MLO views were obtained. This study was evaluated with the assistance of Computer-Aided Detection. Breast Tomosynthesis was used in interpretation. COMPARISON FILM: Yes [facility] 02/17/22 [facility] FINDINGS: The breasts are heterogeneously dense, which [...] recommended in 3-5 years. Rochelle Monroe PA-C [facility] 11/07/2022 Narrative 11/07/2022 3:23 PM CDT For Patients: Results are automatically released to your [facility] ([employer]) account once available, in compliance with federal regulations. This means that you may see your results before your provider has had a chance to review them. Please allow 2-3 business days for your provider to comment on the results. XR DXA Bone Mineral Density (BMD) EXAM LOCATION: [address] [address] PATIENT NAME: Marino Anderson DATE OF : 1955 EXAM DATE: 11/06/2022 REQUESTING PROVIDER: Jerica Soares MD GENDER AT : female HEIGHT: 5' 7.21 (11/05/2022) WEIGHT: 156 lb (11/05/2022) MENOPAUSAL STATUS: Postmenopausal RACE/ETHNICITY: White RISK FACTORS: Family History of Osteoporosis and White Race CURRENT MEDICATION FOR BONE LOSS: NONE INDICATION: Follow-up of existing osteopenia and Post-Menopause COMPARISON DATE(S): 2018 DXA scans are compared to prior studies for a patient only when the two (or more) studies were performed on the same scanner. It is not possible to compare data generated on one scanner to data from another because there are not standards in DXA equipment. This applies even if the two scanners are made by the same manager of loss prevention operations. PROCEDURE: Dual-energy x-ray absorptiometry performed with routine [...] 9:31 AM Procedure Code(s): --- Professional --- 20711, Colonoscopy, flexible; diagnostic, including collection of specimen(s) bybrushing or washing, when performed (separateprocedure) Diagnosis Code(s): --- Professional --- Z80.0, Family history of malignant neoplasmof digestive organs Q43.8, Other specified congenitalmalformations of intestine CPT copyright 2020 [employer]. All rights reserved. The codes documented in this report are preliminary and upon insurance coder reviewmay be revised to meet current compliance requirements. Scope In: 10:08:25 AM Scope Withdrawal Time 0 hours 10 minutes 13 seconds Scope Out: 10:32:29 AM us Colten Tao MD PROCEDURE ORD Final Res ult * ANTI HCV (03/19/2005 11:50 AM CDT) ANTI HCV Non-reactiv e [facility] 03/19/2005 11:5 0 AM CDT 03/19/2005 6:53 PM CDT Narrative [facility] - 03/24/2005 2:00 PM CDT Testing Performed By [place], [place] Colten Tao MD SEND OUTS Final Res ult [facility] [address] [place] [address] from Last 3 Months or Most Recently Relevant to Health Maintenance Insurance [employer] BLUE MR PB ONLY [employer] BLUE HB ONLY MEDICARE PART B HB ONLY MEDICARE PART A HB ONLY Advance Directives Documents on File Type Date Recorded Patient Pest Management Supervisor Expl anation Healthcare Directive 03/02/2024 3:49 PM Si gned 02/18/2024 Healthcare Directive 05/05/2016 12:12 PM A Alexandr [place], 05/25/2006 * Full Code (Latest Code Status on File) Date Activated Date Inactivated Comments 10/11/2024 4:28 PM 10/12/2024 1:08 PM Question Answer Comments Code Status Discussion: Reviewed Preferences Care Teams Sample Card Maker Relationship Specialty Start Date End Date Marilu Kline MD [address] [facility] [place] [address] PCP - General 09/22/05 Jossie Gutierrez AuD [address] [place] [address] Audiology 10/14/[address] [place] [address] Sharepoint Analyst Embossing Press Operator Apprentice 06/16/22
--- OUTSIDE RECORDS SUMMARY | 2024-11-14 17:41 | XMS_ITS | Data Portability ---
Author Organization [facility], [facility] Address [address] [place] [address] Care Team Providers Care Modular Set Crew Member Name Role Phone ELIUDKAREEME Primary Care Provider Assessment No assessment recorded. Plan of Treatment Reminders Order Date Submit Date Provider Last Modified By Organization Details Last Modified Time Details Appointments None recorded. Lab urinalysi s, dipstick 2022 023 [email or web address] [facility], [address], [place], [address], 12:06:45 Referral None recorded. Procedures None recorded. Surgeries None recorded. Imaging None recorded. Medication Orders None recorded. Patient TargetsNo targets recorded. Patient InstructionsNo instructions recorded. Reason for Referral None Reported. Results Created Date Observation Date Name Description Value Unit Range Abnormal Flag Note LastModifiedBy Organization Detail LastModifiedTime 02/28/2002/27/2023 urina lysis , dipst ick Color-Status Yellow Not Available [facility] [address], [place], [address], 02/27/2023 12:23:40 02/28/2002/27/2023 urina lysis , dipst ick Clarity-Stat us Clear Not Available [facility] [address], [place], [address], 02/27/2023 12:23:40 02/28/20 23 02/27/2023 urina lysis , dipst ick Glucose-Stat us Negati ve Not Available [facility] [address], [place], [address], 02/27/2023 12:23:40 02/28/20 23 02/27/2023 urina lysis , dipst ick Bilirubin-St atus Negati ve Not Available [facility] [address], [place], [address], 02/27/2023 12:23:40 02/28/20 23 02/27/2023 urina lysis , dipst ick Ketones-Stat us Negati ve Not Available [facility] [address], [place], [address], 02/27/2023 12:23:40 02/28/20 23 02/27/2023 urina lysis , dipst ick Sp [place]-Stat us 1.015 Not Available [facility] [address], [place], [address], 02/27/2023 12:23:40 02/28/20 23 02/27/2023 urina lysis , dipst ick pH-Status 5.5 Not Available [facility] [address], [place], [address], 02/27/2023 12:23:40 02/28/20 23 02/27/2023 urina lysis , dipst ick Urobilinogen -Status 0.2 Not Available [facility] [address], [place], [address], 02/27/2023 12:23:40 02/28/20 23 02/27/2023 urina lysis , dipst ick Nitrates-Sta tus negati ve Not Available [facility] [address], [place], [address], 02/27/2023 12:23:40 07/2802/27/2023 urina lysis , dipst ick Blood-Status Negati ve Not Available [facility] [address], [place], [address], 02/27/2023 12:23:40 02/28/20 23 02/27/2023 urina lysis , dipst ick Leuko-Status Negati ve Not Available [facility] [address], [place], [address], 02/27/2023 12:23:40 02/28/20 23 02/27/2023 urina lysis , dipst ick Specimen Type Voided Not Available [facility] [address], [place], [address], 02/27/2023 12:23:40 02/28/20 23 02/27/2023 urina lysis , dipst ick Performed by Edita Foreman RN Not Available [facility] [address], [place], [address], 02/27/2023 12:23:40 02/28/20 23 02/27/2023 urina lysis , dipst ick Total Urine Volume 20cc Not Available [facility] [address], [place], [address], 02/27/2023 12:23:40 03/31/20 23 03/31/2023 urina lysis , dipst ick Color-Status Yellow Not Available [facility] [address], [place], [address], 03/31/2023 11:48:37 03/31/20 23 03/31/2023 urina lysis , dipst ick Clarity-Stat us Clear Not Available [facility] [address], [place], [address], 03/31/2023 11:48:37 03/31/20 23 03/31/2023 urina lysis , dipst ick Glucose-Stat us 100 Not Available [facility] [address], [place], [address], 03/31/2023 11:48:37 03/31/20 23 03/31/2023 urina lysis , dipst ick Bilirubin-St atus Negati ve Not Available [facility] [address], [place], [address], 03/31/2023 11:48:37 03/31/20 23 03/31/2023 urina lysis , dipst ick Ketones-Stat us Negati ve Not Available [facility] [address], [place], [address], 03/31/2023 11:48:37 03/31/20 23 03/31/2023 urina lysis , dipst ick Sp [place]-Stat us 1.010 Not Available [facility] [address], [place], [address], 03/31/2023 11:48:37 03/31/20 23 03/31/2023 urina lysis , dipst ick pH-Status 5.0 Not Available [facility] [address], [place], [address], 03/31/2023 11:48:37 03/31/20 23 03/31/2023 urina lysis , dipst ick Urobilinogen -Status 0.2 Not Available [facility] [address], [place], [address], 03/31/2023 11:48:37 03/31/20 23 03/31/2023 urina lysis , dipst ick Nitrates-Sta tus negati ve Not Available [facility] [address], [place], [address], 03/31/2023 11:48:37 03/31/20 23 03/31/2023 urina lysis , dipst ick Blood-Status Negati ve Not Available [facility] [address], [place], [address], 03/31/2023 11:48:37 03/31/20 23 03/31/2023 urina lysis , dipst ick Leuko-Status Negati ve Not Available [facility] [address], [place], [address], 03/31/2023 11:48:37 03/31/20 23 03/31/2023 urina lysis , dipst ick Specimen Type Voided Not Available [facility] [address], [place], [address], 03/31/2023 11:48:37 03/31/20 23 03/31/2023 urina lysis , dipst ick Performed by Edita Foreman RN Not Available [facility] [address], [place], [address], 03/31/2023 11:48:37 Result Notes None recorded. Problems Name Problem SNOMED Code Status Onset Date Resolution Date Notes Provider Name and Address Organization Details Recorded Time Incontinenc e 96575200 Completed 202009/03/2021 Edita adame [facility] 12:21:26 Overactive urinary bladder 116745889 Active 2021 Edita adame [facility] 14:00:51 Problem Notes None recorded. Procedures Surgical History Date Name Laterality Status Provider Name and Address Organization Details Recorded Time 023 Bladder Scan completed Irma Pineda [facility] 03/31/2023 11:48:29 023 PTNM (Percutaneous Tibial Neuromodulation (PTNS) completed Edita Foreman [facility] 03/27/2023 11:55:38 023 PTNM (Percutaneous Tibial Neuromodulation (PTNS) completed [facility] 03/20/2023 09:20:26 023 PTNM (Percutaneous Tibial Neuromodulation (PTNS) completed Edita [facility] 03/12/2023 11:02:03 023 PTNM (Percutaneous Tibial Neuromodulation (PTNS) completed Eden [facility] 03/03/2023 14:13:27 023 PTNM (Percutaneous Tib[facility]) [facility] 02/27/2023 12:26:36 023 PTNM (Percutaneous Tibial Neuromodulation (PTNS) completed [facility] 02/20/2023 12:29:24 023 PTNM (Percutaneous Tibial Neuromodulation (PTNS) completed [facility] 02/13/2023 11:54:21 023 PTNM (Percutaneous Tibial Neuromodulation (PTNS) [facility] 02/06/2023 12:38:37 023 PTNM (Percutaneous Tibial Neuromodulation (PTNS) completed Eden Rodriguez [facility] 01/27/2023 14:22:48 023 PTNM (Percutaneous Tibial Neuromodulation (PTNS) completed [facility] 01/21/2023 15:56:17 023 PTNM (Percutaneous Tibial Neuromodulation (PTNS) completed [facility] 01/16/2023 13:04:42 023 PTNM (Percutaneous Tibial Neuromodulation (PTNS) completed [facility] 01/09/2023 10:39:51 023 Bladder Scan completed [facility] 12/16/2022 11:34:04 023 Bladder Scan completed Lucretia Matute [facility] 10/07/2022 14:44:51 022 Bladder Scan completed Franko Smith [facility] 06/03/2022 12:34:54 022 Cystoscopy with Botox Injections completed Xin Chiang MD [address] [place] [address],[address], [place], [address], [place] [facility] 04/22/2022 15:25:31 022 Bladder Scan completed Rebeka Noe [facility] 11/12/2021 15:55:49 022 Bladder Scan completed Rebeka Noe [facility] 10/01/2021 16:38:05 022 Bladder Scan completed Marybel Karimi [facility] 09/11/2021 12:39:30 Macrobid post cysto completed Edita Foreman [facility] 09/03/2021 12:20:37 022 Cystoscopy with Botox Injections completed Xin Chiang MD [address] [place] [address],[address], [place], [address], [place] [facility] 09/03/2021 12:40:54 021 Bladder Scan completed MIC STRONG [address] [place] [address],[address], [place], [address], [facility] 06/18/2021 11:30:27 021 Bladder Scan completed Denilson Rivera [facility] 03/06/2021 15:51:34 021 CystoscopyFemale completed Xin Chiang MD [address] [place] [address],[address], [place], [address], [facility] 01/29/2021 11:41:17 021 Bladder Scan completed Xin Chiang MD [address] [place] [address],[address], [place], [address], [place] [facility] 01/29/2021 11:29:50 021 Orthopedic Surgery completed Xin Chiang MD [address] [place] [address],[address], [place], [address], [facility] 01/29/2021 11:19:58 015 Colonoscopy completed Xin Chiang MD [address] [place] [address],[address], [place], [address], [facility] 01/29/2021 11:19:42 Imaging Results None recorded. Procedure Notes None recorded. Medical Equipment None Reported. Allergies Allergen ID Allergen Name Allergen Category Reaction Reaction Severity Criticality Documentation Date Start Date Code Code System Note Provider Name and Address Organization Details Recorded Time 999785 ciproflox acin medicatio n Not available Not available Not available 01/29/2021 2551 RxNorm loss of smell Not Available Not Available Not Available 104986 clindamyc in Not available rash Not available Not available 01/29/2021 2582 RxNorm Not Available Not Available Not Available 564276 lisinopri l medicatio n cough Not available Not available 01/29/2021 40675 RxNorm Not Available Not Available Not Available 892800 losartan medicatio n angioedem a Not available Not available 01/29/2021 82810 RxNorm Not Available Not Available Not Available 422429 naproxen medicatio n Not available Not available [...] Updated DateTime 03/31/2023 170.18 cm 24.3 kg/m2 98668.82 g Irma Miriam [facility] 03/31/2023 11:39:39 Social History Question Answer Notes LastModified by Organizat ion Details LastModified Time Tobacco Smoking Status Never Smoker Xin Chiang MD [address] [place] [address],[address], [place], [address], [facility] 01/29/2021 11:17:11 What Is Your Level [...] o Information not available 01/29/2021 Preferred Language Lithuanian Information not available 01/29/2021 Number Of Pregnancies [...] Not available 11:20:50 Medical History Condition Response Sexually Transmitted Infection N Diabetes Y Bleeding Disorder N High Blood Pressure Y Kidney Stones N Cancer N Depression Y Lung Disease N High Cholesterol Y GERD/Acid Reflux N Heart [...] adjuvanted, quadrivalent, PF 2 completed Chelle adame [facility] 07/28/2023 17:43:14 COVID-19, mRNA, LNP-S, PF, 100 mcg/0.5mL dose or 50 mcg/0.25mL dose 2 completed Chelle adame [facility] 07/28/2023 17:43:14 COVID-19, mRNA, LNP-S, bivalent, PF, 50 mcg/0.5 mL or 25mcg/0.25 mL dose 3 completed Chelle adame [facility] 07/28/2023 17:43:14 COVID-19, mRNA, LNP-S, bivalent, PF, 50 mcg/0.5 mL or 25mcg/0.25 mL dose 2 completed Chelle Allar null, [facility] 07/28/2023 17:43:14 Frisian Encephalitis IM 2 completed Chelle Allar null, [facility] 07/28/2023 17:43:14 typhoid, ViCPs 2 completed Chelle Allar null, [facility] 07/28/2023 17:43:14 Influenza, adjuvanted, quadrivalent, PF 0 completed Rebeka Stromquist null, [facility] 10/01/2021 16:26:07 Influenza, split virus, trivalent, preservative 4 completed Rebeka Stromquist null, [facility] 10/01/2021 16:26:07 Influenza, split virus, quadrivalent, PF 6 completed Rebeka Stromquist null, [facility] 10/01/2021 16:26:07 Influenza, split virus, trivalent, preservative 7 completed Rebeka Stromquist null, [facility] 10/01/2021 16:26:07 Influenza, split virus, quadrivalent, PF 8 completed Rebeka Stromquist null, [facility] 10/01/2021 16:26:07 Influenza, split virus, quadrivalent, PF 7 completed Rebeka Stromquist null, [facility] 10/01/2021 16:26:07 zoster live 4 completed Rebeka Stromquist null, [facility] 10/01/2021 16:26:07 Influenza, high-dose, quadrivalent, PF 1 completed Rebeka Stromquist null, [facility] 10/01/2021 16:26:07 Influenza, split virus, quadrivalent, PF 0 completed Rebeka Stromquist null, [facility] 10/01/2021 16:26:07 Pneumococcal conjugate PCV 13 9 completed Rebeka Stromquist null, [facility] 10/01/2021 16:26:07 COVID-19, mRNA, LNP-S, PF, 100 mcg/0.5mL dose or 50 mcg/0.25mL dose 1 completed Rebeka Stromquist null, [facility] 10/01/2021 16:26:07 Td (adult), 2 Lf tetanus toxoid, preservative free, adsorbed 9 completed Rebeka Stromquist null, [facility] 10/01/2021 16:26:07 Td (adult), 2 Lf tetanus toxoid, preservative free, adsorbed 3 completed Rebeka Stromquist null, [facility] 10/01/2021 16:26:07 Influenza, split virus, trivalent, preservative 1 completed Rebeka Stromquist null, [facility] 10/01/2021 16:26:07 zoster recombinant 8 completed Rebeka Stromquist null, [facility] 10/01/2021 16:26:07 Novel [id number], preservative-free 0 completed Rebeka Stromquist null, [facility] 10/01/2021 16:26:07 Influenza, split virus, trivalent, PF 0 completed Rebeka Stromquist null, [facility] 10/01/2021 16:26:07 zoster recombinant 8 completed Rebeka Stromquist null, [facility] 10/01/2021 16:26:07 DT (pediatric) 6 completed Rebeka Stromquist null, [facility] 10/01/2021 16:26:07 Influenza, adjuvanted, trivalent, PF 9 completed Rebeka Stromquist null, [facility] 10/01/2021 16:26:07 Influenza, split virus, trivalent, preservative 2 completed Rebeka Stromquist null, [facility] 10/01/2021 16:26:07 COVID-19, mRNA, LNP-S, PF, 100 mcg/0.5mL dose or 50 mcg/0.25mL dose 1 completed Rebeka Hasmukh null, [facility] 10/01/2021 16:26:07 COVID-19, mRNA, LNP-S, PF, 100 mcg/0.5mL dose or 50 mcg/0.25mL dose 1 completed Rebeka Andrewquist null, [facility] 10/01/2021 16:26:07 DT (pediatric) 9 completed Rebeka Stromquist null, [facility] 10/01/2021 16:26:07 Tdap 9 completed Rebeka Stromquist null, [facility] 10/01/2021 16:26:07 Influenza, split virus, quadrivalent, PF 5 completed Rebeka Andrewquist null, [facility] 10/01/2021 16:26:07 pneumococcal polysaccharide PPV23 0 completed Rebeka Hasmukh null, [facility] 10/01/2021 16:26:07 Past Encounters Encounter ID Performer Location Encounter Start Date Encounter Closed Date Diagnosis/Indication Diagnosis SNOMED-CT Code Diagnosis ICD10 Code Diagnosis Note [id number] Xin Chiang MD [facility] [address] [place] [id number] 01/29/2021 10:44:40 01/30/2021 14:11:14 Urge incontinence of urine 96988475 N39.41 I went over treatment options for OAB including diet modificati on, biofeedbac k, medication s, In tone, Urgent PC, Sacral Neuromodul ation ( Axonics and Interstim) and Botox injections A trial of ditropan, f/u in one monthVoidi ng diary 24 hourSling is not not a good options given low severity of her stress incotinenc e. [id number] MELINA Lal [facility] [address] [place] [id number] 03/06/2021 15:33:32 03/08/2021 16:51:28 Urge incontinence of urine 78568144 N39.41 Unable to tolerate oxybutynin start tolterodin eProvided samples of gemtesaDis cussed 3rd line OAB treatment; pt interested in botoxI went over treatment options for OAB including diet modificati on, biofeedbac k, medication s, In tone, Urgent PC, Sacral Neuromodul ation ( Axonics and Interstim) and Botox injections [id number] MIC STRONG [facility] [address] [place] [address] 06/18/2021 11:07:26 06/19/2021 12:05:14 Overactive urinary bladder 603379653 N32.81 - Went over SNS and Botox, leaning towards Botox, schedule with LS when ready- Continue myrbetriq 50 mg daily [id number] Xin Chiang MD [facility] [address] [place] [id number] 09/03/2021 11:57:52 09/06/2021 10:21:35 Overactive urinary bladder 921406585 N32.81 fu in one week for PVRfu in 2 months on her symptoms [id number] Marybel Trev [facility] [address] [place] [id number] 09/11/2021 12:22:14 09/16/2021 10:05:02 Recurrent urinary tract infection 320860479 N39.0 UA clean; PVR 10- post botox one week [id number] MELINA Lal [facility] [address] [place] [id number] 10/01/2021 16:13:37 10/03/2021 14:24:19 Overactive urinary bladder 298808886 N32.81 Chronic, improved with botox 100UShe empties bladder wellUA blandConti nue botox; okay to call to schedule 6 months from botox appt [id number] MELINA Lal [facility] [address] [place] [id number] 11/12/2021 15:37:56 11/15/2021 15:24:01 Overactive urinary bladder 934995731 N32.81 UA blandChron ic, needs improvemen tMay benefit from higher dosage of botox 150U nextShe empties bladder wellContin ue botox; okay to call to schedule 6 months from botox appt [id number] MD JOHNNY [facility] [address] [place] [id number] 04/22/2022 13:23:12 04/23/2022 13:33:54 Overactive urinary bladder [id number] N32.81 fu in 6 weeks on her symptoms [id number] HUDSON [facility] [address] [place] [id number] 06/03/2022 12:18:25 06/04/2022 12:04:27 Overactive urinary bladder 253891818 N32.81 -Botox 150 U with only 30% improvemen t of symptoms-C ontinues on Myrbetriq 25 mg-Advised follow up with GP regarding DM2 control and see if better control of this would help with symptoms-B riefly discussed SNS, informatio n packet given today.-Fol low up in 3 months [id number] HUDSON [facility] [address] [place] [id number] 10/07/2022 14:24:39 10/11/2022 10:03:54 Overactive urinary bladder 647111802 N32.81 -On myrbetriq 50 mg, mostly good [...] with symptoms about 6 weeks after botox [id number] MD JOHNNY [facility] [address] [place] [address] 12/09/2022 11:04:11 12/10/2022 15:21:47 Overactive urinary bladder 105179295 N32.81 Doing well. No UTI S&S. UA is completely negative today. UC sent. LANRE Lucero/BSN [id number] Xin Chiang MD [facility] [address] [place] [id number] 12/16/2022 10:58:12 12/17/2022 15:16:47 Overactive urinary bladder 212945657 N32.81 I discussed other options for OA [...] Tibial Nerve Stimulatio n (PTNS), CPT code 80608 for 12 weeks. Following the 12 weekly [...] the pt Urinary tr act infectious disease 60067679 N39.0 UTI prevention discussed ( estrace/D mannose/cr anberry pills)Idea lly she needs 6 months UTI free to proceed with Botox Female str ess incontinence 16630293 N39.3 She will resume pessary for stress incontinen ce [id number] Edita Foreman [facility] [address] [place] [id number] 01/09/2023 10:00:02 01/14/2023 14:01:26 Overactive urinary bladder 101760152 N32.81 PTNS [id number] Edita [facility] [address] [place] [id number] 01/16/2023 10:21:33 01/20/2023 12:33:40 Overactive urinary bladder 776055914 N32.81 PTNS [id number] Edita [facility] [address] [place] [address] 01/21/2023 13:59:50 01/22/2023 15:56:42 Overactive urinary bladder 260373735 N32.81 PTNS [id number] Edenjaskaran Rodriguez [facility] [address] [place] [id number] 01/27/2023 13:55:41 02/04/2023 09:30:28 Overactive urinary bladder 955224690 N32.81 PTNS [id number] Edita Foreman [facility] [address] [place] [address] 02/06/2023 11:31:25 02/11/2023 12:03:18 Overactive urinary bladder 550165578 N32.81 PTNS [id number] Edita Foreman [facility] [address] [place] [address] 02/13/2023 11:32:19 02/27/2023 10:28:58 Overactive urinary bladder 763759070 N32.81 PTNS [id number] Edita [facility] [address] [place] [address] 02/20/2023 11:33:43 02/25/2023 14:00:08 Overactive urinary bladder 527894724 N32.81 PTNS [id number] Edita Foreman [facility] [address] [place] [address] 02/27/2023 11:33:18 03/02/2023 14:57:06 Increased frequency of urination 753365458 R35.0 patient reports recently completing a course of abx for UTI- she isnt sure if her sx are gone. I gathered UA to ensure no UTI Overactive urinary bladder 444131474 N32.81 PTNS Urinary tr act infectious disease 24732566 N39.0 UTI prevention discussed ( estrace/D mannose/cr anberry pills) [id number] Eden Jennifer [facility] [address] [place] [id number] 03/03/2023 13:41:19 03/04/2023 16:23:41 [id number] Edita [facility] [address] [place] [address] 03/12/2023 10:45:05 03/16/2023 11:54:01 Overactive urinary bladder 602484975 N32.81 PTNS [id number] Edita Foreman [facility] [address] [place] [address] 03/20/2023 09:03:54 03/25/2023 12:50:49 Overactive urinary bladder 112234113 N32.81 PTNS [id number] Edita Foreman [facility] [address] [place] [address] 03/27/2023 11:29:11 03/30/2023 16:09:53 [id number] Xin Chiang MD [facility] [address] [place] [id number] 03/31/2023 11:16:53 04/03/2023 14:34:44 Overactive urinary bladder 945391468 N32.81 After completing PTNS with minimal improvemen [...] Member ID Guarantor Name 03/03/2023 1 [place] [id number] Saadia V Kristopher [id number] Saadia Kristopher 03/12/2023 1 [place] [id number] Saadia V Kristopher [id number] Saadia Kristopher 03/20/2023 1 [place] [id number] Saadia V Kristopher [id number] Saadia Kristopher 03/27/2023 1 [place] [id number] Saadia V Kristopher [id number] Saadia Kristopher 03/31/2023 1 [place] [id number] Saadia V Kristopher [id number] Saadia Kristopher Notes Date Note Type Note Provider Name and Address Organization Details Recorded Time 03/03/2023 text/html 67 yo female presents for PTNM #9 Eden adame [facility] 03/03/2023 14:13:53 03/12/2023 text/html 67 yo female presents for PTNM #10 Edita Ahsan adame [facility] 03/12/2023 11:56:59 03/20/2023 text/html 67 yo female presents for PTNM #11 Edita Nguyensuzie adame [facility] 03/20/2023 09:24:59 03/27/2023 text/html 67 YO LS patient with OAB here to initiate PTNS treatment #12/ No prior auth needed- scanned in chart Initial/baseline Sx:daytime Frequency: 5Nocturia: 2Accidents: 4-5/day Post PTNS Sx:Daytime Frequency: 4Nocturia:2-3Pads: 5/day Conclusion: no improvement with PTNS Edita adame [place] [facility] 03/27/2023 11:56:00 03/31/2023 text/html 67 yo s/p PTNS. [place] not report any improvement with PTNS. Incontinence primarily during the night, as well as first thing in the morning. She tried :- Oxybutynin (>3 mo, d/c with dry mouth and not effective)- Tolterodine (d/c with minimal improvement)- Myrbetriq (Cost prohibitive). Cysto 04/2022 is normal. UAPVRBladder QA: Xin Chiang MD [address] [place] [address], [address], [facility] 03/31/2023 13:57:29 OBGyn Episode No OBEpisode recorded.
--- OUTSIDE RECORDS SUMMARY | 2024-11-14 17:42 | XMS_ITS | Clinical Summary ---
Author Organization [facility] Address [address] [place] [address] Care Team Providers Care Cyber Incident Handler Name Role Phone None Reported, Pcp Primary Care Provider Unavail able Source Comments Patient records contain information from all sites at [facility]. For routine questions regarding patient records, call [phone] during business hours, M-F 8:00 AM - 5:00 PM Central Time. Record requests for emergency care only can be directed to [phone] at any time.[facility] Allergies Active Allergy Reactions Criticality Noted [...] represent a complete record from that organization. vlucibcg-raf-f orion-FA-vit K-lut (Centrum Silver Women) 8 mg [...] Active blood-glucose meter (Contour Next EZ Meter) [facility] [place] Admin Instructions. 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 at [facility] Explanted:Qty : 1 on 02/24/2024 by Israel Christianson M.D. at [facility] Sacral Nerve Stimulator N/A: Sacrum Medtronic 11/21/2024 [id number] / / [id number] Kt Lead Nrstm Int [facility] Perq - [id number] Implanted:Qty : 1 on 02/10/2024 by [facility] M[facility] at [facility] Ex[facility]ed:Qty : 1 on 02/24/2024 by Israel Christianson M.D. at [facility] Sacral Nerve Stimulator N/A: Sacrum Medtronic 01/27/2025 [id number] / / [id number] Procedures Procedure Name Priority Date/Time Associated Diagnosis [...] ADD-ON Final Resul t Performing Organization Address City/[facility] Co de Phone Number [facility] [address] [place], [place] [id number] [place] [address] [address] * (ABNORMAL) Hemoglobin A1c (02/01/2024 11:29 AM [...] ADD-ON Final Resul t Performing Organization Address City/[facility]/ZIP Co de Phone Number [facility] [address] [place], [place] [phone] [place] [address] [place] [address] * Albumin, Random, Urine (06/03/2023 8:24 AM CDT) Albumin, Random, U 12.3 mg/L 2022 12:58 PM CDT DTL Comment: ----ADDITIONAL INFORMATION---- This test has been modified from the tailercpa's instructions. Its performance characteristics were determined by [facility] in a manner consistent with CLIA requirements. This test has not been cleared or approved by the U.S. Food and Drug Administration. Creatinine 176 mg/dL 06/03/2023 11:16 AM CDT DTL Albumin/Creatinine Ratio 7 <25 mg/g 06/03/2023 12:58 PM CDT DTL Urine (Urine, Midstream) 06/03/2023 8:24 AM CDT 06/03/2023 10:22 AM CDT us Karyna Browne M.D. LAB URINE ORDERABLES Final Result [facility] [address] [place] [address], [facility] [address] [address] * (ABNORMAL) Lipid Panel (06/03/2023 8:17 AM [...] ADD-ON Final Resu lt Performing Organization Address [facility] Co de Phone Number [facility] [address] [place] [address], [facility] DTL [facility] [address] [place] [address] * XR MAMMO JUNG BILAT SCREEN-Outside Mammogram [...] PROCEDURES Final R esult Performing Organization Address City/[facility] Co de Phone Number I[facility] NA from Last 3 Months or Most Recently Relevant to Health Maintenance Insurance MEDICARE [facility] Advance Directives For more information, please contact: [phone] Documents on File Type Date Recorded Patient Cigarette Machine Filler Expl anation Advance Directives 02/24/2024 6:25 AM Micah Summers HCPOA/ADVOCATE/AGENT/R EPRESENTATIVE/SURROGAT E Healthcare Agents on File Name Relationship Healthcare Agent Relationship Communication Micah Summers Spouse Health Care Agent [email or web address] Matt Summers Child First Alternate Health Care Agent [email or web address] Care Teams Cyber Incident Handler Relationship Specialty Start Date End Date None Reported, Pcp PCP - General 06/10/24
[2024-11-14 17:51] VITALS: BP 133/75; PULSE 83; RESP 18; TEMP 36.6; O2SAT 99; BMI 22.9
[2024-11-14 18:22] LABS: Appearance Urine Clear (Clear); Bilirubin Urine Negative (Negative); Blood Urine Negative (Negative); Color Urine Yellow (Yellow); Glucose Urine Negative (Negative); Ketones Urine Negative (Negative); Leukocyte Esterase Urine Negative (Negative); Nitrite Urine Negative (Negative); Protein Urine Trace (Negative); Specific Gravity Urine >= 1.030 (1.000-1.030); Urobilinogen Urine 0.2 (0.2-1.0)
[2024-11-14 18:32] LABS: RBC Urine 0-2 (0-2); Squamous Epithelial Cell Urine Few (None-Few); WBC Urine 0-2 (0-5)
--- NOTE | 2024-11-14 18:49 | CRLHL7_ITS ---
For Patients: As a result of the Century Cures Act, medical imaging exams and procedure reports are released immediately into your electronic medical record. You may view this report before your referring provider. If you have questions, please contact your health care provider. Indication: Weakness, tiredness, incontinence worse at night, suprapubic pain Technique: CT through the abdomen and pelvis following 71 mL Isovue 370 IV contrast Comparison: None Findings: Lower chest: No acute abnormality appreciated. Hepatobiliary: No significant parenchymal abnormality is appreciated. Cholecystectomy. Spleen: Unremarkable. Pancreas: No acute abnormality appreciated. Adrenal glands: No acute abnormality appreciated. Kidneys: No significant parenchymal abnormality appreciated. No visualized calculi. No hydronephrosis. Bowel: No obstruction. No focal perienteric or pericolonic stranding is appreciated. The appendix is visualized and appears unremarkable. Vascular: Calcified atherosclerosis. Lymph nodes: No gross lymphadenopathy. Peritoneum: No free air. No free fluid. : No acute abnormality appreciated. Soft tissues: No acute abnormality appreciated. Postoperative changes to the thighs. Bones: No acute fracture. No lytic or blastic lesion. Bilateral hip replacements. Degenerative changes of the spine. Impression: No acute abnormality appreciated to account for patient`s reported symptoms. Please note that all CT scans at this facility use dose modulation, iterative reconstruction, and/or weight-based dosing when appropriate to reduce radiation dose to as low as reasonably achievable. Dictated by Orlando Amaro MD @ 11/14/2024 7:59:45 PM (Electronically Signed)
--- OUTSIDE RECORDS SUMMARY | 2024-11-14 18:55 | XMS_ITS | Clinical Summary ---
Author Organization [facility] Address [address] [place] [address] Care Team Providers Care Printed Circuit Boards Stripper Etcher Name Role Phone None Reported, Pcp Primary Care Provider Unavail able Source Comments Patient records contain information from all sites at [facility]. For routine questions regarding patient records, call [phone] during business hours, M-F 8:00 AM - 5:00 PM Central Time. Record requests for emergency care only can be directed to [phone] at any time.[facility] [...] represent a complete record from that organization. blobnews-dyt-h orion-FA-vit K-lut (Centrum Silver Women) 8 mg [...] Active blood-glucose meter (Contour Next EZ Meter) [facility] [place] Admin Instructions. 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 at [facility] Explanted:Qty : 1 on 02/24/2024 by Israel Christianson M.D. at [facility] Sacral Nerve Stimulator N/A: Sacrum Medtronic 11/21/2024 [id number] / / [id number] Kt Lead Nrstm Int [facility] Perq - [id number] Implanted:Qty : 1 on 02/10/2024 by [facility] M[facility] at [facility] Explanted:Qty : 1 on 02/24/2024 by Israel Christianson M.D. at [facility] Sacral Nerve Stimulator N/A: Sacrum [employer]tronic 01/27/2025 [id number] / / [id number] Procedures Procedure Name Priority Date/Time Associated Diagnosis [...] ADD-ON Final Resul t Performing Organization Address City/[facility] Co de Phone Number [facility] [address] [place], [place] [phone] [place] [address] [address] * (ABNORMAL) Hemoglobin A1c (02/01/2024 11:29 AM [...] ADD-ON Final Resul t Performing Organization Address City/[facility]/ZIP Co de Phone Number [facility] [address] [place], [place] [phone] [place] [address] [place] [address] * Albumin, Random, Urine (06/03/2023 8:24 AM CDT) Albumin, Random, U 12.3 mg/L 2022 12:58 PM CDT DTL Comment: ----ADDITIONAL INFORMATION---- This test has been modified from the medical affairs director's instructions. Its performance characteristics were determined by [...] Browne M.D. LAB URINE ORDERABLES Final Result [facility] [address] [place] [address], [facility] [address] [address] * (ABNORMAL) Lipid Panel (06/03/2023 8:17 AM [...] ADD-ON Final Resu lt Performing Organization Address [facility] Co de Phone Number [facility] [address] [place] [address], [facility] DTL [facility] [address] [place] [address] * XR MAMMO JUNG BILAT SCREEN-Outside Mammogram [...] PROCEDURES Final R esult Performing Organization Address City/[facility] Co de Phone Number IIMS NA from Last 3 Months or Most Recently Relevant to Health Maintenance Insurance MEDICARE [facility] Advance Directives For more information, please contact: [phone] Documents on File Type Date Recorded Patient Home Care Attendant Expl anation Advance Directives 02/24/2024 6:25 AM Micah Summers HCPOA/ADVOCATE/AGENT/R EPRESENTATIVE/SURROGAT E Healthcare Agents on File Name Relationship Healthcare Agent Relationship Communication Micah Summers Spouse Health Care Agent [email or web address] Matt Summers Child First Alternate Health Care Agent [email or web address] Care Teams Printed Circuit Boards Stripper Etcher Relationship Specialty Start Date End Date None Reported, Pcp PCP - General 06/10/24
[2024-11-14 19:07] LABS: Basophils Percent Auto 0.7 % (0.0-3.0); Eosinophils Percent Auto 3.7 % (0.0-7.0); Hematocrit 34.5 % (33.0-51.0); Hemoglobin* 11.2 gm/dL (12.0-16.0); Immature Granulocytes Pct Auto 0.2 %; Lymphocytes Percent Auto 32.3 % (20-44); Mean Corpuscular HGB Conc 33 gm/dL (32-36); Mean Corpuscular Hemoglobin 33 pg (26-34); Mean Corpuscular Volume 103 fL (80-100); Monocytes Percent Auto 11.5 % (0.0-11.0); Neutrophils Percent Auto 51.6 % (42.0-72.0); Platelet Count* 295 K/uL (140-440); RDW Coefficient of Variation % 11.8 % (11.5-15.5); Red Blood Count 3.35 m/uL (4.00-5.20); White Blood Count* 4.09 K/uL (4.50-11.00)
[2024-11-14 19:09] LABS: Slide Review Reflex No
--- NOTE | 2024-11-14 19:11 | ED.GENADULT ---
HPI - General Adult General Date Seen: 11/14/24 Chief complaint: Unspecified Complaint, Adult Stated complaint: bladder infection Time Seen by Provider: 11/14/24 18:31 Source: patient Mode of arrival: ambulatory Limitations: no limitations History of Present Illness HPI narrative: Patient is a 69-year-old female presenting to the emergency department for suprapubic discomfort and left hip pain. She had a left hip replacement done 1 month ago and had follow-up for this earlier this month. At that time she is also having this same hip pain. She spoke to orthopedic provider that time and was told to continue to ice it an use her walking cane as needed. She was seen in the emergency department on 11/05/2024 for UTI. Was discharged on antibiotics there were eventually changed due to her sensitivities. She feels the antibiotics but does not feel like she ever fully resolved her UTI symptoms. States sometimes she will have intermittent suprapubic discomfort. Has not noticed any burning with urination. Is becoming more incontinent at night. She has been having issues with incontinence for several years and has seen several providers for this but no cause of the incontinence was over phone. She states now she seems to be quite incontinent at night and feels 1 of her depends every few hours at night. States she does not urinate much at all during the day. This has been gone for the past few days. Also states today she felt like her arms and knees were very ?shaky.? Denies having symptoms like that before. States that has since resolved. Overall she states she is not feeling well. Denies fevers. Is not sure she was having chills or not. Denies chest pain, shortness of breath, headache, lightheadedness, dizziness, weakness, numbness. Is feeling fatigued. She is also having some low back pain worse on the left than the right. Has had issues with back pain before. Pain does not radiate down her leg. Denies any saddle anesthesia. Does state does not feel like she is fully emptying her bladder. Related Data Home Medications ?Medication ?Instructions ?Recorded ?Confirmed amoxicillin 500 mg capsule 2,000 mg PO DIRECTED 12/06/22 11/14/24 atenolol 50 mg tablet 50 mg PO BID 12/06/22 11/14/24 atorvastatin 20 mg tablet 20 mg PO DAILY 12/06/22 11/14/24 clonazepam 0.5 mg tablet 0.5 mg PO DAILY PRN 12/06/22 11/14/24 cyclobenzaprine 10 mg tablet 10 mg PO TID PRN 12/06/22 11/14/24 duloxetine 30 mg capsule,delayed 30 mg PO HS 12/06/22 11/14/24 release duloxetine 60 mg capsule,delayed 60 mg PO QAM 12/06/22 11/14/24 release estradiol 0.01% (0.1 mg/gram) 0.5 g vaginal .2x/week 12/06/22 11/14/24 vaginal cream mirabegron 50 mg tablet,extended 50 mg PO DAILY 12/06/22 11/14/24 release 24 hr (Myrbetriq) semaglutide 1 mg/dose (4 mg/3 mL) 1 mg subcut QWEEK 04/18/24 11/14/24 subcutaneous pen injector (Ozempic) glipizide 10 mg tablet 10 mg PO DAILY 10/17/24 11/14/24 amlodipine 2.5 mg tablet 5 mg PO DAILY 10/19/24 11/14/24 aspirin 81 mg tablet,delayed 81 mg PO DAILY 10/19/24 11/14/24 release (Ecotrin Low Strength) celecoxib 200 mg capsule 200 mg PO DAILY 10/19/24 11/14/24 nitroglycerin 0.4 mg sublingual 0.4 mg sublingual Q5M PRN 10/19/24 11/14/24 tablet omega 8-cbe-bbd-fish oil 1,000 mg 3 cap PO DAILY PRN 10/19/24 11/14/24 (120 mg-180 mg) capsule (Fish Oil) polyethylene glycol 3350 17 17 g PO DAILY 10/19/24 11/14/24 gram/dose oral powder (ClearLax) sennosides 8.6 mg tablet (senna) 17.2 mg PO BID 10/19/24 11/14/24 trazodone 50 mg tablet 50 mg PO HS 10/19/24 11/14/24 Previous Rx's ?Medication ?Instructions ?Recorded acetaminophen 500 mg capsule 500 - 1,000 mg (1 - 2 x 500 mg) PO 10/19/24 Q6H PRN #100 caps aspirin 81 mg tablet,delayed 81 mg PO BID #50 tabs 10/19/24 release rivaroxaban 10 mg tablet 10 mg PO DAILY #4 tabs 10/19/24 sennosides 8.6 mg-docusate sodium 1 - 4 tab-cap (1 - 4 x 8.6-50 mg) 10/19/24 50 mg tablet (Senna-S) PO BID PRN constipation #60 tabs oxycodone 5 mg tablet 2.5 - 5 mg (0.5 - 1 x 5 mg) PO 11/03/24 Q4-6H PRN pain #20 tabs diclofenac sodium 1 % topical gel 4 g topical QID pain #100 grams 11/04/24 (Arthritis Pain (diclofenac)) sulfamethoxazole 800 1 tab PO BID 7 days #14 tabs 11/05/24 mg-trimethoprim 160 mg tablet Allergies Allergy/AdvReac Type Severity Reaction Status Date / Time ciprofloxacin (From Cipro) Allergy Unknown Unknown Verified 11/14/24 19:10 clindamycin Allergy Unknown Rash Verified 11/14/24 19:10 lisinopril Allergy Unknown Cough Verified 11/14/24 19:10 naproxen AdvReac Unknown light Verified 11/14/24 19:10 headedness Review of Systems Status of ROS: Reports: 10 or more systems reviewed and unremarkable except as noted in History and below [facility] Medical History Overactive bladder ?N32.81 - Overactive bladder (ICD-10) Insomnia, idiopathic ?F51.01 - Primary insomnia (ICD-10) Anxiety ?F41.9 - Anxiety disorder, unspecified (ICD-10) Bilateral sensorineural hearing loss ?H90.3 - Sensorineural hearing loss, bilateral (ICD-10) Postmenopausal atrophic vaginitis ?N95.2 - Postmenopausal atrophic vaginitis (ICD-10) Incontinence ?R32 - Unspecified urinary incontinence (ICD-10) Stage 3a chronic kidney disease ?N18.31 - Chronic kidney disease, stage 3a (ICD-10) VIRIDIANA (obstructive sleep apnea) ?G47.33 - Obstructive sleep apnea (adult) (pediatric) (ICD-10) Depressive disorder ?F32.A - Depression, unspecified (ICD-10) Chronic nonalcoholic liver disease ?K76.9 - Liver disease, unspecified (ICD-10) Mixed hyperlipidemia ?E78.2 - Mixed hyperlipidemia (ICD-10) ASHD (arteriosclerotic heart disease) ?I25.10 - Atherosclerotic heart disease of [place] coronary artery without angina pectoris (ICD-10) Hypertension ?I10 - Essential (primary) hypertension (ICD-10) Type II diabetes mellitus ?E11.9 - Type 2 diabetes mellitus without complications (ICD-10) Surgical History H/O oophorectomy Hx of colonoscopy ?Z98.890 - Other specified postprocedural states (ICD-10) S/P total left hip arthroplasty (10/19/24) ?Z96.642 - Presence of left artificial hip joint (ICD-10) History of laparoscopic cholecystectomy (~2017) ?Z90.49 - Acquired absence of other specified parts of digestive tract (ICD-10) History of total right hip replacement (12/24/20) ?Z96.641 - Presence of right artificial hip joint (ICD-10) Family History Sister Diabetes Hernan's thyroiditis Other Breast cancer Colon cancer Social History Narrative: Has a couple drinks per year. Denies tobacco and recreational drug use. What is your current living situation?: I presently have a place to live Problems where you live: no known problems In the past 12 months, utilities in danger of being shut off: no In past 12 months, lack of transportation kept you from medical appts, meetings, work, or getting things needed for daily living: no In the past 12 mos, have been you worried that your food would run out before you had money to buy more?: never true In the past 12 mos, the food you bought just didn't last and you didn't have money to buy more?: never true Smoking Status: Never smoker How often do you have a drink containing alcohol: never AUDIT-C Alcohol total score: 0 Non-prescribed substance use: denies use Caffeine: No How often does anyone, including family, friends and others, physically hurt you: never How often does anyone, including family, friends and others, insult or talk down to you: never How often does anyone, including family, friends and others, threaten you with harm: never How often does anyone, including family, friends and others, scream or curse at you: never Exam Narrative: Exam Narrative: Const: Well-nourished, Well-developed, in mild distress Eyes: PERRL, no conjunctival injection, and symmetrical lids HENT: Atraumatic external nose and ears. Moist mucous membranes. Neck: Symmetric, trachea midline, No thyromegaly. CVS: RRR, No murmurs or gallops. Peripheral pulses 2+ and equal in all extremities RESP: Unlabored respiratory effort. Clear to auscultation bilaterally. GI: Nontender/Nondistended, No rebound or guarding. MSK:Extremities w/o deformity, Normal Active ROM Skin: Warm, Dry. No rashes or lesions. Neuro: Normal Muscle tone, No focal neurological deficits. Psych: Awake, Alert, & Oriented x3. Appropriate mood and affect. Const: Vital Signs, click to edit/add: Vital Signs - 24 hr 11/14/24 17:51 Temperature 97.9 F Pulse Rate [Right Pulse Oximeter] 83 Respiratory Rate 18 Blood Pressure [Ri ght Upper Arm] 133/75 Pulse Oximetry 99 Oxygen Delivery Me thod Room Air Course Vital Signs Vital signs: Initial Vital Signs Temperature 97.9 F 11/14/24 17:51 Temperature Source Temporal Artery Scan 11/14/24 17:51 Pulse Rate 83 11/14/24 17:51 Pulse Rhythm Regular 11/14/24 17:51 Pulse Strength 3+ Normal 11/14/24 17:51 Respiratory Rate 18 11/14/24 17:51 Blood Pressure 133/75 11/14/24 17:51 Blood Pressure Mean 94 11/14/24 17:51 Blood Pressure Position Sitting 11/14/24 17:51 Pulse Oximetry 99 11/14/24 17:51 Oxygen Delivery Method Room Air 11/14/24 17:51 Vital Signs Temperature 97.9 F 11/14/24 17:51 Pulse Rate 83 11/14/24 17:51 Respiratory Rate 18 11/14/24 17:51 Blood Pressure 133/75 11/14/24 17:51 Pulse Oximetry 99 11/14/24 17:51 Oxygen Delivery Method Room Air 11/14/24 17:51 Temperature 97.9 F 11/14/24 17:51 Pulse Rate 83 11/14/24 17:51 Respiratory Rate 18 11/14/24 17:51 Blood Pressure 133/75 11/14/24 17:51 Pulse Oximetry 99 11/14/24 17:51 Oxygen Delivery Method Room Air 11/14/24 17:51 Medical Decision Making MDM Narrative Medical decision making narrative: Patient is a 69-year-old female presenting for concerns of UTI and issues with her left hip replacement. She has some concern her left hip could be infected but the surgical site looks well there is no surrounding erythema. No tenderness to palpation of the hip. I believe the chances of hip infection are low at this time. She is having these exact same symptoms when she saw orthopedics and they cleared her at that time. Urinalysis was done and triage which came back showing no signs of UTI but she is having suprapubic discomfort so will do CT scan for better evaluation. Considering her age shows doing EKG and troponin along with a CBC, and BMP. She is having this concern about urinary retention during her episodes of incontinence but it seems like this is a chronic issue and not acute. Her back pain is also a chronic problem. Cauda equina seems very unlikely. Lab work returned showing no concerning abnormalities. EKG shows no concerning abnormalities. CT scan returned showing no concerning findings. This time I believe the patient is safe for discharge. I am unsure what is causing her problems but do not see any emergent issues. No is agreeable to discharge. Lab Data Labs: Lab Results 11/14/24 11/14/24 11/14/24 Range/Units 18:13 18:48 18:55 WBC 4.09 L (4.50-11.00) K/uL RBC 3.35 L (4.00-5.20) m/uL Hgb 11.2 L (12.0-16.0) gm/dL Hct 34.5 (33.0-51.0) % MCV 103 H (80-100) fL MCH 33 (26-34) pg MCHC 33 (32-36) gm/dL RDW Coeff of Aracelis 11.8 (11.5-15.5) % Plt Count 295 (140-440) K/uL Neut % (Auto) 51.6 (42.0-72.0) % Lymph % (Auto) 32.3 (20-44) % Giles % (Auto) 11.5 H (0.0-11.0) % Eos % (Auto) 3.7 (0.0-7.0) % Baso % (Auto) 0.7 (0.0-3.0) % Neut # (Auto) 2.10 (1.7-7.0) K/uL Lymph # (Auto) 1.30 (0.90-2.90) K/uL Giles # (Auto) 0.50 (0.00-0.90) K/UL Eos # (Auto) 0.20 (0.00-0.50) K/uL Baso # (Auto) 0.00 (0.00-0.30) K/uL Abs Immat Gran (auto) 0.00 (0.00-0.30) K/uL Imm/Tot Granulo (auto) 0.2 % Sodium 134 L (135-149) mmol/L Potassium 4.2 (3.6-5.1) mmol/L Chloride 101 (96-114) mmol/L Carbon Dioxide 23 (20-32) mmol/L Anion Gap 10 (7-15) mEq/L BUN 26 (7-30) mg/dL Creatinine 1.0 (0.5-1.5) mg/dL Estimated Creat Clear 50.18 Estimated GFR 60 ml/min Glucose 173 H (60-115) mg/dL Calcium 9.1 (8.4-10.6) mg/dL Troponin I < 0.01 (0.01-0.04) ng/mL Urine Color Yellow (Yellow) Urine Appearance Clear (Clear) Urine pH 6.0 (5.0-8.5) Ur Specific [place] >= 1.030 (1.000-1.030) Urine Protein Trace A (Negative) Urine Glucose (UA) Negative (Negative) Urine Ketones Negative (Negative) Urine Blood Negative (Negative) Urine Nitrite Negative (Negative) Urine Bilirubin Negative (Negative) Urine Urobilinogen 0.2 (0.2-1.0) Ur Leukocyte Esterase Negative (Negative) Urine RBC 0-2 (0-2) Urine WBC 0-2 (0-5) Ur Squamous Epith Cells Few (None-Few) Urine Bacteria None (None) POC Creatinine 1.1 (0.6-1.3) mg/dl Imaging Data CT scan abdomen and pelvis: Attestation: I have reviewed the pertinent imaging results. Radiologist's impression: No acute abnormality appreciated to account for patient`s reported symptoms. Please note that all CT scans at this facility use dose modulation, iterative reconstruction, and/or weight-based dosing when appropriate to reduce radiation dose to as low as reasonably achievable. Dictated by Orlando Amaro MD @ 11/14/2024 7:59:45 PM ECG Data Attestation: I personally reviewed and interpreted this ECG as follows: Prior ECG tracings: not available for review Interpretation: Normal sinus rhythm with a rate of 81 beats per minute, normal intervals, normal axis, no ST or T-wave abnormalities Discharge Plan Discharge Clinical Impression: Suprapubic discomfort, Urinary frequency Fatigue Qualifiers: Fatigue type: unspecified Qualified Code(s): R53.83 - Other fatigue Patient Disposition: Home, Self-Care Condition: Stable Instructions: Polyuria (ED) Additional Instructions: I am not sure what is causing your symptoms at this time but lab work and imaging showed no acute concerning findings. We will culture your urine to make sure there is not a UTI. I recommend close follow-up with primary care provider and orthopedic provider. Return to emergency department for new or worsening symptoms Prescriptions: No Action atorvastatin 20 mg tablet 20 mg PO DAILY estradiol 0.01 % (0.1 mg/gram) cream 0.5 g vaginal .2x/week duloxetine 30 mg capsule,delayed release(DR/EC) 30 mg PO HS Patient Comments: PLUS 60 MG IN THE AM amoxicillin 500 mg capsule 2,000 mg PO DIRECTED Rx Instructions: prior to dental appts. clonazepam 0.5 mg tablet 0.5 mg PO DAILY PRN duloxetine 60 mg capsule,delayed release(DR/EC) 60 mg PO QAM Rx Instructions: PLUS 30 MG AT BEDTIME atenolol 50 mg tablet 50 mg PO BID Myrbetriq 50 mg tablet extended release 24 hr 50 mg PO DAILY cyclobenzaprine 10 mg tablet 10 mg PO TID PRN Ozempic 1 mg/dose (4 mg/3 mL) pen injector 1 mg subcut QWEEK diclofenac sodium [Arthritis Pain (diclofenac)] 1 % gel 4 g topical QID Qty: 100 0RF Rx Instructions: apply to single knee, ankle, foot; for foot includes sole/toes/top of foot aspirin 81 mg tablet,delayed release (DR/EC) 81 mg PO BID Qty: 50 0RF Rx Instructions: Medication to help prevent blood clots postoperatively; take TWICE daily. acetaminophen 500 mg capsule 500 - 1,000 mg PO Q6H MDD 4000mg PRNQty: 100 0RF sennosides-docusate sodium [Senna-S] 8.6-50 mg tablet 1 - 4 tab-cap PO BID PRN (Reason: constipation) Qty: 60 0RF Rx Instructions: Hold medication if experiencing loose stools. rivaroxaban 10 mg tablet 10 mg PO DAILY Qty: 4 0RF Rx Instructions: Medication for deep vein clot prevention post surgery. Complete this medication before starting Aspirin. trazodone 50 mg tablet 50 mg PO HS nitroglycerin 0.4 mg tablet, sublingual 0.4 mg sublingual Q5M PRN amlodipine 2.5 mg tablet 5 mg PO DAILY aspirin [Ecotrin Low Strength] 81 mg tablet,delayed release (DR/EC) 81 mg PO DAILY celecoxib 200 mg capsule 200 mg PO DAILY omega 6-kzs-dej-fish oil [Fish Oil] 1,000 (120-180) mg capsule 3 cap PO DAILY PRN Rx Instructions: TAKES NEEDED FOR CONSTIPATION sennosides [senna] 8.6 mg tablet 17.2 mg PO BID polyethylene glycol 3350 [ClearLax] 17 gram/dose powder 17 g PO DAILY sulfamethoxazole-trimethoprim 800-160 mg tablet 1 tab PO BID 7 Days Qty: 14 0RF glipizide 10 mg tablet 10 mg PO DAILY oxycodone 5 mg tablet 2.5 - 5 mg PO Q4-6H MDD 6 PRN (Reason: pain) Qty: 20 0RF Rx Instructions: Take as needed for postop pain: 2.5mg mild pain, 5mg moderate-severe pain; wean as tolerated. Follow Up/Referrals: Marilu Zeng MD [Primary Care Provider] - Stand Alone Forms: [employer] Instructions
[2024-11-14 19:13] LABS: Creatinine, Point-of-Care* 1.1 mg/dl (0.6-1.3)
[2024-11-14 19:34] LABS: Chloride* 101 mmol/L (96-114); Potassium* 4.2 mmol/L (3.6-5.1); Sodium* 134 mmol/L (135-149)
[2024-11-14 19:37] LABS: Anion Gap 10 mEq/L (7-15); Blood Urea Nitrogen* 26 mg/dL (7-30); Calcium* 9.1 mg/dL (8.4-10.6); Carbon Dioxide* 23 mmol/L (20-32); Est. Creatinine Clearance* 50.18; Estimated Glomerular Filt Rate 60 ml/min; Glucose* 173 mg/dL (60-115)
[2024-11-14 19:58] LABS: Troponin I* < 0.01 ng/mL (0.01-0.04)
== END 2024-11-14 20:28 | disposition home or self-care (01) ==
PROVIDERS: Emergency Provider Student in an Organized Health Care Education/Training Program; PCP Family Medicine
DX: R10.30 Lower abdominal pain, unspecified (principal); R35.0 Frequency of micturition; R53.83 Other fatigue
CPT/HCPCS: 36415; 74177; 80048; 81001; 82565; 84484; 85025; 93005; 99284; 99285; Q9967

== ENCOUNTER 2025-03-24 13:00 | Outpatient (RCR) | payer MEDICARE, BC, SELFPAY ==
--- NOTE | 2024-10-10 14:12 | PT.OPEX ---
Please sign the attached PT evaluation completed on 10/10/24. Thank you. PT [place] [facility] Eval PT [facility] Outpatient Eval Start: 10/07/24 13:44 Freq: Status: Active Protocol: Document 10/10/24 09:18 TLQ (Rec: 10/10/24 14:01 TLQ [id number]) E-signed By Frances Moore DPT Physical Therapy Outpatient Evaluation Insurance Information Recert Due Date 01/08/25 Insurance Name Medicare B,Blue Cross/Blue Shield Insurance Information/Comments [facility] [place] [facility] Unilateral primary osteoarthritis, left hip M16. 12 Presence of left artificial hip joint Z96.642 Treating Diagnosis Left hip pain M25.552 Stiffness of left hip M25.652 Muscle weakness M62.81 Impaired gait R26.9 Imaging Report Information X-ray of L hip completed on with the following impression per radiology report: Mild-moderate degenerative joint disease left hip. MRI of L hip completed on with the following impression per radiology report: 1. Left hip joint osteoarthritis. 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 Moderate subchondral edema signal and cystic change. 2. Moderately large hip joint effusion. 3. Linear tearing through the superior labrum. Thickened, confluent tearing through the base of the anterosuperior labrum. 4. Mild to moderate gluteus minimus insertional tendinopathy. 5. Mild iliopsoas bursitis. Referring MD Martin Dean MD Subjective Preferred Name Saadia Subjective Saadia has been having pain in her left hip since last summer . Since then her pain has worsened. She is able to manage her pain with Celebrex and Tylenol. She tried conservative management with PT and cortisone injection without significant relief. When she takes pain medication she is able to walk without her cane. When pain worsens she needs to use her cane to be able to walk around. Saadia states she is scheduled for an angiogram at [facility] tomorrow. If it shows her heart is blocked then she will have a stent placed. If she needs to have a stent placed then she will not be able to have her hip surgery for 6 months. PMHx: R TYLER (2020), scoliosis, T2DM, HTN, depression, allergies Pain Comments 01/10 Date of Last Physician Visit 07/12/24 Date of Next Physician Visit 10/28/24 Date of Surgery (If applicable) 10/19/24 Current Work Status Retired Precautions Therapy Limitations/Systems Review Not Limited Objective Range of Motion LEFT HIP flexion: 90 degrees, pain extension: 20 degrees abduction: 40 degrees, pain adduction: 20 degrees internal rotation: 30 degrees, pain external rotation: 25 degrees, pain Strength LEFT HIP flexion: 4-/5 pain extension: 4/5 abduction: 5/5 adduction: 5/5 internal rotation: 4+/5 external rotation: 4+/5 Balance & Gait GAIT step through pattern with cane on R, antalgic with decreased WB on L BALANCE Romber seconds Tandem: 30 seconds Singe leg stance: R 10 seconds , L 6 seconds STAIR NAVIGATION step to pattern with use of railing, educated on post-op stair navigation pattern Assessment Assessment/Impression Saadia is a 69-year-old female who presents to physical therapy pre-op L TYLER, date of surgery 10/19/[address] Dean. Saadia began having pain in her left hip following a hiking trip in Summer 2023. She participated in conservative management with outpatient physical therapy and cortisone injection without significant symptom relief. X-ray and MRI results indicate osteoarthritic changes in addition cartilage changes and labral pathology. Prior to onset of symptoms Saadia was IND with all ADL's and gait. She requires use of a cane for pain relief during gait at this time. Today, Saadia was educated on the following : fall prevention, adaptative resources, pre-op exercises, post-op movement precautions and post-operative rehabilitation. She was provided with handouts in addition to verbal education. Saadia surgery TYLER is scheduled for 10/19/24 pending the results of her angiogram tomorrow (10/11/24). Saadia is scheduled for outpatient post- op TYLER rehabilitation at [facility] starting on 10/26/24. Saadia will benefit from skilled physical therapy interventions to progress post-op L TYLER strength, ROM, and gait for return to prior functional status. Primary Functional Limitations left hip pain, muscle weakness , abnormal gait, stair navigation Plan of Care Rehabilitation Potential Good Physical Therapy Goals STG within 4-6 weeks: 1. Pt will ambulate at least 10 minutes with LRD device, minimal antalgic gait for improved community mobility. 2. Pt will have good adherence to her HEP to increase muscle strength and for pain management. LTG: within 12 weeks: 1. 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 2. Pt will improve hip AROM at least 0-90 for improved sit to stand transfers. 3. Pt will ascend/descend at least 3 steps using single rail and reciprocal pattern to improve ease of mobility at home/community. 4. Pt will ambulate at least 30 minutes with LRD device, minimal antalgic gait for improved community mobility. Treatment Plan/Direct Interventions Compression Garments, Electrical Stimulation,Gait Training,Ice/Cold/ Vasopneumatic,Manual Therapy, Neuromuscular Re-ed,Self-Care/ Home Management,Therapeutic Activities,Therapeutic Exercises Frequency/Duration 1x/week for 8-12 weeks Patient Will Be Discharged From Therapy Completion of LTG(s),Skills Plateau,Independent w/HEP, Independently Progressing Evaluation Billing Untimed Code Treatment Minutes 30 Complexity Low Certification Information Initial Certification Date 10/10/24 Ending Certification Date 01/08/25 Provider Signature Required Yes Provider Signature Shows Agreement With POC & Medical Necessity Physician NPI Number Write NPI# Here Physician Comment/Change : Physician Signature & Date Requested Please Sign/Date Here
--- NOTE | 2024-12-14 14:30 | PT.OP2DDNX ---
[facility] 2nd Diagnosis Daily Note PT [facility] 2nd Diag Daily Note Start: 12/13/24 08:31 Freq: Status: Active Protocol: Document 12/13/24 09:34 FREEDOM (Rec: 12/13/24 14:58 FREEDOM [id number]) E-signed By Cathy Savage, PT PT OP 2nd Diagnosis Daily Note Visit Information Note Type 2nd Diagnosis Daily Note, Evaluation-2nd Diagnosis Visit Number 1 Insurance Information Insurance Name Medicare B Medical Diagnosis urinary incontinence Treating Diagnosis chronic constipation, nocturnal enuresis, OAB, LBP Subjective Subjective She has been unable to contain urine. She had TYLER. She feels she would need to void every hour on the hour. WOrst at night. She is out of bed 2-3x/night and every time is to replace a completely saturated brief with a pad. It is passively leaking during sleep. She is told she has sleep apnea, tried a CPAP. Did not continue p 6 months due to poor sleep. Sometimes she gets 2-3 hours of sleep at a time. Changing pads, cleaning up, disposing of items. She feel bladder urge significantly when changing positions and is already leaking prior to getting up. Sleeps on a rubber sheet to protect mattress. She feels limited in ability to as a result. She pays over $2000/ year in supplies. Not very strong urge during the day to void. She goes more by clock than sensation of bladder. Has had PTNS with needle in calf 12 weeks, 3-5x/week. Is on merbetric for OAB. During the day she uses 4 pads /day. All the time leaking. Prior to 5 years ago it was laugh/cough/sneeze. She hit menopause at approx 48 years of age. Gall bladder out, ovaries removed due to family hx of cancer at least 10 years ago. Low back arthritis, scoliosis, painful lower back for years. No more urine to empty by the time she gets to the toilet. Interstim implant for bladder, removed January 2023, in for approx 2 weeks. No change in sx. Bowel- chronic constipation for several years, approx 3 years. Went to [facility] for constipation. She takes 5-6 sennas during the day, mirilax at night, 5-6 prunes every day, fish oil capsules. She has every other day stools, uses suppository if over 3 days. BSS 1-2, Strains for BMs. does not use foot stool. R lateral wall abdominal discomfort. She takes in 40-64 oz fluid/day. Series of Botox injections to bladder. The first time was magic, felt normal for 2 weeks. Ozempic 3 years, constipation problems. Blood sugars were OK a few weeks ago. Last A1C was 6.7. Lost 10 # c L hip surgery. HAs a [employer] membership but does not exercise there. Walks as she can post-TYLER 2 years ago 8 bladder infections in one yr, [place] preventative routine. Had one after hip surgery again. Vaginal cream for 3 years R TYLER 5 yrs ago and bladder worsened after. H/o fertility issues. A year of fertility treatments. Chlomid use with went well, 1 child. A couple of miscarriages prior to c delivery. She uses estriol 2x/week with applicator. Not sexually active d/t previous pain with menopausal changes. 6 months of hip pain prior to L TYLER. R TYLER resulted in lateral thigh numbness for a year. Precautions Treatment Precautions/Contraindications Type 2 diabetic c ozempic, lots of meds. Home Exercise Home Exercise Comments abdominal massage, diaphragmatic breathing. Objective Other/Pertinent Objective Pelvic Floor Assessment: Bladder hx: full bladder incontinence overnight, during day leaks on pads. Cannot pee if backed up with stool, then once she does BM she urinates a ton. Needs to schedule voids to go. has recurrent UTI 2 years ago. Bowel Hx: chronic constipation past 3 years, uses senna and mirilax, occasional suppository Pelvic hx: atrophy and pian c menopause, no intercourse since. She now uses vaginal estrogen / hx:infretility tx, one vaginal delivery c 10 hour labor Breathing: chest/neck breathing Pressure management: poor [place]: increased tension superiorly TA strength: fair LUMBAR ROM Flexion: pain, guarded repeated flexion: pain Extension: 50% Right Sidebend: no sx Left Sidebend: no sx LE MMT Hip flexion: R 5/5 L 4/5 Hip Extension: R 4/5 L 3/5 Hip abduction: R 4/5 L 3+/5 knee extension: R 5/5 L 5/5 Knee Flexion: R 5/5 L 5/5 HIp ER L 3/5, R 4/5 Hip IR 3+/5, L 4/5 JOINT MOBILITY/PALPATION Functional Test Performed & Score Gait: impaired L stance c R swing, mild lateral trunk tilt Patient Instructed in Risks/Benefits Yes Neuromuscular Re-Ed Neuromuscular Reeducation Comments diaphragmatic breathing Self Care Management Training Self Care Management Training abdominal massage education on POC 2nd Diagnosis Billing Complexity-2nd Diagnosis Moderate Billing Units Neuromuscular Reeducation Units 1 Re-Evaluation Units 1 Assessment/Impression Assessment/Impression Pt is a 69 yr old female c a h /o pelvic floor weakness that worsened around the times of hip degenerative changes, resulting TYLER. She has had improved pain control following TYLER's. She has worst urinary sx at night with full bladder loss while sleeping, prior to transfer and to get to toilet. She does have DM II and takes ozempic which correlates with her constipation timelime. She also has strain and hard stools. she has trialed neuro modulation of TTNS and interstim at sacral nerves s success. She does have untreated sleep apnea which can correlate to sleep disruptions and impaired sleep recovery. She has h/o of gallbladder surgery adn oophrectomy and well and Bilat TYLER c L>R hip weakness as possible contributing factors. She has been very frustrated with her bladder status and is hopeful PT can help. Plan of Care Physical Therapy Goals Pt will report 50% improvement in overall nocturesis in 6 weeks for improved QOL. Pt will be indep c 360 breathing to improve pelvic floor coordination in 4 weeks. Pt will demonstrate indep c pelvic floor lift on exhale to support structurally with exertion in 12 weeks. Pt will report improved bladder emptying in 12 weeks for improved QOL. Pt will demonstrate improved toilet hygiene with postural considerations and no straining to evacuate bowels or bladder to reduce downward forces on pelvic floor in 12 weeks. Daily Plan of Care Continue per POC Daily Plan of Care Comments internal assessment, pelvic floor strengthening hip rotator strengthening Certification Information Initial Certification Date 12/13/24 Ending Certification Date 03/13/25 Provider Signature Required Yes Provider Signature Shows Agreement With POC & Medical Necessity Physician NPI Number Write NPI# Here Physician Comment/Change :
--- NOTE | 2024-12-27 13:49 | PT.OPDNX ---
Please sign the attached progress note. Thank you. [facility] Daily Note [facility] Daily [facility] Start: 10/07/24 13:44 Freq: Status: Active Protocol: Document 12/27/24 11:57 TLQ (Rec: 12/27/24 13:46 TLQ [id number]) E-signed By Frances Moore DPT PT [facility] Daily Progress Note Visit Information Note Type Daily Note,Recert/Progress Note Visit Number [id number] Insurance Information Recert Due Date 01/08/25 Insurance Name Medicare B,Blue Cross/Blue Shield Insurance [place] [employer] Information/Comments Medical Diagnosis Unilateral primary osteoarthritis, left hip M16.12 Presence of left artificial hip joint Z96.642 Treating Diagnosis Left hip pain M25.552 Stiffness of left hip M25.652 Muscle weakness M62.81 Impaired gait R26.9 Referring MD Martin Dean MD Subjective Preferred Name Saadia Subjective Feeling a little sore today after gardening yesterday, muscle soreness. The tightness in the front of her hip has improved. She feels like she walks fine when walking at a comfortable speed. Date of Last 11/29/24 Physician Visit Date of Surgery (If 10/19/24 applicable) Precautions Treatment L TYLER w/ anterior approach 10/19/24 Precautions/ Progress activity as tolerated Contraindications Weight Bearing Full Weight Bearing Status Home Exercise Home Exercise Access Code: [email or web address] Comments URL: [email or web address] Date: 12/27/2024 Prepared by: Frances Moore Exercises: - Standing Hip Flexor Stretch - 1-2 x daily - 3-5 reps - 15 seconds hold - Lying Prone - 2-3 x weekly - 3-5 minutes hold - Supine Bridge - 1-2 x daily - 10 reps - Supine Active Straight Leg Raise - 1-2 x daily - 10 reps - Standing Hip Abduction with Resistance at Ankles and Counter Support - 1-2 x daily - 10 reps - yellow resistance - Squat with Counter Support - 1-2 x daily - 10 reps - Standing March with Counter Support - 1-2 x daily - 10 reps - 1-3 seconds hold - Standing to Half Kneel with Chair Support - 1 x daily - 4 x weekly - 5 reps - Knee Extension with Weight Machine - 1 x daily - 2-3 x weekly - 2-3 sets - 8-10 reps - 10# weight - Hamstring Curl with Weight Machine - 1 x daily - 2-3 x weekly - 2-3 sets - 8-10 reps - 30# weight - Full Leg Press - 1 x daily - 2-3 x weekly - 2-3 sets - 8-10 reps - 50# weight Objective Other/Pertinent Gait: normal without A.D. Objective Balance: SLS 3 seconds on R, 2 seconds on L Left hip ROM: WFL Patient Instructed Yes in Risks/Benefits Therapeutic Exercise Therapeutic Exercise 40 Minutes (minutes) Therapeutic Exercise - recumbent bike (seat 5) L2 x 6 minutes : To Restore - full range SLR x 10 reps Functional Status - supine glute bridges to neutral hip extension x 10 reps - squats with counter support x 10 reps, v/c for glute activation - 1/2 kneel <> stand with furniture support for floor transfer training x 3 reps each - SLS at counter x 10 reps x 3 second holds, counter support prn - seated knee extension machine 10# 2 x 10 reps - seated leg press 50-55# 2 x 10 reps - seated hamstring curl machine 20-30# 2 x 10 reps (+ HEP) Treatment Minutes Timed Code Treatment 40 Minutes Total Treatment Time 40 Billing Units Therapeutic Exercise 3 Units Assessment/Impression Assessment/ Saadia returns to physical therapy 10-weeks s/p L TYLER Impression with anterior approach. She reports improvements in her gait and anterior hip flexibility. Increased soreness in her lower extremities after gardening, she continue to find it difficult to get off the ground after gardening. Saadia plans to start attending the [facility] more frequently for strengthening, completed strength machines in clinic today with education provided on exercise dosage, handouts provided. Saadia demonstrates limitations with L hip flexor strength, floor <> stand transitions, and single limb balance at this time. She will benefit from additional skilled interventions to progress functional strength and balance to safely garden and complete yard work. Plan of Care Physical Therapy STG within 4-6 weeks: Goals 1. Pt will ambulate at least 10 minutes with LRD device , minimal antalgic gait for improved community mobility . MET 2. Pt will have good adherence to her HEP to increase muscle strength and for pain management. MET LTG: within 12 weeks: 1. Pt will be IND with HEP for meterman management of pain/symptoms. 2. Pt will improve hip AROM at least 0-90 for improved sit to stand transfers. MET 3. Pt will ascend/descend at least 3 steps using single rail and reciprocal pattern to improve ease of mobility at home/community. 4. Pt will ambulate at least 30 minutes with LRD device , minimal antalgic gait for improved community mobility . Daily Plan of Care Continue per POC Daily Plan of Care Hip/quad strength Comments Balance Recertification Information Recertification 01/02/25 Start Date Recertification Due 04/02/25 Date Reasons to Continue See assessment above Skilled Therapy Rehabilitation Good Potential Continued Plan of Therapeutic exercise Care and Therapeutic activity Interventions Manual therapy Gait training Neuromuscular re-education Provider Signature POC & Medical Necessity Shows Agreement With Physician Comment/ Comment or Changes Change Physician NPI Number #
== END 2025-07-22 23:59 | disposition home or self-care (01) ==
PROVIDERS: PCP Family Medicine; Visit Provider Orthopaedic Surgery Sports Medicine
DX: M16.12 Unilateral primary osteoarthritis, left hip (principal); Z96.642 Presence of left artificial hip joint; N32.81 Overactive bladder; R32 Unspecified urinary incontinence; Z51.89 Encounter for other specified aftercare
CPT/HCPCS: 97110; 97112; 97140; 97161; 97162; 97164; 97530; 97535